=== PATIENT | male | born 1955 | race Caucasian/White ===

== ENCOUNTER → 2016-12-02 | Outpatient (CLI) | payer BC, OTHER ==
[~2016-12-02] MED LIST: ALBINS/ INH; ALBUAER19 INH; ALPR-385 PO; ALPR1TAB PO; ALPR1TAB3 PO; ALPR2TAB6 PO; AMOX500C3 PO; ASPI81TA28 PO; BACL10TA PO; BENZ100C84 PO; BTLAI INJ; BTLAI200 INJ; CEFT2INJ40 IV; FINA5TAB PO; FLNIN/ NAE; FLUT0.15 NAE; FURO-85 PO; GABA-113 PO; IPRASOL4 INH; LEVO50TA6 PO; LINA1CAP PO; MELATAB2 PO; MISCCAP80 PO; MULT-506 PO; MULT-513 PO; NRN600 PO; OMEG10007 PO; OMEG12006 PO; OMEP40CA41 PO; OXYC-57 PO; POLY335019 PO; PRS5 PO; RANI300T2 PO; RIVA1TAB4 PO; RIVA1TAB7 PO; SODICRE2 PO; SPRIN/30 INH; SULF800T23 PO; SUVO1TAB4 PO; SYMIN160 INH; TADA10TA PO; TADA20TA PO; TAMS0.4C38 PO; TRAZ50TA35 PO; TSSP PO; VLM5 PO; VNTHFA/IN INH; VORT10TA12 PO; XRL15 PO; ZOLP12.5 PO; [UNRECOGNIZED DRUG - OTHER] TOP
--- NOTE | 2016-12-02 16:55 | DIAGNOSTIC IMAGING REPORT ---
BILATERAL KNEES, STANDING AP CLINICAL HISTORY: BILATERAL KNEE PAIN COMPARISON STUDY: Bilateral knees 08/21/2015. FINDINGS: AP standing view of the bilateral knees were submitted for review. Severe cartilage space narrowing with [id number] articulation at the lateral compartment of the right knee. There is also severe cartilage space narrowing within the medial compartment of the right knee. There is moderate cartilage space narrowing within the medial compartment of the left knee and mild cartilage space narrowing within the lateral compartment of the left knee. The cartilage space narrowing has progressed within both knees compared to the prior study. There are right greater the left osteophytes. No fracture or dislocation. Bipartite left patella. IMPRESSION: Right greater than left knee osteoarthritis as described above which has progressed compared to the prior study. Electronically signed by: Ivan Carballo M.D. 12/02/2016 4:53 PM Dictated Date/Time: 12/02/2016 4:51 PM
== END | disposition home or self-care (01) ==
LOC: C.RDSM 13:58
PROVIDERS: ATTEND Physical Medicine & Rehabilitation Sports Medicine
DX: M17.0 Bilateral primary osteoarthritis of knee (principal)

== ENCOUNTER → 2017-01-11 | Outpatient (CLI) | payer BC ==
[~2017-01-11] MED LIST changes: +OPTIRAY 320 IV PRN
--- NOTE | 2017-01-11 18:36 | DIAGNOSTIC IMAGING REPORT ---
CT ANGIOGRAPHY OF THE CHEST, PULMONARY EMBOLUS PROTOCOL CLINICAL HISTORY: Shortness of breath, chest tightness and elevated d-dimer. COMPARISON STUDY: Chest CT April 13, 2015. TECHNIQUE: Initially, infiltration at the IV site was noted. The patient was monitored and the risks were discussed with the patient. The patient was neurovascularly intact. The patient was asked to return to the emergency department with any difficulties. Following IV administration of 94 mL of Optiray-320, helical axial images of the chest were obtained utilizing the pulmonary embolus protocol. Maximal intensity projections and sagittal and coronal reformats were viewed on an independent 3D workstation. IV contrast was administered without complication. CT DOSE: 1365.49 mGy.cm FINDINGS: No pulmonary emboli are identified. The heart is mildly enlarged. There is no pericardial effusion. There is moderate coronary artery calcification. No enlarged thoracic lymph nodes are present. No pneumothorax or pleural effusion is present. There are mild groundglass opacities within the right lower lobe. No lobar consolidation is present. Central airways are patent. Bony thorax and upper abdomen are unremarkable. There is no thoracic aortic dissection. IMPRESSION: 1. No pulmonary emboli identified. 2. Minimal ground glass opacities within the right lower lobe which could reflect atelectasis or a mild infectious process. 3. Mild cardiomegaly. Electronically signed by: William iPneda M.D. 01/11/2017 6:34 PM Dictated Date/Time: 01/11/2017 6:23 PM
== END | disposition home or self-care (01) ==
LOC: C.CTS 17:30
PROVIDERS: ATTEND Internal Medicine Pulmonary Disease
DX: R06.02 Shortness of breath (principal)

== ENCOUNTER → 2017-01-11 | Outpatient (CLI) | payer BC ==
[~2017-01-11] MED LIST changes: -OPTIRAY 320 IV PRN
[2017-01-11 15:45] LABS: BASO % 0.2 %; BASO ABS # 0.01 K/uL (0-0.2); COMPLETE YES; EOS % 1.9 %; HEMATOCRIT 42.7 % (42-52); IG% 0.3 %; LYMPH % 19.6 %; LYMPH ABS # 1.13 K/uL (1.2-3.4); MEAN CELL VOLUME 85.1 fL (80-100); MEAN CORPUSCULAR HEMOGLOBIN 29.7 pg (25-34); MEAN CORPUSCULAR HGB CONC 34.9 g/dl (32-36); MEAN PLATELET VOLUME 11.5 fL (7.4-10.4); MONO % 5.7 %; NEUT % 72.3 %; PLATELET COUNT 192 K/uL (130-400); RED BLOOD COUNT 5.02 M/uL (4.7-6.1); WHITE BLOOD COUNT 5.77 K/uL (4.8-10.8)
[2017-01-11 16:13] LABS: BLOOD UREA NITROGEN 13 mg/dl (7-18); BUN/CREATININE RATIO 13.8 (10-20); CALCIUM 8.6 mg/dl (8.5-10.1); CARBON DIOXIDE 27 mmol/L (21-32); CHLORIDE 111 mmol/L (98-107); CREATININE 0.97 mg/dl (0.60-1.40); GLUCOSE 123 mg/dl (70-99); POTASSIUM 3.9 mmol/L (3.5-5.1); SODIUM 144 mmol/L (136-145)
== END | disposition home or self-care (01) ==
LOC: C.LAB 15:04
PROVIDERS: ATTEND Internal Medicine Pulmonary Disease
DX: R05 Cough (principal); R06.02 Shortness of breath

== ENCOUNTER → 2017-02-14 | Outpatient (CLI) | payer BC ==
--- NOTE | 2017-02-14 09:29 | DIAGNOSTIC IMAGING REPORT ---
RIGHT HAND MIN 3 VIEWS CLINICAL HISTORY: RIGHT HAND PAIN Right pain. Osteoarthritis. COMPARISON: 01/22/2016. FINDINGS: slightly progressive degenerative change first carpometacarpal joint. Unchanging degenerative change first metacarpophalangeal interphalangeal joint. Minimal stable degenerative changes of the interphalangeal joints. No significant marginal erosions. IMPRESSION: 1. Significant degenerative change first carpometacarpal joint minimally progressive from the prior study. 2. Moderate degenerative change first metacarpophalangeal joint unchanged. 3. Minimal degenerative change interphalangeal joints unchanged Electronically signed by: Helio Salcido M.D. 02/14/2017 9:26 AM Dictated Date/Time: 02/14/2017 9:24 AM
== END | disposition home or self-care (01) ==
LOC: C.RDSM 09:18
PROVIDERS: ATTEND Physician Assistant
DX: R52 Pain, unspecified (principal)

== ENCOUNTER → 2017-02-23 | Outpatient (CLI) | payer BC, OTHER | END | disposition home or self-care (01) | LOC: MERGE 17:55 → C.LABSPEC 17:55 → EDBD 17:55 | PROVIDERS: ATTEND Podiatrist Foot & Ankle Surgery | DX: L60.0 Ingrowing nail (principal) ==

== ENCOUNTER → 2017-03-13 | Outpatient (CLI) | payer OTHER | END | disposition home or self-care (01) | LOC: C.RDSM 08:00 | PROVIDERS: ATTEND Physical Medicine & Rehabilitation Sports Medicine | DX: M25.512 Pain in left shoulder (principal) ==

== ENCOUNTER 2017-06-13 09:32 | Inpatient (IN) | payer OTHER ==
[~2017-06-13] VITALS: Ht 182.9 cm; Wt 96.2 kg
[~2017-06-13 09:32] MED LIST changes: -ALBINS/ INH; -ALPR-385 PO; -ALPR1TAB PO; -ALPR1TAB3 PO; -BENZ100C84 PO; -BTLAI200 INJ; -CEFT2INJ40 IV; -FLUT0.15 NAE; -FURO-85 PO; -LINA1CAP PO; -MULT-513 PO; -NRN600 PO; -OMEG10007 PO; -OXYC-57 PO; -PRS5 PO; -RANI300T2 PO; -RIVA1TAB4 PO; -RIVA1TAB7 PO; -SODICRE2 PO; -SPRIN/30 INH; -SULF800T23 PO; -TADA20TA PO; -VLM5 PO; -VNTHFA/IN INH; -VORT10TA12 PO; -XRL15 PO
[2017-06-13] MEDS ORDERED: SODIUM CHLORIDE 0.9% 1000ML 1,000 ML IV STA (09:48)
[2017-06-13] MEDS ORDERED: ONDANSETRON INJ 2 MG/ML 2 ML VIAL IV STA (09:48)
--- NOTE | 2017-06-13 09:55 | EMERGENCY ROOM VISIT NOTE ---
History Report prepared by Kayyibjuhi: Lillie Martinez Under the Supervision of: Dr. Shawn Flores D.O. First contact with patient: 09:44 Chief Complaint: REFERRED BY DOCTOR Stated Complaint: SHAKING - RIGHT HIP OUT - COUGHING History of Present Illness The patient is a 61 year old male who presents to the Emergency Room with complaints of persistent chest pain for the past 1 week. He is accompanied by his . He rates his pain as a 9/10 and describes it as feeling like "tightness". Sitting up worsens his pain and also causes the patient to cough. The cough has been dry and non-productive. The patient states he has never experienced symptoms like this before. He admits to a history of pleurisy but states his current symptoms feel different. He denies any recent fevers, nausea or vomiting. Yesterday, he started experiencing right hip pain. He saw his doctor, Ysabel Stinson PA-C, at [facility], earlier this morning and was referred to the ED for his symptoms. The patient also complains of abdominal pain for the "last couple of days". He notes his appetite has been decreased and admits to a history of constipation. His reports he takes Linzess for his constipation. The patient still has both his appendix and gallbladder. He denies any pain or swelling in his legs and denies any history of DVT's. 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 A total of 10 systems reviewed and were otherwise negative. Past Medical & Surgical Medical Problems: (1) Anxiety (2) COPD (chronic obstructive pulmonary disease) (3) Depression (4) Enlarged prostate (5) GERD (gastroesophageal reflux disease) (6) Hypothyroidism (7) Tonsil cancer (8) Urinary retention (9) VSD (ventricular septal defect) Surgical Problems: (1) H/O arthroscopy of shoulder (2) H/O umbilical hernia repair (3) History of carpal tunnel release (4) History of tonsillectomy and adenoidectomy (5) Right ankle surgery (6) S/P left knee arthroscopy (7) S/P right knee arthroscopy (8) S/P TURP Social History Problems: (1) COPD exacerbation (2) H/O gastroesophageal reflux (GERD) (3) H/O laryngeal cancer (4) S/P hernia repair (5) VSD (ventricular septal defect) Family History Diabetes mellitus FH: lung disease FHx: cancer Social History Smoking Status: Never Smoker Alcohol Use: occasionally Drug Use: none Marital Status: Housing Status: lives with significant other Occupation Status: employed Current/Historical Medications Scheduled Alprazolam (Xanax), 1 MG PO TID Alprazolam (Xanax Xr), 1 TAB PO BID Baclofen (Lioresal), 20 MG PO QID Botulinum Toxin Type A (Botox), 1 DOSE INJ UD Budesonide/Formoterol Fumarate (Symbicort 160/4.5 Inhaler ), 2 PUFFS INH BID Finasteride (Finasteride), 5 MG PO DAILY Fish Oil (Jackson-3), 1 CAP PO DAILY Fluticasone Propionate (Nasal) (Flonase Allergy Relief), 1 SPRAY ELIA DAILY Gabapentin (Gabapentin), 600 MG PO TID Levothyroxine Sodium (Levothyroxine Sodium), 50 MCG PO DAILY Linaclotide (Linzess), 145 MCG PO DAILY Multivitamins/Minerals (Mvi With Minerals), 1 TAB PO DAILY Omeprazole (Prilosec), 40 MG PO DAILY Probiotic Product (Probiotic), 1 CAP PO DAILY Ranitidine (Zantac), 300 MG PO HS Sodium Fluoride (Dental) (Denta 5000 Plus), 1 APPLN PO UD Tadalafil (Cialis), 20 MG PO UD Tamsulosin Hcl (Flomax), 0.4 MG PO DAILY Tiotropium [place] (Spiriva Handihaler), 1 CAP INH DAILY Vortioxetine HBr (Trintellix), 15 MG PO DAILY Scheduled PRN Albuterol Sulf (Proventil 0.083% 2.5MG/3ML), 2.5 MG INH Q4 PRN for Wheezing Benzonatate (Tessalon Perles), 100-200 MG PO TID PRN for Cough Ipratropium-Albuterol (Duoneb), 1 TREATMENT INH Q4H PRN for SOB/Wheezing Suvorexant (Belsomra), 20 MG PO HS PRN for Insomnia Trazodone Hcl (Trazodone), 25-50 MG PO HS PRN for Sleep Zolpidem Tartrate (Ambien Cr), 12.5 MG PO HS PRN for Insomnia Allergies Coded Allergies: Statins (Verified Adverse Reaction, Intermediate, GI UPSET, 08/11/16) Temazepam (Verified Adverse Reaction, Unknown, LOSES VOLUNTARY MUSCLE CONTROL, 08/11/16) Physical Exam Vital Signs Date Time Temp Pulse Resp B/P (MAP) Pulse Ox O2 Delivery O2 Flow Rate FiO2 06/13/17 12:10 92 Room Air 06/13/17 12:02 74 16 112/70 92 Room Air 06/13/17 11:07 75 20 110/66 94 Nasal Cannula 2.0 06/13/17 10:29 73 20 124/76 95 Nasal Cannula 2.0 06/13/17 10:06 92 Nasal Cannula 2.0 06/13/17 10:03 96 06/13/17 10:02 92 Nasal Cannula 2.0 06/13/17 09:35 36.8 92 18 129/71 94 Room Air Physical Exam GENERAL: Patient is awake, alert, very anxious and appears to be in significant pain. EYES: The conjunctivae are clear. The pupils are round and reactive. EARS, NOSE, MOUTH AND THROAT: The nose is without any evidence of any deformity. Mucous membranes are moist dry, is midline NECK: The neck is nontender and supple. RESPIRATORY: Splinting respirations noted, no rales, rhonchi or wheezing appreciated. CARDIOVASCULAR: Heart sounds are very distant and difficult to auscultate. GASTROINTESTINAL: The abdomen is moderately distended and diffusely tender. Diffuse guarding noted. MUSCULOSKELETAL/EXTREMITIES: There is no evidence of gross deformity full range of motion is noted in the hips and shoulders SKIN: There is no obvious evidence of any rash. There are no petechiae, pallor or cyanosis noted. NEUROLOGIC: Patient is awake alert and oriented x3 Medical Decision & Procedures ER Provider Diagnostic Interpretation: Radiology results as stated below per my review and radiologist interpretation: SINGLE VIEW CHEST CLINICAL HISTORY: Atypical chest pain. FINDINGS: An AP, portable, upright chest radiograph is compared to study dated 06/20/2016 and correlated with chest CT dated 01/11/2017. The examination is degraded by portable technique and patient rotation. The heart is enlarged. The pulmonary vasculature is noncongested. The lungs and pleural spaces are clear. No pneumothorax is seen. The bony thorax is grossly intact. There is moderate S-shaped thoracolumbar scoliosis. IMPRESSION: Cardiomegaly with no active disease in the chest. Electronically signed by: eJff Amaya M.D. 06/13/2017 10:07 AM ABDOMEN AND PELVIS CT WITH IV CONTRAST CT DOSE: HISTORY: Right lower quadrant abdominal pain. TECHNIQUE: Multiaxial CT images of the abdomen and pelvis were performed following the use of intravenous contrast. A dose lowering technique was utilized adhering to the principles of ALARA. COMPARISON STUDY: Abdomen and pelvis CT 07/12/2016. FINDINGS: No pneumoperitoneum. No pneumatosis. Mild motion artifact within the midabdomen. No fractures within the visualized osseous structures. Levoscoliosis of the lumbar spine. The liver, gallbladder, pancreas, adrenal glands, and kidneys are unremarkable. No hydronephrosis. No retroperitoneal lymphadenopathy. The bladder is distended and contains a few small diverticula. This remains unchanged. Tiny fat-containing umbilical hernia. Moderate stool seen throughout the colon. No definite bowel wall thickening or obstruction. The visualized appendix appears unremarkable. Splenomegaly measuring 14 cm in length. This has increased in size IMPRESSION: 1. No definite bowel wall thickening or obstruction. 2. Normal appendix. 3. Moderate stool within the colon. 4. Distended bladder, unchanged. 5. Splenomegaly which has slightly increased in size. Electronically signed by: Ivan Carballo M.D. 06/13/2017 11:29 AM CHEST CTA for PULMONARY ARTERIES CT DOSE: 1603.47 mGycm HISTORY: Atypical chest pain. TECHNIQUE: Multiaxial CT images of the chest were performed following the intravenous administration of contrast to evaluate the pulmonary arteries. Maximal intensity projection images were also obtained. A dose lowering technique was utilized adhering to the principles of ALARA. COMPARISON STUDY: Chest CTA 01/11/2017. FINDINGS: Normal caliber thoracic aorta with no evidence for dissection. The heart remains mildly enlarged. No pleural or pericardial effusions. Small filling defects seen within the subsegmental branches of the right lower lobe best seen on images 131 and 104. These are consistent with pulmonary emboli. The remaining arteries are patent. No evidence for right-sided heart strain. No mediastinal or hilar lymphadenopathy. No pneumothorax. A few scattered linear densities within the lungs suggestive of scarring or subsegmental atelectasis. 4 mm subpleural nodular density within the right upper lobe on image 195. Groundglass appearance throughout the lungs which may be due to expiration or dependent change. IMPRESSION: 1. Subsegmental pulmonary emboli within the right lower lobe. 2. Groundglass appearance to the lungs which may be due to expiration or dependent change. An atypical pneumonitis or mild congestive change is considered less likely. 3. Cardiomegaly, unchanged. Electronically signed by: Ivan Carballo M.D. 06/13/2017 11:18 AM Laboratory Results Test 06/13/17 10:10 06/13/17 10:13 06/13/17 10:17 06/13/17 10:22 Immature Granulocyte % (Auto) 0.3 % White Blood Count 7.49 K/uL (4.8-10.8) Red Blood Count 4.12 M/uL (4.7-6.1) Hemoglobin 11.8 g/dL (14.0-18.0) Hematocrit 35.4 % (42-52) Mean Corpuscular Volume 85.9 fL (80-100) Mean Corpuscular Hemoglobin 28.6 pg (25-34) Mean Corpuscular Hemoglobin Concent 33.3 g/dl (32-36) Platelet Count 239 K/uL (130-400) Mean Platelet Volume 9.9 fL (7.4-10.4) Neutrophils (%) (Auto) 79.4 % Lymphocytes (%) (Auto) 8.3 % Monocytes (%) (Auto) 12.0 % Eosinophils (%) (Auto) 0.0 % Basophils (%) (Auto) 0.0 % Neutrophils # (Auto) 5.95 K/uL (1.4-6.5) Lymphocytes # (Auto) 0.62 K/uL (1.2-3.4) Monocytes # (Auto) 0.90 K/uL (0.11-0.59) Eosinophils # (Auto) 0.00 K/uL (0-0.5) Basophils # (Auto) 0.00 K/uL (0-0.2) Immature Granulocyte # (Auto) 0.02 K/uL (0.00-0.02) Prothrombin Time 12.0 SECONDS (9.0-12.0) Prothromb Time International Ratio 1.1 (0.9-1.1) Total Bilirubin 1.0 mg/dl (0.2-1) Direct Bilirubin 0.4 mg/dl (0-0.2) Aspartate Amino Transf (AST/SGOT) 22 U/L (15-37) Alanine Aminotransferase (ALT/SGPT) 26 U/L (12-78) Alkaline Phosphatase 118 U/L (45-117) Total Creatine Kinase 36 U/L (39-308) Creatine Kinase MB < 0.5 ng/ml (0.5-3.6) Creatine Kinase MB Ratio (0-3.0) Troponin I < 0.015 ng/ml (0-0.045) Pro-B-Type Natriuretic Peptide 168 pg/ml (0-900) Total Protein 7.2 gm/dl (6.4-8.2) Albumin 3.1 gm/dl (3.4-5.0) Lipase 193 U/L (73-393) Bedside D-Dimer > 450 ng/mlFEU (0-450) Bedside Hemoglobin 12.2 g/dl (14.0-18.0) Bedside Hematocrit 36 % (42-52) Bedside Sodium 135 mEq/L (135-144) Bedside Potassium 3.7 mEq/L (3.3-5.0) Bedside Chloride 101 mEq/L (101-112) Bedside Total CO2 21 mEq/l (24-31) Bedside Blood Urea Nitrogen 12 mg/dl (7-18) Bedside Creatinine 0.9 mg/dl (0.6-1.3) Bedside Glucose (other) 124 mg/dl (70-99) Bedside Ionized Calcium (Teresa) 1.13 mmol/l (1.12-1.32) Bedside Lactic Acid Venous 0.67 mmol/L (0.90-1.70) Test 06/13/17 11:25 Urine Color YELLOW Urine Appearance CLOUDY (CLEAR) Urine pH 7.0 (4.5-7.5) Urine Specific [place] 1.014 (1.000-1.030) Urine Protein NEG (NEG) Urine Glucose (UA) NEG (NEG) Urine Ketones NEG (NEG) Urine Occult Blood NEG (NEG) Urine Nitrite NEG (NEG) Urine Bilirubin NEG (NEG) Urine Urobilinogen NEG (NEG) Urine Leukocyte Esterase NEG (NEG) Urine WBC (Auto) /hpf (0-5) Urine RBC (Auto) /hpf (0-4) Urine Hyaline Casts (Auto) /lpf (0-5) Urine Epithelial Cells (Auto) /lpf (0-5) Urine Bacteria (Auto) (NEG) Urine RBC 0-4 /hpf (0-4) Urine WBC 0 /hpf (0-5) Urine Epithelial Cells 0-5 /lpf (0-5) Urine Bacteria NEG (NEG) Laboratory results per my review. Medications Administered Medications (Trade) Dose Ordered Sig/Chanda Route Start Time Stop Time Status Last Admin Dose Admin Ondansetron HCl (Zofran Inj) 4 mg NOW STAT IV 06/13/17 09:48 06/13/17 09:51 DC 06/13/17 10:25 4 MG Sodium Chloride 1,000 ml @ 999 mls/hr Q1H1M STAT IV 06/13/17 09:48 06/13/17 10:48 DC 06/13/17 10:26 999 MLS/HR Morphine Sulfate (MoRPHine SULFATE INJ) 4 mg Q15M PRN IV 06/13/17 10:00 06/14/17 14:14 DC 06/13/17 23:50 4 MG Hydromorphone HCl (Dilaudid Inj) 1 mg Q30M PRN IV 06/13/17 11:45 06/13/17 17:36 DC 06/13/17 13:19 1 MG Heparin Sodium/ Dextrose (Heparin 25,000 Unit/500ml D5W) 25,000 unit STK-MED ONCE .ROUTE 06/13/17 11:56 06/13/17 11:57 DC 06/13/17 12:09 25,000 UNIT Heparin Sodium (Porcine) (Heparin Sq 5000 Unit/0.5ml) 5,000 unit STK-MED ONCE .ROUTE 06/13/17 11:57 06/13/17 11:58 DC 06/13/17 12:06 5,000 UNIT Heparin Sodium/ Dextrose 500 ml @ 33 mls/hr [id number] PRN IV 06/13/17 12:15 06/14/17 15:42 DC 06/14/17 04:57 33 MLS/HR Hydromorphone HCl (Dilaudid Inj) 2 mg Q4 PRN IV 06/13/17 13:00 06/16/17 09:43 DC 06/16/17 08:00 2 MG Baclofen (Lioresal Tab) 20 mg QID PO 06/13/17 13:00 07/13/17 12:59 06/16/17 12:01 20 MG ECG Indication: chest pain Rate (beats per minute): 88 Rhythm: sinus rhythm Findings: PVC, other (Early transition noted. No acute ST segment abnormalities ) Change: no significant change (No change from Sep 17, 2014) ED Course 0945: The patient was evaluated in room A9. A complete history and physical examination were performed. 0948: NSS 1000 ml @ 999 mls/hr IV, Zofran 4 mg IV. 1000: Morphine Sulfate 4 mg IV. 1145: Dilaudid 1 mg IV. 1153: I discussed the patients case with Alejandra Colón PA-C, [facility]. The patient will be further evaluated. 1156: Heparin Sodium/Dextrose 46354 units IV. 1157: Heparin Sodium 5000 units IV. Medical Decision Prior records/ancillary studies reviewed. Triage Nursing notes reviewed. The patient's history was concerning for abdominal pain. Differential diagnosis: Etiologies such as appendicitis, diverticulitis, PUD, biliary pathology, UTI, pancreatitis, obstruction, mesenteric ischemia, aortic pathology, infections, inflammatory bowel disease, renal colic, as well as others were entertained. The patient is a 61-year-old male who presented to the emergency department for multiple complaints. The patient had noticed chest pain was pleuritic in nature. The patient also had very severe abdominal tenderness on exam. The patient was sent to the emergency department by his primary care physician for further workup after she was unable to evaluate him properly in the office. The patient was ordered a CT the chest abdomen and pelvis because I was unsure if this represented a vascular catastrophe involving his aorta. He was found have right-sided pulmonary embolism. He was also found have urinary retention. Landno catheter was placed which resolved part of his abdominal pain. The patient was started on blood thinners. I discussed the patient's laboratory radiographic studies with him. He was also given IV fluids IV pain medicine and IV antiemetics. On subsequent reevaluation he was significantly improved. [facility] to evaluate the patient in emergency department for further management and disposition. Medication Reconcilliation Current Medication List: was personally reviewed by me Blood Pressure Screening Patient's blood pressure: Normal blood pressure Blood pressure disposition: Did not require urgent referral Consults Time Called: 1150 Consulting Physician: Alejandra Colón PA-C, [facility] Returned Call: 1153 I discussed the patients case with Alejandra Colón PA-C, [facility]. The patient will be further evaluated. Impression Primary Impression: Pleuritic chest pain Additional Impressions: Pulmonary embolism Abdominal pain Urinary retention Critical Care I have personally spent greater than 45 minutes of critical care time in the direct management of this patient. This includes bedside care, interpretation of diagnostic studies, and testing, discussion with consultants, patient, and family members, and other required patient management activities. This 45 minutes is in excess of all separately billable procedures. Scribe Attestation The scribe's documentation has been prepared under my direction and personally reviewed by me in its entirety. I confirm that the note above accurately reflects all work, treatment, procedures, and medical decision making performed by me. Departure Information Dispostion Being Evaluated By Hospitalist Referrals Marcin Joy D.OErnesto (PCP) Patient Instructions [facility] Problem Qualifiers Additional Impressions: Pulmonary embolism Pulmonary embolism type: other Chronicity: acute Acute cor pulmonale presence: without acute cor pulmonale Qualified Codes: I26.99 - Other pulmonary embolism without acute cor pulmonale Abdominal pain Abdominal location: unspecified location Qualified Codes: R10.9 - Unspecified abdominal pain
--- NOTE | 2017-06-13 10:08 | DIAGNOSTIC IMAGING REPORT ---
SINGLE VIEW CHEST CLINICAL HISTORY: Atypical chest pain. FINDINGS: An AP, portable, upright chest radiograph is compared to study dated 06/20/2016 and correlated with chest CT dated 01/11/2017. The examination is degraded by portable technique and patient rotation. The heart is enlarged. The pulmonary vasculature is noncongested. The lungs and pleural spaces are clear. No pneumothorax is seen. The bony thorax is grossly intact. There is moderate S-shaped thoracolumbar scoliosis. IMPRESSION: Cardiomegaly with no active disease in the chest. Electronically signed by: Jeff Amaya M.D. 06/13/2017 10:07 AM Dictated Date/Time: 06/13/2017 10:06 AM
[2017-06-13] MEDS: MoRPHine SULFATE 4 MG/ML 1 ML CARP\\VIAL IV PRN ×5 (10:26→23:50)
[2017-06-13 10:33] LABS: HEMATOCRIT 35.4 % (42-52); MEAN CELL VOLUME 85.9 fL (80-100); MEAN CORPUSCULAR HEMOGLOBIN 28.6 pg (25-34); MEAN CORPUSCULAR HGB CONC 33.3 g/dl (32-36); MEAN PLATELET VOLUME 9.9 fL (7.4-10.4); PLATELET COUNT 239 K/uL (130-400); RED BLOOD COUNT 4.12 M/uL (4.7-6.1); WHITE BLOOD COUNT 7.49 K/uL (4.8-10.8)
[2017-06-13 10:41] LABS: ISTAT CREATININE 0.9 mg/dl (0.6-1.3); ISTAT HEMOGLOBIN 12.2 g/dl (14.0-18.0); ISTAT IONIZED CALCIUM 1.13 mmol/l (1.12-1.32)
[2017-06-13 10:44] LABS: INR 1.1 (0.9-1.1); PARTIAL THROMBOPLASTIN RATIO 1.3
[2017-06-13 10:48] LABS: ALT/SGPT 26 U/L (12-78); BLOOD UREA NITROGEN 13 mg/dl (7-18); BUN/CREATININE RATIO 13.9 (10-20); CALCIUM 8.6 mg/dl (8.5-10.1); CARBON DIOXIDE 23 mmol/L (21-32); CHLORIDE 104 mmol/L (98-107); GLUCOSE 118 mg/dl (70-99); POTASSIUM 3.6 mmol/L (3.5-5.1); SODIUM 136 mmol/L (136-145)
[2017-06-13 10:53] LABS: ALKALINE PHOSPHATASE 118 U/L (45-117); AST/SGOT 22 U/L (15-37)
[2017-06-13 11:00] LABS: COMPLETE YES; IG% 0.3 %; LYMPH % 8.3 %; LYMPH ABS # 0.62 K/uL (1.2-3.4); NEUT % 79.4 %
--- NOTE | 2017-06-13 11:20 | DIAGNOSTIC IMAGING REPORT ---
CHEST CTA for PULMONARY ARTERIES CT DOSE: 1603.47 mGycm HISTORY: Atypical chest pain. TECHNIQUE: Multiaxial CT images of the chest were performed following the intravenous administration of contrast to evaluate the pulmonary arteries. Maximal intensity projection images were also obtained. A dose lowering technique was utilized adhering to the principles of ALARA. COMPARISON STUDY: Chest CTA 01/11/2017. FINDINGS: Normal caliber thoracic aorta with no evidence for dissection. The heart remains mildly enlarged. No pleural or pericardial effusions. Small filling defects seen within the subsegmental branches of the right lower lobe best seen on images 131 and 104. These are consistent with pulmonary emboli. The remaining arteries are patent. No evidence for right-sided heart strain. No mediastinal or hilar lymphadenopathy. No pneumothorax. A few scattered linear densities within the lungs suggestive of scarring or subsegmental atelectasis. 4 mm subpleural nodular density within the right upper lobe on image 195. Groundglass appearance throughout the lungs which may be due to expiration or dependent change. IMPRESSION: 1. Subsegmental pulmonary emboli within the right lower lobe. 2. Groundglass appearance to the lungs which may be due to expiration or dependent change. An atypical pneumonitis or mild congestive change is considered less likely. 3. Cardiomegaly, unchanged. Electronically signed by: Ivan Carballo M.D. 06/13/2017 11:18 AM Dictated Date/Time: 06/13/2017 11:08 AM
[2017-06-13] MEDS ORDERED: MISCCAP80 PO (11:30)
[2017-06-13] MEDS ORDERED: MULT-513 PO (11:30)
[2017-06-13] MEDS ORDERED: BENZ100C84 PO (11:30)
[2017-06-13] MEDS ORDERED: ALPR1TAB PO (11:30)
[2017-06-13] MEDS ORDERED: SODICRE2 PO (11:30)
[2017-06-13] MEDS ORDERED: RANI300T2 PO (11:30)
[2017-06-13] MEDS ORDERED: SYMIN160 INH (11:30)
[2017-06-13] MEDS ORDERED: LINA1CAP PO (11:30)
[2017-06-13] MEDS ORDERED: TAMS0.4C38 PO (11:30)
[2017-06-13] MEDS ORDERED: ALPR1TAB3 PO (11:30)
[2017-06-13] MEDS ORDERED: ZOLP12.5 PO (11:30)
[2017-06-13] MEDS ORDERED: IPRASOL4 INH (11:30)
[2017-06-13] MEDS ORDERED: NRN600 PO (11:30)
[2017-06-13] MEDS ORDERED: TADA20TA PO (11:30)
[2017-06-13] MEDS ORDERED: PRS5 PO (11:30)
[2017-06-13] MEDS ORDERED: ALBINS/ INH (11:30)
[2017-06-13] MEDS ORDERED: LEVO50TA6 PO (11:30)
[2017-06-13] MEDS ORDERED: OMEG10007 PO (11:30)
[2017-06-13] MEDS ORDERED: BTLAI200 INJ (11:30)
[2017-06-13] MEDS ORDERED: VORT10TA12 PO (11:30)
[2017-06-13] MEDS ORDERED: SPRIN/30 INH (11:30)
[2017-06-13] MEDS ORDERED: SUVO1TAB4 PO (11:30)
[2017-06-13] MEDS ORDERED: BACL10TA PO (11:30)
[2017-06-13] MEDS ORDERED: TRAZ50TA35 PO (11:30)
[2017-06-13] MEDS ORDERED: OMEP40CA41 PO (11:30)
[2017-06-13] MEDS ORDERED: FLUT0.15 NAE (11:30)
--- NOTE | 2017-06-13 11:30 | DIAGNOSTIC IMAGING REPORT ---
ABDOMEN AND PELVIS CT WITH IV CONTRAST CT DOSE: HISTORY: Right lower quadrant abdominal pain. TECHNIQUE: Multiaxial CT images of the abdomen and pelvis were performed following the use of intravenous contrast. A dose lowering technique was utilized adhering to the principles of ALARA. COMPARISON STUDY: Abdomen and pelvis CT 07/12/2016. FINDINGS: No pneumoperitoneum. No pneumatosis. Mild motion artifact within the midabdomen. No fractures within the visualized osseous structures. Levoscoliosis of the lumbar spine. The liver, gallbladder, pancreas, adrenal glands, and kidneys are unremarkable. No hydronephrosis. No retroperitoneal lymphadenopathy. The bladder is distended and contains a few small diverticula. This remains unchanged. Tiny fat-containing umbilical hernia. Moderate stool seen throughout the colon. No definite bowel wall thickening or obstruction. The visualized appendix appears unremarkable. Splenomegaly measuring 14 cm in length. This has increased in size IMPRESSION: 1. No definite bowel wall thickening or obstruction. 2. Normal appendix. 3. Moderate stool within the colon. 4. Distended bladder, unchanged. 5. Splenomegaly which has slightly increased in size. Electronically signed by: Ivan Carballo M.D. 06/13/2017 11:29 AM Dictated Date/Time: 06/13/2017 11:22 AM
[2017-06-13 11:40] LABS: URINE APPEARANCE CLOUDY (CLEAR); URINE BILIRUBIN NEG (NEG); URINE COLOR YELLOW; URINE NITRITE NEG (NEG); URINE SPECIFIC GRAVITY 1.014 (1.000-1.030); UROBILINOGEN NEG (NEG); ZZURINE CULT IF INDIC CATH NO
[2017-06-13 11:42] LABS: MANUAL MICROSCOPIC REQUIRED? YES; REVIEW REQ? NO
[2017-06-13 11:55] LABS: URINE RBC 0-4 /hpf (0-4)
[2017-06-13 11:56] LABS: URINE BACTERIA NEG (NEG); URINE WBC 0 /hpf (0-5)
[2017-06-13] MEDS ORDERED: HEPARIN 25000 UNIT/500 ML D5W ONE (11:56)
[2017-06-13] MEDS ORDERED: HEPARIN SOD 5000 UNIT/0.5 ML CARP ONE (11:57)
[2017-06-13] MEDS: HYDROmorphone INJ 1 MG/ML SYR IV PRN ×2 (12:01→13:19)
[2017-06-13] MEDS ORDERED: HEPARIN SOD (PORCINE) 1000 UNIT/ML 10 ML VIAL IV STA (12:03)
[2017-06-13 12:10] VITALS: O2SAT 92; Ht 182.9 cm; Wt 96.2 kg
[2017-06-13] MEDS: HEPARIN 25,000 UNIT/500ML D5W 500 ML IV PRN (12:17)
[2017-06-13] MEDS ORDERED: TRAZODONE HCL 50 MG TAB PO PRN (13:00)
[2017-06-13] MEDS ORDERED: ONDANSETRON INJ 2 MG/ML 2 ML VIAL IV PRN (13:15)
[2017-06-13] MEDS ORDERED: ACETAMINOPHEN 325 MG TAB PO PRN (13:15)
[2017-06-13 13:55] VITALS: BP 113/67; PULSE 72; TEMP 36.7; O2SAT 96
[2017-06-13] MEDS: HYDROmorphone INJ 2 MG/ML SYR/VIAL IV PRN ×3 (14:11→21:26)
--- NOTE | 2017-06-13 14:15 | History and Physical ---
History & Physical Date & Time of Service: Jun 13, 2017 at 14:02 Chief Complaint: Shaking - Right Hip Out - Coughing Primary Care Physician: Marcin Joy D.OErnesto History of Present Illness Source: patient, family This is a 61yo M with a PMH of COPD, anxiety, h/o Tonsillar cancer (2007), acquired hypothyroidism and enlarged prostate who presents with pleuritic chest pain x 1 week. Patient was at an out-patient Pulm appt today and was told to come to ED. Patient described pain as a feeling of tightness on both sides of his chest, worse with inspiration and when lying down. Denies any fever, chills , cough, URI symptoms, diaphoresis, radiation to arms or jaw, dyspnea, SOB, calf pain or weakness. States that years ago he experienced pleurisy and this feels similar. Does not feel like a typical COPD exacerbation like he has experienced in the past. Of note, patient injured his L ankle last month and has been much more sedentary than his baseline during recovery. Denies history of DVTs/PEs, CAD or HTN. In addition to pleuritic pain, patient is endorsing a 10/10 sharp "excruciating " pain of the R hip and RLQ that started yesterday. Pain is constant but exacerbated by any type of movement, especially with flexion of either hip. Denies any associated fever, chills, nausea, vomiting or diarrhea. Was found to have a R subsegmental pulmonary embolus on chest/thorax CTA in the ED. Was started on Heparin. Past Medical/Surgical History Medical Problems: (1) Anxiety Status: Chronic (2) COPD (chronic obstructive pulmonary disease) Status: Chronic (3) Depression Status: Chronic (4) GERD (gastroesophageal reflux disease) Status: Chronic (5) Hypothyroidism Status: Chronic (6) 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 (7) Urinary retention Status: Chronic (8) VSD (ventricular septal defect) Status: Chronic Surgical Problems: (1) H/O arthroscopy of shoulder Status: Chronic (2) H/O umbilical hernia repair Status: Chronic (3) History of carpal tunnel release Status: Chronic (4) Right ankle surgery Status: Chronic (5) S/P left knee arthroscopy Status: Chronic (6) S/P right knee arthroscopy Status: Chronic (7) S/P TURP Status: Chronic Social History Problems: (1) H/O gastroesophageal reflux (GERD) Status: Chronic (2) H/O laryngeal cancer Status: Resolved (3) S/P hernia repair Status: Resolved (4) VSD (ventricular septal defect) Status: Chronic Family History Diabetes mellitus FH: lung disease FHx: cancer Social History Smoking Status: Never Smoker Drug Use: none Marital Status: Housing status: lives with significant other Occupational Status: employed Immunizations History of Influenza Vaccine: Yes Influenza Vaccine Date: Sep 14, 2015 History of Tetanus Vaccine?: Yes Tetanus Immunization Date: Nov 09, 2009 History of Pneumococcal: Yes Pneumococcal Date: Sep 24, 2014 History of Hepatitis B Vaccine: Unknown Multi-Drug Resistant Organisms History of MDRO: Yes Type of MDRO: MRSA Allergies Coded Allergies: Statins (Verified Adverse Reaction, Intermediate, GI UPSET, 08/11/16) Temazepam (Verified Adverse Reaction, Unknown, LOSES VOLUNTARY MUSCLE CONTROL, 08/11/16) Home Medications Scheduled Alprazolam (Xanax), 1 MG PO TID Alprazolam (Xanax Xr), 1 TAB PO BID Baclofen (Lioresal), 20 MG PO QID Botulinum Toxin Type A (Botox), 1 DOSE INJ UD Budesonide/Formoterol Fumarate (Symbicort 160/4.5 Inhaler ), 2 PUFFS INH BID Finasteride (Finasteride), 5 MG PO DAILY Fish Oil (Industry-3), 1 CAP PO DAILY Fluticasone Propionate (Nasal) (Flonase Allergy Relief), 1 SPRAY ELIA DAILY Gabapentin (Gabapentin), 600 MG PO TID Levothyroxine Sodium (Levothyroxine Sodium), 50 MCG PO DAILY Linaclotide (Linzess), 145 MCG PO DAILY Multivitamins/Minerals (Mvi With Minerals), 1 TAB PO DAILY Omeprazole (Prilosec), 40 MG PO DAILY Probiotic Product (Probiotic), 1 CAP PO DAILY Ranitidine (Zantac), 300 MG PO HS Sodium Fluoride (Dental) (Denta 5000 Plus), 1 APPLN PO UD Tadalafil (Cialis), 20 MG PO UD Tamsulosin Hcl (Flomax), 0.4 MG PO DAILY Tiotropium [place] (Spiriva Handihaler), 1 CAP INH DAILY Vortioxetine HBr (Trintellix), 15 MG PO DAILY Scheduled PRN Albuterol Sulf (Proventil 0.083% 2.5MG/3ML), 2.5 MG INH Q4 PRN for Wheezing Benzonatate (Tessalon Perles), 100-200 MG PO TID PRN for Cough Ipratropium-Albuterol (Duoneb), 1 TREATMENT INH Q4H PRN for SOB/Wheezing Suvorexant (Belsomra), 20 MG PO HS PRN for Insomnia Trazodone Hcl (Trazodone), 25-50 MG PO HS PRN for Sleep Zolpidem Tartrate (Ambien Cr), 12.5 MG PO HS PRN for Insomnia Review of Systems Ten systems reviewed and negative except as noted in the HPI. Physical Exam Vital Signs Date Time Temp Pulse Resp B/P (MAP) Pulse Ox O2 Delivery O2 Flow Rate FiO2 06/13/17 13:39 100 20 92/55 94 Nasal Cannula 2.0 06/13/17 12:10 92 Room Air 06/13/17 12:02 74 16 112/70 92 Room Air 06/13/17 11:07 75 20 110/66 94 Nasal Cannula 2.0 06/13/17 10:29 73 20 124/76 95 Nasal Cannula 2.0 06/13/17 10:06 92 Nasal Cannula 2.0 06/13/17 10:03 96 06/13/17 10:02 92 Nasal Cannula 2.0 06/13/17 09:35 36.8 92 18 129/71 94 Room Air General Appearance: + moderate distress (Intermittently yelling out in pain from RLQ) Head: normocephalic, atraumatic Eyes: normal inspection ENT: normal ENT inspection (H/o cervical dystonia s/p radiation to throat ) Neck: supple, no adenopathy, trachea midline Respiratory/Chest: chest non-tender, lungs clear, no respiratory distress, no accessory muscle use, + decreased breath sounds (2/2 decreased inspiratory effort) Cardiovascular: regular rate, rhythm, + pertinent finding (Pansystolic murmur ) Abdomen/GI: normal bowel sounds, + tenderness (TTP RLQ > LLQ. With guarding in RLQ only. No rebound tenderness. ), + distended Back: normal inspection, + right CVA tenderness Extremities/Musculoskelatal: normal inspection (Brace on L ankle. ), no calf tenderness, normal capillary refill Neurologic/Psych: no motor/sensory deficits, alert, normal mood/affect, oriented x 3 Skin: normal color Diagnostics Laboratory Results Results Past 24 Hours Test 06/13/17 10:10 06/13/17 10:13 06/13/17 10:17 06/13/17 10:22 Range/Units White Blood Count 7.49 4.8-10.8 K/uL Red Blood Count 4.12 4.7-6.1 M/uL Hemoglobin 11.8 14.0-18.0 g/dL Hematocrit 35.4 42-52 % Mean Corpuscular Volume 85.9 80-100 fL Mean Corpuscular Hemoglobin 28.6 25-34 pg Mean Corpuscular Hemoglobin Concent 33.3 32-36 g/dl Platelet Count 239 130-400 K/uL Mean Platelet Volume 9.9 7.4-10.4 fL Neutrophils (%) (Auto) 79.4 % Lymphocytes (%) (Auto) 8.3 % Monocytes (%) (Auto) 12.0 % Eosinophils (%) (Auto) 0.0 % Basophils (%) (Auto) 0.0 % Neutrophils # (Auto) 5.95 1.4-6.5 K/uL Lymphocytes # (Auto) 0.62 1.2-3.4 K/uL Monocytes # (Auto) 0.90 0.11-0.59 K/uL Eosinophils # (Auto) 0.00 0-0.5 K/uL Basophils # (Auto) 0.00 0-0.2 K/uL RDW Standard Deviation 43.1 36.4-46.3 fL RDW Coefficient of Variation 13.7 11.5-14.5 % Immature Granulocyte % (Auto) 0.3 % Immature Granulocyte # (Auto) 0.02 0.00-0.02 K/uL Prothrombin Time 12.0 9.0-12.0 SECONDS Prothromb Time International Ratio 1.1 0.9-1.1 Activated Partial Thromboplast Time 34.4 21.0-31.0 SECONDS Partial Thromboplastin Ratio 1.3 Sodium Level 136 136-145 mmol/L Potassium Level 3.6 3.5-5.1 mmol/L Chloride Level 104 98-107 mmol/L Carbon Dioxide Level 23 21-32 mmol/L Anion Gap 9.0 17.0 16-25 mmol/L Blood Urea Nitrogen 13 7-18 mg/dl Creatinine 0.90 0.60-1.40 mg/dl Est Creatinine Clear Calc Drug Dose 95.8 ml/min Estimated GFR () 107.2 Estimated GFR (Non- 92.5 BUN/Creatinine Ratio 13.9 10-20 Random Glucose 118 70-99 mg/dl Calcium Level 8.6 8.5-10.1 mg/dl Total Bilirubin 1.0 0.2-1 mg/dl Direct Bilirubin 0.4 0-0.2 mg/dl Aspartate Amino Transf (AST/SGOT) 22 15-37 U/L Alanine Aminotransferase (ALT/SGPT) 26 12-78 U/L Alkaline Phosphatase 118 45-117 U/L Total Creatine Kinase 36 39-308 U/L Creatine Kinase MB < 0.5 0.5-3.6 ng/ml Creatine Kinase MB Ratio 0-3.0 Troponin I < 0.015 0-0.045 ng/ml Pro-B-Type Natriuretic Peptide 168 0-900 pg/ml Total Protein 7.2 6.4-8.2 gm/dl Albumin 3.1 3.4-5.0 gm/dl Lipase 193 73-393 U/L Bedside D-Dimer > 450 0-450 ng/mlFEU Bedside Hemoglobin 12.2 14.0-18.0 g/dl Bedside Hematocrit 36 42-52 % Bedside Sodium 135 135-144 mEq/L Bedside Potassium 3.7 3.3-5.0 mEq/L Bedside Chloride 101 101-112 mEq/L Bedside Total CO2 21 24-31 mEq/l Bedside Blood Urea Nitrogen 12 7-18 mg/dl Bedside Creatinine 0.9 0.6-1.3 mg/dl Bedside Glucose (other) 124 70-99 mg/dl Bedside Ionized Calcium (Teresa) 1.13 1.12-1.32 mmol/l Bedside Lactic Acid Venous 0.67 0.90-1.70 mmol/L Test 06/13/17 11:25 Range/Units Urine Color YELLOW Urine Appearance CLOUDY CLEAR Urine pH 7.0 4.5-7.5 Urine Specific [place] 1.014 1.000-1.030 Urine Protein NEG NEG Urine Glucose (UA) NEG NEG Urine Ketones NEG NEG Urine Occult Blood NEG NEG Urine Nitrite NEG NEG Urine Bilirubin NEG NEG Urine Urobilinogen NEG NEG Urine Leukocyte Esterase NEG NEG Urine WBC (Auto) 0-5 /hpf Urine RBC (Auto) 0-4 /hpf Urine Hyaline Casts (Auto) 0-5 /lpf Urine Epithelial Cells (Auto) 0-5 /lpf Urine Bacteria (Auto) NEG Urine RBC 0-4 0-4 /hpf Urine WBC 0 0-5 /hpf Urine Epithelial Cells 0-5 0-5 /lpf Urine Bacteria NEG NEG Diagnostic Radiology CT Abdomen/Pelvis: IMPRESSION: 1. No definite bowel wall thickening or obstruction. 2. Normal appendix. 3. Moderate stool within the colon. 4. Distended bladder, unchanged. 5. Splenomegaly which has slightly increased in size. Chest/Thorax CTA: IMPRESSION: 1. Subsegmental pulmonary emboli within the right lower lobe. 2. Groundglass appearance to the lungs which may be due to expiration or dependent change. An atypical pneumonitis or mild congestive change is considered less likely. 3. Cardiomegaly, unchanged. CXR: IMPRESSION: Cardiomegaly with no active disease in the chest. EKG Sinus rhythm with occasional PVCs. Left axis deviation. Non-specific ST and T wave abnormality. Impression Assessment and Plan This is a 61yo M with a PMH of COPD, anxiety, h/o Tonsillar cancer (2007), acquired hypothyroidism and enlarged prostate who presents with pleuritic chest pain x 1 week and was found to have a RLL pulmonary embolus. R Lower Lobe PE: -Chest/thorax CTA showing RLL subsegmental PE -Vitals are stable -Started on heparin -Initiated discharge planning re: Xarelto -Will discuss oral anticoagulation options with patient -Dilaudid 2g Q4H for pain management RLQ/R Hip Pain: -Complains of excruciating pain of RLQ, worse with R hip flexion -CT abd/pelvis clear with exception of distended bladder. 1. No definite bowel wall thickening or obstruction. 2. Normal appendix. 3. Moderate stool within the colon. 4. Distended bladder, unchanged. 5. Splenomegaly which has slightly increased in size. -Afebrile, no leukocytosis, no evidence of -Dilaudid 2g Q4H for pain management -Ordered R hip XR and bilateral US venous Doppler of BLE Urinary retention: -2/2 enlarged prostate -1.4 L of retained urine on bladder scan -Follows out-patient with urology. S/p TURP with residual L lobe hyperplasia -Bladder scans Q shift -Continue home meds Cervical dystonia / radiation: -S/p SSC of tonsils in 2007. In remission -Continue home meds for dystonia COPD: -Stable -Continue home inhalers/nebs Hypothyroidism: -Acquired /2 radiation -Continue synthroid Anxiety/depression: -Stable -Continue home meds Insomnia: -Continue Ambien and tramadol while in-patient -Holding Belsomra DVT Ppx: on heparin Code status: FULL PCP: Vishalhouser Dispo: Plan to return home once medically stable. ADDENDUM: Patient presented with chest pain and R flank pain - found to have subsegmental PE - started on IV heparin Will likely start on Xarelto - discharge planning eval for cost Also c/o R flank pain - decreased and painful ROM of R LE; Lidoderm patch ordered, Dilaudid/Percocet alternating; gabapentin and baclofen can continue for cervical dystonia; may need pain management consultation check R hip radiograph, check KUB, check LE Doppler Level of Care Telemetry Advanced Directives Existing Living Will: No Existing Power of Hand Cutter Apprentice: No Resuscitation Status FULL RESUSCITATION VTE Prophylaxis VTE Risk Assessment Done? Y/N: Yes Risk Level: High Given or contraindicated: Unfractionated heparin SQ
[2017-06-13 14:59] VITALS: BP 139/89; PULSE 94; TEMP 37.2; O2SAT 95
[2017-06-13] MEDS: LINZESS~ORDER AWAITING ACTION SCH (15:35)
[2017-06-13] MEDS: ALPRAZOLAM 0.5 MG TAB PO SCH ×2 (15:58→21:28)
[2017-06-13] MEDS: GABAPENTIN 600 MG TAB PO SCH ×2 (16:11→21:28)
[2017-06-13] MEDS: BACLOFEN 10 MG TAB PO SCH ×3 (16:11→21:28)
--- NOTE | 2017-06-13 16:44 | DIAGNOSTIC IMAGING REPORT ---
RIGHT HIP UNILATERAL 2 VIEWS CLINICAL HISTORY: R hip pain Right pain COMPARISON: None. DISCUSSION: Mild degenerative narrowing right hip joint space. No evidence for acetabular protrusion. No lytic or blastic process. There is no evidence for soft tissue swelling. IMPRESSION: Mild degenerative change. No acute process. The above report was generated using voice recognition software. It may contain grammatical, syntax or spelling errors. Electronically signed by: Helio Salcido M.D. 06/13/2017 4:43 PM Dictated Date/Time: 06/13/2017 4:42 PM
--- NOTE | 2017-06-13 17:12 | DIAGNOSTIC IMAGING REPORT ---
ULTRASOUND VENOUS DOPPLER LWR EXT BILA CLINICAL HISTORY: Leg swelling COMPARISON STUDY: 06/17/2016 FINDINGS: Real-time and color flow Doppler imaging were performed. Flow was seen within the femoral, popliteal and calf veins with no intraluminal thrombus demonstrated. The saphenous vein is patent. The examination was difficult from a technical standpoint. The patient was unable to fully cooperate with the study. 2 cystic lesions are again visualized in the right popliteal fossa, similar to the preceding study. The largest measures 65 x 20 x 31 mm. IMPRESSION: No evidence of lower extremity DVT. Electronically signed by: David Shaw M.D. 06/13/2017 5:11 PM Dictated Date/Time: 06/13/2017 5:10 PM
[2017-06-13] MEDS: OXYCODONE/ACETAMINOPHEN 5-325 TAB PO PRN ×2 (18:05→23:50)
[2017-06-13 19:10] VITALS: BP 113/64; PULSE 100; TEMP 37.2; O2SAT 96
[2017-06-13 19:21] LABS: PARTIAL THROMBOPLASTIN RATIO 1.8
--- NOTE | 2017-06-13 19:37 | DIAGNOSTIC IMAGING REPORT ---
KUB CLINICAL HISTORY: r/o R kidney stones flank pain COMPARISON STUDY: No previous studies for comparison. FINDINGS: Mild generalized ileus. No evidence of bowel distention. Calcifications the urinary tracts aren't possible to define given overlap artifact. IMPRESSION: 1. Non visibility of the urinary tracts due to overlying bowel air and fecal material. The above report was generated using voice recognition software. It may contain grammatical, syntax or spelling errors. Electronically signed by: Helio Salcido M.D. 06/13/2017 7:36 PM Dictated Date/Time: 06/13/2017 7:35 PM
[2017-06-13] MEDS: LIDODERM (LIDOCAINE) PATCH 5% TD SCH (20:12)
[2017-06-13 20:15] VITALS: O2SAT 96
[2017-06-13] MEDS: BUDESONIDE/FORMOTEROL FUMARATE 160/4.5 60 PUFFS/INHALER INH SCH (21:27)
[2017-06-13] MEDS: ZOLPIDEM TARTRATE 10 MG TAB PO PRN (21:30)
[2017-06-14] VITALS (14 sets, daily range): BP systolic 96–136; BP diastolic 55–89; PULSE 66–114; TEMP 36.3–38; O2SAT 92–99
[2017-06-14 00:44] LABS: PARTIAL THROMBOPLASTIN RATIO 1.6
[2017-06-14] MEDS: HYDROmorphone INJ 2 MG/ML SYR/VIAL IV PRN ×5 (00:58→19:04)
[2017-06-14] MEDS ORDERED: HEPARIN IV BOLUS 3,000 UNIT in SYRINGE 0 ML IV ONE (01:15)
[2017-06-14] MEDS: HEPARIN 25,000 UNIT/500ML D5W 500 ML IV PRN ×2 (01:22→04:57)
[2017-06-14] MEDS: LEVOTHYROXINE 50 MCG TAB PO SCH (04:57)
[2017-06-14 07:44] LABS: HEMATOCRIT 35.1 % (42-52); MEAN CELL VOLUME 87.1 fL (80-100); MEAN CORPUSCULAR HEMOGLOBIN 29.3 pg (25-34); MEAN CORPUSCULAR HGB CONC 33.6 g/dl (32-36); PLATELET COUNT 208 K/uL (130-400); RED BLOOD COUNT 4.03 M/uL (4.7-6.1); WHITE BLOOD COUNT 6.08 K/uL (4.8-10.8)
[2017-06-14] MEDS: LINZESS~ORDER AWAITING ACTION SCH ×2 (07:50)
[2017-06-14 08:00] LABS: PARTIAL THROMBOPLASTIN RATIO 2.1
[2017-06-14] MEDS: OXYCODONE/ACETAMINOPHEN 5-325 TAB PO PRN ×2 (08:10→16:58)
[2017-06-14] MEDS: ALPRAZOLAM 0.5 MG TAB PO SCH ×3 (08:11→20:29)
[2017-06-14] MEDS: BACLOFEN 10 MG TAB PO SCH ×4 (08:11→20:30)
[2017-06-14] MEDS: TIOTROPIUM BROMIDE 5 PUFF/90 MCG INH INH SCH (08:12)
[2017-06-14 08:13] LABS: CREATININE 0.96 mg/dl (0.60-1.40)
[2017-06-14 08:14] LABS: CALCIUM 8.9 mg/dl (8.5-10.1); POTASSIUM 4.3 mmol/L (3.5-5.1)
[2017-06-14] MEDS: GABAPENTIN 600 MG TAB PO SCH ×3 (08:14→20:31)
[2017-06-14] MEDS: CEROVITE ADV FORMULA TAB PO SCH (08:14)
[2017-06-14] MEDS: BUDESONIDE/FORMOTEROL FUMARATE 160/4.5 60 PUFFS/INHALER INH SCH ×2 (08:14→20:30)
[2017-06-14] MEDS: PANTOprazole SOD 40 MG TAB PO SCH (08:14)
[2017-06-14] MEDS: LACTOBACILLUS ACIDOPHILUS (FLORANEX) TAB PO SCH (08:14)
[2017-06-14] MEDS: TAMSULOSIN HCL 0.4 MG CAP PO SCH (08:14)
[2017-06-14] MEDS: FINASTERIDE 5 MG TAB PO SCH (08:14)
[2017-06-14] MEDS: LIDODERM (LIDOCAINE) PATCH 5% TD SCH (09:26)
[2017-06-14] MEDS ORDERED: DOCUSATE SODIUM/SENNA 50/8.6MG TAB PO ONE (10:15)
[2017-06-14] MEDS: D5W AND NSS 1,000 ML IV SCH ×2 (11:17→20:34)
[2017-06-14] MEDS: BOOST VANILLA PO SCH ×2 (11:58)
--- NOTE | 2017-06-14 12:38 | Progress Note ---
Medicine Progress Note Date & Time of Visit: Jun 14, 2017 at 12:33. (Alejandra Colón, P.A.-C.) Subjective Patient seen and examined. Still experiencing a 9/10 pain in his R hip/RLQ that radiates back to his flank. States that due to pain with the movement required to eat and drink, patient has not had much PO intake. Denies nausea/vomiting, diarrhea. Has not had a bowel movement since Monday ( small). Rates pleuritic pain a 6/10 with current pain control. Denies lightheadedness, dyspnea, SOB. (Alejandra Colón, P.A.-C.) Objective Last 8 Hrs Date Time Temp Pulse Resp B/P (MAP) Pulse Ox O2 Delivery O2 Flow Rate FiO2 06/14/17 11:58 36.7 84 18 101/65 (77) 99 Nasal Cannula 5.0 06/14/17 08:00 92 Nasal Cannula 4.0 06/14/17 07:40 37.2 79 18 113/61 (78) 93 5.0 Physical Exam: General Appearance: + moderate distress (Intermittently yelling out in pain from RLQ) Head: normocephalic, atraumatic Eyes: normal inspection ENT: normal ENT inspection (H/o cervical dystonia s/p radiation to throat ) Neck: supple, no adenopathy, trachea midline Respiratory/Chest: chest non-tender, lungs clear, no respiratory distress, no accessory muscle use, + decreased breath sounds (2/2 decreased inspiratory effort) Cardiovascular: regular rate, rhythm, Pansystolic murmur Abdomen/GI: normal bowel sounds, + tenderness (TTP RLQ > LLQ. With guarding in RLQ only. No rebound tenderness. ), + distended Back: normal inspection, + right CVA tenderness Extremities/Musculoskelatal: normal inspection (Brace on L ankle. ), no calf tenderness, normal capillary refill Neurologic/Psych: no motor/sensory deficits, alert, normal mood/affect, oriented x 3 Skin: normal color Laboratory Results: Last 24 Hours Test 06/13/17 18:35 06/14/17 00:19 06/14/17 07:12 Activated Partial Thromboplast Time 46.4 SECONDS 41.7 SECONDS 55.1 SECONDS Partial Thromboplastin Ratio 1.8 1.6 2.1 White Blood Count 6.08 K/uL Red Blood Count 4.03 M/uL Hemoglobin 11.8 g/dL Hematocrit 35.1 % Mean Corpuscular Volume 87.1 fL Mean Corpuscular Hemoglobin 29.3 pg Mean Corpuscular Hemoglobin Concent 33.6 g/dl RDW Standard Deviation 44.4 fL RDW Coefficient of Variation 13.9 % Platelet Count 208 K/uL Mean Platelet Volume 10.0 fL Sodium Level 136 mmol/L Potassium Level 4.3 mmol/L Chloride Level 103 mmol/L Carbon Dioxide Level 29 mmol/L Anion Gap 4.0 mmol/L Blood Urea Nitrogen 14 mg/dl Creatinine 0.96 mg/dl Est Creatinine Clear Calc Drug Dose 98.0 ml/min Estimated GFR () 99.2 Estimated GFR (Non- 85.6 BUN/Creatinine Ratio 15.0 Random Glucose 95 mg/dl Calcium Level 8.9 mg/dl Diagnostic Imaging: KUB: IMPRESSION: Non visibility of the urinary tracts due to overlying bowel air and fecal material. R Hip XR: IMPRESSION: Mild degenerative change. No acute process. Bilateral LE Venous Dopplers: IMPRESSION: No evidence of lower extremity DVT. (Alejandra Colón ., P.A.-C.) Assessment & Plan This is a 61yo M with a PMH of COPD, anxiety, h/o Tonsillar cancer (2007), acquired hypothyroidism and enlarged prostate who presents with pleuritic chest pain x 1 week and was found to have a RLL pulmonary embolus. R Lower Lobe PE: -Chest/thorax CTA showing RLL subsegmental PE -Vitals are stable -Continue heparin -Initiated discharge planning re: Xarelto -Continue pain management RLQ/R Hip Pain: -Complains of excruciating pain of RLQ radiating to flank, worse with R hip flexion -CT abd/pelvis clear with exception of distended bladder. 1. No definite bowel wall thickening or obstruction. 2. Normal appendix. 3. Moderate stool within the colon. 4. Distended bladder, unchanged. 5. Splenomegaly which has slightly increased in size. -Afebrile, no leukocytosis, no evidence of infection -R hip XR showing mild degenerative changes -BLE venous doppler without DVTs -KUB: "Non visibility of the urinary tracts due to overlying bowel air and fecal material" -Pain is consistent with nephrolithiasis. Added Senocot S to bowel regimen and IV fluids. May repeat KUB once urinary tracts can be visualized -Ordered XR of lumbar spine and sacrum to r/o spinal etiology Constipation: -H/o chronic constipation -Continue home meds -Started Senocot S Q AM -On IVF due to decreased PO intake Urinary retention: -2/2 enlarged prostate -Catheter in place with some hematuria present -Follows out-patient with urology. S/p TURP with residual L lobe hyperplasia -Bladder scans Q shift -Continue home meds Cervical dystonia 12/01 radiation: -S/p SSC of tonsils in 2007. In remission -Continue home meds for dystonia COPD: -Stable -Continue home inhalers/nebs -Continue O2 Hypothyroidism: -Acquired 12/01 radiation -Continue synthroid Anxiety/depression: -Stable -Continue home meds Insomnia: -Continue Ambien and tramadol while in-patient -Holding Belsomra DVT Ppx: on heparin Code status: FULL PCP: Brynnr Dispo: Plan to return home once medically stable. Current Inpatient Medications: Current Inpatient Medications Medications (Trade) Dose Ordered Sig/Chanda Route Start Time Stop Time Status Last Admin Dose Admin Morphine Sulfate (MoRPHine SULFATE INJ) 4 mg Q15M PRN IV 06/13/17 10:00 06/27/17 09:59 06/13/17 23:50 4 MG Heparin Sodium/ Dextrose 500 ml @ 33 mls/hr [id number] PRN IV 06/13/17 12:15 07/13/17 12:14 06/14/17 04:57 33 MLS/HR Hydromorphone HCl (Dilaudid Inj) 2 mg Q4 PRN IV 06/13/17 13:00 06/27/17 12:59 06/14/17 09:33 2 MG Alprazolam (Xanax Tab) 1 mg TID PO 06/13/17 14:00 07/13/17 13:59 06/14/17 08:11 1 MG Baclofen (Lioresal Tab) 20 mg QID PO 06/13/17 13:00 07/13/17 12:59 06/14/17 08:11 20 MG Budesonide/ Formoterol Fumarate (Symbicort 160/ 4.5 Inh) 2 puffs BID INH 06/13/17 21:00 07/13/17 20:59 06/14/17 08:14 2 PUFFS Finasteride (Proscar Tab) 5 mg DAILY PO 06/14/17 09:00 07/14/17 08:59 06/14/17 08:14 5 MG Gabapentin (Neurontin Tab) 600 mg TID PO 06/13/17 14:00 07/13/17 13:59 06/14/17 08:14 600 MG Levothyroxine Sodium (Synthroid Tab) 50 mcg DAILYBB PO 06/14/17 06:00 07/14/17 06:59 06/14/17 04:57 50 MCG Multivitamins/ Minerals (Multivitamin W/ Minerals Tab) 1 tab DAILY PO 06/14/17 09:00 07/14/17 08:59 06/14/17 08:14 1 TAB Tamsulosin HCl (Flomax Cap) 0.4 mg DAILY PO 06/14/17 09:00 07/14/17 08:59 06/14/17 08:14 0.4 MG Tiotropium [place] (Spiriva Handihaler Inhaler) 1 puff DAILY INH 06/14/17 09:00 07/14/17 08:59 06/14/17 08:12 1 PUFF Trazodone HCl (Desyrel Tab) 25 mg HS PRN PO 06/13/17 13:00 07/13/17 12:59 Pantoprazole Sodium (Protonix Tab) 40 mg QAM PO 06/14/17 09:00 07/14/17 08:59 06/14/17 08:14 40 MG Lactobacillus Acidophilus (Floranex Tab) 1 tab DAILY PO 06/14/17 09:00 07/14/17 08:59 06/14/17 08:14 1 TAB Zolpidem Tartrate (Ambien Tab) 10 mg HSZ PRN PO 06/13/17 14:30 07/13/17 14:29 06/13/17 21:30 10 MG Acetaminophen (Tylenol Tab) 650 mg Q4H PRN PO 06/13/17 13:15 07/13/17 13:14 Ondansetron HCl (Zofran Inj) 4 mg Q6H PRN IV 06/13/17 13:15 07/13/17 13:14 06/14/17 00:19 4 MG Oxycodone/ Acetaminophen (Percocet 5-325mg Tab) 1 tab Q4H PRN PO 06/13/17 15:45 06/27/17 15:44 06/14/17 08:10 1 TAB Lidocaine (Lidoderm Patch 5%) 1 patch QAM TD 06/14/17 09:00 07/14/17 08:59 06/14/17 09:26 1 PATCH Miscellaneous (Remove Lidoderm Patch) 1 ea DAILY@21 N/A 06/14/17 21:00 07/14/17 20:59 Linaclotide (Linzess) 145 mcg DAILYBB PO 06/15/17 06:00 07/15/17 05:59 Vortioxetine (Trintellix) 15 mg QAM PO 06/15/17 09:00 07/15/17 08:59 Senna/Docusate Sodium (Senokot S Tab) 1 tab QAM PO 06/15/17 09:00 07/15/17 08:59 Dextrose/Sodium Chloride 1,000 ml @ 100 mls/hr Q10H IV 06/14/17 11:15 07/14/17 11:14 06/14/17 11:17 100 MLS/HR Enteral Nutritional Formula (Boost) 1 can QDL PO 06/14/17 11:30 07/14/17 11:29 06/14/17 11:58 1 CAN (Alejandra Colón, P.A.-C.) Saw/examined the patient in room 210 +9/10 pain at the R flank/hip/lower abdomen Radiographs of the LS spine are negative appreciate GI input - will start Relistor and fleet enemas added Toradol PRN for pain, will try to wean Dilaudid change IV heparin to Xarelto 15mg BID PT/OT; ambulate in hallways (Eleanor Feldman DO)
--- NOTE | 2017-06-14 13:31 | DIAGNOSTIC IMAGING REPORT ---
LUMBAR SPINE 2 OR 3 VIEWS CLINICAL HISTORY: 61 years-old Male presenting with R flank pain. TECHNIQUE: Frontal, lateral, and coned in lateral view of the lumbar spine were obtained. COMPARISON: CT from 06/13/2017. FINDINGS: Levoscoliotic curvature of the lumbar spine centered at L2-3. Normal lumbar lordosis. Vertebral body heights preserved. Intervertebral disc height loss at L2-3 with associated endplate sclerosis. Osseous neural foraminal narrowing is also suspected at L2-3. No radiographic evidence of acute fracture or subluxation. Diffuse gaseous distention of small and large bowel. No gross pneumoperitoneum. IMPRESSION: Scoliosis with focal degenerative change at L2-3, where there is associated osseous neural foraminal narrowing. Electronically signed by: Joaquín De La Rosa M.D. 06/14/2017 1:29 PM Dictated Date/Time: 06/14/2017 1:27 PM
--- NOTE | 2017-06-14 13:31 | DIAGNOSTIC IMAGING REPORT ---
SACRUM ONLY CLINICAL HISTORY: Right-sided back pain COMPARISON STUDY: No previous studies for comparison. FINDINGS: No sacral fractures are visualized. There is no SI joint fusion. There are no erosive changes. There is no SI joint diastases. IMPRESSION: Mild degenerative changes. No conventional radiographic evidence of an inflammatory sacroiliitis Electronically signed by: David Shaw M.D. 06/14/2017 1:29 PM Dictated Date/Time: 06/14/2017 1:28 PM
[2017-06-14] MEDS ORDERED: BISACODYL 5 MG TABEC PO ONE (14:15)
[2017-06-14] MEDS ORDERED: SOD PHOSPHATE/SOD BIPHOSPHATE ENEMA 132 ML BTL PR ONE (15:12)
--- NOTE | 2017-06-14 15:29 | Gastrointestinal Consultation ---
Gastrointestinal Consultation Date of Consultation: Jun 14, 2017 Attending Physician: Eleanor Feldman Consulting Physician: Lida Mckeon Reason for Consultation: R flank pain History of Present Illness Patient is a 61 year old male w c/o SOB, pain on inspiration on bilateral chest found to have R lung PE currently is seen for R flank pain. Pt actually points to R lower rib area and that area is tender to touch. Pain not worse w breathing now but worse if HOB is moved or when he tries to turn on his sides. He is requiring quite a bit of narcotics and also tried Lidoderm patch to the R flank pain. Denies any associated symptoms such as n/v. VS and labs reviewed - stable. I had seen this pt in the past at GI clinic most recently in January 2017 for RLQ abd pain which seems to be mostly affected with movement thus suspected to be musculoskeletal in nature. He does have hx of chronic constipation, at home on Linzess 145mcg daily and Miralax 17g daily, may add Senokot if no BM in 2-3 days. Pt reports no good BM for more than a week, though 2 days ago had small stool. Pt had been sedentary for a few weeks now since L ankle injury. He is passing flatus, does have R mid abd tenderness but improves w passing flatus. Recent CT abd/pelvis and KUB showed mod amt of gas in colon but no bowel distension. Past Medical/Surgical History Medical Problems: (1) Abdominal pain Status: Acute (2) Pleuritic chest pain Status: Acute (3) Pulmonary embolism Status: Acute (4) Urinary retention Status: Chronic Social History Problems: (1) Abdominal pain Status: Acute (2) Bleeding from mouth Status: Acute (3) Fever Status: Acute (4) H/O gastroesophageal reflux (GERD) Status: Chronic (5) Pneumonitis Status: Acute (6) SOB (shortness of breath) Status: Acute (7) Urinary tract infection Status: Acute (8) Urinary tract infection Status: Acute (9) VSD (ventricular septal defect) Status: Chronic Past Medical History: Past Medical/Surgical History Medical Problems: (1) Anxiety Status: Chronic (2) COPD (chronic obstructive pulmonary disease) Status: Chronic (3) Depression Status: Chronic (4) GERD (gastroesophageal reflux disease) Status: Chronic (5) Hypothyroidism Status: Chronic (6) 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 (7) Urinary retention Status: Chronic (8) VSD (ventricular septal defect) Status: Chronic Surgical Problems: (1) H/O arthroscopy of shoulder Status: Chronic (2) H/O umbilical hernia repair Status: Chronic (3) History of carpal tunnel release Status: Chronic (4) Right ankle surgery Status: Chronic (5) S/P left knee arthroscopy Status: Chronic (6) S/P right knee arthroscopy Status: Chronic (7) S/P TURP Status: Chronic Social History Problems: (1) H/O gastroesophageal reflux (GERD) Status: Chronic (2) H/O laryngeal cancer Status: Resolved (3) S/P hernia repair Status: Resolved (4) VSD (ventricular septal defect) Status: Chronic Past Surgical History: See above Family History Diabetes mellitus FH: lung disease FHx: cancer Social History Smoking Status: Never Smoker Alcohol Use: occasionally Drug Use: none Marital Status: Housing Status: lives with significant other Occupation Status: employed Allergies Coded Allergies: Statins (Verified Adverse Reaction, Intermediate, GI UPSET, 08/11/16) Temazepam (Verified Adverse Reaction, Unknown, LOSES VOLUNTARY MUSCLE CONTROL, 08/11/16) Current Medications Home Meds and Scripts Medications Dose Route/Sig Max Daily Dose Days Date Category Dose Instructions Mvi With Minerals (Multivitamins/Minerals) Tab 1 Tab PO DAILY 06/13/17 Reported [place]-3 (Fish Oil) 1 Ea Cap 1 Cap PO DAILY 06/13/17 Reported WITH A MEAL Probiotic (Probiotic Product) 1 Cap Cap 1 Cap PO DAILY 06/13/17 Reported Denta 5000 Plus (Sodium Fluoride (Dental)) 1.1 % Cre 1 Appln PO UD 06/13/17 Reported Symbicort 160/4.5 Inhaler (Budesonide/Formoterol Fumarate) Aero 2 Puffs INH BID 06/13/17 Reported Proventil 0.083% 2.5MG/3ML (Albuterol Sulf) 2.5 Mg/3 Ml Nebu 2.5 Mg INH Q4 PRN 06/13/17 Reported Spiriva Handihaler (Tiotropium [place]) 30 Puff/540 Mcg Aerp 1 Cap INH DAILY 06/13/17 Reported Zantac (Ranitidine HCl) 300 Mg Tab 300 Mg PO HS 06/13/17 Reported Cialis (Tadalafil) 20 Mg Tab 20 Mg PO UD 06/13/17 Reported Duoneb (Ipratropium-Albuterol) 3 Ml Nebu 1 Treatment INH Q4H PRN 06/13/17 Reported Gabapentin 600 Mg Tab 600 Mg PO TID 06/13/17 Reported Trintellix (Vortioxetine HBr) 10 Mg Tab 15 Mg PO DAILY 06/13/17 Reported 1 1/2 TABLET Botox (Botulinum Toxin Type A) 200 Unit Inj 1 Dose INJ UD 06/13/17 Reported INJECT INTO A LARGE MUSCLE ONCE. Lioresal (Baclofen) 10 Mg Tab 20 Mg PO QID 06/13/17 Reported Linzess (Linaclotide) 145 Mcg Cap 145 Mcg PO DAILY 06/13/17 Reported Flonase Allergy Relief (Fluticasone Propionate (Nasal)) 50 Mcg/Act Spr 1 [place] ELIA DAILY 06/13/17 Reported Prilosec (Omeprazole) 40 Mg Cap 40 Mg PO DAILY 06/13/17 Reported Levothyroxine Sodium 50 Mcg Tab 50 Mcg PO DAILY 06/13/17 Reported Belsomra (Suvorexant) 20 Mg Tab 20 Mg PO HS PRN 06/13/17 Reported DO NOT TAKE WITH OTHER SEDATIVES OR ALCOHOL. Xanax Xr (Alprazolam) 1 Mg Tab 1 Tab PO BID 06/13/17 Reported Xanax (Alprazolam) 1 Mg Tab 1 Mg PO TID 06/13/17 Reported OR - 1/2 - 1 TABLET BY MOUTH TWICE DAILY FOR SEVERE ANXIETY. Trazodone (Trazodone HCl) 50 Mg Tab 25-50 Mg PO HS PRN 06/13/17 Reported Ambien Cr (Zolpidem Tartrate) 12.5 Mg Tabcr 12.5 Mg PO HS PRN 06/13/17 Reported DO NOT TAKE WITH BELSOMRA, XANAX, ALCOHOL, OR OTHER SEDATING MEDICATIONS. Finasteride 5 Mg Tab 5 Mg PO DAILY 06/13/17 Reported Flomax (Tamsulosin Hcl) 0.4 Mg Cap 0.4 Mg PO DAILY 06/13/17 Reported Tessalon Perles (Benzonatate) 100 Mg Cap 100-200 Mg PO TID PRN 06/13/17 Reported Review of Systems Constitutional: No fever, No chills Respiratory: No cough, No shortness of breath Abdomen: + pain (mid abd), + constipation, No nausea, No vomiting Musculoskeletal: + see HPI Physical Exam Date Time Temp Pulse Resp B/P (MAP) Pulse Ox O2 Delivery O2 Flow Rate FiO2 06/14/17 12:00 92 Nasal Cannula 4.0 06/14/17 11:58 36.7 84 18 101/65 (77) 99 Nasal Cannula 5.0 06/14/17 08:00 92 Nasal Cannula 4.0 06/14/17 07:40 37.2 79 18 113/61 (78) 93 5.0 06/14/17 04:25 92 Nasal Cannula 4.0 06/14/17 04:00 36.8 86 21 113/81 (92) 94 Nasal Cannula 2.0 06/14/17 00:20 95 Nasal Cannula 2.0 06/14/17 00:00 36.6 95 26 136/89 (105) 92 Nasal Cannula 2.0 06/13/17 20:15 96 Nasal Cannula 2.0 06/13/17 19:10 37.2 100 24 113/64 (80) 96 Nasal Cannula 2.0 06/13/17 16:00 Nasal Cannula 2.0 General Appearance: WD/WN, no apparent distress Eyes: normal inspection, PERRL, EOMI Neck: supple, no JVD, trachea midline Respiratory/Chest: normal breath sounds, no respiratory distress, no accessory muscle use Cardiovascular: regular rate, rhythm, no gallop, no murmur Abdomen: normal bowel sounds, non tender, + distended Extremities: normal inspection, no pedal edema, no calf tenderness Neurologic/Psych: alert, normal mood/affect, oriented x 3 Skin: normal color, no jaundice, no rash Laboratory Results Last 24 Hours Test 06/13/17 18:35 06/14/17 00:19 06/14/17 07:12 Activated Partial Thromboplast Time 46.4 SECONDS 41.7 SECONDS 55.1 SECONDS Partial Thromboplastin Ratio 1.8 1.6 2.1 White Blood Count 6.08 K/uL Red Blood Count 4.03 M/uL Hemoglobin 11.8 g/dL Hematocrit 35.1 % Mean Corpuscular Volume 87.1 fL Mean Corpuscular Hemoglobin 29.3 pg Mean Corpuscular Hemoglobin Concent 33.6 g/dl RDW Standard Deviation 44.4 fL RDW Coefficient of Variation 13.9 % Platelet Count 208 K/uL Mean Platelet Volume 10.0 fL Sodium Level 136 mmol/L Potassium Level 4.3 mmol/L Chloride Level 103 mmol/L Carbon Dioxide Level 29 mmol/L Anion Gap 4.0 mmol/L Blood Urea Nitrogen 14 mg/dl Creatinine 0.96 mg/dl Est Creatinine Clear Calc Drug Dose 98.0 ml/min Estimated GFR () 99.2 Estimated GFR (Non- 85.6 BUN/Creatinine Ratio 15.0 Random Glucose 95 mg/dl Calcium Level 8.9 mg/dl Impression Patient is a 61 year old male w R lower lobe PE seen for R flank pain. On exam he appears to be tender to touch on R side/lower rib area, but not necessarily on R side of abd area though the whole abd appears distended and he felt uncomfortable from the abd distension c/o constipation which is evident on KUB & CT exams. Though his constipation may contribute to some of the R flank pain, this seems less likely is the etiology of that pain but rather may be related to his RLL PE. We will however help recommend a bowel regimen to help w his constipation Plan - Miralax 17g daily, Senna 2 tabs daily, Fleets enema [id number] till good BM, Relistor 12mg q2days until good BM achieved - Limit narcotics, encourage ambulation or at least sitting up instead of him laying in bed most of the day. - Will sign off.
[2017-06-14] MEDS ORDERED: METHYLNALTREXONE BROMIDE INJ 12 MG/0.6 ML SYR SQ SCH (16:00)
[2017-06-14] MEDS: RIVAROXABAN TAB 15 MG TAB PO SCH (17:00)
[2017-06-14] MEDS: SOD PHOSPHATE/SOD BIPHOSPHATE ENEMA 132 ML BTL PR SCH ×2 (18:00→23:55)
[2017-06-14] MEDS: KETOROLAC TROMETHAMINE 30 MG/ML VIAL IV PRN (20:27)
[2017-06-14] MEDS ORDERED: HYDROmorphone INJ 0.5 MG/0.5 ML SYR IV ONE (23:00)
[2017-06-15] VITALS (7 sets, daily range): BP systolic 99–123; BP diastolic 57–74; PULSE 67–97; TEMP 36.7–37.8; O2SAT 92–97
[2017-06-15] MEDS ORDERED: ACETAMINOPHEN IV 650 MG in EMPTY BAG 0 ML IV PRN (03:15)
[2017-06-15] MEDS: HYDROmorphone INJ 2 MG/ML SYR/VIAL IV PRN ×5 (03:38→22:40)
[2017-06-15] MEDS: LINACLOTIDE 145 MCG CAP PO SCH (06:00)
[2017-06-15] MEDS ORDERED: LINACLOTIDE 145 MCG CAP PO SCH ×2 (06:00)
[2017-06-15] MEDS: LEVOTHYROXINE 50 MCG TAB PO SCH (06:07)
[2017-06-15] MEDS: SOD PHOSPHATE/SOD BIPHOSPHATE ENEMA 132 ML BTL PR SCH (06:08)
--- NOTE | 2017-06-15 06:38 | DIAGNOSTIC IMAGING REPORT ---
CT SCAN OF THE ABDOMEN AND PELVIS WITHOUT CONTRAST CLINICAL HISTORY: Worsening abdominal pain COMPARISON STUDY: 06/13/2017 TECHNIQUE: CT scan of the abdomen and pelvis was performed from the lung bases to the proximal femurs. Images are reviewed in the axial, sagittal, and coronal planes. IV contrast was not administered for this examination. A dose lowering technique was utilized adhering to the principles of ALARA. CT DOSE: 1131.14 mGy.cm FINDINGS: Lower chest: There are bibasal atelectatic changes. Liver: The unenhanced liver is normal in size, contour, and attenuation. There is no intrahepatic biliary ductal dilatation. Gallbladder: Unremarkable. Spleen: The spleen is mildly enlarged measuring 14.4 cm. Pancreas: Unremarkable. Adrenal glands: Unremarkable. Kidneys: No renal, ureteral, or bladder calculi are visualized. Bowel: There are no transition zone to indicate bowel obstruction. The appendix appears normal. There is scattered stool throughout the colon. There is no acute diverticulitis. Peritoneum: There is no intraperitoneal free air or abdominal ascites. There is minimal nonspecific infiltration of the fat adjacent the left psoas muscle. Vasculature: The abdominal aorta is normal in course and caliber. Adenopathy: None. Pelvic viscera: There is indwelling Landon catheter. Skeletal structures: No destructive osseous lesions are seen. IMPRESSION: 1. No evidence of bowel obstruction. No evidence of free air 2. Normal appendix 3. Mild splenomegaly 4. No evidence of acute diverticulitis 5. Interval development of mild infiltration of the fat adjacent to the left psoas. This finding is of uncertain etiology. Clinical follow-up is advocated. (Of note, this nonspecific finding was not described on the preliminary report) Electronically signed by: David Shaw M.D. 06/15/2017 6:36 AM Dictated Date/Time: 06/15/2017 6:31 AM
[2017-06-15 07:02] LABS: PARTIAL THROMBOPLASTIN RATIO 1.6
[2017-06-15] MEDS: PANTOprazole SOD 40 MG TAB PO SCH (08:32)
[2017-06-15] MEDS: DOCUSATE SODIUM/SENNA 50/8.6MG TAB PO SCH (08:32)
[2017-06-15] MEDS: GABAPENTIN 600 MG TAB PO SCH ×3 (08:32→20:54)
[2017-06-15] MEDS: FINASTERIDE 5 MG TAB PO SCH (08:32)
[2017-06-15] MEDS: BACLOFEN 10 MG TAB PO SCH ×4 (08:32→20:53)
[2017-06-15] MEDS: LACTOBACILLUS ACIDOPHILUS (FLORANEX) TAB PO SCH (08:32)
[2017-06-15] MEDS: CEROVITE ADV FORMULA TAB PO SCH (08:32)
[2017-06-15] MEDS: TIOTROPIUM BROMIDE 5 PUFF/90 MCG INH INH SCH (08:33)
[2017-06-15] MEDS: RIVAROXABAN TAB 15 MG TAB PO SCH ×3 (08:33→17:00)
[2017-06-15] MEDS: TAMSULOSIN HCL 0.4 MG CAP PO SCH (08:33)
[2017-06-15] MEDS: BUDESONIDE/FORMOTEROL FUMARATE 160/4.5 60 PUFFS/INHALER INH SCH ×2 (08:33→20:53)
[2017-06-15] MEDS: VORTIOXETINE HBR 10 MG TAB PO SCH (08:34)
[2017-06-15] MEDS: LIDODERM (LIDOCAINE) PATCH 5% TD SCH (08:34)
[2017-06-15] MEDS: ALPRAZOLAM 0.5 MG TAB PO SCH ×3 (08:56→20:54)
[2017-06-15] MEDS: D5W AND NSS 1,000 ML IV SCH ×2 (08:56→17:53)
[2017-06-15] MEDS ORDERED: VORTIOXETINE HBR 10 MG TAB PO SCH ×2 (09:00)
[2017-06-15] MEDS ORDERED: POLYETHYLENE (MIRALAX) 17 GM PACK PO SCH (09:00)
[2017-06-15] MEDS ORDERED: DOCUSATE SODIUM/SENNA 50/8.6MG TAB PO SCH (09:00)
[2017-06-15] MEDS: POLYETHYLENE (MIRALAX) 17 GM PACK PO SCH ×2 (09:00→20:00)
[2017-06-15] MEDS: BOOST VANILLA PO SCH ×2 (11:11)
[2017-06-15] MEDS ORDERED: SOD PHOSPHATE/SOD BIPHOSPHATE ENEMA 132 ML BTL PR PRN (12:00)
--- NOTE | 2017-06-15 14:05 | Progress Note ---
Medicine Progress Note Date & Time of Visit: Jun 15, 2017 at 13:56. (Alejandra Colón, P.A.-C.) Subjective Patient seen and examined. States that he feels the same as yesterday. Pain with inspiration is a 5/10. RLQ/R hip pain is a 8/10 still, worse with movement. Patient is moving his bowels, which is relieving RLQ plain slightly. Denies CP, SOB, n/v, diarrhea. (Alejandra Colón, P.A.-C.) Objective Last 8 Hrs Date Time Temp Pulse Resp B/P (MAP) Pulse Ox O2 Delivery O2 Flow Rate FiO2 06/15/17 12:31 36.9 80 19 101/58 (72) 95 Nasal Cannula 2.0 06/15/17 12:00 Nasal Cannula 2.0 06/15/17 08:00 Nasal Cannula 2.0 06/15/17 07:57 37.8 97 19 99/62 (74) 96 Physical Exam: General Appearance: + moderate distress (Intermittently yelling out in pain from RLQ) Head: normocephalic, atraumatic Eyes: normal inspection ENT: normal ENT inspection (H/o cervical dystonia s/p radiation to throat ) Neck: supple, no adenopathy, trachea midline Respiratory/Chest: chest non-tender, lungs clear, no respiratory distress, no accessory muscle use, + decreased breath sounds (2/2 decreased inspiratory effort) Cardiovascular: regular rate, rhythm, Pansystolic murmur Abdomen/GI: normal bowel sounds, + tenderness (TTP RLQ > LLQ. With guarding in RLQ only. No rebound tenderness. ), + distended Back: normal inspection, + right CVA tenderness Extremities/Musculoskelatal: normal inspection, no calf tenderness, normal capillary refill Neurologic/Psych: no motor/sensory deficits, alert, blunted affect 2/2 narcotics, oriented x 3 Skin: normal color Laboratory Results: Last 24 Hours Test 06/15/17 05:51 Activated Partial Thromboplast Time 40.6 SECONDS Partial Thromboplastin Ratio 1.6 (Alejandra Colón, P.A.-C.) Assessment & Plan This is a 61yo M with a PMH of COPD, anxiety, h/o Tonsillar cancer (2007), acquired hypothyroidism and enlarged prostate who presents with pleuritic chest pain x 1 week and was found to have a RLL pulmonary embolus. R Lower Lobe PE: -Chest/thorax CTA showing RLL subsegmental PE -Vitals are stable -On Xarelto (day 2) -Continue pain management RLQ/R Hip Pain: -Complains of excruciating pain of RLQ radiating to flank, worse with R hip flexion -Afebrile, no leukocytosis, no evidence of infection -All imaging has been unremarkable: -CT abd/pelvis clear with exception of distended bladder -R hip XR showing mild degenerative changes -BLE venous doppler without DVTs -KUB: "Non visibility of the urinary tracts due to overlying bowel air and fecal material" -XR of lumbar spine and sacrum wnl -Repeat CT Abd/Pelvis without changes -Consulted GI, who recommended a new bowel regimen, decreased narcotics and more movement -Consulted pain management for recs Constipation: -H/o chronic constipation -Continue home meds -Started Senocot S Q AM -Continue fluids -Is starting to have bowel movements Urinary retention: -2/2 enlarged prostate -Catheter in place with some hematuria present -Follows out-patient with urology. 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 In remission -Continue home meds for dystonia COPD: -Stable -Continue home inhalers/nebs -Continue O2 Hypothyroidism: -Acquired 2/2 radiation -Continue synthroid Anxiety/depression: -Stable -Continue home meds Insomnia: -Continue Ambien and tramadol while in-patient -Holding Belsomra DVT Ppx: on heparin Code status: FULL PCP: Rufino Dispo: Plan to return home once medically stable. Current Inpatient Medications: Current Inpatient Medications Medications (Trade) Dose Ordered Sig/Chanda Route Start Time Stop Time Status Last Admin Dose Admin Hydromorphone HCl (Dilaudid Inj) 2 mg Q4 PRN IV 06/13/17 13:00 06/27/17 12:59 06/15/17 13:49 2 MG Alprazolam (Xanax Tab) 1 mg TID PO 06/13/17 14:00 07/13/17 13:59 06/15/17 13:49 1 MG Baclofen (Lioresal Tab) 20 mg QID PO 06/13/17 13:00 07/13/17 12:59 06/15/17 13:49 20 MG Budesonide/ Formoterol Fumarate (Symbicort 160/ 4.5 Inh) 2 puffs BID INH 06/13/17 21:00 07/13/17 20:59 06/15/17 08:33 2 PUFFS Finasteride (Proscar Tab) 5 mg DAILY PO 06/14/17 09:00 07/14/17 08:59 06/15/17 08:32 5 MG Gabapentin (Neurontin Tab) 600 mg TID PO 06/13/17 14:00 07/13/17 13:59 06/15/17 13:48 600 MG Levothyroxine Sodium (Synthroid Tab) 50 mcg DAILYBB PO 06/14/17 06:00 07/14/17 06:59 06/15/17 06:07 50 MCG Multivitamins/ Minerals (Multivitamin W/ Minerals Tab) 1 tab DAILY PO 06/14/17 09:00 07/14/17 08:59 06/15/17 08:32 1 TAB Tamsulosin HCl (Flomax Cap) 0.4 mg DAILY PO 06/14/17 09:00 07/14/17 08:59 06/15/17 08:33 0.4 MG Tiotropium [place] (Spiriva Handihaler Inhaler) 1 puff DAILY INH 06/14/17 09:00 07/14/17 08:59 06/15/17 08:33 1 PUFF Trazodone HCl (Desyrel Tab) 25 mg HS PRN PO 06/13/17 13:00 07/13/17 12:59 Pantoprazole Sodium (Protonix Tab) 40 mg QAM PO 06/14/17 09:00 07/14/17 08:59 06/15/17 08:32 40 MG Lactobacillus Acidophilus (Floranex Tab) 1 tab DAILY PO 06/14/17 09:00 07/14/17 08:59 06/15/17 08:32 1 TAB Zolpidem Tartrate (Ambien Tab) 10 mg HSZ PRN PO 06/13/17 14:30 07/13/17 14:29 06/13/17 21:30 10 MG Acetaminophen (Tylenol Tab) 650 mg Q4H PRN PO 06/13/17 13:15 9/14/17 13:14 Ondansetron HCl (Zofran Inj) 4 mg Q6H PRN IV 06/13/17 13:15 07/13/17 13:14 06/14/17 00:19 4 MG Oxycodone/ Acetaminophen (Percocet 5-325mg Tab) 1 tab Q4H PRN PO 06/13/17 15:45 06/27/17 15:44 06/14/17 16:58 1 TAB Lidocaine (Lidoderm Patch 5%) 1 patch QAM TD 06/14/17 09:00 07/14/17 08:59 06/15/17 08:34 1 PATCH Miscellaneous (Remove Lidoderm Patch) 1 ea DAILY@21 N/A 06/14/17 21:00 07/14/17 20:59 06/14/17 20:30 1 EA Dextrose/Sodium Chloride 1,000 ml @ 100 mls/hr Q10H IV 06/14/17 11:15 07/14/17 11:14 06/15/17 08:56 100 MLS/HR Enteral Nutritional Formula (Boost) 1 can QDL PO 06/14/17 11:30 07/14/17 11:29 06/15/17 11:11 1 CAN Linaclotide (Linzess) 145 mcg DAILYBB PO 06/15/17 06:00 07/15/17 05:59 Vortioxetine (Trintellix) 15 mg QAM PO 06/15/17 09:00 07/15/17 08:59 06/15/17 08:34 15 MG Senna/Docusate Sodium (Senokot S Tab) 2 tab QAM PO 06/15/17 09:00 07/15/17 08:59 06/15/17 08:32 2 TAB Methylnaltrexone [place] (Relistor Inj) 12 mg Q2D@1600 SQ 06/14/17 16:00 07/14/17 15:59 06/14/17 16:59 12 MG Ketorolac Tromethamine (Toradol Inj) 30 mg Q6H PRN IV 06/14/17 15:45 06/19/17 15:44 06/14/17 20:27 30 MG Rivaroxaban (Xarelto Tab) 15 mg BIDM PO 06/14/17 16:45 07/05/17 07:31 06/15/17 08:33 15 MG Acetaminophen 650 mg/Empty Bag 65 ml @ 260 mls/hr Q6H PRN IV 06/15/17 03:15 07/15/17 03:14 Polyethylene (Miralax Powder Packet) 17 gm BID PO 06/15/17 09:00 07/15/17 08:59 Sodium Biphosphate/ Sodium Phosphate (Fleet Enema) 132 ml Q6 PRN [place] 06/15/17 12:00 07/14/17 17:59 (Alejandra Colón, P.A.-C.) Saw/examined the patient in room 210 Doing better today, pain is improving, though still intermittently present walked around with therapy no significant shortness of breath check an echo due to systolic murmur and PE pain management to attempt to wean IV pain medications disposition: to rehab prior to returning home (Eleanor Feldman, DO)
[2017-06-15] MEDS: KETOROLAC TROMETHAMINE 30 MG/ML VIAL IV PRN (20:49)
[2017-06-15] MEDS: ZOLPIDEM TARTRATE 10 MG TAB PO PRN (22:45)
[2017-06-16] MEDS: LINACLOTIDE 145 MCG CAP PO SCH ×2 (03:34→05:59)
[2017-06-16] MEDS: D5W AND NSS 1,000 ML IV SCH ×3 (03:37→23:15)
[2017-06-16] MEDS: HYDROmorphone INJ 2 MG/ML SYR/VIAL IV PRN ×2 (03:37→08:00)
[2017-06-16] MEDS: LEVOTHYROXINE 50 MCG TAB PO SCH (06:01)
[2017-06-16 07:19] VITALS: BP 114/74; PULSE 86; TEMP 36.6; O2SAT 95
[2017-06-16] MEDS: GABAPENTIN 600 MG TAB PO SCH ×3 (07:57→20:03)
[2017-06-16] MEDS: BACLOFEN 10 MG TAB PO SCH ×4 (07:58→20:03)
[2017-06-16] MEDS: FINASTERIDE 5 MG TAB PO SCH (07:58)
[2017-06-16] MEDS: CEROVITE ADV FORMULA TAB PO SCH (07:58)
[2017-06-16] MEDS: PANTOprazole SOD 40 MG TAB PO SCH (07:58)
[2017-06-16] MEDS: DOCUSATE SODIUM/SENNA 50/8.6MG TAB PO SCH (07:58)
[2017-06-16] MEDS: TAMSULOSIN HCL 0.4 MG CAP PO SCH (07:59)
[2017-06-16] MEDS: LACTOBACILLUS ACIDOPHILUS (FLORANEX) TAB PO SCH (07:59)
[2017-06-16] MEDS: RIVAROXABAN TAB 15 MG TAB PO SCH ×2 (07:59→17:22)
[2017-06-16] MEDS: BUDESONIDE/FORMOTEROL FUMARATE 160/4.5 60 PUFFS/INHALER INH SCH ×2 (08:00→20:02)
[2017-06-16] MEDS: TIOTROPIUM BROMIDE 5 PUFF/90 MCG INH INH SCH (08:00)
[2017-06-16] MEDS: VORTIOXETINE HBR 10 MG TAB PO SCH (08:09)
[2017-06-16] MEDS: ALPRAZOLAM 0.5 MG TAB PO SCH (08:10)
[2017-06-16] MEDS: POLYETHYLENE (MIRALAX) 17 GM PACK PO SCH (08:15)
[2017-06-16] MEDS: LIDODERM (LIDOCAINE) PATCH 5% TD SCH (08:16)
--- NOTE | 2017-06-16 09:02 | Pain Management Consultation ---
Pain Management Consultation Date of Consultation Jun 16, 2017. Reason for Consultation Intractable right sided flank/lower abdominal pain Pain Location 1 - 2 - History Mr. 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 Patient had most recently undergone Botox myoneural injections performed on 05/10/2017 which were marginally helpful at diminishing neck spasm and pain. It was felt to be somewhat refractory to his 4 week use of crutches and a left sided walking due to a left ankle injury. The patient was admitted 3 days ago with complaint of pleuritic chest pain 1 week and was suddenly diagnosed with pulmonary emboli. Patient has been experiencing persistent intractable pain and spasm in the right flank and right lower quadrant of the abdomen. Symptoms are significantly exacerbated with any movement or palpation of the right flank and abdominal location. He describes the discomfort is constant but episodically excruciating, sharp and shooting in characteristic. He denies radiation to the testicle, groin or right lower extremity. The patient denies a known thoracic or lumbar back injury recently. Patient was not utilizing opiate therapy prior to this admission. He is finding IV Dilaudid to be efficacious at pain control for approximately 3-4 hours. He has found no benefit from use of Percocet. He remains on maximum daily dose of baclofen 80 mg. GI evaluation has failed to identify an underlying etiology related to a symptomatic complaints. Patient reports some similar discomfort on the left side in the flank and lower abdominal location but not as severe or frequent. The patient has no further constitutional complaints at this time. Past Medical/Surgical History (1) Pleuritic chest pain (2) Abdominal pain (3) COPD (chronic obstructive pulmonary disease) (4) VSD (ventricular septal defect) (5) Anxiety (6) Hypothyroidism (7) Tonsil cancer (8) GERD (gastroesophageal reflux disease) (9) Urinary retention (10) Pulmonary embolism (11) RLQ abdominal pain (12) Depression (13) Enlarged prostate (14) S/P TURP (15) Right ankle surgery (16) S/P left knee arthroscopy (17) S/P right knee arthroscopy (18) History of carpal tunnel release (19) H/O umbilical hernia repair (20) H/O arthroscopy of shoulder (21) History of tonsillectomy and adenoidectomy Family History Diabetes mellitus FH: lung disease FHx: cancer Social / Work History Smoking Status: Never smoker Smokeless Tobacco Use: No Alcohol Use: occasionally Drug Use: none Marital Status: Housing Status: lives with significant other Occupation: employed Allergies Coded Allergies: Statins (Verified Adverse Reaction, Intermediate, GI UPSET, 08/11/16) Temazepam (Verified Adverse Reaction, Unknown, LOSES VOLUNTARY MUSCLE CONTROL, 08/11/16) Medications Current Inpatient Medications Medications (Trade) Dose Ordered Sig/Chanda Route Start Time Stop Time Status Last Admin Dose Admin Hydromorphone HCl (Dilaudid Inj) 2 mg Q4 PRN IV 06/13/17 13:00 06/27/17 12:59 06/16/17 08:00 2 MG Alprazolam (Xanax Tab) 1 mg TID PO 06/13/17 14:00 07/13/17 13:59 06/16/17 08:10 1 MG Baclofen (Lioresal Tab) 20 mg QID PO 06/13/17 13:00 07/13/17 12:59 06/16/17 07:58 20 MG Budesonide/ Formoterol Fumarate (Symbicort 160/ 4.5 Inh) 2 puffs BID INH 06/13/17 21:00 07/13/17 20:59 06/16/17 08:00 2 PUFFS Finasteride (Proscar Tab) 5 mg DAILY PO 06/14/17 09:00 07/14/17 08:59 06/16/17 07:58 5 MG Gabapentin (Neurontin Tab) 600 mg TID PO 06/13/17 14:00 07/13/17 13:59 06/16/17 07:57 600 MG Levothyroxine Sodium (Synthroid Tab) 50 mcg DAILYBB PO 06/14/17 06:00 07/14/17 06:59 06/16/17 06:01 50 MCG Multivitamins/ Minerals (Multivitamin W/ Minerals Tab) 1 tab DAILY PO 06/14/17 09:00 07/14/17 08:59 06/16/17 07:58 1 TAB Tamsulosin HCl (Flomax Cap) 0.4 mg DAILY PO 06/14/17 09:00 07/14/17 08:59 06/16/17 07:59 0.4 MG Tiotropium [place] (Spiriva Handihaler Inhaler) 1 puff DAILY INH 06/14/17 09:00 07/14/17 08:59 06/16/17 08:00 1 PUFF Trazodone HCl (Desyrel Tab) 25 mg HS PRN PO 06/13/17 13:00 07/13/17 12:59 Pantoprazole Sodium (Protonix Tab) 40 mg QAM PO 06/14/17 09:00 07/14/17 08:59 06/16/17 07:58 40 MG Lactobacillus Acidophilus (Floranex Tab) 1 tab DAILY PO 06/14/17 09:00 07/14/17 08:59 06/16/17 07:59 1 TAB Zolpidem Tartrate (Ambien Tab) 10 mg HSZ PRN PO 06/13/17 14:30 07/13/17 14:29 06/15/17 22:45 10 MG Acetaminophen (Tylenol Tab) 650 mg Q4H PRN PO 06/13/17 13:15 07/13/17 13:14 Ondansetron HCl (Zofran Inj) 4 mg Q6H PRN IV 06/13/17 13:15 07/13/17 13:14 06/14/17 00:19 4 MG Oxycodone/ Acetaminophen (Percocet 5-325mg Tab) 1 tab Q4H PRN PO 06/13/17 15:45 06/27/17 15:44 06/14/17 16:58 1 TAB Lidocaine (Lidoderm Patch 5%) 1 patch QAM TD 06/14/17 09:00 07/14/17 08:59 06/16/17 08:16 1 PATCH Miscellaneous (Remove Lidoderm Patch) 1 ea DAILY@21 N/A 06/14/17 21:00 07/14/17 20:59 06/15/17 20:55 1 EA Dextrose/Sodium Chloride 1,000 ml @ 100 mls/hr Q10H IV 06/14/17 11:15 07/14/17 11:14 06/16/17 03:37 100 MLS/HR Enteral Nutritional Formula (Boost) 1 can QDL PO 06/14/17 11:30 07/14/17 11:29 06/15/17 11:11 1 CAN Linaclotide (Linzess) 145 mcg DAILYBB PO 06/15/17 06:00 07/15/17 05:59 06/16/17 05:59 145 MCG Vortioxetine (Trintellix) 15 mg QAM PO 06/15/17 09:00 07/15/17 08:59 06/16/17 08:09 15 MG Senna/Docusate Sodium (Senokot S Tab) 2 tab QAM PO 06/15/17 09:00 07/15/17 08:59 06/16/17 07:58 2 TAB Methylnaltrexone [place] (Relistor Inj) 12 mg Q2D@1600 SQ 06/14/17 16:00 07/14/17 15:59 06/14/17 16:59 12 MG Ketorolac Tromethamine (Toradol Inj) 30 mg Q6H PRN IV 06/14/17 15:45 06/19/17 15:44 06/15/17 20:49 30 MG Rivaroxaban (Xarelto Tab) 15 mg BIDM PO 06/14/17 16:45 07/05/17 08:01 06/16/17 07:59 15 MG Acetaminophen 650 mg/Empty Bag 65 ml @ 260 mls/hr Q6H PRN IV 06/15/17 03:15 07/15/17 03:14 Polyethylene (Miralax Powder Packet) 17 gm BID PO 06/15/17 09:00 07/15/17 08:59 06/16/17 08:15 17 GM Sodium Biphosphate/ Sodium Phosphate (Fleet Enema) 132 ml Q6 PRN ID 06/15/17 12:00 07/14/17 17:59 Review of Systems Patient denies complaints related to cardiac component, GI, , endocrine, neurologic, hepatic, renal, ENT, dermatologic or musculoskeletal other than those described above in the history of present illness. Physical Exam Height & Weight: Height 6 feet, 0.00 inches. Weight 96.200 (Kilograms) 212 (Pounds) Last Vital Signs Documentation Date Time Temp Pulse Resp B/P (MAP) Pulse Ox O2 Delivery O2 Flow Rate FiO2 06/16/17 07:19 36.6 86 18 114/74 (87) 95 Nasal Cannula 2.0 Exam: General: Patient lying quietly upon entering the room. Patient is intermittently shaking diffusely. Patient appears to have significant discomfort localized to the right lower abdomen with any movement. He appears to have some obvious distress with movement. Abdomen: Distended and firm to palpation. Patient has significant tenderness to palpation in the entire right greater than left abdominal location. There appears to be some appreciable spasm palpable with extreme tightness of the abdominal musculature. No definable myoneural trigger points. Back/spine: Patient nontender over the midline of the thoracolumbar spine. No focal facet joint tenderness to provocative testing. Patient is tender over the right flank to palpation with spasm. No SI joint tenderness appreciated. Lower extremities: Strength 5/5 with dorsiflexion and plantarflexion as well as hip flexion and extension. Significant increase in discomfort in the lower abdominal location with resisted hip flexion or any attempted active movement of the hip flexors. Nontender over the greater trochanter bilaterally. Sensation was intact without deficits. Neurologic: Cranial nerves grossly intact. Ambulatory function not witnessed. Laboratory Laboratory Review: results personally reviewed by me Imaging CT: reports reviewed CT Findings Patient: SABINE ETIENNE Address1: [address] [place] [address] Rec: [id number] Address2: Acct ID: [id number] [facility] Zip: [place] [address] Date: 1955 Sex: M Room/Bed: [facility] Ref Phy: Joaquín Brito M.D. SC: Roxy Att Phy: Eleanor Feldman DO Report #: [id number] Katie Phy: Marcin Joy, D.OErnesto Test: APWO Admit Phy: Eleanor Feldman DO Inspector Outside Production: [facility] Interpreting Phy: David Shaw M.D. Diagnosis: PULMONARY EMBOLISM,RLQ ABD PAIN Ordering Phy: Babak Olivera M.D. Service Date: 06/14/17 Admit Date: 06/13/1708/15/17 MNE: PWRSCRIBE CONF: DICTATED BY: David Shaw M.D.]] CC: Eleanor Feldman DO Newhouser, Shane D., D.OBabak Ybarra M.D. Sherbondy, Paul S., M.D. Endcc: [~ rep ct add3]] CT SCAN OF THE ABDOMEN AND PELVIS WITHOUT CONTRAST CLINICAL HISTORY: Worsening abdominal pain COMPARISON STUDY: 06/13/2017 TECHNIQUE: CT scan of the abdomen and pelvis was performed from the lung bases to the proximal femurs. Images are reviewed in the axial, sagittal, and coronal planes. IV contrast was not administered for this examination. A dose lowering technique was utilized adhering to the principles of ALARA. CT DOSE: 1131.14 mGy.cm FINDINGS: Lower chest: There are bibasal atelectatic changes. Liver: The unenhanced liver is normal in size, contour, and attenuation. There is no intrahepatic biliary ductal dilatation. Gallbladder: Unremarkable. Spleen: The spleen is mildly enlarged measuring 14.4 cm. Pancreas: Unremarkable. Adrenal glands: Unremarkable. Kidneys: No renal, ureteral, or bladder calculi are visualized. Bowel: There are no transition zone to indicate bowel obstruction. The appendix appears normal. There is scattered stool throughout the colon. There is no acute diverticulitis. Peritoneum: There is no intraperitoneal free air or abdominal ascites. There is minimal nonspecific infiltration of the fat adjacent the left psoas muscle. Vasculature: The abdominal aorta is normal in course and caliber. Adenopathy: None. Pelvic viscera: There is indwelling Landon catheter. Skeletal structures: No destructive osseous lesions are seen. IMPRESSION: 1. No evidence of bowel obstruction. No evidence of free air 2. Normal appendix 3. Mild splenomegaly 4. No evidence of acute diverticulitis 5. Interval development of mild infiltration of the fat adjacent to the left psoas. This finding is of uncertain etiology. Clinical follow-up is advocated. (Of note, this nonspecific finding was not described on the preliminary report) Electronically signed by: David Shaw M.D. 06/15/2017 6:36 AM Dictated Date/Time: 06/15/2017 6:31 AM The status of this report is Signed. Draft = Not yet reviewed or approved by Radiologist. Signed = Reviewed and approved by Radiologist. Radiology: reports reviewed Radiology Findings Patient: SABINE ETIENNE Address1: [address] [place] [address] Rec: [id number] Address2: Acct ID: [id number] [facility] Zip: [place] [address] Date: 1955 Sex: M Room/Bed: [facility] Ref Phy: Joaquín Brito M.D. SC: C.2E Att Phy: Eleanor Feldman DO Report #: [id number] Katie Phy: Marcin Joy D.O. Test: [id number] Admit Phy: Eleanor Feldman DO Inspector Outside Production: [employer] Interpreting Phy: Joaquín De La Rosa MD Diagnosis: PULMONARY EMBOLISM,RLQ ABD PAIN Ordering Phy: Alejandra Colón P.A.-C. Service Date: 06/14/17 Admit Date: 06/13/1708/15/17 MNE: PWRSCRIBE CONF: DICTATED BY: Joaquín De La Rosa MD]] CC: Eleanor Feldman DO Martin, Jill .Daphne. Marcin Joy D.O. Joaquín Brito M.D. Endcc: [~ rep ct add3]] LUMBAR SPINE 2 OR 3 VIEWS CLINICAL HISTORY: 61 years-old Male presenting with R flank pain. TECHNIQUE: Frontal, lateral, and coned in lateral view of the lumbar spine were obtained. COMPARISON: CT from 06/13/2017. FINDINGS: Levoscoliotic curvature of the lumbar spine centered at L2-3. Normal lumbar lordosis. Vertebral body heights preserved. Intervertebral disc height loss at L2-3 with associated endplate sclerosis. Osseous neural foraminal narrowing is also suspected at L2-3. No radiographic evidence of acute fracture or subluxation. Diffuse gaseous distention of small and large bowel. No gross pneumoperitoneum. IMPRESSION: Scoliosis with focal degenerative change at L2-3, where there is associated osseous neural foraminal narrowing. Electronically signed by: Joaquín De La Rosa M.D. 06/14/2017 1:29 PM Dictated Date/Time: 06/14/2017 1:27 PM The status of this report is Signed. Draft = Not yet reviewed or approved by Radiologist. Signed = Reviewed and approved by Radiologist. Patient: SABINE ETIENNE Address1: [address] [place] [address] Rec: [id number] Address2: Acct ID: [id number] [facility] Zip: [place] [address] Date: 1955 Sex: M Room/Bed: 10-1 Ref Phy: Joaquín Brito M.D. SC: Yvonne2E Att Phy: Eleanor Feldman DO Report #: [id number] Katie Phy: Marcin Joy D.O. Test: SACRUM Admit Phy: Eleanor Feldman DO Inspector Outside Production: [employer] Interpreting Phy: David Shaw M.D. Diagnosis: PULMONARY EMBOLISM,RLQ ABD PAIN Ordering Phy: Alejandra Colón P.A.-C. Service Date: 06/14/17 Admit Date: 06/13/1708/15/17 MNE: PWRSCRIBE CONF: DICTATED BY: David Shaw M.D.]] CC: Eleanor Feldman DO Martin, Jill .Jaelyn-Shea. Marcin Joy, Shira.O. Joaquín Brito M.D. Endcc: [~ rep ct add3]] SACRUM ONLY CLINICAL HISTORY: Right-sided back pain COMPARISON STUDY: No previous studies for comparison. FINDINGS: No sacral fractures are visualized. There is no SI joint fusion. There are no erosive changes. There is no SI joint diastases. IMPRESSION: Mild degenerative changes. No conventional radiographic evidence of an inflammatory sacroiliitis Electronically signed by: David Shaw M.D. 06/14/2017 1:29 PM Dictated Date/Time: 06/14/2017 1:28 PM The status of this report is Signed. Draft = Not yet reviewed or approved by Radiologist. Signed = Reviewed and approved by Radiologist. Patient: SABINE ETIENNE Address1: [address] [place] [address] Rec: [id number] Address2: Acct ID: [id number] [facility] Zip: [place] [address] Date: 1955 Sex: M Room/Bed: [facility] Ref Phy: Joaquín Brito M.D. SC: Yvonne2E Att Phy: Eleanor Feldman DO Report #: [id number] Katie Phy: Marcin Joy D.O. Test: KUB Admit Phy: Eleanor Feldman DO Inspector Outside Production: [employer] Interpreting Phy: Helio Salcido M.D. Diagnosis: PULMONARY EMBOLISM,RLQ ABD PAIN Ordering Phy: Eleanor Feldman DO Service Date: 06/13/17 Admit Date: 06/13/1708/15/17 MNE: PWRSCRIBE CONF: DICTATED BY: Helio Salcido M.D.]] CC: Eleanor Feldman, Marcin Hernandez, D.O. Joaquín Brito M.D. Endcc: [~ rep ct add3]] KUB CLINICAL HISTORY: r/o R kidney stones flank pain COMPARISON STUDY: No previous studies for comparison. FINDINGS: Mild generalized ileus. No evidence of bowel distention. Calcifications the urinary tracts aren't possible to define given overlap artifact. IMPRESSION: 1. Non visibility of the urinary tracts due to overlying bowel air and fecal material. The above report was generated using voice recognition software. It may contain grammatical, syntax or spelling errors. Electronically signed by: Helio Salcido M.D. 06/13/2017 7:36 PM Dictated Date/Time: 06/13/2017 7:35 PM The status of this report is Signed. Draft = Not yet reviewed or approved by Radiologist. Signed = Reviewed and approved by Radiologist. Patient: SABINE ETIENNE Address1: [address] [place] [address] Rec: [id number] Address2: Acct ID: [id number] [facility] Zip: [place] [address] Date: 1955 Sex: M Room/Bed: [facility] Ref Phy: Joaquín Brito M.D. SC: Roxy Att Phy: Eleanor Feldman DO Report #: [id number] Katie Phy: Marcin Joy, D.O. Test: HIP Admit Phy: Eleanor Feldman DO Inspector Outside Production: [employer] Interpreting Phy: Helio Salcido M.D. Diagnosis: PULMONARY EMBOLISM,RLQ ABD PAIN Ordering Phy: Eleanor Feldman DO Service Date: 06/13/17 Admit Date: 06/13/1708/15/17 MNE: PWRSCRIBE CONF: DICTATED BY: Helio Salcido M.D.]] CC: Eleanor Feldman, Marcin Hernandez, D.O. Joaquín Brito M.D. Endcc: [~ rep ct add3]] RIGHT HIP UNILATERAL 2 VIEWS CLINICAL HISTORY: R hip pain Right pain COMPARISON: None. DISCUSSION: Mild degenerative narrowing right hip joint space. No evidence for acetabular protrusion. No lytic or blastic process. There is no evidence for soft tissue swelling. IMPRESSION: Mild degenerative change. No acute process. The above report was generated using voice recognition software. It may contain grammatical, syntax or spelling errors. Electronically signed by: Helio Salcido M.D. 06/13/2017 4:43 PM Dictated Date/Time: 06/13/2017 4:42 PM The status of this report is Signed. Draft = Not yet reviewed or approved by Radiologist. Signed = Reviewed and approved by Radiologist. Past Records Previous Records: personally reviewed by me Assessment 1. Intractable right flank/lower abdominal pain of suspected myofascial etiology with spasm 2. History of cervical dystonia 3. Recent diagnosis of pulmonary emboli--right lower lobe 4. Chronic constipation Recommendations 1. Will discontinue alprazolam and initiate a trial of diazepam 5 mg 3 times a day over the next 2-3 days to assess response. Consider progressing to 10 mg 3 times a day at that time. 2. Will evaluate a thoracic spine series x-ray 3. Consider a short tapering course of steroids should there be no contraindication-will leave to discretion of hospitalist team 4. Continue with IV hydromorphone over the next few days before when necessary pain control which has been efficacious 5. Consider neurology consultation to rule out an underlying neurologic cause of his diffuse spasm
[2017-06-16 09:52] LABS: HEMATOCRIT 32.2 % (42-52); MEAN CELL VOLUME 86.1 fL (80-100); MEAN CORPUSCULAR HEMOGLOBIN 29.1 pg (25-34); MEAN CORPUSCULAR HGB CONC 33.9 g/dl (32-36); MEAN PLATELET VOLUME 10.2 fL (7.4-10.4); PLATELET COUNT 166 K/uL (130-400); RED BLOOD COUNT 3.74 M/uL (4.7-6.1); WHITE BLOOD COUNT 4.08 K/uL (4.8-10.8)
[2017-06-16 10:21] LABS: BUN/CREATININE RATIO 17.5 (10-20); CALCIUM 8.5 mg/dl (8.5-10.1); CREATININE 0.59 mg/dl (0.60-1.40); POTASSIUM 4.4 mmol/L (3.5-5.1)
--- NOTE | 2017-06-16 10:44 | DIAGNOSTIC IMAGING REPORT ---
THORACIC SPINE 3 VIEWS HISTORY: thoracic back/radicular pain COMPARISON: None. FINDINGS: There is no fracture. No subluxation. Moderate dextroscoliosis. Mild degenerative disc disease throughout the mid to lower thoracic spine demonstrated by mild disc space narrowing. Paraspinal soft tissues are unremarkable. IMPRESSION: No fracture or subluxation within the thoracic spine. Moderate dextroscoliosis and mild degenerative disc disease. Electronically signed by: Ivan Carballo M.D. 06/16/2017 10:42 AM Dictated Date/Time: 06/16/2017 10:33 AM
[2017-06-16] MEDS: BOOST VANILLA PO SCH ×2 (12:01)
[2017-06-16] MEDS: DIAZEPAM 5MG TAB PO SCH ×2 (13:49→20:02)
[2017-06-16] MEDS: HYDROmorphone INJ 1 MG/ML SYR IV PRN (13:49)
[2017-06-16 15:44] VITALS: BP 99/57; PULSE 83; TEMP 37.4; O2SAT 95
[2017-06-16] MEDS: KETOROLAC TROMETHAMINE 30 MG/ML VIAL IV PRN ×2 (16:05→22:30)
--- NOTE | 2017-06-16 16:30 | Progress Note ---
Medicine Progress Note Date & Time of Visit: Jun 16, 2017 at 16:24. (Alejandra Colón, P.A.-C.) Subjective Patient seen and examined. States that RLQ pain is intermittent now, instead of constant. Ranks pain at a 6/10 instead of 10/10. Is participating in PT/OT. Denies CP, SOB, N/V, weakness. (Alejandra Colón, P.A.-C.) Objective Last 8 Hrs Date Time Temp Pulse Resp B/P (MAP) Pulse Ox O2 Delivery O2 Flow Rate FiO2 06/16/17 15:44 37.4 83 18 99/57 (71) 95 Nasal Cannula 2.0 Physical Exam: General Appearance: + moderate distress (Intermittently yelling out in pain from RLQ) Head: normocephalic, atraumatic Eyes: normal inspection ENT: normal ENT inspection (H/o cervical dystonia s/p radiation to throat ) Neck: supple, no adenopathy, trachea midline Respiratory/Chest: chest non-tender, lungs clear, no respiratory distress, no accessory muscle use Cardiovascular: regular rate, rhythm, Pansystolic murmur Abdomen/GI: normal bowel sounds, + tenderness (TTP RLQ > LLQ. With guarding in RLQ only. No rebound tenderness. ), + distended Back: normal inspection, + right CVA tenderness Extremities/Musculoskelatal: normal inspection, no calf tenderness, normal capillary refill Neurologic/Psych: no motor/sensory deficits, alert, blunted affect 2/2 narcotics, oriented x 3 Skin: normal color Laboratory Results: Last 24 Hours Test 06/16/17 09:22 White Blood Count 4.08 K/uL Red Blood Count 3.74 M/uL Hemoglobin 10.9 g/dL Hematocrit 32.2 % Mean Corpuscular Volume 86.1 fL Mean Corpuscular Hemoglobin 29.1 pg Mean Corpuscular Hemoglobin Concent 33.9 g/dl RDW Standard Deviation 42.6 fL RDW Coefficient of Variation 13.4 % Platelet Count 166 K/uL Mean Platelet Volume 10.2 fL Sodium Level 136 mmol/L Potassium Level 4.4 mmol/L Chloride Level 104 mmol/L Carbon Dioxide Level 29 mmol/L Anion Gap 3.0 mmol/L Blood Urea Nitrogen 10 mg/dl Creatinine 0.59 mg/dl Est Creatinine Clear Calc Drug Dose 160.2 ml/min Estimated GFR () 127.5 Estimated GFR (Non- 110.0 BUN/Creatinine Ratio 17.5 Random Glucose 103 mg/dl Calcium Level 8.5 mg/dl (Alejandra Colón, P.A.-C.) Assessment & Plan This is a 61yo M with a PMH of COPD, anxiety, h/o Tonsillar cancer (2007), acquired hypothyroidism and enlarged prostate who presents with pleuritic chest pain x 1 week and was found to have a RLL pulmonary embolus. R Lower Lobe PE: -Chest/thorax CTA showing RLL subsegmental PE -Vitals are stable -On Xarelto (day 3) -Continue pain management RLQ/R Hip Pain: -Complains of excruciating pain of RLQ radiating to flank, worse with R hip flexion -Afebrile, no leukocytosis, no evidence of infection -All imaging has been unremarkable: -CT abd/pelvis clear with exception of distended bladder -R hip XR showing mild degenerative changes -BLE venous doppler without DVTs -KUB: "Non visibility of the urinary tracts due to overlying bowel air and fecal material" -XR of lumbar spine and sacrum wnl -Repeat CT Abd/Pelvis without changes -Consulted GI, who recommended a new bowel regimen, decreased narcotics and more movement -Consulted pain management for recs. Recommended continuing IV hydromorphone over the next few days. Discontinue alprazolam and initiate trial of diazepam 5mg TID over the next 2 -3 days to assess response Evaluate thoracic spine series XR Consider a short tapering course of steroids if above efforts are not sufficient Constipation: -H/o chronic constipation -Continue home meds -Started Senocot S Q AM -Continue fluids -Is starting to have bowel movements Urinary retention: -2/2 enlarged prostate -Catheter in place with some hematuria present -Follows out-patient with urology. 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 In remission -Continue home meds for dystonia COPD: -Stable -Continue home inhalers/nebs -Continue O2 Hypothyroidism: -Acquired 2/2 radiation -Continue synthroid Anxiety/depression: -Stable -Continue home meds Insomnia: -Continue Ambien and tramadol while in-patient -Holding Belsomra DVT Ppx: on heparin Code status: FULL PCP: Rufino Dispo: Plan to discharge to rehab. Continue PT/OT, placement. Current Inpatient Medications: Current Inpatient Medications Medications (Trade) Dose Ordered Sig/Chanda Route Start Time Stop Time Status Last Admin Dose Admin Baclofen (Lioresal Tab) 20 mg QID PO 06/13/17 13:00 07/13/17 12:59 06/16/17 12:01 20 MG Budesonide/ Formoterol Fumarate (Symbicort 160/ 4.5 Inh) 2 puffs BID INH 06/13/17 21:00 07/13/17 20:59 06/16/17 08:00 2 PUFFS Finasteride (Proscar Tab) 5 mg DAILY PO 06/14/17 09:00 07/14/17 08:59 06/16/17 07:58 5 MG Gabapentin (Neurontin Tab) 600 mg TID PO 06/13/17 14:00 07/13/17 13:59 06/16/17 13:49 600 MG Levothyroxine Sodium (Synthroid Tab) 50 mcg DAILYBB PO 06/14/17 06:00 07/14/17 06:59 06/16/17 06:01 50 MCG Multivitamins/ Minerals (Multivitamin W/ Minerals Tab) 1 tab DAILY PO 06/14/17 09:00 07/14/17 08:59 06/16/17 07:58 1 TAB Tamsulosin HCl (Flomax Cap) 0.4 mg DAILY PO 06/14/17 09:00 07/14/17 08:59 06/16/17 07:59 0.4 MG Tiotropium [place] (Spiriva Handihaler Inhaler) 1 puff DAILY INH 06/14/17 09:00 07/14/17 08:59 06/16/17 08:00 1 PUFF Trazodone HCl (Desyrel Tab) 25 mg HS PRN PO 06/13/17 13:00 07/13/17 12:59 Pantoprazole Sodium (Protonix Tab) 40 mg QAM PO 06/14/17 09:00 07/14/17 08:59 06/16/17 07:58 40 MG Lactobacillus Acidophilus (Floranex Tab) 1 tab DAILY PO 06/14/17 09:00 07/14/17 08:59 8/18/17 07:59 1 TAB Zolpidem Tartrate (Ambien Tab) 10 mg HSZ PRN PO 06/13/17 14:30 07/13/17 14:29 06/15/17 22:45 10 MG Acetaminophen (Tylenol Tab) 650 mg Q4H PRN PO 06/13/17 13:15 07/13/17 13:14 Ondansetron HCl (Zofran Inj) 4 mg Q6H PRN IV 06/13/17 13:15 07/13/17 13:14 06/14/17 00:19 4 MG Oxycodone/ Acetaminophen (Percocet 5-325mg Tab) 1 tab Q4H PRN PO 06/13/17 15:45 06/27/17 15:44 06/14/17 16:58 1 TAB Lidocaine (Lidoderm Patch 5%) 1 patch QAM TD 06/14/17 09:00 07/14/17 08:59 06/16/17 08:16 1 PATCH Miscellaneous (Remove Lidoderm Patch) 1 ea DAILY@21 N/A 06/14/17 21:00 07/14/17 20:59 06/15/17 20:55 1 EA Dextrose/Sodium Chloride 1,000 ml @ 100 mls/hr Q10H IV 06/14/17 11:15 07/14/17 11:14 06/16/17 13:13 100 MLS/HR Enteral Nutritional Formula (Boost) 1 can QDL PO 06/14/17 11:30 07/14/17 11:29 06/16/17 12:01 1 CAN Linaclotide (Linzess) 145 mcg DAILYBB PO 06/15/17 06:00 07/15/17 05:59 06/16/17 05:59 145 MCG Vortioxetine (Trintellix) 15 mg QAM PO 06/15/17 09:00 07/15/17 08:59 06/16/17 08:09 15 MG Senna/Docusate Sodium (Senokot S Tab) 2 tab QAM PO 06/15/17 09:00 07/15/17 08:59 06/16/17 07:58 2 TAB Methylnaltrexone [place] (Relistor Inj) 12 mg Q2D@1600 SQ 06/14/17 16:00 07/14/17 15:59 Future Hold 06/14/17 16:59 12 MG Ketorolac Tromethamine (Toradol Inj) 30 mg Q6H PRN IV 06/14/17 15:45 06/19/17 15:44 06/16/17 16:05 30 MG Rivaroxaban (Xarelto Tab) 15 mg BIDM PO 06/14/17 16:45 07/05/17 08:01 06/16/17 07:59 15 MG Acetaminophen 650 mg/Empty Bag 65 ml @ 260 mls/hr Q6H PRN IV 06/15/17 03:15 07/15/17 03:14 Sodium Biphosphate/ Sodium Phosphate (Fleet Enema) 132 ml Q6 PRN [place] 06/15/17 12:00 07/14/17 17:59 Diazepam (Valium Tab) 5 mg TID PO 06/16/17 14:00 07/16/17 13:59 06/16/17 13:49 5 MG Hydromorphone HCl (Dilaudid Inj) 1 mg Q4 PRN IV 06/16/17 12:00 06/27/17 12:59 06/16/17 13:49 1 MG Polyethylene (Miralax Powder Packet) 17 gm DAILY PO 06/17/17 08:00 07/15/17 08:59 (Alejandra Colón, P.A.-C.) Saw/examined the patient in room 453 Doing better in terms of pain Plan is to add Valium - appreciate pain management input thoracic radiograph - negative taper down Dilaudid continue Xarelto, monitor H/H (Eleanor Feldman, DO)
--- NOTE | 2017-06-16 19:11 | ECHOCARDIOGRAM REPORT ---
*NOTICE TO RECEIVING [employer] This information is strictly Confidential and protected under [place] law. [place] law prohibits you from making any further disclosure of this information unless further disclosure is expressly permitted by the written consent of the person to whom it pertains or is authorized by law. A general authorization for the release of medical or other information is not sufficient for this purpose. Hospital accepts no responsibility if the information is made available to any other person, INCLUDING THE PATIENT. Interpretation Summary * Name: SABINE LANCASTER Study Date: 06/16/2017 12:54 PM BP: 101/58 mmHg * Patient Location: [facility] HR: 82 * : 1955 (M/d/yyyy) Gender: Male Height: 72 in * Age: 61 yrs Ethnicity: [place] Weight: 212 lb * Ordering Physician: Eleanor Feldman * Referring Physician: Ysabel Barton PA-C * Performed By: Desiree Carranza RDCS * * Reason For Study: Systolic murmur * BSA: 2.2 m2 * The study was technically adequate. * -- Conclusions -- * Flattened septum is consistent with RV pressure/volume overload. * The LV wall motion is otherwise normal. * Ejection Fraction = 55-60%. * The right ventricle is moderately dilated. * The right ventricular systolic function is normal. * There is a moderate sized perimembranous ventricular septal defect is present with left to right cardiac shunt and calculated LV to RV gradient of 78 mm Hg. * Compared to the images reviewed of the prior study dated 09/18/14, the ventricular septal defect appears larger. * There is now right ventricuar chamber enlargement and interventricular septal flatting suggestive of RV pressure / volume overload. The right ventricular pressure is calculated to be 26 mm Hg, based on systolic blood pressure of 101 mm Hg and 78 mm Hg gradient, however based on 2D findings new pulmonary hypertension is suspected. Procedure Details * A complete two-dimensional transthoracic echocardiogram was performed (2D, M-mode, Doppler and color flow Doppler). Left Ventricle * The left ventricle is normal in size. * There is a moderate sized perimembranous ventricular septal defect is present with left to right cardiac shunt and calculated LV to RV gradient of 78 mm Hg. * There is normal left ventricular wall thickness. * Ejection Fraction = 55-60%. * Left ventricular systolic function is normal. * Flattened septum is consistent with RV pressure/volume overload. * The LV wall motion is otherwise normal. Right Ventricle * The right ventricle is moderately dilated. * The right ventricular systolic function is normal. Atria * The left atrial size is normal. * Right atrial size is normal. * There is no evidence of atrial septal defect, but resolution does not allow assessment for a patent foramen ovale. Mitral Valve * The mitral valve is normal. * There is no mitral valve stenosis. * Significant mitral regurgitation is absent. Tricuspid Valve * The tricuspid valve is normal. * There is no tricuspid stenosis. * Significant tricuspid regurgitation is absent. Aortic Valve * The aortic valve is trileaflet. * Aortic stenosis is absent. * There is no significant aortic regurgitation. Pulmonic Valve * The pulmonary valve is not well seen, but the Doppler examination is normal without significant regurgitation or stenosis. Great Vessels * The aortic root and proximal ascending aorta are normal sized. Pericardium/Pleural * There is no pericardial effusion. Great Vessels * Normal inferior vena cava diameter and respiratory variation suggests normal central venous pressure. Left Ventricular Diastolic Function * Grade I diastolic dysfunction, (abnormal relaxation pattern). MMode 2D Measurements and Calculations IVSd 0.90 cm LVIDd 5.9 cm LVIDs 4.1 cm LVPWd 0.84 cm IVS/LVPW 1.1 FS 30.3 % EDV(Teich) 176.4 ml ESV(Teich) 76.2 ml EF(Teich) 56.8 % EDV(cubed) 210.4 ml ESV(cubed) 71.3 ml EF(cubed) 66.1 % LV mass(C)d 203.9 grams LV mass(C)dI 93.4 grams/m\S\2 SV(Teich) 100.2 ml SI(Teich) 45.9 ml/m\S\2 SV(cubed) 139.1 ml SI(cubed) 63.7 ml/m\S\2 Ao root diam 4.3 cm Ao root area 14.6 cm\S\2 ACS 2.5 cm LA dimension 4.2 cm asc Aorta Diam 2.9 cm LA/Ao 0.97 LVOT diam 2.2 cm LVOT area 3.9 cm\S\2 LVAd ap4 37.7 cm\S\2 LVLd ap4 8.0 cm EDV(MOD-sp4) 145.4 ml EDV(sp4-el) 150.5 ml LVAs ap4 24.0 cm\S\2 LVLs ap4 7.1 cm ESV(MOD-sp4) 67.7 ml ESV(sp4-el) 68.7 ml EF(MOD-sp4) 53.5 % EF(sp4-el) 54.3 % LVAd ap2 40.8 cm\S\2 LVLd ap2 8.4 cm EDV(MOD-sp2) 162.3 ml EDV(sp2-el) 168.3 ml LVAs ap2 24.0 cm\S\2 LVLs ap2 7.1 cm ESV(MOD-sp2) 71.0 ml ESV(sp2-el) 69.3 ml EF(MOD-sp2) 56.2 % EF(sp2-el) 58.8 % LVLd %diff 4.8 % EDV(MOD-bp) 157.1 ml LVLs %diff -0.35 % ESV(MOD-bp) 69.2 ml EF(MOD-bp) 56.0 % SV(MOD-sp4) 77.7 ml SI(MOD-sp4) 35.6 ml/m\S\2 SV(MOD-sp2) 91.3 ml SI(MOD-sp2) 41.8 ml/m\S\2 SV(MOD-bp) 88.0 ml SI(MOD-bp) 40.3 ml/m\S\2 SV(sp4-el) 81.8 ml SI(sp4-el) 37.4 ml/m\S\2 SV(sp2-el) 99.0 ml SI(sp2-el) 45.3 ml/m\S\2 Doppler Measurements and Calculations MV E max ramone 90.6 cm/sec MV A max ramone 73.5 cm/sec MV E/A 1.2 MV dec time 0.23 sec Ao V2 max 155.3 cm/sec Ao max PG 9.6 mmHg Ao max PG (full) 6.3 mmHg ALFREDO(V,A) 2.3 cm\S\2 ALFREDO(V,D) 2.3 cm\S\2 LV V1 max PG 3.4 mmHg LV V1 max 91.7 cm/sec PA V2 max 184.6 cm/sec PA max PG 13.6 mmHg PA acc slope 733.0 cm/sec\S\2 PA acc time 0.13 sec TR max ramone 119.4 cm/sec PA pr(Accel) 18.8 mmHg
[2017-06-16 20:01] VITALS: BP 102/61
[2017-06-17 00:17] VITALS: BP 105/64; PULSE 68; TEMP 36.5; O2SAT 97
[2017-06-17] MEDS: HYDROmorphone INJ 1 MG/ML SYR IV PRN ×3 (02:01→14:16)
[2017-06-17] MEDS: LINACLOTIDE 145 MCG CAP PO SCH (06:36)
[2017-06-17] MEDS: LEVOTHYROXINE 50 MCG TAB PO SCH (06:36)
[2017-06-17 07:21] LABS: HEMATOCRIT 31.5 % (42-52); MEAN CELL VOLUME 87.3 fL (80-100); MEAN CORPUSCULAR HEMOGLOBIN 28.8 pg (25-34); PLATELET COUNT 156 K/uL (130-400); RED BLOOD COUNT 3.61 M/uL (4.7-6.1); WHITE BLOOD COUNT 3.67 K/uL (4.8-10.8)
[2017-06-17 07:33] LABS: BUN/CREATININE RATIO 15.7 (10-20); CALCIUM 8.5 mg/dl (8.5-10.1); CREATININE 0.58 mg/dl (0.60-1.40)
[2017-06-17 07:45] VITALS: BP 114/72; PULSE 80; TEMP 37.3; O2SAT 96
[2017-06-17] MEDS: TIOTROPIUM BROMIDE 5 PUFF/90 MCG INH INH SCH (08:01)
[2017-06-17] MEDS: BUDESONIDE/FORMOTEROL FUMARATE 160/4.5 60 PUFFS/INHALER INH SCH ×2 (08:01→19:19)
[2017-06-17] MEDS: RIVAROXABAN TAB 15 MG TAB PO SCH ×2 (08:01→17:43)
[2017-06-17] MEDS: FINASTERIDE 5 MG TAB PO SCH (08:01)
[2017-06-17] MEDS: BACLOFEN 10 MG TAB PO SCH ×4 (08:02→19:18)
[2017-06-17] MEDS: DIAZEPAM 5MG TAB PO SCH ×3 (08:02→19:21)
[2017-06-17] MEDS: LACTOBACILLUS ACIDOPHILUS (FLORANEX) TAB PO SCH (08:02)
[2017-06-17] MEDS: DOCUSATE SODIUM/SENNA 50/8.6MG TAB PO SCH (08:02)
[2017-06-17] MEDS: GABAPENTIN 600 MG TAB PO SCH ×3 (08:02→19:19)
[2017-06-17] MEDS: POLYETHYLENE (MIRALAX) 17 GM PACK PO SCH (08:02)
[2017-06-17] MEDS: LIDODERM (LIDOCAINE) PATCH 5% TD SCH (08:02)
[2017-06-17] MEDS: PANTOprazole SOD 40 MG TAB PO SCH (08:02)
[2017-06-17] MEDS: TAMSULOSIN HCL 0.4 MG CAP PO SCH (08:02)
[2017-06-17] MEDS: CEROVITE ADV FORMULA TAB PO SCH (08:02)
[2017-06-17] MEDS: VORTIOXETINE HBR 10 MG TAB PO SCH (08:03)
[2017-06-17] MEDS: D5W AND NSS 1,000 ML IV SCH ×2 (09:03→17:44)
[2017-06-17] MEDS: BOOST VANILLA PO SCH ×2 (12:27)
--- NOTE | 2017-06-17 15:34 | Progress Note ---
Subjective Date of Service: Jun 17, 2017. Subjective Pt evaluation today including: conversation w/ patient, conversation w/ family , physical exam, lab review, review of studies, review of inpatient medication list Saw/examined the patient in room 453 No problems/issues to note today; pain much improved ambulating better Breathing - dyspnea with exertion Problem List Medical Problems: (1) Abdominal pain Status: Acute (2) Pleuritic chest pain Status: Acute (3) Pulmonary embolism Status: Acute (4) Urinary retention Status: Chronic Social History Problems: (1) Abdominal pain Status: Acute (2) Bleeding from mouth Status: Acute (3) Fever Status: Acute (4) H/O gastroesophageal reflux (GERD) Status: Chronic (5) Pneumonitis Status: Acute (6) SOB (shortness of breath) Status: Acute (7) Urinary tract infection Status: Acute (8) Urinary tract infection Status: Acute (9) VSD (ventricular septal defect) Status: Chronic Review of Systems Constitutional: No fever, No chills Respiratory: + shortness of breath, + dyspnea on exertion, No cough, No sputum , No wheezing, No dyspnea at rest, No hemoptysis Cardiac: No chest pain, No edema, No palpitations Heme: No abnormal bleeding/bruising Medications Current Inpatient Medications Medications (Trade) Dose Ordered Sig/Chanda Route Start Time Stop Time Status Last Admin Dose Admin Baclofen (Lioresal Tab) 20 mg QID PO 06/13/17 13:00 07/13/17 12:59 06/17/17 12:27 20 MG Budesonide/ Formoterol Fumarate (Symbicort 160/ 4.5 Inh) 2 puffs BID INH 06/13/17 21:00 07/13/17 20:59 06/17/17 08:01 2 PUFFS Finasteride (Proscar Tab) 5 mg DAILY PO 06/14/17 09:00 07/14/17 08:59 06/17/17 08:01 5 MG Gabapentin (Neurontin Tab) 600 mg TID PO 06/13/17 14:00 07/13/17 13:59 06/17/17 14:08 600 MG Levothyroxine Sodium (Synthroid Tab) 50 mcg DAILYBB PO 06/14/17 06:00 07/14/17 06:59 06/17/17 06:36 50 MCG Multivitamins/ Minerals (Multivitamin W/ Minerals Tab) 1 tab DAILY PO 06/14/17 09:00 07/14/17 08:59 06/17/17 08:02 1 TAB Tamsulosin HCl (Flomax Cap) 0.4 mg DAILY PO 06/14/17 09:00 07/14/17 08:59 06/17/17 08:02 0.4 MG Tiotropium [place] (Spiriva Handihaler Inhaler) 1 puff DAILY INH 06/14/17 09:00 07/14/17 08:59 06/17/17 08:01 1 PUFF Trazodone HCl (Desyrel Tab) 25 mg HS PRN PO 06/13/17 13:00 07/13/17 12:59 Pantoprazole Sodium (Protonix Tab) 40 mg QAM PO 06/14/17 09:00 07/14/17 08:59 06/17/17 08:02 40 MG Lactobacillus Acidophilus (Floranex Tab) 1 tab DAILY PO 06/14/17 09:00 07/14/17 08:59 06/17/17 08:02 1 TAB Zolpidem Tartrate (Ambien Tab) 10 mg HSZ PRN PO 06/13/17 14:30 07/13/17 14:29 06/15/17 22:45 10 MG Acetaminophen (Tylenol Tab) 650 mg Q4H PRN PO 06/13/17 13:15 07/13/17 13:14 Ondansetron HCl (Zofran Inj) 4 mg Q6H PRN IV 06/13/17 13:15 07/13/17 13:14 06/14/17 00:19 4 MG Oxycodone/ Acetaminophen (Percocet 5-325mg Tab) 1 tab Q4H PRN PO 06/13/17 15:45 06/27/17 15:44 06/14/17 16:58 1 TAB Lidocaine (Lidoderm Patch 5%) 1 patch QAM TD 06/14/17 09:00 07/14/17 08:59 06/17/17 08:02 1 PATCH Miscellaneous (Remove Lidoderm Patch) 1 ea DAILY@21 N/A 06/14/17 21:00 07/14/17 20:59 06/16/17 20:03 1 EA Dextrose/Sodium Chloride 1,000 ml @ 100 mls/hr Q10H IV 06/14/17 11:15 07/14/17 11:14 06/17/17 09:03 100 MLS/HR Enteral Nutritional Formula (Boost) 1 can QDL PO 06/14/17 11:30 07/14/17 11:29 06/17/17 12:27 1 CAN Linaclotide (Linzess) 145 mcg DAILYBB PO 06/15/17 06:00 07/15/17 05:59 06/17/17 06:36 145 MCG Vortioxetine (Trintellix) 15 mg QAM PO 06/15/17 09:00 07/15/17 08:59 06/17/17 08:03 15 MG Senna/Docusate Sodium (Senokot S Tab) 2 tab QAM PO 06/15/17 09:00 07/15/17 08:59 06/17/17 08:02 2 TAB Methylnaltrexone [place] (Relistor Inj) 12 mg Q2D@1600 SQ 06/14/17 16:00 07/14/17 15:59 Future Hold 06/14/17 16:59 12 MG Ketorolac Tromethamine (Toradol Inj) 30 mg Q6H PRN IV 06/14/17 15:45 06/19/17 15:44 06/16/17 22:30 30 MG Rivaroxaban (Xarelto Tab) 15 mg BIDM PO 06/14/17 16:45 07/05/17 08:01 06/17/17 08:01 15 MG Acetaminophen 650 mg/Empty Bag 65 ml @ 260 mls/hr Q6H PRN IV 06/15/17 03:15 07/15/17 03:14 Sodium Biphosphate/ Sodium Phosphate (Fleet Enema) 132 ml Q6 PRN [place] 06/15/17 12:00 07/14/17 17:59 Diazepam (Valium Tab) 5 mg TID PO 06/16/17 14:00 07/16/17 13:59 06/17/17 14:08 5 MG Hydromorphone HCl (Dilaudid Inj) 1 mg Q4 PRN IV 06/16/17 12:00 06/27/17 12:59 06/17/17 14:16 1 MG Polyethylene (Miralax Powder Packet) 17 gm DAILY PO 06/17/17 08:00 07/15/17 08:59 06/17/17 08:02 17 GM Topiramate (Topamax Tab) 50 mg BID PO 06/17/17 20:00 07/17/17 19:59 Objective Vital Signs Date Time Temp Pulse Resp B/P (MAP) Pulse Ox O2 Delivery O2 Flow Rate FiO2 06/17/17 08:00 Nasal Cannula 2.0 06/17/17 07:45 37.3 80 18 114/72 (86) 96 Nasal Cannula 2.0 06/17/17 00:17 36.5 68 18 105/64 (78) 97 Room Air 06/17/17 00:00 Nasal Cannula 2.0 06/16/17 20:01 62 102/61 (75) 06/16/17 16:00 Nasal Cannula 2.0 06/16/17 15:44 37.4 83 18 99/57 (71) 95 Nasal Cannula 2.0 Physical Exam General Appearance: no apparent distress Respiratory/Chest: chest non-tender, lungs clear, normal breath sounds, no respiratory distress, no accessory muscle use Cardiovascular: regular rate, rhythm, no edema, + systolic murmur Laboratory Results Last 24 Hours Test 06/17/17 06:18 White Blood Count 3.67 K/uL Red Blood Count 3.61 M/uL Hemoglobin 10.4 g/dL Hematocrit 31.5 % Mean Corpuscular Volume 87.3 fL Mean Corpuscular Hemoglobin 28.8 pg Mean Corpuscular Hemoglobin Concent 33.0 g/dl RDW Standard Deviation 43.6 fL RDW Coefficient of Variation 13.6 % Platelet Count 156 K/uL Mean Platelet Volume 11.0 fL Sodium Level 137 mmol/L Potassium Level 4.0 mmol/L Chloride Level 104 mmol/L Carbon Dioxide Level 28 mmol/L Anion Gap 5.0 mmol/L Blood Urea Nitrogen 9 mg/dl Creatinine 0.58 mg/dl Est Creatinine Clear Calc Drug Dose 162.9 ml/min Estimated GFR () 128.4 Estimated GFR (Non- 110.8 BUN/Creatinine Ratio 15.7 Random Glucose 89 mg/dl Calcium Level 8.5 mg/dl Assessment and Plan This is a 61yo M with a PMH of COPD, anxiety, h/o Tonsillar cancer (2007), acquired hypothyroidism and enlarged prostate who presents with pleuritic chest pain x 1 week and was found to have a RLL pulmonary embolus. R Lower Lobe PE: 06/17 continue Xarelto O2 as needed PT/OT -Chest/thorax CTA showing RLL subsegmental PE -Vitals are stable -On Xarelto (day 3) -Continue pain management RLQ/R Hip Pain: 06/17 much improved will try to wean off IV pain meds Valium, Percocet PRN on discharge -Complains of excruciating pain of RLQ radiating to flank, worse with R hip flexion -Afebrile, no leukocytosis, no evidence of infection -All imaging has been unremarkable: -CT abd/pelvis clear with exception of distended bladder -R hip XR showing mild degenerative changes -BLE venous doppler without DVTs -KUB: "Non visibility of the urinary tracts due to overlying bowel air and fecal material" -XR of lumbar spine and sacrum wnl -Repeat CT Abd/Pelvis without changes -Consulted GI, who recommended a new bowel regimen, decreased narcotics and more movement -Consulted pain management for recs. Recommended continuing IV hydromorphone over the next few days. Discontinue alprazolam and initiate trial of diazepam 5mg TID over the next 2 -3 days to assess response Evaluate thoracic spine series XR Consider a short tapering course of steroids if above efforts are not sufficient Constipation: -H/o chronic constipation -Continue home meds -Started Senocot S Q AM -Continue fluids -Is starting to have bowel movements Urinary retention: -2/2 enlarged prostate -Catheter in place with some hematuria present -Follows out-patient with urology. 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 In remission -Continue home meds for dystonia COPD: -Stable -Continue home inhalers/nebs -Continue O2 Hypothyroidism: -Acquired 2/2 radiation -Continue synthroid Anxiety/depression: -Stable -Continue home meds Insomnia: -Continue Ambien and tramadol while in-patient -Holding Belsomra DVT Ppx: on heparin Code status: FULL PCP: Rufino Dispo: Plan to discharge to rehab. Continue PT/OT, placement.
[2017-06-17 15:58] VITALS: BP 114/67; PULSE 76; TEMP 36.9; O2SAT 96
[2017-06-17 16:00] VITALS: O2SAT 96
[2017-06-17] MEDS: TOPIRAMATE 50 MG TAB PO SCH (19:18)
[2017-06-17] MEDS: KETOROLAC TROMETHAMINE 30 MG/ML VIAL IV PRN (21:01)
[2017-06-18] MEDS ORDERED: TOPIRAMATE 50 MG TAB PO SCH
[2017-06-18 00:12] VITALS: BP 116/66; PULSE 69; TEMP 36.6; O2SAT 98
[2017-06-18] MEDS: D5W AND NSS 1,000 ML IV SCH (03:55)
[2017-06-18] MEDS: LEVOTHYROXINE 50 MCG TAB PO SCH (06:09)
[2017-06-18] MEDS: LINACLOTIDE 145 MCG CAP PO SCH (06:09)
[2017-06-18 07:35] VITALS: BP 126/77; PULSE 83; TEMP 36.4; O2SAT 97
[2017-06-18 08:00] VITALS: O2SAT 97
[2017-06-18] MEDS: POLYETHYLENE (MIRALAX) 17 GM PACK PO SCH (08:04)
[2017-06-18] MEDS: RIVAROXABAN TAB 15 MG TAB PO SCH (08:05)
[2017-06-18] MEDS: TAMSULOSIN HCL 0.4 MG CAP PO SCH (08:05)
[2017-06-18] MEDS: CEROVITE ADV FORMULA TAB PO SCH (08:05)
[2017-06-18] MEDS: PANTOprazole SOD 40 MG TAB PO SCH (08:05)
[2017-06-18] MEDS: LACTOBACILLUS ACIDOPHILUS (FLORANEX) TAB PO SCH (08:05)
[2017-06-18] MEDS: GABAPENTIN 600 MG TAB PO SCH (08:05)
[2017-06-18] MEDS: DIAZEPAM 5MG TAB PO SCH (08:05)
[2017-06-18] MEDS: BACLOFEN 10 MG TAB PO SCH ×2 (08:06→11:08)
[2017-06-18] MEDS: BUDESONIDE/FORMOTEROL FUMARATE 160/4.5 60 PUFFS/INHALER INH SCH (08:06)
[2017-06-18] MEDS: TOPIRAMATE 50 MG TAB PO SCH (08:06)
[2017-06-18] MEDS: TIOTROPIUM BROMIDE 5 PUFF/90 MCG INH INH SCH (08:07)
[2017-06-18] MEDS: DOCUSATE SODIUM/SENNA 50/8.6MG TAB PO SCH (08:08)
[2017-06-18] MEDS: VORTIOXETINE HBR 10 MG TAB PO SCH (08:10)
[2017-06-18] MEDS: LIDODERM (LIDOCAINE) PATCH 5% TD SCH (08:11)
[2017-06-18] MEDS: FINASTERIDE 5 MG TAB PO SCH (08:13)
[2017-06-18 08:14] LABS: HEMATOCRIT 32.6 % (42-52); MEAN CELL VOLUME 86.7 fL (80-100); MEAN CORPUSCULAR HEMOGLOBIN 28.5 pg (25-34); MEAN CORPUSCULAR HGB CONC 32.8 g/dl (32-36); MEAN PLATELET VOLUME 10.2 fL (7.4-10.4); PLATELET COUNT 197 K/uL (130-400); RED BLOOD COUNT 3.76 M/uL (4.7-6.1); WHITE BLOOD COUNT 4.85 K/uL (4.8-10.8)
[2017-06-18] MEDS: KETOROLAC TROMETHAMINE 30 MG/ML VIAL IV PRN (10:23)
[2017-06-18] MEDS ORDERED: VLM5 PO (10:49)
[2017-06-18] MEDS ORDERED: OXYC-57 PO (10:49)
[2017-06-18] MEDS ORDERED: RIVA1TAB7 PO (10:49)
--- NOTE | 2017-06-18 10:57 | Discharge Instructions ---
Discharge Instructions Date of Service Jun 18, 2017. Admission Reason for Admission: Pulmonary Embolism,Rlq Abd Pain Discharge Discharge Diagnosis / Problem: Acute Subsegmental Pulmonary Embolism Discharge Goals Goal(s): Decrease discomfort, Improve function, Diagnostic testing, Therapeutic intervention Activity Recommendations Activity Limitations: resume your previous activity (do not drive or operate heavy machinery while taking Percocet) . Instructions / Follow-Up Instructions / Follow-Up Please follow-up with Dr. Marcin Joy - you will get a phone call with a date and time Follow-up with Dr. Maldonado, cardiology, on June 26 at 1:25PM - secondary to larger VSD You will be on Xarelto for at least 3 months - you will get a one month starter pack - please start on day #5 of the pack. Initially, you will be taking 15mg twice a day. After three weeks, the dose will change to 20mg daily You will be prescribed Valium and Percocet, take Percocet only as needed Current Hospital Diet Patient's current hospital diet: Regular Diet Discharge Diet Recommended Diet: Regular Diet Pending Studies Studies pending at discharge: no Medical Emergencies . Who to Call and When: Medical Emergencies: If at any time you feel your situation is an emergency, please call 911 immediately. . Non-Emergent Contact Non-Emergency issues call your: Primary Care Provider . . "Provider Documentation" section prepared by Eleanor Feldman. . VTE Core Measure Inpt VTE Proph given/why not?: Unfractionated heparin SQ [place] Drug Monitoring Program Search Results: patient reviewed within database, no issues identified
--- NOTE | 2017-06-18 10:59 | Discharge Summary ---
Discharge Summary Date of Service Jun 18, 2017. Discharge Summary Admission Date: Jun 13, 2017 at 13:03 Discharge Date: Jun 18, 2017 Discharge Disposition: Home with services Principal Diagnosis: Acute Subsegmental PE Medication Reconciliation New Medications: Rivaroxaban (Xarelto Starter Pack 15 & 20 mg) 1 Tab Tab 1 PKT PO UD for 30 Days, #1 PKT Diazepam (Diazepam) 5 Mg Tab 5 MG PO TID for 7 Days, #21 TAB Oxycodone/Acetaminophen 5MG/325MG (Percocet 5MG/325MG) Tab 1 TAB PO Q4H PRN for Pain for 3 Days, #18 TAB PAIN Continued Medications: Albuterol Sulf (Proventil 0.083% 2.5MG/3ML) 2.5 Mg/3 Ml Nebu 2.5 MG INH Q4 PRN for Wheezing Baclofen (Lioresal) 10 Mg Tab 20 MG PO QID Benzonatate (Tessalon Perles) 100 Mg Cap 100-200 MG PO TID PRN for Cough Botulinum Toxin Type A (Botox) 200 Unit Inj 1 DOSE INJ UD INJECT INTO A LARGE MUSCLE ONCE. Budesonide/Formoterol Fumarate (Symbicort 160/4.5 Inhaler ) Aero 2 PUFFS INH BID Finasteride (Finasteride) 5 Mg Tab 5 MG PO DAILY Fish Oil ([place]-3) 1 Ea Cap 1 CAP PO DAILY WITH A MEAL Fluticasone Propionate (Nasal) (Flonase Allergy Relief) 50 Mcg/Act Spr 1 SPRAY ELIA DAILY Gabapentin (Gabapentin) 600 Mg Tab 600 MG PO TID Ipratropium-Albuterol (Duoneb) 3 Ml Nebu 1 TREATMENT INH Q4H PRN for SOB/Wheezing Levothyroxine Sodium (Levothyroxine Sodium) 50 Mcg Tab 50 MCG PO DAILY Linaclotide (Linzess) 145 Mcg Cap 145 MCG PO DAILY Multivitamins/Minerals (Mvi With Minerals) Tab 1 TAB PO DAILY Omeprazole (Prilosec) 40 Mg Cap 40 MG PO DAILY Probiotic Product (Probiotic) 1 Cap Cap 1 CAP PO DAILY Ranitidine (Zantac) 300 Mg Tab 300 MG PO HS Sodium Fluoride (Dental) (Denta 5000 Plus) 1.1 % Cre 1 APPLN PO UD Suvorexant (Belsomra) 20 Mg Tab 20 MG PO HS PRN for Insomnia DO NOT TAKE WITH OTHER SEDATIVES OR ALCOHOL. Tadalafil (Cialis) 20 Mg Tab 20 MG PO UD Tamsulosin Hcl (Flomax) 0.4 Mg Cap 0.4 MG PO DAILY Tiotropium [place] (Spiriva Handihaler) 30 Puff/540 Mcg Aerp 1 CAP INH DAILY Trazodone Hcl (Trazodone) 50 Mg Tab 25-50 MG PO HS PRN for Sleep Vortioxetine HBr (Trintellix) 10 Mg Tab 15 MG PO DAILY 1 1/2 TABLET Zolpidem Tartrate (Ambien Cr) 12.5 Mg Tabcr 12.5 MG PO HS PRN for Insomnia DO NOT TAKE WITH BELSOMRA, XANAX, ALCOHOL, OR OTHER SEDATING MEDICATIONS. Discontinued Medications: Alprazolam (Xanax) 1 Mg Tab 1 MG PO TID OR - 1/2 - 1 TABLET BY MOUTH TWICE DAILY FOR SEVERE ANXIETY. Alprazolam (Xanax Xr) 1 Mg Tab 1 TAB PO BID Admission Information HPI (per Admitting provider): This is a 61yo M with a PMH of COPD, anxiety, h/o Tonsillar cancer (2007), acquired hypothyroidism and enlarged prostate who presents with pleuritic chest pain x 1 week. Patient was at an out-patient Pulm appt today and was told to come to ED. Patient described pain as a feeling of tightness on both sides of his chest, worse with inspiration and when lying down. Denies any fever, chills , cough, URI symptoms, diaphoresis, radiation to arms or jaw, dyspnea, SOB, calf pain or weakness. States that years ago he experienced pleurisy and this feels similar. Does not feel like a typical COPD exacerbation like he has experienced in the past. Of note, patient injured his L ankle last month and has been much more sedentary than his baseline during recovery. Denies history of DVTs/PEs, CAD or HTN. In addition to pleuritic pain, patient is endorsing a 10/10 sharp "excruciating " pain of the R hip and RLQ that started yesterday. Pain is constant but exacerbated by any type of movement, especially with flexion of either hip. Denies any associated fever, chills, nausea, vomiting or diarrhea. Was found to have a R subsegmental pulmonary embolus on chest/thorax CTA in the ED. Was started on Heparin. Physical Exam (per Admitting): General Appearance: + moderate distress (Intermittently yelling out in pain from RLQ) Head: normocephalic, atraumatic Eyes: normal inspection ENT: normal ENT inspection (H/o cervical dystonia s/p radiation to throat ) Neck: supple, no adenopathy, trachea midline Respiratory/Chest: chest non-tender, lungs clear, no respiratory distress, no accessory muscle use, + decreased breath sounds (2/2 decreased inspiratory effort) Cardiovascular: regular rate, rhythm, + pertinent finding (Pansystolic murmur ) Abdomen/GI: normal bowel sounds, + tenderness (TTP RLQ > LLQ. With guarding in RLQ only. No rebound tenderness. ), + distended Back: normal inspection, + right CVA tenderness Extremities/Musculoskelatal: normal inspection (Brace on L ankle. ), no calf tenderness, normal capillary refill Neurologic/Psych: no motor/sensory deficits, alert, normal mood/affect, oriented x 3 Skin: normal color Hospital Course This is a 61yo M with a PMH of COPD, anxiety, h/o Tonsillar cancer (2007), acquired hypothyroidism and enlarged prostate who presents with pleuritic chest pain x 1 week and was found to have a RLL pulmonary embolus. R Lower Lobe PE: 06/17 continue Xarelto O2 as needed PT/OT -Chest/thorax CTA showing RLL subsegmental PE -Vitals are stable -On Xarelto (day 3) -Continue pain management RLQ/R Hip Pain: 06/17 much improved will try to wean off IV pain meds Valium, Percocet PRN on discharge -Complains of excruciating pain of RLQ radiating to flank, worse with R hip flexion -Afebrile, no leukocytosis, no evidence of infection -All imaging has been unremarkable: -CT abd/pelvis clear with exception of distended bladder -R hip XR showing mild degenerative changes -BLE venous doppler without DVTs -KUB: "Non visibility of the urinary tracts due to overlying bowel air and fecal material" -XR of lumbar spine and sacrum wnl -Repeat CT Abd/Pelvis without changes -Consulted GI, who recommended a new bowel regimen, decreased narcotics and more movement -Consulted pain management for recs. Recommended continuing IV hydromorphone over the next few days. Discontinue alprazolam and initiate trial of diazepam 5mg TID over the next 2 -3 days to assess response Evaluate thoracic spine series XR Consider a short tapering course of steroids if above efforts are not sufficient Constipation: -H/o chronic constipation -Continue home meds -Started [place] S Q AM -Continue fluids -Is starting to have bowel movements Urinary retention: -2/2 enlarged prostate -Catheter in place with some hematuria present -Follows out-patient with urology. S/p TURP with residual L lobe hyperplasia -Bladder scans Q shift -Continue home meds Cervical dystonia 12/01 radiation: -S/p SSC of tonsils in 2007. In remission -Continue home meds for dystonia COPD: -Stable -Continue home inhalers/nebs -Continue O2 Hypothyroidism: -Acquired 12/01 radiation -Continue synthroid Anxiety/depression: -Stable -Continue home meds Insomnia: -Continue Ambien and tramadol while in-patient -Holding Belsomra DVT Ppx: on heparin Code status: FULL PCP: Rufino Dispo: Plan to discharge to home with home health Total time spent on discharge = 50 minutes This includes examination of the patient, discharge planning, medication reconciliation, and communication with other providers. Discharge Instructions Please follow-up with Dr. Marcin Joy - you will get a phone call with a date and time Follow-up with Dr. Maldonado, cardiology, on June 26 at 1:25PM - secondary to larger VSD You will be on Xarelto for at least 3 months - you will get a one month starter pack - please start on day #5 of the pack. Initially, you will be taking 15mg twice a day. After three weeks, the dose will change to 20mg daily You will be prescribed Valium and Percocet, take Percocet only as needed
[2017-06-18] MEDS: BOOST VANILLA PO SCH ×2 (11:08)
[2017-06-18 11:18] VITALS: BP 126/77; PULSE 83; TEMP 36.4; O2SAT 97
[2017-06-18] MEDS ORDERED: XRL15 PO (13:24)
== END 2017-06-18 12:00 | disposition home or self-care (01) | DRG 176 ==
LOC: C.EDB 09:35 → C.2E 13:03 → ENRESERV 13:20 → C.MS4W 06-15 16:57
PROVIDERS: ADMIT Family Medicine; ATTEND Family Medicine
DX: I26.99 Other pulmonary embolism without acute cor pulmonale (principal); R10.31 Right lower quadrant pain; M25.551 Pain in right hip; G24.3 Spasmodic torticollis; J44.9 Chronic obstructive pulmonary disease, unspecified; K21.9 Gastro-esophageal reflux disease without esophagitis; E03.9 Hypothyroidism, unspecified; F41.9 Anxiety disorder, unspecified; F32.9 Major depressive disorder, single episode, unspecified; N40.1 Benign prostatic hyperplasia with lower urinary tract symptoms; R33.9 Retention of urine, unspecified; G47.00 Insomnia, unspecified; Z79.899 Other long term (current) drug therapy; Z92.3 Personal history of irradiation; K59.00 Constipation, unspecified; Z85.818 Personal history of malignant neoplasm of other sites of lip, oral cavity, and pharynx

== ENCOUNTER 2017-07-24 12:38 | Inpatient (IN) | payer OTHER ==
[~2017-07-24] VITALS: Ht 185.4 cm; Wt 93.0 kg
[~2017-07-24 12:38] MED LIST changes: +ALBINS/ INH; -ALBUAER19 INH; -ALPR2TAB6 PO; -AMOX500C3 PO; -ASPI81TA28 PO; +BENZ100C84 PO; -BTLAI INJ; +BTLAI200 INJ; -FINA5TAB PO; -FLNIN/ NAE; +FLUT0.15 NAE; -GABA-113 PO; +LINA1CAP PO; -MELATAB2 PO; -MULT-506 PO; +MULT-513 PO; +NRN600 PO; +OMEG10007 PO; -OMEG12006 PO; +OXYC-57 PO; -POLY335019 PO; +PRS5 PO; +RANI300T2 PO; +SODICRE2 PO; +SPRIN/30 INH; -TADA10TA PO; +TADA20TA PO; -TSSP PO; +VLM5 PO; +VORT10TA12 PO; +XRL15 PO; -[UNRECOGNIZED DRUG - OTHER] TOP
[2017-07-24] MEDS ORDERED: MoRPHine SULFATE 4 MG/ML 1 ML CARP\\VIAL IV STA (13:03)
--- NOTE | 2017-07-24 13:16 | EMERGENCY ROOM VISIT NOTE ---
History First contact with patient: 12:53 Chief Complaint: CHEST PAIN Stated Complaint: CHEST PAIN, SOB, TROUBLE STANDING Nursing Triage Summary: pt c/o generalized weakness, left sided chest pain SOB while sitting and increases with excertion. 3-4 days ago. . hx PE in May 1017. History of Present Illness The patient is a 61 year old male who presents to the Emergency Room via private vehicle with complaints of "chest pain, shortness of breath, trouble standing". The patient states that he was diagnosed with pulmonary embolism here approximately 1 month ago. He has been doing well, taking his relative as prescribed. He states that unfortunately about one week ago, he developed increased shortness of breath, and fatigue. Last night and today he now has back pain, and increased shortness of breath. He has difficulty standing secondary to his fatigue. He states that he called his one doctor who referred him here. He has been doing his nebulizer treatments without relief. He also notes that his urine has been cloudy, and he was able to self cath. He follows with Dr. Groves, as well as Dr. Silva. He notes he has a history of VSD, and is to have an echocardiogram performed in the near future. He states he currently has left anterior chest pain, that is been about the same for the past week, described as similar to his previous pulmonary embolism. He also has dysuria. He was unable to take his Xarelto dose last night. Review of Systems A complete 10-point Review of Systems was discussed with the patient, with pertinent positives and negatives listed in the History of Present Illness. All remaining Review of Systems questions can be considered negative unless otherwise specified. Past Medical/Surgical History Medical Problems: (1) Anxiety (2) COPD (chronic obstructive pulmonary disease) (3) Depression (4) Enlarged prostate (5) GERD (gastroesophageal reflux disease) (6) Hypothyroidism (7) Tonsil cancer (8) Urinary retention (9) VSD (ventricular septal defect) Surgical Problems: (1) H/O arthroscopy of shoulder (2) H/O umbilical hernia repair (3) History of carpal tunnel release (4) History of tonsillectomy and adenoidectomy (5) Right ankle surgery (6) S/P left knee arthroscopy (7) S/P right knee arthroscopy (8) S/P TURP Social History Problems: (1) COPD exacerbation (2) H/O gastroesophageal reflux (GERD) (3) H/O laryngeal cancer (4) S/P hernia repair (5) VSD (ventricular septal defect) Family History Diabetes mellitus FH: lung disease FHx: cancer Social History Smoking Status: Former Smoker Alcohol Use: occasionally Drug Use: none Marital Status: Housing Status: lives with significant other Occupation Status: employed Current/Historical Medications Scheduled Albuterol Hfa (Ventolin Hfa), 2 PUFFS INH Q6H Baclofen (Lioresal), 20 MG PO QID Botulinum Toxin Type A (Botox), 1 DOSE INJ UD Budesonide/Formoterol Fumarate (Symbicort 160/4.5 Inhaler ), 2 PUFFS INH BID Finasteride (Finasteride), 5 MG PO DAILY Fish Oil ([place]-3), 1 CAP PO DAILY Fluticasone Propionate (Nasal) (Flonase Allergy Relief), 1 SPRAY ELIA DAILY Furosemide (Lasix), 20 MG PO 3XWK Gabapentin (Gabapentin), 600 MG PO TID Levothyroxine Sodium (Levothyroxine Sodium), 50 MCG PO DAILY Linaclotide (Linzess), 145 MCG PO DAILY Multivitamins/Minerals (Mvi With Minerals), 1 TAB PO DAILY Omeprazole (Prilosec), 40 MG PO DAILY Polyethylene Glycol 3350 (Miralax), 17 GM PO DAILY Probiotic Product (Probiotic), 1 CAP PO DAILY Ranitidine (Zantac), 300 MG PO HS Rivaroxaban (Xarelto), 20 MG PO DAILY Sodium Fluoride (Dental) (Denta 5000 Plus), 1 APPLN PO UD Tamsulosin Hcl (Flomax), 0.4 MG PO DAILY Tiotropium [place] (Spiriva Handihaler), 1 CAP INH DAILY Vortioxetine HBr (Trintellix), 15 MG PO DAILY Scheduled PRN Albuterol Sulf (Proventil 0.083% 2.5MG/3ML), 2.5 MG INH Q4 PRN for Wheezing Benzonatate (Tessalon Perles), 100-200 MG PO TID PRN for Cough Ipratropium-Albuterol (Duoneb), 1 TREATMENT INH Q4H PRN for SOB/Wheezing Suvorexant (Belsomra), 20 MG PO HS PRN for Insomnia Trazodone Hcl (Trazodone), 25-50 MG PO HS PRN for Sleep Zolpidem Tartrate (Ambien Cr), 12.5 MG PO HS PRN for Insomnia Physical Exam Vital Signs Date Time Temp Pulse Resp B/P (MAP) Pulse Ox O2 Delivery O2 Flow Rate FiO2 07/24/17 13:49 37.4 86 23 109/71 96 Room Air 07/24/17 13:13 90 28 133/77 95 Room Air 07/24/17 13:04 88 07/24/17 13:01 96 Room Air 07/24/17 13:01 96 Room Air 07/24/17 12:49 37.9 101 22 119/68 95 Room Air Physical Exam VITAL SIGNS - Vital signs and nursing notes were reviewed. Stable. Afebrile. Tachycardic. O2 sat 95. GENERAL -61-year-old male appearing his stated age who is in no acute distress. Communicates well with provider and answers questions appropriately. SKIN - Without rashes. HEAD - NC/AT. EYES - PERRL with EOMI bilaterally. Sclera anicteric. Palpebral conjunctiva pink and moist with no injection noted. EARS - No deformities of external structures noted on gross examination bilaterally. No pain elicited with palpation of the tragus bilaterally. External auditory canals without discharge or otorrhea. Tympanic membranes pearly [place] without retraction or bulging. No fluid or purulent material visualized behind the TM. Handle of malleus, umbo, cone of light, pars tensa/ flaccid all easily visualized. NOSE - Midline and without cyanosis. No epistaxis or purulent drainage noted. Septum midline without deviation or septal hematoma noted. MOUTH/OROPHARYNX - Without perioral cyanosis. Buccal mucosa pink and moist and without leukoplakia. Tongue midline with equal elevation of palate bilaterally. No tonsillar hypertrophy, erythema, or exudates noted. [] dentition noted. NECK - Neck with FROM. Supple to palpation. No lymphadenopathy noted. No nuchal rigidity. LUNGS - Chest wall symmetric without accessory muscle use, intercostals retractions, or central cyanosis. Decreased breath sounds. CARDIAC - RRR with S1/S2. Murmur auscultated likely from VSD. No rubs, or gallops appreciated. ABDOMEN - Abdominal contour normal without pulsations or visible masses. BS normoactive all four quadrants. No tenderness, palpable masses, hepatosplenomegaly, or ascites noted. EXTREMITIES - No clubbing or peripheral cyanosis. Minimal pretibial edema present. NEUROLOGIC - Cranial nerves II through XII grossly intact. Sensory intact to light touch throughout. PSYCH - A&Ox3 and cooperates fully with examiner. Pt is very pleasant and interacts well with examiner. Medical Decision & Procedures ER Provider Diagnostic Interpretation: CHEST ONE VIEW PORTABLE CLINICAL HISTORY: Chest pain, dyspnea, febrile COMPARISON STUDY: 06/13/2017 FINDINGS: Mild stable cardiomegaly. Patchy parenchymal infiltrative change right base and left upper lung. Diaphragms smooth. IMPRESSION: Bilateral parenchymal infiltrative change. Mild stable cardia megaly. The above report was generated using voice recognition software. It may contain grammatical, syntax or spelling errors. Electronically signed by: Helio Salcido M.D. 07/24/2017 1:55 PM Dictated Date/Time: 07/24/2017 1:55 PM Laboratory Results 07/24/17 13:11 Red Blood Count 3.96, Mean Corpuscular Volume 85.4, Mean Corpuscular Hemoglobin 28.8, Mean Corpuscular Hemoglobin Concent 33.7, Mean Platelet Volume 9.7, Neutrophils (%) (Auto) 78.0, Lymphocytes (%) (Auto) 8.1, Monocytes (%) (Auto) 13.3, Eosinophils (%) (Auto) 0.4, Basophils (%) (Auto) 0.0, Neutrophils # (Auto ) 3.74, Lymphocytes # (Auto) 0.39, Monocytes # (Auto) 0.64, Eosinophils # (Auto ) 0.02, Basophils # (Auto) 0.00 07/24/17 13:11 Test 07/24/17 13:11 White Blood Count 4.80 K/uL (4.8-10.8) Red Blood Count 3.96 M/uL (4.7-6.1) Hemoglobin 11.4 g/dL (14.0-18.0) Hematocrit 33.8 % (42-52) Mean Corpuscular Volume 85.4 fL (80-100) Mean Corpuscular Hemoglobin 28.8 pg (25-34) Mean Corpuscular Hemoglobin Concent 33.7 g/dl (32-36) Platelet Count 212 K/uL (130-400) Mean Platelet Volume 9.7 fL (7.4-10.4) Neutrophils (%) (Auto) 78.0 % Lymphocytes (%) (Auto) 8.1 % Monocytes (%) (Auto) 13.3 % Eosinophils (%) (Auto) 0.4 % Basophils (%) (Auto) 0.0 % Neutrophils # (Auto) 3.74 K/uL (1.4-6.5) Lymphocytes # (Auto) 0.39 K/uL (1.2-3.4) Monocytes # (Auto) 0.64 K/uL (0.11-0.59) Eosinophils # (Auto) 0.02 K/uL (0-0.5) Basophils # (Auto) 0.00 K/uL (0-0.2) RDW Standard Deviation 46.9 fL (36.4-46.3) RDW Coefficient of Variation 14.9 % (11.5-14.5) Immature Granulocyte % (Auto) 0.2 % Immature Granulocyte # (Auto) 0.01 K/uL (0.00-0.02) Prothrombin Time 13.7 SECONDS (9.0-12.0) Prothromb Time International Ratio 1.3 (0.9-1.1) Activated Partial Thromboplast Time 45.7 SECONDS (21.0-31.0) Partial Thromboplastin Ratio 1.8 Anion Gap 8.0 mmol/L (3-11) Estimated GFR () 109.8 Estimated GFR (Non- 94.7 BUN/Creatinine Ratio 16.2 (10-20) Lactic Acid Level 1.5 mmol/L (0.4-2.0) Calcium Level 8.2 mg/dl (8.5-10.1) Magnesium Level 2.1 mg/dl (1.8-2.4) Total Bilirubin 0.9 mg/dl (0.2-1) Aspartate Amino Transf (AST/SGOT) 33 U/L (15-37) Alanine Aminotransferase (ALT/SGPT) 35 U/L (12-78) Alkaline Phosphatase 121 U/L (45-117) Total Creatine Kinase 184 U/L (39-308) Creatine Kinase MB 1.4 ng/ml (0.5-3.6) Creatine Kinase MB Ratio 0.8 (0-3.0) Troponin I < 0.015 ng/ml (0-0.045) Pro-B-Type Natriuretic Peptide 175 pg/ml (0-900) Total Protein 6.7 gm/dl (6.4-8.2) Albumin 3.0 gm/dl (3.4-5.0) Globulin 3.7 gm/dl (2.5-4.0) Albumin/Globulin Ratio 0.8 (0.9-2) Thyroid Stimulating Hormone (TSH) 2.210 uIu/ml (0.300-4.500) Lyme Disease IgG Antibody NEG (NEG) Lyme Disease IgM Antibody NEG (NEG) Medications Administered Medications (Trade) Dose Ordered Sig/Chanda Route Start Time Stop Time Status Last Admin Dose Admin Morphine Sulfate (MoRPHine SULFATE INJ) 4 mg NOW STAT IV 07/24/17 13:03 07/24/17 13:06 DC 07/24/17 13:12 4 MG Medical Decision Patient was seen and evaluated as above. He presents to us today with fatigue, shortness of breath, and chest pain 1 week. He forgot one Xarelto dose and that was yesterday. Being that he is febrile upon presentation, tachycardic I suspect he likely has pneumonia. X-ray correlates and verifies this. There is no concern of leukocytosis. His anemia is actually slightly improved. Anabolic workup is negative for acute process. Troponin negative. Bedside EKG reveals normal sinus rhythm, rate of 99 bpm, and is actually improved compared to previous EKG. Because of the patient's underlying comorbidities, his clinical exam revealing severe fatigue, and his dyspnea I do believe that inpatient admission for pneumonia is warranted. At this time I do not believe that this is likely from another PE, as he is only missed one dose and that was yesterday, and his symptoms have been ongoing for the past week. I will initiate Zosyn to cover for potential organisms, and spoke with the admission team regarding management. They agreed to evaluate the patient. Please refer to further documentation regarding his stay. In evaluation treatment this patient the following differential diagnoses were entertained: ID, PE, pneumonia, endocarditis, pericarditis, heart failure, among others. Medication Reconcilliation Current Medication List: was personally reviewed by me Blood Pressure Screening Patient's blood pressure: Normal blood pressure Impression Primary Impression: Pneumonia Additional Impressions: Anemia VSD (ventricular septal defect) Departure Information Dispostion Admitted as an inpatient Condition FAIR Referrals Marcin Joy D.O. (PCP) Patient Instructions My [facility] Problem Qualifiers
[2017-07-24 13:36] LABS: COMPLETE YES; EOS % 0.4 %; HEMATOCRIT 33.8 % (42-52); IG% 0.2 %; LYMPH % 8.1 %; LYMPH ABS # 0.39 K/uL (1.2-3.4); MEAN CELL VOLUME 85.4 fL (80-100); MEAN CORPUSCULAR HEMOGLOBIN 28.8 pg (25-34); MEAN CORPUSCULAR HGB CONC 33.7 g/dl (32-36); MEAN PLATELET VOLUME 9.7 fL (7.4-10.4); MONO % 13.3 %; PLATELET COUNT 212 K/uL (130-400); RED BLOOD COUNT 3.96 M/uL (4.7-6.1)
[2017-07-24] MEDS ORDERED: FURO-85 PO (13:41)
[2017-07-24] MEDS ORDERED: VNTHFA/IN INH (13:41)
[2017-07-24] MEDS ORDERED: RIVA1TAB4 PO (13:41)
[2017-07-24] MEDS ORDERED: POLY335019 PO (13:41)
[2017-07-24 13:53] LABS: INR 1.3 (0.9-1.1); PARTIAL THROMBOPLASTIN RATIO 1.8; PROTHROMBIN TIME (PATIENT) 13.7 SECONDS (9.0-12.0)
--- NOTE | 2017-07-24 13:57 | DIAGNOSTIC IMAGING REPORT ---
CHEST ONE VIEW PORTABLE CLINICAL HISTORY: Chest pain, dyspnea, febrile COMPARISON STUDY: 06/13/2017 FINDINGS: Mild stable cardiomegaly. Patchy parenchymal infiltrative change right base and left upper lung. Diaphragms smooth. IMPRESSION: Bilateral parenchymal infiltrative change. Mild stable cardia megaly. The above report was generated using voice recognition software. It may contain grammatical, syntax or spelling errors. Electronically signed by: Helio Salcido M.D. 07/24/2017 1:55 PM Dictated Date/Time: 07/24/2017 1:55 PM
[2017-07-24 14:00] LABS: ALT/SGPT 35 U/L (12-78); AST/SGOT 33 U/L (15-37); BLOOD UREA NITROGEN 14 mg/dl (7-18); BUN/CREATININE RATIO 16.2 (10-20); CALCIUM 8.2 mg/dl (8.5-10.1); CARBON DIOXIDE 24 mmol/L (21-32); CHLORIDE 105 mmol/L (98-107); CREATININE 0.85 mg/dl (0.60-1.40); GLUCOSE 129 mg/dl (70-99); MAGNESIUM 2.1 mg/dl (1.8-2.4); POTASSIUM 4.1 mmol/L (3.5-5.1); SODIUM 137 mmol/L (136-145)
[2017-07-24 14:11] LABS: ALB/GLOB RATIO 0.8 (0.9-2); ALKALINE PHOSPHATASE 121 U/L (45-117); CKMB/CK RATIO 0.8 (0-3.0)
[2017-07-24] MEDS ORDERED: PIPERACILLIN/TAZOBACTAM 4.5 GM/100ML D5W IV STA (14:31)
[2017-07-24 14:32] LABS: LYME DISEASE AB IGG NEG (NEG); LYME DISEASE AB IGM NEG (NEG)
[2017-07-24 15:01] LABS: URINE APPEARANCE CLEAR (CLEAR); URINE BILIRUBIN NEG (NEG); URINE COLOR YELLOW; URINE EPITHELIAL CELL AUTO 0-5 /lpf (0-5); URINE NITRITE NEG (NEG); URINE SPECIFIC GRAVITY 1.011 (1.000-1.030); UROBILINOGEN NEG (NEG); ZZUR CULT IF INDIC CLEAN CATCH YES
[2017-07-24 15:05] LABS: MANUAL MICROSCOPIC REQUIRED? NO; REVIEW REQ? NO
[2017-07-24 15:08] VITALS: BP 111/64; PULSE 86; TEMP 37.4; O2SAT 96; Ht 185.4 cm; Wt 93.0 kg
[2017-07-24] MEDS ORDERED: ONDANSETRON INJ 2 MG/ML 2 ML VIAL IV PRN (16:00)
[2017-07-24] MEDS ORDERED: ACETAMINOPHEN 325 MG TAB PO PRN (16:00)
[2017-07-24] MEDS ORDERED: TADA20TA PO (16:27)
[2017-07-24] MEDS ORDERED: ALPR1TAB PO (16:29)
[2017-07-24] MEDS ORDERED: ALPR-385 PO (16:29)
[2017-07-24] MEDS ORDERED: OXYCODONE/ACETAMINOPHEN 5-325 TAB PO PRN (16:30)
[2017-07-24] MEDS ORDERED: PIPERACILL/TAZOBAC CONSULT ACTIVE PRN (16:30)
[2017-07-24] MEDS ORDERED: ALBUT/IPRATROP 3MG/0.5MG NEB 3 ML VIAL INH PRN (16:30)
[2017-07-24 17:17] VITALS: BP 111/56; PULSE 88; TEMP 37.1; O2SAT 98
[2017-07-24] MEDS ORDERED: BACLOFEN 10 MG TAB PO PRN (18:00)
[2017-07-24] MEDS ORDERED: INFLUENZA VIRUS QUAD VACCINE 0.5 ML SYR IM. ONE (18:15)
[2017-07-24] MEDS ORDERED: INFLUENZA ADMINISTRATION CHARGE ONE (18:15)
[2017-07-24 18:22] VITALS: O2SAT 98
[2017-07-24] MEDS ORDERED: NURSING VERBAL MED ORDER ONE (19:00)
--- NOTE | 2017-07-24 19:36 | History and Physical ---
History & Physical Date & Time of Service: Jul 24, 2017 ~ 15:30 Chief Complaint: Back, Chest, and Abdominal Pain; Cough Primary Care Physician: Marcin Joy D.O. History of Present Illness 61 year old male who presents to the ED with back, chest, and abdominal pain and also cough. Patient was recently admitted to [facility] 06/13 - 06/18 for PE. He also had back pain and and abdominal pain during that admission as well. He was seen by pain management and patient was discharged on Percocet and Valium. He was discharged on Xarelto for his PE. Patient reports that over the past week he has had increasing lumbar back pain that is radiating around to his abdomen. He also reports worsening left sided chest pain. Both locations of pain have been constant and are worse with any type of movement. He reports the pain #5/ 10 at rest and will go to #/10/10 with movement. He reports a dry non productive cough which has made the chest pain worse as well. He denies shortness of breath. No fever or chills. No nausea, vomiting, or diarrhea. He was recently found to have urinary retention and has been straight cathing twice a day however is urinating in between caths. He reports some increased pain with urination and cloudy urine. In the ED, CXR shows BL infiltrates. He is saturating well on room air and vitals are stable. Labs are unremarkable. Patient was given IV Zosyn and IV morphine. 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 (8) Urinary retention Status: Chronic (9) VSD (ventricular septal defect) Status: Chronic Surgical Problems: (1) H/O arthroscopy of shoulder Status: Chronic (2) H/O umbilical hernia repair Status: Chronic (3) History of carpal tunnel release Status: Chronic (4) History of tonsillectomy and adenoidectomy Status: Chronic (5) Right ankle surgery Status: Chronic (6) S/P left knee arthroscopy Status: Chronic (7) S/P right knee arthroscopy Status: Chronic (8) S/P TURP Status: Chronic Social History Problems: (1) H/O gastroesophageal reflux (GERD) Status: Chronic (2) H/O laryngeal cancer Status: Resolved (3) S/P hernia repair Status: Resolved (4) VSD (ventricular septal defect) Status: Chronic Family History Diabetes mellitus MOTHER FH: stomach cancer FATHER Social History Smoking Status: Former Smoker Alcohol Use: none Immunizations History of Influenza Vaccine: Yes Influenza Vaccine Date: Jul 28, 2016 History of Tetanus Vaccine?: Yes Tetanus Immunization Date: Nov 09, 2009 History of Pneumococcal: Yes Pneumococcal Date: Sep 24, 2014 History of Hepatitis B Vaccine: Unknown Multi-Drug Resistant Organisms History of MDRO: Yes Type of MDRO: MRSA Allergies Coded Allergies: Statins (Verified Adverse Reaction, Intermediate, GI UPSET, 07/24/17) Temazepam (Verified Adverse Reaction, Unknown, LOSES VOLUNTARY MUSCLE CONTROL, 07/24/17) Home Medications Scheduled Alprazolam (Xanax), 1 TAB PO HS Alprazolam (Xanax Xr), 1 TAB PO DAILY Botulinum Toxin Type A (Botox), 1 DOSE INJ UD Budesonide/Formoterol Fumarate (Symbicort 160/4.5 Inhaler ), 2 PUFFS INH BID Finasteride (Finasteride), 5 MG PO DAILY Fish Oil ([place]-3), 1 CAP PO DAILY Fluticasone Propionate (Nasal) (Flonase Allergy Relief), 1 SPRAY ELIA DAILY Furosemide (Lasix), 20 MG PO 3XWK Levothyroxine Sodium (Levothyroxine Sodium), 50 MCG PO DAILY Linaclotide (Linzess), 145 MCG PO DAILY Multivitamins/Minerals (Mvi With Minerals), 1 TAB PO DAILY Omeprazole (Prilosec), 40 MG PO DAILY Polyethylene Glycol 3350 (Miralax), 17 GM PO DAILY Probiotic Product (Probiotic), 1 CAP PO DAILY Ranitidine (Zantac), 300 MG PO HS Rivaroxaban (Xarelto), 20 MG PO DAILY Sodium Fluoride (Dental) (Denta 5000 Plus), 1 APPLN PO UD Tadalafil (Cialis), 20 MG PO UD Tamsulosin Hcl (Flomax), 0.4 MG PO DAILY Tiotropium [place] (Spiriva Handihaler), 1 CAP INH DAILY Vortioxetine HBr (Trintellix), 15 MG PO DAILY Scheduled PRN Albuterol Hfa (Ventolin Hfa), 2 PUFFS INH Q6H PRN for SOB/Wheezing Albuterol Sulf (Proventil 0.083% 2.5MG/3ML), 2.5 MG INH Q4 PRN for Wheezing Baclofen (Lioresal), 20 MG PO QID PRN for Muscle Spasms Benzonatate (Tessalon Perles), 100-200 MG PO TID PRN for Cough Gabapentin (Gabapentin), 600 MG PO TID PRN for Muscle Spasms Ipratropium-Albuterol (Duoneb), 1 TREATMENT INH Q4H PRN for SOB/Wheezing Suvorexant (Belsomra), 20 MG PO HS PRN for Insomnia Trazodone Hcl (Trazodone), 25-50 MG PO HS PRN for Sleep Zolpidem Tartrate (Ambien Cr), 12.5 MG PO HS PRN for Insomnia Review of Systems Constitutional- no fever; no weight loss Eyes- no acute visual changes ENT- no sinus drainage; no pharyngitis Pulmonary-(+) as noted above Cardiac- (+) left chest wall pain, no palpitations, no orthopnea, no dependent edema GI- no nausea, no vomiting, no diarrhea, no melena, no hematochezia - no dysuria, no hematuria Musculoskeletal- (+) diffuse body aches Derm- no rashes, no new skin lesions, no changing skin lesions Hematologic- no unusual bruising, no unusual bleeding Lymphatics- no adenopathy Endocrine- no polyuria or polydipsia; no heat or cold intolerance Neuro- no headaches, no focal neurologic symptoms Psych- no anxiety, no depression Physical Exam Vital Signs Date Time Temp Pulse Resp B/P (MAP) Pulse Ox O2 Delivery O2 Flow Rate FiO2 07/24/17 17:17 37.1 88 22 111/56 (74) 98 Room Air 07/24/17 16:45 83 18 114/70 94 Room Air 07/24/17 15:31 90 22 112/68 97 Room Air 07/24/17 15:08 37.4 86 23 111/64 96 Room Air 07/24/17 13:49 37.4 86 23 109/71 96 Room Air 07/24/17 13:13 90 28 133/77 95 Room Air 07/24/17 13:04 88 07/24/17 13:01 96 Room Air 07/24/17 13:01 96 Room Air 07/24/17 12:49 37.9 101 22 119/68 95 Room Air General Appearance: no apparent distress Head: normocephalic, atraumatic Eyes: normal inspection, sclerae normal ENT: hearing grossly normal Neck: no JVD, + pertinent finding (cervical dystonia - chronic ) Respiratory/Chest: no respiratory distress, + decreased breath sounds Cardiovascular: regular rate, rhythm, no edema, normal peripheral pulses Abdomen/GI: normal bowel sounds, soft, + tenderness (BLLQ with tenderness wrapping around the sides to the back) Back: + pertinent finding (lumbar / SI joint tenderness, BL) Extremities/Musculoskelatal: normal inspection, no calf tenderness Neurologic/Psych: no motor/sensory deficits, alert, normal mood/affect, oriented x 3 Skin: normal color, warm/dry Diagnostics Laboratory Results Results Past 24 Hours Test 07/24/17 13:11 07/24/17 14:40 Range/Units White Blood Count 4.80 4.8-10.8 K/uL Red Blood Count 3.96 4.7-6.1 M/uL Hemoglobin 11.4 14.0-18.0 g/dL Hematocrit 33.8 42-52 % Mean Corpuscular Volume 85.4 80-100 fL Mean Corpuscular Hemoglobin 28.8 25-34 pg Mean Corpuscular Hemoglobin Concent 33.7 32-36 g/dl Platelet Count 212 130-400 K/uL Mean Platelet Volume 9.7 7.4-10.4 fL Neutrophils (%) (Auto) 78.0 % Lymphocytes (%) (Auto) 8.1 % Monocytes (%) (Auto) 13.3 % Eosinophils (%) (Auto) 0.4 % Basophils (%) (Auto) 0.0 % Neutrophils # (Auto) 3.74 1.4-6.5 K/uL Lymphocytes # (Auto) 0.39 1.2-3.4 K/uL Monocytes # (Auto) 0.64 0.11-0.59 K/uL Eosinophils # (Auto) 0.02 0-0.5 K/uL Basophils # (Auto) 0.00 0-0.2 K/uL RDW Standard Deviation 46.9 36.4-46.3 fL RDW Coefficient of Variation 14.9 11.5-14.5 % Immature Granulocyte % (Auto) 0.2 % Immature Granulocyte # (Auto) 0.01 0.00-0.02 K/uL Prothrombin Time 13.7 9.0-12.0 SECONDS Prothromb Time International Ratio 1.3 0.9-1.1 Activated Partial Thromboplast Time 45.7 21.0-31.0 SECONDS Partial Thromboplastin Ratio 1.8 Sodium Level 137 136-145 mmol/L Potassium Level 4.1 3.5-5.1 mmol/L Chloride Level 105 98-107 mmol/L Carbon Dioxide Level 24 21-32 mmol/L Anion Gap 8.0 3-11 mmol/L Blood Urea Nitrogen 14 7-18 mg/dl Creatinine 0.85 0.60-1.40 mg/dl Estimated GFR () 109.8 Estimated GFR (Non- 94.7 BUN/Creatinine Ratio 16.2 10-20 Random Glucose 129 70-99 mg/dl Lactic Acid Level 1.5 0.4-2.0 mmol/L Calcium Level 8.2 8.5-10.1 mg/dl Magnesium Level 2.1 1.8-2.4 mg/dl Total Bilirubin 0.9 0.2-1 mg/dl Aspartate Amino Transf (AST/SGOT) 33 15-37 U/L Alanine Aminotransferase (ALT/SGPT) 35 12-78 U/L Alkaline Phosphatase 121 45-117 U/L Total Creatine Kinase 184 39-308 U/L Creatine Kinase MB 1.4 0.5-3.6 ng/ml Creatine Kinase MB Ratio 0.8 0-3.0 Troponin I < 0.015 0-0.045 ng/ml Pro-B-Type Natriuretic Peptide 175 0-900 pg/ml Total Protein 6.7 6.4-8.2 gm/dl Albumin 3.0 3.4-5.0 gm/dl Globulin 3.7 2.5-4.0 gm/dl Albumin/Globulin Ratio 0.8 0.9-2 Thyroid Stimulating Hormone (TSH) 2.210 0.300-4.500 uIu/ml Lyme Disease IgG Antibody NEG NEG Lyme Disease IgM Antibody NEG NEG Urine Color YELLOW Urine Appearance CLEAR CLEAR Urine pH 7.0 4.5-7.5 Urine Specific [place] 1.011 1.000-1.030 Urine Protein NEG NEG Urine Glucose (UA) NEG NEG Urine Ketones NEG NEG Urine Occult Blood TRACE NEG Urine Nitrite NEG NEG Urine Bilirubin NEG NEG Urine Urobilinogen NEG NEG Urine Leukocyte Esterase MODERATE NEG Urine WBC (Auto) >30 0-5 /hpf Urine RBC (Auto) 0-4 0-4 /hpf Urine Hyaline Casts (Auto) 0 0-5 /lpf Urine Epithelial Cells (Auto) 0-5 0-5 /lpf Urine Bacteria (Auto) NEG NEG Microbiology Results 07/24/17 Blood Culture, Received Pending 07/24/17 Blood Culture, Received Pending 07/24/17 MRSA DNA Surveillance Screen, Received Pending 07/24/17 Urine Culture, Received Pending Diagnostic Radiology CXR IMPRESSION: Bilateral parenchymal infiltrative change. Mild stable cardiamegaly. Impression Assessment and Plan HCAP - admit to med/surg - patient presenting with worsening abdominal, back, and chest pain and cough x 1 week; recently admitted to [facility] 06/13 - 06/18 for PE and discharged on Xarelto - CXR in the ED showing BL infiltrates - no signs of sepsis, saturating well on room air - s/p Zosyn in the ED, will continue with; check MRSA nasal swab and add Vanco if positive - sputum culture - PRN nebs ABDOMINAL, BACK, AND CHEST PAIN - seems to be a chronic issue for the patient - currently saturating well on room air, no tachycardia, and has been compliant with Xarelto - low suspicion for recurrent PE; EKG without acute ST changes - had extensive imaging during last admission without any acute findings and was evaluated by pain management - was discharged on Valium and Percocet however stopped Valium after 1 week - will resume Valium and Percocet (hold other home sedating medications - Ambien , Xanax, Trazodone, Belsomra) - continue home Baclofen and gabapentin (noted patient taking PRN) - pain management consult HX PE - continue Xarelto URINARY RETENTION, BPH - continue PRN straight cath - patient reports dysuria, U/A does not suggest UTI; checking culture HX VSD - following with cardio as an outpatient - schedule for repeat echo COPD - no signs of acute exacerbation - continue home inhalers DVT PROPHYLAXIS - on Xarelto DISPO - In my clinical judgment this beneficiary meets acute admission criteria, established by [facility], that includes being hospitalized through two midnights. ATTENDING ADDENDUM delayed entry date of service as noted above care coordinated with HAROON Crowe please refer to her notes for full details, I agree with her notes patient seen and examined, records reviewed by myself as well on exam, patient seen resting in bed, appears somewhat weak but pleasant states he has chest congestion, cough also has left sided chest wall pain, worse with breathing no other symptoms VS noted and reviewed oriented x 3 , not in distress, speaks in sentences with no effort nor accessory muscle use normal rate, regular rhythm, no murmurs; mild chest wall tenderness mild rhonchi right base, no wheezing non distended, soft, nontender no bipedal edema, erythema, warmth no neuro deficits WBC 4.8 Crea 0.85 ASSESSMENT/PLAN> RIGHT BASILAR AND LEFT UPPER LOBE PNEUMONIA - possible HCAP , Aspiration - antibiotics as noted above + add Levaquin for atypicals Nebs round the clock LEFT CHEST WALL PAIN - check rib xray to r/o fracture - add Lidoderm patch, warm compress, increase Percocet for now, Pain Mgt consulted Bruno Blanchard MD other diagnoses and plan of care as per [] Bruno Blanchard MD Advanced Directives Existing Living Will: No Existing Power of Gas Meter Checker: No VTE Prophylaxis VTE Risk Assessment Done? Y/N: Yes Risk Level: Moderate Given or contraindicated: Other Anticoagulation
[2017-07-24] MEDS: RANITIDINE HCL 150 MG TAB PO SCH (19:58)
[2017-07-24] MEDS: OXYCODONE/ACETAMINOPHEN 10/325MG TAB PO PRN (19:58)
[2017-07-24] MEDS: BUDESONIDE/FORMOTEROL FUMARATE 160/4.5 60 PUFFS/INHALER INH SCH (19:58)
[2017-07-24] MEDS: PIPERACILL/TAZOBAC IV 3.375 GM in DEXTROSE 5% 100ML IV SCH (19:58)
[2017-07-24] MEDS ORDERED: LEVALBUTEROL/IPRATROPIUM NEB INH SCH (20:00)
[2017-07-24] MEDS ORDERED: GABAPENTIN 600 MG TAB PO PRN (20:00)
[2017-07-24] MEDS: LEVOFLOXACIN 500 MG TAB PO SCH (20:02)
[2017-07-24] MEDS: RIVAROXABAN 20 MG TAB PO SCH (20:02)
[2017-07-24] MEDS: LEVALBUTEROL 1.25MG/0.5ML NEB INH SCH (20:26)
[2017-07-24] MEDS: IPRATROPIUM BROMIDE NEB SOLN 0.02% 2.5 ML VIAL INH SCH (20:26)
[2017-07-24] MEDS ORDERED: LIDODERM (LIDOCAINE) PATCH 5% TD ONE (20:30)
[2017-07-24 20:31] VITALS: PULSE 90; O2SAT 94
[2017-07-24] MEDS ORDERED: COUGH DROP (SUGAR FREE) LOZ 24 LOZ/1 BOX PO PRN (23:45)
[2017-07-25] VITALS (8 sets, daily range): BP systolic 107–118; BP diastolic 70–74; PULSE 64–86; TEMP 36.4–36.7; O2SAT 92–96
[2017-07-25] MEDS: OXYCODONE/ACETAMINOPHEN 10/325MG TAB PO PRN ×5 (00:08→20:51)
[2017-07-25] MEDS: BENZONATATE 100MG CAP PO PRN (00:08)
[2017-07-25] MEDS: IPRATROPIUM BROMIDE NEB SOLN 0.02% 2.5 ML VIAL INH SCH ×4 (01:55→20:56)
[2017-07-25] MEDS: LEVALBUTEROL 1.25MG/0.5ML NEB INH SCH ×4 (01:55→20:57)
[2017-07-25] MEDS: PIPERACILL/TAZOBAC IV 3.375 GM in DEXTROSE 5% 100ML IV SCH ×3 (04:49→20:36)
[2017-07-25] MEDS: LEVOTHYROXINE 50 MCG TAB PO SCH (04:59)
[2017-07-25] MEDS ORDERED: LEVOTHYROXINE 50 MCG TAB PO SCH (08:00)
[2017-07-25] MEDS: OMEGA-3 (PURIFIED FISH OIL) 1 GM CAP PO SCH (09:08)
[2017-07-25] MEDS: FINASTERIDE 5 MG TAB PO SCH (09:08)
[2017-07-25] MEDS: POLYETHYLENE (MIRALAX) 17 GM PACK PO SCH (09:09)
[2017-07-25] MEDS: TAMSULOSIN HCL 0.4 MG CAP PO SCH (09:09)
[2017-07-25] MEDS: CEROVITE ADV FORMULA TAB PO SCH (09:09)
[2017-07-25] MEDS: LACTOBACILLUS ACIDOPHILUS (FLORANEX) TAB PO SCH (09:10)
[2017-07-25] MEDS: BUDESONIDE/FORMOTEROL FUMARATE 160/4.5 60 PUFFS/INHALER INH SCH ×2 (09:10→20:38)
[2017-07-25] MEDS: TIOTROPIUM BROMIDE 5 PUFF/90 MCG INH INH SCH (09:11)
[2017-07-25] MEDS: LIDODERM (LIDOCAINE) PATCH 5% TD SCH (09:11)
[2017-07-25] MEDS: PANTOprazole SOD 40 MG TAB PO SCH (09:12)
[2017-07-25 09:24] LABS: HEMATOCRIT 35.1 % (42-52); MEAN CELL VOLUME 86.7 fL (80-100); MEAN CORPUSCULAR HEMOGLOBIN 28.4 pg (25-34); MEAN CORPUSCULAR HGB CONC 32.8 g/dl (32-36); MEAN PLATELET VOLUME 9.4 fL (7.4-10.4); PLATELET COUNT 229 K/uL (130-400); RED BLOOD COUNT 4.05 M/uL (4.7-6.1); WHITE BLOOD COUNT 5.49 K/uL (4.8-10.8)
[2017-07-25 09:59] LABS: BUN/CREATININE RATIO 16.4 (10-20); CALCIUM 8.8 mg/dl (8.5-10.1); CREATININE 0.77 mg/dl (0.60-1.40); POTASSIUM 3.5 mmol/L (3.5-5.1)
--- NOTE | 2017-07-25 12:25 | DIAGNOSTIC IMAGING REPORT ---
L RIBS UNILATERAL MIN 2 VIEWS Clinical history: Pain COMPARISON STUDY: None FINDINGS: Negative left ribs. Cortical margins are intact. Left lung is considered clear. No evidence pneumothorax. IMPRESSION: Negative study The above report was generated using voice recognition software. It may contain grammatical, syntax or spelling errors. Electronically signed by: Helio Salcido M.D. 07/25/2017 12:23 PM Dictated Date/Time: 07/25/2017 12:22 PM
--- NOTE | 2017-07-25 12:40 | Pain Management Consultation ---
Pain Management Consultation Date of Consultation Jul 25, 2017. Reason for Consultation Low back pain Pain Location 1 - History Mr. Etienne is a 61-year-old white male who presented to the emergency department with back, chest and abdominal pain with cough. 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 Patient had recent admission in May for complaints of back, flank and abdominal pain of suspected myofascial etiology. Patient also was discovered have pulmonary embolus upon that admission and was discharged on Xarelto. Patient is reporting chest discomfort upon this admission as well and was found to have bilateral parenchymal infiltrative changes secondary to pneumonia and is currently on antibiotic therapy. He is indicating his back pain is axial in the lumbar spinal location. Patient reported onset approximately 2 weeks prior to this admission which appears to potentially correlate with a self reduction in dosing of baclofen and gabapentin therapy. The patient decided to diminish these doses due to concerns over lack of efficacy. He denies any acute injury contributing to his back pain complaint. He denies radicular pain in the lower extremities, footdrop or falling. He has no bowel or bladder incontinence and denies saddle anesthesias. Patient reports his pain ranges to a 0-7/10. He describes the pain as aching and sharp and spasming in characteristic. He has no further constitutional complaints at this time. Plan of care discussed with Dr. Ana Kiran. Past Medical/Surgical History (1) COPD (chronic obstructive pulmonary disease) (2) VSD (ventricular septal defect) (3) Anxiety (4) Hypothyroidism (5) Tonsil cancer (6) GERD (gastroesophageal reflux disease) (7) Depression (8) Enlarged prostate (9) S/P TURP (10) Right ankle surgery (11) S/P left knee arthroscopy (12) S/P right knee arthroscopy (13) History of carpal tunnel release (14) H/O umbilical hernia repair (15) H/O arthroscopy of shoulder (16) History of tonsillectomy and adenoidectomy Family History Diabetes mellitus MOTHER FH: stomach cancer FATHER Social / Work History Smoking Status: Never smoker Smokeless Tobacco Use: No Alcohol Use: none Drug Use: none Marital Status: Housing Status: lives with significant other Occupation: employed Allergies Coded Allergies: Statins (Verified Adverse Reaction, Intermediate, GI UPSET, 07/24/17) Temazepam (Verified Adverse Reaction, Unknown, LOSES VOLUNTARY MUSCLE CONTROL, 07/24/17) Medications Current Inpatient Medications Medications (Trade) Dose Ordered Sig/Chanda Route Start Time Stop Time Status Last Admin Dose Admin Acetaminophen (Tylenol Tab) 650 mg Q4H PRN PO 07/24/17 16:00 08/23/17 15:59 Ondansetron HCl (Zofran Inj) 4 mg Q6H PRN IV 07/24/17 16:00 08/23/17 15:59 Piperacillin Sod/ Tazobactam Sod (Consult) 1 ea UD PRN N/A 07/24/17 16:30 08/23/17 16:29 Diazepam (Valium Tab) 5 mg TID PRN PO 07/24/17 16:30 08/23/17 16:29 Benzonatate (Tessalon Perles Cap) 100 mg TID PRN PO 07/24/17 16:30 08/23/17 16:29 07/25/17 00:08 100 MG Budesonide/ Formoterol Fumarate (Symbicort 160/ 4.5 Inh) 2 puffs BID INH 07/24/17 20:00 08/23/17 20:59 07/25/17 09:10 2 PUFFS Finasteride (Proscar Tab) 5 mg DAILY PO 07/25/17 08:00 08/24/17 08:59 07/25/17 09:08 5 MG Fish Oil ([place]-3 (Purified Fish Oil) Cap) 1 gm DAILY PO 07/25/17 08:00 08/24/17 08:59 07/25/17 09:08 1 GM Furosemide (Lasix Tab) 20 mg MoWeFr@0800 PO 07/26/17 08:00 08/25/17 07:59 Albuterol/ Ipratropium (Duoneb) 3 ml Q4H PRN INH 07/24/17 16:30 08/23/17 16:29 07/25/17 03:22 3 ML Multivitamins/ Minerals (Multivitamin W/ Minerals Tab) 1 tab DAILY PO 07/25/17 08:00 08/24/17 08:59 07/25/17 09:09 1 TAB Tamsulosin HCl (Flomax Cap) 0.4 mg DAILY PO 07/25/17 08:00 08/24/17 08:59 07/25/17 09:09 0.4 MG Tiotropium [place] (Spiriva Handihaler Inhaler) 2 puff DAILY INH 07/25/17 08:00 08/24/17 08:59 07/25/17 09:11 2 PUFF Miscellaneous Information (Order Awaiting Action) 1 ea QS N/A 07/25/17 18:15 08/24/17 18:14 Pantoprazole Sodium (Protonix Tab) 40 mg DAILY PO 07/25/17 08:00 08/24/17 08:59 07/25/17 09:12 40 MG Polyethylene (Miralax Powder Packet) 17 gm QAM PO 07/25/17 08:00 08/24/17 07:59 07/25/17 09:09 17 GM Lactobacillus Acidophilus (Floranex Tab) 1 tab DAILY PO 07/25/17 08:00 08/24/17 07:59 07/25/17 09:10 1 TAB Ranitidine HCl (zANTac TAB) 300 mg HS PO 07/24/17 21:00 08/23/17 20:59 07/24/17 19:58 300 MG Miscellaneous Information (Order Awaiting Action) 1 ea QS N/A 07/25/17 18:00 08/24/17 17:59 Levothyroxine Sodium (Synthroid Tab) 50 mcg DAILYBB PO 07/25/17 06:30 08/24/17 06:29 07/25/17 04:59 50 MCG Piperacillin Sod/ Tazobactam Sod 3.375 gm/Dextrose 115 ml @ 28.75 mls/ hr Q8H IV 07/24/17 20:00 07/31/17 13:59 07/25/17 04:49 28.75 MLS/HR Oxycodone/ Acetaminophen (Percocet 10-325MG Tab) 2 tab Q4H PRN PO 07/24/17 19:15 08/07/17 16:29 07/25/17 11:34 2 TAB Rivaroxaban (Xarelto Tab) 20 mg QDD PO 07/24/17 20:00 08/23/17 19:59 07/24/17 20:02 20 MG Levofloxacin (Levaquin Tab) 500 mg DAILY@1800 PO 07/24/17 20:00 07/30/17 18:01 07/24/17 20:02 500 MG Lidocaine (Lidoderm Patch 5%) 1 patch QAM TD 07/25/17 08:00 08/24/17 07:59 07/25/17 09:11 1 PATCH Miscellaneous (Remove Lidoderm Patch) 1 ea DAILY@21 N/A 07/24/17 21:00 08/23/17 20:59 Future hold Ipratropium [place] (Atrovent 0.02% 0.5MG/2.5ML Neb) 0.5 mg Q6R INH 07/24/17 21:00 08/23/17 20:59 07/25/17 07:11 0.5 MG Levalbuterol (Xopenex 1.25MG/ 0.5ML Neb) 1.25 mg Q6R INH 07/24/17 21:00 08/23/17 20:59 07/25/17 07:11 1.25 MG Menthol (Nice Bob) 1 bob PRN PRN PO 07/24/17 23:45 08/23/17 23:44 07/25/17 00:09 1 BOB Gabapentin (Neurontin Cap) 300 mg TID PO 07/25/17 14:00 08/24/17 13:59 Baclofen (Lioresal Tab) 20 mg TID PO 07/25/17 14:00 08/24/17 13:59 Review of Systems Patient denies complaints related to cardiac, pulmonary, GI, , endocrine, neurologic, hepatic, renal, ENT, dermatologic or musculoskeletal other than those described above in history of present illness. Physical Exam Height & Weight: Height 6 feet, 1.00 inches. Weight 93.000 (Kilograms) 205 (Pounds) Last Vital Signs Documentation Date Time Temp Pulse Resp B/P (MAP) Pulse Ox O2 Delivery O2 Flow Rate FiO2 07/25/17 08:00 93 Room Air 07/25/17 07:31 36.4 79 20 113/70 (84) Exam: General: Patient sitting quietly in exam room in no acute distress. Speech and thought process appropriate. Mood and affect appropriate. Cognition intact. Patient ambulating from the bathroom upon entering the room. Back/spine: Patient nontender over the midline of palpation or percussion. Patient tender in the paravertebral and quadratus more musculature to palpation with scattered spasm. No focal SI joint or facet joint tenderness provocative testing. Tender through the gluteal region bilaterally. Facet loadbearing test negative bilaterally. Increased axial pain appreciated throughout range of motion which is somewhat limited. Lower extremities: Straight leg raising increased axial low back pain bilaterally without a radicular component. Strength is 4+/5 of the lower extremities bilaterally. Sensation was intact without notable deficits. Neurologic: Cranial nerves grossly intact. Ambulatory function was slowed and guarded. Laboratory Laboratory Results (Last CBC): 07/25/17 08:44 Past Records Previous Records: personally reviewed by me Assessment 1. Lumbago-suspect myofascial etiology 2. History of cervical dystonia 3. Pneumonia 4. Urinary retention secondary to BPH Recommendations 1. Will resume gabapentin 300 mg 3 times a day 2. Will resume baclofen 20 mg 3 times a day 3. Continue with application of heat to the lumbar spine 4. We discussed potential benefit of initiation of PT upon discharge and he verbalized understanding. 5. Continue with Lidoderm patch 6. Continue with when necessary Percocet 7. Multiple imaging studies completed during most recent admission failed to reveal etiology of presenting complaints. No apparent need to pursue further imaging at this time and will recommend treating conservatively.
[2017-07-25] MEDS: BACLOFEN TAB 20 MG TAB PO SCH ×2 (13:22→20:36)
[2017-07-25] MEDS: GABAPENTIN 300 MG CAP PO SCH ×2 (13:22→20:36)
[2017-07-25] MEDS ORDERED: RIVAROXABAN 10 MG TAB PO SCH (17:00)
[2017-07-25] MEDS: LEVOFLOXACIN 500 MG TAB PO SCH (18:01)
[2017-07-25] MEDS: RIVAROXABAN 20 MG TAB PO SCH (18:01)
[2017-07-25] MEDS: RANITIDINE HCL 150 MG TAB PO SCH (20:37)
--- NOTE | 2017-07-25 23:48 | Progress Note ---
Medicine Progress Note Date & Time of Visit: Jul 25, 2017 at 23:48. Subjective states he feels improved compared to yesterday breathing has improved, still has dry cough pain control is better today denies other symptoms Objective Last 8 Hrs Date Time Temp Pulse Resp B/P (MAP) Pulse Ox O2 Delivery O2 Flow Rate FiO2 07/25/17 20:57 80 18 94 Room Air 07/25/17 16:00 Room Air Physical Exam: General- oriented x 3, not in distress, speaks in sentences with no effort Eyes- anicteric Neck- supple, no JVD Lungs- mild rhonchi right base, no wheezes Heart- regular rhythm; no murmur, normal rate Abdomen- normal bowel sounds, soft, nontender Extremities- no pretibial edema, no calf tenderness Neuro- alert, oriented x 3;no gross deficits Skin- warm & dry Laboratory Results: Last 24 Hours Test 07/25/17 08:44 White Blood Count 5.49 K/uL Red Blood Count 4.05 M/uL Hemoglobin 11.5 g/dL Hematocrit 35.1 % Mean Corpuscular Volume 86.7 fL Mean Corpuscular Hemoglobin 28.4 pg Mean Corpuscular Hemoglobin Concent 32.8 g/dl RDW Standard Deviation 47.4 fL RDW Coefficient of Variation 14.8 % Platelet Count 229 K/uL Mean Platelet Volume 9.4 fL Sodium Level 137 mmol/L Potassium Level 3.5 mmol/L Chloride Level 103 mmol/L Carbon Dioxide Level 27 mmol/L Anion Gap 7.0 mmol/L Blood Urea Nitrogen 13 mg/dl Creatinine 0.77 mg/dl Est Creatinine Clear Calc Drug Dose 115.3 ml/min Estimated GFR () 114.3 Estimated GFR (Non- 98.6 BUN/Creatinine Ratio 16.4 Random Glucose 104 mg/dl Calcium Level 8.8 mg/dl Assessment & Plan PNEUMONIA, RIGHT LOWER LOBE AND LEFT UPPER LOBE [facility], VS. ASPIRATION - patient presenting with worsening abdominal, back, and chest pain and cough x 1 week; recently admitted to [facility] 06/13 - 06/18 for PE and discharged on Xarelto - was admitted last month also has history of radiation to his neck - improving ff up cultures - on empiric Zosyn + Levaquin, Nebs Speech Therapy eval in progress ABDOMINAL, BACK, AND CHEST PAIN - seems to be a chronic issue for the patient - currently saturating well on room air, no tachycardia, and has been compliant with Xarelto - low suspicion for recurrent PE; EKG without acute ST changes - had extensive imaging during last admission without any acute findings and was evaluated by pain management - was discharged on Valium and Percocet however stopped Valium after 1 week -- pain management svc consulted, appreciate the input percocet increased to 2 tabs PRN baclofen and gabapentin resumed HX PE - continue Xarelto URINARY RETENTION, BPH - continue PRN straight cath - patient reports dysuria, U/A does not suggest UTI; ff up cultures HX VSD - following with cardio as an outpatient - schedule for repeat echo COPD - no signs of acute exacerbation - continue home inhalers DVT PROPHYLAXIS - on Xarelto DISPO pending lives at home ff up with PCP and Pain Mgt SVC Current Inpatient Medications: Current Inpatient Medications Medications (Trade) Dose Ordered Sig/Chanda Route Start Time Stop Time Status Last Admin Dose Admin Acetaminophen (Tylenol Tab) 650 mg Q4H PRN PO 07/24/17 16:00 08/23/17 15:59 Ondansetron HCl (Zofran Inj) 4 mg Q6H PRN IV 07/24/17 16:00 08/23/17 15:59 Piperacillin Sod/ Tazobactam Sod (Consult) 1 ea UD PRN N/A 07/24/17 16:30 08/23/17 16:29 Diazepam (Valium Tab) 5 mg TID PRN PO 07/24/17 16:30 08/23/17 16:29 Benzonatate (Tessalon Perles Cap) 100 mg TID PRN PO 07/24/17 16:30 08/23/17 16:29 07/25/17 00:08 100 MG Budesonide/ Formoterol Fumarate (Symbicort 160/ 4.5 Inh) 2 puffs BID INH 07/24/17 20:00 08/23/17 20:59 07/25/17 20:38 2 PUFFS Finasteride (Proscar Tab) 5 mg DAILY PO 07/25/17 08:00 08/24/17 08:59 07/25/17 09:08 5 MG Fish Oil ([place]-3 (Purified Fish Oil) Cap) 1 gm DAILY PO 07/25/17 08:00 08/24/17 08:59 07/25/17 09:08 1 GM Furosemide (Lasix Tab) 20 mg MoWeFr@0800 PO 07/26/17 08:00 08/25/17 07:59 Albuterol/ Ipratropium (Duoneb) 3 ml Q4H PRN INH 07/24/17 16:30 08/23/17 16:29 07/25/17 03:22 3 ML Multivitamins/ Minerals (Multivitamin W/ Minerals Tab) 1 tab DAILY PO 07/25/17 08:00 08/24/17 08:59 07/25/17 09:09 1 TAB Tamsulosin HCl (Flomax Cap) 0.4 mg DAILY PO 07/25/17 08:00 08/24/17 08:59 07/25/17 09:09 0.4 MG Tiotropium [place] (Spiriva Handihaler Inhaler) 2 puff DAILY INH 07/25/17 08:00 08/24/17 08:59 07/25/17 09:11 2 PUFF Miscellaneous Information (Order Awaiting Action) 1 ea QS N/A 07/25/17 18:15 08/24/17 18:14 Pantoprazole Sodium (Protonix Tab) 40 mg DAILY PO 07/25/17 08:00 08/24/17 08:59 07/25/17 09:12 40 MG Polyethylene (Miralax Powder Packet) 17 gm QAM PO 07/25/17 08:00 08/24/17 07:59 07/25/17 09:09 17 GM Lactobacillus Acidophilus (Floranex Tab) 1 tab DAILY PO 07/25/17 08:00 08/24/17 07:59 07/25/17 09:10 1 TAB Ranitidine HCl (zANTac TAB) 300 mg HS PO 07/24/17 21:00 08/23/17 20:59 07/25/17 20:37 300 MG Levothyroxine Sodium (Synthroid Tab) 50 mcg DAILYBB PO 07/25/17 06:30 08/24/17 06:29 07/25/17 04:59 50 MCG Piperacillin Sod/ Tazobactam Sod 3.375 gm/Dextrose 115 ml @ 28.75 mls/ hr Q8H IV 07/24/17 20:00 07/31/17 13:59 07/25/17 20:36 28.75 MLS/HR Oxycodone/ Acetaminophen (Percocet 10-325MG Tab) 2 tab Q4H PRN PO 07/24/17 19:15 08/07/17 16:29 07/25/17 20:51 2 TAB Rivaroxaban (Xarelto Tab) 20 mg QDD PO 07/24/17 20:00 08/23/17 19:59 07/25/17 18:01 20 MG Levofloxacin (Levaquin Tab) 500 mg DAILY@1800 PO 07/24/17 20:00 07/30/17 18:01 07/25/17 18:01 500 MG Lidocaine (Lidoderm Patch 5%) 1 patch QAM TD 07/25/17 08:00 08/24/17 07:59 07/25/17 09:11 1 PATCH Miscellaneous (Remove Lidoderm Patch) 1 ea DAILY@21 N/A 07/24/17 21:00 08/23/17 20:59 Future hold 07/25/17 20:37 1 EA Ipratropium [place] (Atrovent 0.02% 0.5MG/2.5ML Neb) 0.5 mg Q6R INH 07/24/17 21:00 08/23/17 20:59 07/25/17 20:56 0.5 MG Levalbuterol (Xopenex 1.25MG/ 0.5ML Neb) 1.25 mg Q6R INH 07/24/17 21:00 08/23/17 20:59 07/25/17 20:57 1.25 MG Menthol (Nice Wilfrid) 1 wilfrid PRN PRN PO 07/24/17 23:45 08/23/17 23:44 07/25/17 00:09 1 WILFRID Gabapentin (Neurontin Cap) 300 mg TID PO 07/25/17 14:00 08/24/17 13:59 07/25/17 20:36 300 MG Baclofen (Lioresal Tab) 20 mg TID PO 07/25/17 14:00 08/24/17 13:59 07/25/17 20:36 20 MG Vortioxetine (Trintellix) 15 mg QAM PO 07/26/17 08:00 08/25/17 07:59
[2017-07-26] VITALS (8 sets, daily range): BP systolic 107–132; BP diastolic 66–78; PULSE 81–93; TEMP 36.4–36.7; O2SAT 90–96
[2017-07-26] MEDS ORDERED: LORAZEPAM 0.5 MG TAB PO ONE
[2017-07-26] MEDS ORDERED: VANCOMYCIN INJ 2,250 MG in SODIUM CHLORIDE 0.9% 500ML 500 ML IV STA (00:06)
[2017-07-26] MEDS ORDERED: KETOROLAC TROMETHAMINE 15 MG/ML VIAL IV. PRN (00:15)
[2017-07-26] MEDS ORDERED: VANCOMYCIN CONSULT ACTIVE PRN (00:15)
[2017-07-26] MEDS: OXYCODONE/ACETAMINOPHEN 10/325MG TAB PO PRN ×4 (00:56→22:26)
[2017-07-26] MEDS: IPRATROPIUM BROMIDE NEB SOLN 0.02% 2.5 ML VIAL INH SCH ×4 (01:49→19:25)
[2017-07-26] MEDS: LEVALBUTEROL 1.25MG/0.5ML NEB INH SCH ×4 (01:49→19:26)
[2017-07-26] MEDS: BENZONATATE 100MG CAP PO PRN (03:54)
[2017-07-26] MEDS: LEVOTHYROXINE 50 MCG TAB PO SCH (03:55)
[2017-07-26] MEDS: PIPERACILL/TAZOBAC IV 3.375 GM in DEXTROSE 5% 100ML IV SCH ×3 (03:55→22:17)
--- NOTE | 2017-07-26 08:28 | DIAGNOSTIC IMAGING REPORT ---
(CHEST) THORAX WITHOUT CT DOSE: 646.15 mGycm CLINICAL HISTORY: 61 years-old Male with L chest pain ro hemothorax. Acute left-sided chest pain. TECHNIQUE: Multiaxial CT images of the chest were performed without contrast. A dose lowering technique was utilized adhering to the principles of ALARA. COMPARISON: CTA of the chest 06/13/2017. FINDINGS: No dominant thyroid nodule identified. No pathologic adenopathy is seen. A few lymph nodes of the mediastinum measure within the upper limits of normal at 9 mm, likely physiologic. Heart is mildly enlarged with trace pericardial effusion. Coronary arterial calcifications are seen. There is dilation of the main pulmonary artery, 3.9 cm suggesting pulmonary arterial hypertension. There is no pneumothorax or pleural effusion. There is a wedge-shaped triangular airspace consolidation within the anterior segment left upper lobe seen on image 74, 3.9 x 2.7 cm abutting the pleural surface with central groundglass attenuation. There is mild dependent bibasilar atelectasis. 4 mm noncalcified pulmonary nodule seen within the posterior basal segment left lower lobe which is unchanged from 06/13/2017. 5 mm noncalcified pulmonary nodule is noted within the left lung apex which was not definitely seen on comparison. 3 mm noncalcified nodule seen within the anterior segment right upper lobe on image 118. Central airways are patent. Mild high attenuating material seen within the gastric lumen. No acute abnormality of the upper abdomen. There is convex right curvature of the thoracic spine. Endplate irregularity is noted at T4-T5 with surrounding increased soft tissue attenuation within the adjacent prevertebral soft tissues at this interspace, image 79 of series 4. Probable perineural root sleeve cyst on the right at T7-T8 is seen on image 138 measuring 1.4 x 0.9 cm. Additional mild endplate irregularity is seen at T11-T12 which appears degenerative. Correlate with MRI. IMPRESSION: 1. Endplate irregularity with associated prevertebral soft tissue stranding at the T4-T5 level is new from comparison study dated 06/13/2017, very suspicious for discitis osteomyelitis. No significant vertebral body collapse or large epidural abscess identified. Mild endplate irregularity at T11-T12 appears degenerative. Further evaluation with contrast-enhanced thoracic spine MRI is needed. 2. Wedge-shaped triangular pleural-based consolidative opacity of the left upper lobe with central groundglass attenuation measures up to 3.9 cm, atypical for pneumonia. Differential considerations would include pulmonary infarction, focal pneumonitis or septic emboli. Follow-up is needed. 3. Scattered noncalcified pulmonary nodules of the bilateral lungs are seen measuring up to 5 mm. This also warrants further evaluation on follow-up study. 4. Incidental note is made of a probable perineural root sleeve cyst on the right at T7-T8. These findings were discussed with Dr. Olivera on 07/26/2017 at 7:30 AM Electronically signed by: Humphrey Velez M.D. 07/26/2017 8:27 AM Dictated Date/Time: 07/26/2017 7:03 AM
[2017-07-26] MEDS: TIOTROPIUM BROMIDE 5 PUFF/90 MCG INH INH SCH (08:49)
--- NOTE | 2017-07-26 08:49 | Pharmacy Progress Note ---
Pharmacy Abx Initial Consult Date of Service Jul 26, 2017. Pharmacy Dosing Scope Date of Consult: 07/26/17 Consultation requested by: Jojo Crowe Pharmacy is consulted to initiate vancomycin/Zosyn IV dosing therapy, order appropriate labs and adjust drug dose/frequency. Subjective The patient is a 61 year old male admitted on Jul 24, 2017 at 15:54. Objective Height (Feet): 6 Height (Inches): 1.00 Weight (Kilograms): 93.000 Vital Signs (Past 12Hrs) Vital Signs Past 12 Hours Date Time Temp Pulse Resp B/P (MAP) Pulse Ox O2 Delivery O2 Flow Rate FiO2 07/26/17 07:15 81 16 95 Room Air 07/26/17 07:04 36.7 81 20 107/66 (80) 92 Room Air 07/26/17 01:49 84 18 95 Room Air 07/26/17 00:01 36.6 93 20 132/78 (96) 90 Room Air 07/26/17 00:00 Room Air 07/25/17 20:57 80 18 94 Room Air Micro Results Date/Time Source Procedure Growth Status 07/24/17 13:20 Blood Blood Culture - Preliminary Gram Positive Cocci Resulted 07/24/17 13:11 Blood Blood Culture - Preliminary Gram Positive Cocci Resulted 07/24/17 17:10 Nasal MRSA DNA Surveillance Screen - Final Specimen Negative for MRSA by DNA Probe Complete 07/24/17 14:40 Urine , Clean Catch Urine Culture - Preliminary Staph Species Resulted Risk Factors for Resistance * Hospitalization for 48 hours or more within the past 90 days * History of infection with a multidrug-resistant organism: MRSA Assessment & Plan Assessment 61 year old male admitted 07/24/17 with abdominal and chest pain. Previously admitted in May with PE and back pain. Discharged on Xarelto for PE. Now patient has bibasalar infiltrates on chest-x ray. Blood cultures are positive for gram positive cocci and urine positive for Staph species. Plan vancomycin/Zosyn for treatment of bacteremia/HAP Vancomycin IV * Loading dose: 2250 mg (25 mg/kg) * Maintenance dose: 1250 mg IV (13.4 mg/kg) every 8 hours (population pharmacokinetics suggest a half-life of 8 hours) * Goal trough level for bacteremia with history of MRSA : 15 to 20 mcg/mL * Trough ordered for 07/27/17 prior to 0900 dose Piperacillin/tazobactam * 3.375 g bolus administered over 30 minutes, then 3.375 g IV extended infusion every 8 hours for CrCl greater than 20 mL/min Pharmacy will continue to follow and will adjust dose/frequency as necessary. Thank you.
[2017-07-26] MEDS: BUDESONIDE/FORMOTEROL FUMARATE 160/4.5 60 PUFFS/INHALER INH SCH ×2 (08:50→22:28)
[2017-07-26] MEDS: BACLOFEN TAB 20 MG TAB PO SCH ×3 (08:50→22:29)
[2017-07-26] MEDS: FUROSEMIDE 20 MG TAB PO SCH (08:51)
[2017-07-26] MEDS: GABAPENTIN 300 MG CAP PO SCH ×3 (08:51→22:29)
[2017-07-26] MEDS: FINASTERIDE 5 MG TAB PO SCH (08:52)
[2017-07-26] MEDS: OMEGA-3 (PURIFIED FISH OIL) 1 GM CAP PO SCH (08:53)
[2017-07-26] MEDS: TAMSULOSIN HCL 0.4 MG CAP PO SCH (08:54)
[2017-07-26] MEDS: VORTIOXETINE HBR 10 MG TAB PO SCH (08:56)
[2017-07-26] MEDS: LIDODERM (LIDOCAINE) PATCH 5% TD SCH (08:58)
--- NOTE | 2017-07-26 09:59 | Pain Management Progress Note ---
Pain Management Progress Note Date of Service Jul 26, 2017. Subjective Patient is reporting improvement in his axial low back pain complaints over the past 24 hours. He feels that resumption of gabapentin and baclofen has been beneficial. He did experience an episode of some acute left-sided anterior chest wall pain associated with frequent violent coughing episodes last evening which led to an acute CT scan of the chest. He is awaiting to hear the results of the scan which were not available for review at the time of today's visit. He reports less frequent coughing upon awakening this morning. He continues to have some left-sided upper anterior chest wall pain which she described as episodic, sharp and stabbing in characteristic aggravated with deep breathing or coughing activities. He reports minimal radiation towards the axillary region. He denies shortness of breath. He continues to deny lumbar radicular pain, weaknesses, footdrop or falling. He is reporting improved ability to perform positional change and ambulatory activity in the room today compared to yesterday. He continues to find Percocet to be effective at pain control. He has no further constitutional complaints. Plan of care discussed with Dr. Ana Kiran. Objective Vital Signs: Last Vital Signs Documentation Date Time Temp Pulse Resp B/P (MAP) Pulse Ox O2 Delivery O2 Flow Rate FiO2 07/26/17 07:15 81 16 95 Room Air 07/26/17 07:04 36.7 107/66 (80) Physical Exam: Gen.: Patient up walking around the room upon entering in no obvious acute distress. Speech and thought process appropriate. Mood and affect appropriate. Cognition intact. Chest: Patient tender over the left costosternal junction process are level of the second through fifth rib as well as extending through the intercostal space to the midclavicular line. Tenderness aggravated with AP compression maneuvering. Nontender with lateral compression maneuvering. No palpable abnormalities appreciated along the sternum or the chest wall. Back/spine: Patient nontender over the midline, facet joint or SI joints provocative testing. Minimal tenderness in the paravertebral, quadratus lumborum and gluteal musculature. Minimal spasm. No definable myoneural trigger points. Lower extremities: SLR with minimal increase in axial low back pain today without a radicular component. Neurologic: Cranial nerves grossly intact. Ambulatory function was slightly slowed. Laboratory Laboratory Findings 07/25/17 08:44 Assessment 1. Lumbago-suspect myofascial etiology 2. History of cervical dystonia 3. Anterior chest wall pain-costochondritis versus intrapulmonary etiology Recommendations 1. Will add Voltaren gel applied to the left anterior chest wall 3 times a day 2. Maintain gabapentin and baclofen at current dosing without change 3. Continue with when necessary Percocet. Will adjust from 2 tablets every 4 hours to 1-2 tablets every 4 hours when necessary 4. Will sign off on the patient at this time and follow up in the outpatient setting as needed 5. Thank your for allowing us to participate in the care of Mr. Etienne
[2017-07-26] MEDS: VANCOMYCIN INJ 1,250 MG in SODIUM CHLORIDE 0.9% 250ML 250 ML IV SCH ×2 (10:10→16:43)
[2017-07-26] MEDS: POLYETHYLENE (MIRALAX) 17 GM PACK PO SCH (10:10)
[2017-07-26] MEDS: CEROVITE ADV FORMULA TAB PO SCH (10:11)
[2017-07-26] MEDS: LACTOBACILLUS ACIDOPHILUS (FLORANEX) TAB PO SCH (10:11)
[2017-07-26] MEDS: PANTOprazole SOD 40 MG TAB PO SCH (10:11)
--- NOTE | 2017-07-26 12:43 | DIAGNOSTIC IMAGING REPORT ---
VIDEO SWALLOW HISTORY: Pneumonia. assess for aspiration, please schedule per order TECHNIQUE: Video fluoroscopic evaluation of swallowing was performed in the AP and lateral projections by the speech pathology staff. The patient is fed nectar-thick and thin liquid barium, a barium coated wafer, and barium pudding. FLUOROSCOPY TIME: 3.8 minutes. A cine loop submitted. COMPARISON STUDY: Video swallow 09/18/2014. FINDINGS: There are few tongue fasciculations on the initiation of swallowing function. There is overall poor pharyngeal constriction resulting in incomplete epiglottic deflection and decreased hyoid excursion. This results in moderate pharyngeal residue with associated aspiration immediately following the swallow with the thin liquid barium. No aspiration identified with the chin tuck maneuver. Mild esophageal dysmotility. IMPRESSION: 1. Aspiration with the thin liquid barium only as described above which is primarily a result of the poor pharyngeal constriction. 2. Please see the speech pathologist report for detailed findings and recommendations. Electronically signed by: Ivan Carballo M.D. 07/26/2017 12:41 PM Dictated Date/Time: 07/26/2017 12:37 PM
[2017-07-26] MEDS: DICLOFENAC SOD 1% GEL 100 GM TUBE EXT SCH ×2 (13:56→22:30)
[2017-07-26] MEDS: BOOST VANILLA PO SCH ×2 (16:43)
[2017-07-26] MEDS: RIVAROXABAN 20 MG TAB PO SCH (16:44)
[2017-07-26] MEDS ORDERED: BISACODYL 5 MG TABEC PO ONE (17:30)
[2017-07-26] MEDS ORDERED: DOCUSATE SODIUM 100 MG CAP PO ONE (17:30)
[2017-07-26] MEDS ORDERED: BISACODYL 5 MG TABEC PO PRN (17:30)
--- NOTE | 2017-07-26 18:01 | Progress Note ---
Subjective Date of Service: Jul 26, 2017. Subjective Pt evaluation today including: conversation w/ patient, conversation w/ family , physical exam, lab review, review of studies, review of inpatient medication list Saw/examined the patient in room 450 He states he feels better no chest pain/shortness of breath C/o chronic upper back pain; which is no worse than usual c/o constipation, which is also a chronic issue Problem List Medical Problems: (1) Abdominal pain Status: Acute (2) Pleuritic chest pain Status: Acute (3) Pulmonary embolism Status: Acute (4) Urinary retention Status: Chronic (5) VSD (ventricular septal defect) Status: Chronic Social History Problems: (1) Abdominal pain Status: Acute (2) Bleeding from mouth Status: Acute (3) Fever Status: Acute (4) H/O gastroesophageal reflux (GERD) Status: Chronic (5) Pneumonitis Status: Acute (6) SOB (shortness of breath) Status: Acute (7) Urinary tract infection Status: Acute (8) Urinary tract infection Status: Acute (9) VSD (ventricular septal defect) Status: Chronic Review of Systems Constitutional: + weakness, No fever, No chills Respiratory: No cough, No shortness of breath Cardiac: No chest pain Abdomen: + constipation, No pain, No nausea, No vomiting, No diarrhea Musculoskeletal: + problem reported (cervical and thoracic neck pain) Heme: No abnormal bleeding/bruising Medications Current Inpatient Medications Medications (Trade) Dose Ordered Sig/Chanda Route Start Time Stop Time Status Last Admin Dose Admin Acetaminophen (Tylenol Tab) 650 mg Q4H PRN PO 07/24/17 16:00 08/23/17 15:59 Ondansetron HCl (Zofran Inj) 4 mg Q6H PRN IV 07/24/17 16:00 08/23/17 15:59 Piperacillin Sod/ Tazobactam Sod (Consult) 1 ea UD PRN N/A 07/24/17 16:30 08/23/17 16:29 Diazepam (Valium Tab) 5 mg TID PRN PO 07/24/17 16:30 08/23/17 16:29 Benzonatate (Tessalon Perles Cap) 100 mg TID PRN PO 07/24/17 16:30 08/23/17 16:29 07/26/17 03:54 100 MG Budesonide/ Formoterol Fumarate (Symbicort 160/ 4.5 Inh) 2 puffs BID INH 07/24/17 20:00 08/23/17 20:59 07/26/17 08:50 2 PUFFS Finasteride (Proscar Tab) 5 mg DAILY PO 07/25/17 08:00 08/24/17 08:59 07/26/17 08:52 5 MG Fish Oil ([place]-3 (Purified Fish Oil) Cap) 1 gm DAILY PO 07/25/17 08:00 08/24/17 08:59 07/26/17 08:53 1 GM Furosemide (Lasix Tab) 20 mg MoWeFr@0800 PO 07/26/17 08:00 08/25/17 07:59 07/26/17 08:51 20 MG Albuterol/ Ipratropium (Duoneb) 3 ml Q4H PRN INH 07/24/17 16:30 08/23/17 16:29 07/25/17 03:22 3 ML Multivitamins/ Minerals (Multivitamin W/ Minerals Tab) 1 tab DAILY PO 07/25/17 08:00 08/24/17 08:59 07/26/17 10:11 1 TAB Tamsulosin HCl (Flomax Cap) 0.4 mg DAILY PO 07/25/17 08:00 08/24/17 08:59 07/26/17 08:54 0.4 MG Tiotropium [place] (Spiriva Handihaler Inhaler) 2 puff DAILY INH 07/25/17 08:00 08/24/17 08:59 07/26/17 08:49 2 PUFF Miscellaneous Information (Order Awaiting Action) 1 ea QS N/A 07/25/17 18:15 08/24/17 18:14 Polyethylene (Miralax Powder Packet) 17 gm QAM PO 07/25/17 08:00 08/24/17 07:59 07/26/17 10:10 17 GM Lactobacillus Acidophilus (Floranex Tab) 1 tab DAILY PO 07/25/17 08:00 08/24/17 07:59 07/26/17 10:11 1 TAB Ranitidine HCl (zANTac TAB) 300 mg HS PO 07/24/17 21:00 08/23/17 20:59 07/25/17 20:37 300 MG Levothyroxine Sodium (Synthroid Tab) 50 mcg DAILYBB PO 07/25/17 06:30 08/24/17 06:29 07/26/17 03:55 50 MCG Piperacillin Sod/ Tazobactam Sod 3.375 gm/Dextrose 115 ml @ 28.75 mls/ hr Q8H IV 07/24/17 20:00 07/31/17 13:59 07/26/17 13:04 28.75 MLS/HR Oxycodone/ Acetaminophen (Percocet 10-325MG Tab) 2 tab Q4H PRN PO 07/24/17 19:15 08/07/17 16:29 07/26/17 13:12 2 TAB Rivaroxaban (Xarelto Tab) 20 mg QDD PO 07/24/17 20:00 08/23/17 19:59 07/26/17 16:44 20 MG Levofloxacin (Levaquin Tab) 500 mg DAILY@1800 PO 07/24/17 20:00 07/30/17 18:01 07/25/17 18:01 500 MG Lidocaine (Lidoderm Patch 5%) 1 patch QAM TD 07/25/17 08:00 08/24/17 07:59 07/26/17 08:58 1 PATCH Miscellaneous (Remove Lidoderm Patch) 1 ea DAILY@21 N/A 07/24/17 21:00 08/23/17 20:59 Future hold 07/25/17 20:37 1 EA Ipratropium [place] (Atrovent 0.02% 0.5MG/2.5ML Neb) 0.5 mg Q6R INH 07/24/17 21:00 08/23/17 20:59 07/26/17 07:15 0.5 MG Levalbuterol (Xopenex 1.25MG/ 0.5ML Neb) 1.25 mg Q6R INH 07/24/17 21:00 08/23/17 20:59 07/26/17 07:15 1.25 MG Menthol (Nice Wilfrid) 1 wilfrid PRN PRN PO 07/24/17 23:45 08/23/17 23:44 07/25/17 00:09 1 WILFRID Gabapentin (Neurontin Cap) 300 mg TID PO 07/25/17 14:00 08/24/17 13:59 07/26/17 13:57 300 MG Baclofen (Lioresal Tab) 20 mg TID PO 07/25/17 14:00 08/24/17 13:59 07/26/17 13:57 20 MG Vortioxetine (Trintellix) 15 mg QAM PO 07/26/17 08:00 08/25/17 07:59 07/26/17 08:56 15 MG Ketorolac Tromethamine (Toradol Inj) 15 mg Q6H PRN IV. 07/26/17 00:15 07/31/17 00:14 Vancomycin HCl (Consult) 1 ea UD PRN N/A 07/26/17 00:15 08/25/17 00:14 Vancomycin HCl 1250 mg/Sodium Chloride 275 ml @ 125 mls/hr Q8H IV 07/26/17 09:00 08/09/17 08:44 07/26/17 16:43 125 MLS/HR Diclofenac Sodium (Voltaren 1% Top Gel) 1 appln TID EXT 07/26/17 14:00 08/25/17 13:59 Enteral Nutritional Formula (Boost) 1 can BIDM PO 07/26/17 17:00 08/25/17 16:59 07/26/17 16:43 1 CAN Docusate Sodium (coLACE CAP) 100 mg BID PO 07/26/17 20:00 08/25/17 19:59 Bisacodyl (Dulcolax Tab) 5 mg DAILY PRN PO 07/26/17 17:30 08/25/17 17:29 Senna (Senokot Tab) 8.6 mg QAM PO 07/26/17 17:30 08/25/17 17:29 Pantoprazole Sodium (Protonix Tab) 40 mg DAILY PO 07/27/17 08:00 08/26/17 07:59 Objective Vital Signs Date Time Temp Pulse Resp B/P (MAP) Pulse Ox O2 Delivery O2 Flow Rate FiO2 07/26/17 14:59 36.4 82 18 125/77 (93) 94 Room Air 07/26/17 14:44 90 96 07/26/17 08:00 92 Room Air 07/26/17 07:15 81 16 95 Room Air 07/26/17 07:04 36.7 81 20 107/66 (80) 92 Room Air 07/26/17 01:49 84 18 95 Room Air 07/26/17 00:01 36.6 93 20 132/78 (96) 90 Room Air 07/26/17 00:00 Room Air 07/25/17 20:57 80 18 94 Room Air Physical Exam General Appearance: no apparent distress ENT: + pertinent finding (decreased cervical spine motion due to pain) Respiratory/Chest: lungs clear, normal breath sounds, no respiratory distress, no accessory muscle use Cardiovascular: regular rate, rhythm, no edema, no murmur Extremities: normal inspection, no pedal edema Neurologic/Psychiatric: no motor/sensory deficits, alert, normal mood/affect Assessment and Plan This is a 61yo M with a PMH of COPD, anxiety, h/o Tonsillar cancer (2007), acquired hypothyroidism and enlarged prostate, recent hospital admission in May 2017 for acute PE on Xarelto who presents with abdominal pain with any type of movement and subsequently found to have bilateral pneumonia HCAP 07/26 patient is doing well with Zosyn and Vanco for now we will continue abx. as prescribed monitor CBC, check cultures - admit to med/surg - patient presenting with worsening abdominal, back, and chest pain and cough x 1 week; recently admitted to [facility] 06/13 - 06/18 for PE and discharged on Xarelto - CXR in the ED showing BL infiltrates - no signs of sepsis, saturating well on room air - s/p Zosyn in the ED, will continue with; check MRSA nasal swab and add Vanco if positive - sputum culture - PRN nebs ABDOMINAL, BACK, AND CHEST PAIN 07/26 CT chest suggested inflammation at the thoracic spine will check Thoracic spine MRI with contrast to r/o osteomyelitis continue Baclofen and Gabapentin Percocet PRN, Voltaren gel appreciate pain management input - seems to be a chronic issue for the patient - currently saturating well on room air, no tachycardia, and has been compliant with Xarelto - low suspicion for recurrent PE; EKG without acute ST changes - had extensive imaging during last admission without any acute findings and was evaluated by pain management - was discharged on Valium and Percocet however stopped Valium after 1 week0 - will resume Valium and Percocet (hold other home sedating medications - Ambien , Xanax, Trazodone, Belsomra) - continue home Baclofen and gabapentin (noted patient taking PRN) - pain management consult HX PE - continue Xarelto URINARY RETENTION, BPH - continue PRN straight cath - patient reports dysuria, U/A does not suggest UTI; checking culture HX VSD - following with cardio as an outpatient - schedule for repeat echo COPD - no signs of acute exacerbation - continue home inhalers DVT PROPHYLAXIS - on Xarelto DISPO - In my clinical judgment this beneficiary meets acute admission criteria, established by [facility], that includes being hospitalized through two midnights.
[2017-07-26] MEDS: LEVOFLOXACIN 500 MG TAB PO SCH (18:08)
[2017-07-26] MEDS ORDERED: GADAVIST IV PRN (21:30)
--- NOTE | 2017-07-26 22:24 | DIAGNOSTIC IMAGING REPORT ---
THORACIC SPINE COMBO HISTORY: Pain r/o osteomyelitis TECHNIQUE: Multiplanar multisequence MRI of the thoracic spine was performed both before and after the intravenous administration of contrast. COMPARISON: CT chest dated 07/26/2017 FINDINGS: Degenerative disc changes throughout. Vertebral body stature is unremarkable. There is no evidence for compression deformity. T1 sagittal images demonstrate diminished signal of the bulk of the T4 and T5 vertebral bodies. Postcontrast images show evidence for moderate postcontrast enhancement including enhancement of the T4-T5 disc. Inversion recovery sequences show increased signal throughout. This is suggestive of discitis and secondary osteomyelitis. There is mild soft tissue edematous change surrounding the associated vertebral bodies. There is no significant impact upon the thoracic cord. All additional levels including T11-T12 are remarkable for degenerative disc change. There are findings of dural ectasia surrounding the right neuroforamina and right nerve root at T7-T8. The transaxial images show no significant compromise of the spinal canal or neural foramina. IMPRESSION: 1. Findings most consistent with that of discitis at T4-T5 with secondary osteomyelitis involving the T4 and T5 vertebral bodies. 2. Trace surrounding infiltrative paravertebral soft tissue although a significant abscess or collection is not appreciated. 3. No significant impact upon the thoracic cord. 4. Dural ectasia surrounding the right exiting nerve root at T7-T8. 5. No additional postcontrast enhancement other than the T4-T5 changes described above. The above report was generated using voice recognition software. It may contain grammatical, syntax or spelling errors. Electronically signed by: Helio Salcido M.D. 07/26/2017 10:22 PM Dictated Date/Time: 07/26/2017 10:16 PM
[2017-07-26] MEDS: DOCUSATE SODIUM 100 MG CAP PO SCH (22:26)
[2017-07-26] MEDS: SENNA 8.6 MG TAB PO SCH (22:27)
[2017-07-26] MEDS: RANITIDINE HCL 150 MG TAB PO SCH (22:31)
[2017-07-27] VITALS (7 sets, daily range): BP systolic 121–123; BP diastolic 72–73; PULSE 70–80; TEMP 36.7–36.9; O2SAT 92–97
[2017-07-27] MEDS: VANCOMYCIN INJ 1,250 MG in SODIUM CHLORIDE 0.9% 250ML 250 ML IV SCH ×3 (00:13→19:42)
[2017-07-27] MEDS: LEVALBUTEROL 1.25MG/0.5ML NEB INH SCH ×4 (03:23→20:17)
[2017-07-27] MEDS: IPRATROPIUM BROMIDE NEB SOLN 0.02% 2.5 ML VIAL INH SCH ×4 (03:23→20:17)
[2017-07-27] MEDS: PIPERACILL/TAZOBAC IV 3.375 GM in DEXTROSE 5% 100ML IV SCH ×2 (03:38→11:49)
[2017-07-27] MEDS: LEVOTHYROXINE 50 MCG TAB PO SCH (06:35)
[2017-07-27] MEDS: OXYCODONE/ACETAMINOPHEN 10/325MG TAB PO PRN ×3 (06:36→23:27)
[2017-07-27] MEDS: BENZONATATE 100MG CAP PO PRN (06:42)
[2017-07-27] MEDS: DICLOFENAC SOD 1% GEL 100 GM TUBE EXT SCH ×3 (06:43→19:47)
[2017-07-27] MEDS: BOOST VANILLA PO SCH ×4 (08:00→16:54)
[2017-07-27] MEDS: SENNA 8.6 MG TAB PO SCH (08:14)
[2017-07-27] MEDS: GABAPENTIN 300 MG CAP PO SCH ×3 (08:15→19:47)
[2017-07-27] MEDS: FINASTERIDE 5 MG TAB PO SCH (08:15)
[2017-07-27] MEDS: DOCUSATE SODIUM 100 MG CAP PO SCH ×2 (08:15→19:47)
[2017-07-27] MEDS: OMEGA-3 (PURIFIED FISH OIL) 1 GM CAP PO SCH (08:15)
[2017-07-27] MEDS: TAMSULOSIN HCL 0.4 MG CAP PO SCH (08:16)
[2017-07-27] MEDS: TIOTROPIUM BROMIDE 5 PUFF/90 MCG INH INH SCH (08:17)
[2017-07-27] MEDS: BUDESONIDE/FORMOTEROL FUMARATE 160/4.5 60 PUFFS/INHALER INH SCH ×2 (08:17→19:47)
[2017-07-27] MEDS: BACLOFEN TAB 20 MG TAB PO SCH ×3 (08:18→19:48)
[2017-07-27] MEDS: PANTOprazole SOD 40 MG TAB PO SCH (08:19)
[2017-07-27] MEDS: VORTIOXETINE HBR 10 MG TAB PO SCH (08:20)
[2017-07-27] MEDS: CEROVITE ADV FORMULA TAB PO SCH (08:21)
[2017-07-27] MEDS: LIDODERM (LIDOCAINE) PATCH 5% TD SCH (08:22)
[2017-07-27] MEDS ORDERED: VANCOMYCIN TROUGH SCH (08:30)
[2017-07-27 08:39] LABS: HEMATOCRIT 34.4 % (42-52); MEAN CELL VOLUME 85.6 fL (80-100); MEAN CORPUSCULAR HEMOGLOBIN 28.9 pg (25-34); MEAN CORPUSCULAR HGB CONC 33.7 g/dl (32-36); MEAN PLATELET VOLUME 9.4 fL (7.4-10.4); PLATELET COUNT 263 K/uL (130-400); RED BLOOD COUNT 4.02 M/uL (4.7-6.1); WHITE BLOOD COUNT 4.42 K/uL (4.8-10.8)
[2017-07-27 09:10] LABS: BUN/CREATININE RATIO 11.9 (10-20); CALCIUM 9.2 mg/dl (8.5-10.1); CREATININE 0.74 mg/dl (0.60-1.40); POTASSIUM 3.7 mmol/L (3.5-5.1)
[2017-07-27] MEDS: POLYETHYLENE (MIRALAX) 17 GM PACK PO SCH (09:40)
[2017-07-27] MEDS: LACTOBACILLUS ACIDOPHILUS (FLORANEX) TAB PO SCH (09:40)
--- NOTE | 2017-07-27 10:00 | Orthopedic Consultation ---
Orthopedic Consultation Date of Consultation: Jul 27, 2017. Attending Physician: Eleanor Feldman DO Reason for Consultation: T4-T5 discitis/osteomyelitis History of Present Illness Is a very pleasant 61-year-old gentleman here with recent admission via the emergency room for increasing back pain, chest pain, coughing and fever. He currently has a known diagnosis of pneumonia. He reports he also had a 5 day hospital stay about 4 weeks ago after he was found to have a pulmonary embolism. He is now on Xarelato for this. He reports his pain to be along the upper thoracic. Also notes upper lumbar pain. This pain started roughly 3-4 weeks ago. Any type of twisting or activity reproduces his pain. He is most comfortable resting. He does not some left shoulder and upper arm pain that is random. Denies radicular pain. Ambulates independently. Past Medical/Surgical History Medical Problems: (1) Abdominal pain Status: Acute (2) Pleuritic chest pain Status: Acute (3) Pulmonary embolism Status: Acute (4) Urinary retention Status: Chronic (5) VSD (ventricular septal defect) Status: Chronic Social History Problems: (1) Abdominal pain Status: Acute (2) Bleeding from mouth Status: Acute (3) Fever Status: Acute (4) H/O gastroesophageal reflux (GERD) Status: Chronic (5) Pneumonitis Status: Acute (6) SOB (shortness of breath) Status: Acute (7) Urinary tract infection Status: Acute (8) Urinary tract infection Status: Acute (9) VSD (ventricular septal defect) Status: Chronic Family History Diabetes mellitus MOTHER FH: stomach cancer FATHER Social History Smoking Status: Former Smoker Smokeless Tobacco Use: No Alcohol Use: none Marital Status: Housing Status: lives with significant other Occupation Status: employed Allergies Coded Allergies: Statins (Verified Adverse Reaction, Intermediate, GI UPSET, 07/24/17) Temazepam (Verified Adverse Reaction, Unknown, LOSES VOLUNTARY MUSCLE CONTROL, 07/24/17) Home Medications Scheduled Alprazolam (Xanax), 1 TAB PO HS Alprazolam (Xanax Xr), 1 TAB PO DAILY Botulinum Toxin Type A (Botox), 1 DOSE INJ UD Budesonide/Formoterol Fumarate (Symbicort 160/4.5 Inhaler ), 2 PUFFS INH BID Finasteride (Finasteride), 5 MG PO DAILY Fish Oil ([place]-3), 1 CAP PO DAILY Fluticasone Propionate (Nasal) (Flonase Allergy Relief), 1 SPRAY ELIA DAILY Furosemide (Lasix), 20 MG PO 3XWK Levothyroxine Sodium (Levothyroxine Sodium), 50 MCG PO DAILY Linaclotide (Linzess), 145 MCG PO DAILY Multivitamins/Minerals (Mvi With Minerals), 1 TAB PO DAILY Omeprazole (Prilosec), 40 MG PO DAILY Polyethylene Glycol 3350 (Miralax), 17 GM PO DAILY Probiotic Product (Probiotic), 1 CAP PO DAILY Ranitidine (Zantac), 300 MG PO HS Rivaroxaban (Xarelto), 20 MG PO DAILY Sodium Fluoride (Dental) (Denta 5000 Plus), 1 APPLN PO UD Tadalafil (Cialis), 20 MG PO UD Tamsulosin Hcl (Flomax), 0.4 MG PO DAILY Tiotropium [place] (Spiriva Handihaler), 1 CAP INH DAILY Vortioxetine HBr (Trintellix), 15 MG PO DAILY Scheduled PRN Albuterol Hfa (Ventolin Hfa), 2 PUFFS INH Q6H PRN for SOB/Wheezing Albuterol Sulf (Proventil 0.083% 2.5MG/3ML), 2.5 MG INH Q4 PRN for Wheezing Baclofen (Lioresal), 20 MG PO QID PRN for Muscle Spasms Benzonatate (Tessalon Perles), 100-200 MG PO TID PRN for Cough Gabapentin (Gabapentin), 600 MG PO TID PRN for Muscle Spasms Ipratropium-Albuterol (Duoneb), 1 TREATMENT INH Q4H PRN for SOB/Wheezing Suvorexant (Belsomra), 20 MG PO HS PRN for Insomnia Trazodone Hcl (Trazodone), 25-50 MG PO HS PRN for Sleep Zolpidem Tartrate (Ambien Cr), 12.5 MG PO HS PRN for Insomnia Current Inpatient Medications Current Inpatient Medications Medications (Trade) Dose Ordered Sig/Chanda Route Start Time Stop Time Status Last Admin Dose Admin Acetaminophen (Tylenol Tab) 650 mg Q4H PRN PO 07/24/17 16:00 08/23/17 15:59 Ondansetron HCl (Zofran Inj) 4 mg Q6H PRN IV 07/24/17 16:00 08/23/17 15:59 Piperacillin Sod/ Tazobactam Sod (Consult) 1 ea UD PRN N/A 07/24/17 16:30 08/23/17 16:29 Diazepam (Valium Tab) 5 mg TID PRN PO 07/24/17 16:30 08/23/17 16:29 Benzonatate (Tessalon Perles Cap) 100 mg TID PRN PO 07/24/17 16:30 08/23/17 16:29 07/27/17 06:42 100 MG Budesonide/ Formoterol Fumarate (Symbicort 160/ 4.5 Inh) 2 puffs BID INH 07/24/17 20:00 08/23/17 20:59 07/27/17 08:17 2 PUFFS Finasteride (Proscar Tab) 5 mg DAILY PO 07/25/17 08:00 08/24/17 08:59 07/27/17 08:15 5 MG Fish Oil ([place]-3 (Purified Fish Oil) Cap) 1 gm DAILY PO 07/25/17 08:00 08/24/17 08:59 07/27/17 08:15 1 GM Furosemide (Lasix Tab) 20 mg MoWeFr@0800 PO 07/26/17 08:00 08/25/17 07:59 07/26/17 08:51 20 MG Albuterol/ Ipratropium (Duoneb) 3 ml Q4H PRN INH 07/24/17 16:30 08/23/17 16:29 07/25/17 03:22 3 ML Multivitamins/ Minerals (Multivitamin W/ Minerals Tab) 1 tab DAILY PO 07/25/17 08:00 08/24/17 08:59 07/27/17 08:21 1 TAB Tamsulosin HCl (Flomax Cap) 0.4 mg DAILY PO 07/25/17 08:00 08/24/17 08:59 07/27/17 08:16 0.4 MG Tiotropium [place] (Spiriva Handihaler Inhaler) 2 puff DAILY INH 07/25/17 08:00 08/24/17 08:59 07/27/17 08:17 2 PUFF Miscellaneous Information (Order Awaiting Action) 1 ea QS N/A 07/25/17 18:15 08/24/17 18:14 Polyethylene (Miralax Powder Packet) 17 gm QAM PO 07/25/17 08:00 08/24/17 07:59 07/27/17 09:40 17 GM Lactobacillus Acidophilus (Floranex Tab) 1 tab DAILY PO 07/25/17 08:00 08/24/17 07:59 07/27/17 09:40 1 TAB Ranitidine HCl (zANTac TAB) 300 mg HS PO 07/24/17 21:00 08/23/17 20:59 07/26/17 22:31 300 MG Levothyroxine Sodium (Synthroid Tab) 50 mcg DAILYBB PO 07/25/17 06:30 08/24/17 06:29 07/27/17 06:35 50 MCG Piperacillin Sod/ Tazobactam Sod 3.375 gm/Dextrose 115 ml @ 28.75 mls/ hr Q8H IV 07/24/17 20:00 07/31/17 13:59 07/27/17 03:38 28.75 MLS/HR Oxycodone/ Acetaminophen (Percocet 10-325MG Tab) 2 tab Q4H PRN PO 07/24/17 19:15 08/07/17 16:29 07/27/17 06:36 2 TAB Rivaroxaban (Xarelto Tab) 20 mg QDD PO 07/24/17 20:00 08/23/17 19:59 07/26/17 16:44 20 MG Levofloxacin (Levaquin Tab) 500 mg DAILY@1800 PO 07/24/17 20:00 07/30/17 18:01 07/26/17 18:08 500 MG Lidocaine (Lidoderm Patch 5%) 1 patch QAM TD 07/25/17 08:00 08/24/17 07:59 07/27/17 08:22 1 PATCH Miscellaneous (Remove Lidoderm Patch) 1 ea DAILY@21 N/A 07/24/17 21:00 08/23/17 20:59 Future hold 07/25/17 20:37 1 EA Ipratropium [place] (Atrovent 0.02% 0.5MG/2.5ML Neb) 0.5 mg Q6R INH 07/24/17 21:00 08/23/17 20:59 07/27/17 07:01 0.5 MG Levalbuterol (Xopenex 1.25MG/ 0.5ML Neb) 1.25 mg Q6R INH 07/24/17 21:00 08/23/17 20:59 07/27/17 07:01 1.25 MG Menthol (Nice Bob) 1 bob PRN PRN PO 07/24/17 23:45 08/23/17 23:44 07/25/17 00:09 1 BOB Gabapentin (Neurontin Cap) 300 mg TID PO 07/25/17 14:00 08/24/17 13:59 07/27/17 08:15 300 MG Baclofen (Lioresal Tab) 20 mg TID PO 07/25/17 14:00 08/24/17 13:59 07/27/17 08:18 20 MG Vortioxetine (Trintellix) 15 mg QAM PO 07/26/17 08:00 08/25/17 07:59 07/27/17 08:20 15 MG Ketorolac Tromethamine (Toradol Inj) 15 mg Q6H PRN IV. 07/26/17 00:15 07/31/17 00:14 Vancomycin HCl (Consult) 1 ea UD PRN N/A 07/26/17 00:15 08/25/17 00:14 Vancomycin HCl 1250 mg/Sodium Chloride 275 ml @ 125 mls/hr Q8H IV 07/26/17 09:00 08/09/17 08:44 07/27/17 08:36 125 MLS/HR Diclofenac Sodium (Voltaren 1% Top Gel) 1 appln TID EXT 07/26/17 14:00 08/25/17 13:59 07/27/17 06:43 1 APPLN Enteral Nutritional Formula (Boost) 1 can BIDM PO 07/26/17 17:00 08/25/17 16:59 07/26/17 16:43 1 CAN Docusate Sodium (coLACE CAP) 100 mg BID PO 07/26/17 20:00 08/25/17 19:59 07/27/17 08:15 100 MG Bisacodyl (Dulcolax Tab) 5 mg DAILY PRN PO 07/26/17 17:30 08/25/17 17:29 Senna (Senokot Tab) 8.6 mg QAM PO 07/26/17 17:30 08/25/17 17:29 07/27/17 08:14 8.6 MG Pantoprazole Sodium (Protonix Tab) 40 mg DAILY PO 07/27/17 08:00 08/26/17 07:59 07/27/17 08:19 40 MG Gadobutrol (Gadavist) 9 mmol UD PRN IV 07/26/17 21:30 07/30/17 21:29 Review of Systems Constitutional: + fever Respiratory: + cough Physical Exam Date Time Temp Pulse Resp B/P (MAP) Pulse Ox O2 Delivery O2 Flow Rate FiO2 07/27/17 07:11 36.9 70 18 121/73 (89) 94 Room Air 07/27/17 07:01 71 16 93 Room Air 07/27/17 02:06 80 16 92 Room Air 07/27/17 00:14 36.7 77 18 122/73 (89) 93 Room Air 07/27/17 00:00 Room Air 07/26/17 19:29 82 16 94 Room Air 07/26/17 16:00 Room Air 07/26/17 14:59 36.4 82 18 125/77 (93) 94 Room Air 07/26/17 14:44 90 96 He is sitting in bed. No obvious distress. Inspection of the cervical thoracic and lumbar spine are within normal limits. No ecchymosis. He is nontender to palpation to the thoracolumbar spine. Strength is intact bilateral upper and lower extremities. General Appearance: no apparent distress Head: normocephalic Eyes: normal inspection ENT: hearing grossly normal Neck: supple Respiratory/Chest: no respiratory distress Cardiovascular: regular rate, rhythm Abdomen/GI: soft Back: normal inspection Extremities/Musculoskelatal: normal inspection, normal capillary refill, normal range of motion, non-tender Neurologic/Psych: no motor/sensory deficits, oriented x 3 Skin: normal color, warm/dry Laboratory Results Last 24 Hours Test 07/27/17 08:28 White Blood Count 4.42 K/uL Red Blood Count 4.02 M/uL Hemoglobin 11.6 g/dL Hematocrit 34.4 % Mean Corpuscular Volume 85.6 fL Mean Corpuscular Hemoglobin 28.9 pg Mean Corpuscular Hemoglobin Concent 33.7 g/dl RDW Standard Deviation 46.0 fL RDW Coefficient of Variation 14.5 % Platelet Count 263 K/uL Mean Platelet Volume 9.4 fL Sodium Level 138 mmol/L Potassium Level 3.7 mmol/L Chloride Level 103 mmol/L Carbon Dioxide Level 27 mmol/L Anion Gap 8.0 mmol/L Blood Urea Nitrogen 9 mg/dl Creatinine 0.74 mg/dl Est Creatinine Clear Calc Drug Dose 120.0 ml/min Estimated GFR () 116.2 Estimated GFR (Non- 100.3 BUN/Creatinine Ratio 11.9 Random Glucose 98 mg/dl Calcium Level 9.2 mg/dl Vancomycin Level Trough 19.4 mcg/ml Patient: SABINE LANCASTER Address1: [address] [place] [address] Rec: [id number] Address2: Acct ID: [id number] [facility] Zip: [place] [address] Date: 1955 Sex: M Room/Bed: [facility] Ref Phy: Marcin Joy D.OErnesto SC: AMELIA Att Phy: Eleanor Feldman DO Report #: [id number] Katie Phy: Marcin Joy D.OErnesto Test: TSCO Admit Phy: Bruno Blanchard MD Home Demonstration Agent: JESSICA Interpreting Phy: Helio Salcido M.D. Diagnosis: PNEUMONIA Ordering Phy: Eleanor Feldman DO Service Date: 07/26/17 Admit Date: 07/24/1709/25/17 MNE: [id number] CONF: DICTATED BY: Helio Salcido M.D.]] CC: Eleanor Feldman DO Newhouser, Shane D., DErnestoOErnesto Endcc: [~ rep ct add3]] THORACIC SPINE COMBO HISTORY: Pain r/o osteomyelitis TECHNIQUE: Multiplanar multisequence MRI of the thoracic spine was performed both before and after the intravenous administration of contrast. COMPARISON: CT chest dated 07/26/2017 FINDINGS: Degenerative disc changes throughout. Vertebral body stature is unremarkable. There is no evidence for compression deformity. T1 sagittal images demonstrate diminished signal of the bulk of the T4 and T5 vertebral bodies. Postcontrast images show evidence for moderate postcontrast enhancement including enhancement of the T4-T5 disc. Inversion recovery sequences show increased signal throughout. This is suggestive of discitis and secondary osteomyelitis. There is mild soft tissue edematous change surrounding the associated vertebral bodies. There is no significant impact upon the thoracic cord. All additional levels including T11-T12 are remarkable for degenerative disc change. There are findings of dural ectasia surrounding the right neuroforamina and right nerve root at T7-T8. The transaxial images show no significant compromise of the spinal canal or neural foramina. IMPRESSION: 1. Findings most consistent with that of discitis at T4-T5 with secondary osteomyelitis involving the T4 and T5 vertebral bodies. 2. Trace surrounding infiltrative paravertebral soft tissue although a significant abscess or collection is not appreciated. 3. No significant impact upon the thoracic cord. 4. Dural ectasia surrounding the right exiting nerve root at T7-T8. 5. No additional postcontrast enhancement other than the T4-T5 changes described above. The above report was generated using voice recognition software. It may contain grammatical, syntax or spelling errors. Electronically signed by: Helio Salcido M.D. 07/26/20 Assessment & Plan Assessment T4-T5 discitis/osteomyelitis -Plan: There is no evidence of epidural abscess. No significant cord compromise. We will therefore treat this conservatively. Current plan is limited activity. Unfortunately do the level of his discitis this is not amenable to bracing. We'll continue with IV antibiotics per infectious disease/ Dr. Cunningham recommendations. Pain management has also been consulted in regards to pain control through medications. Thank you for this consult. We are happy to follow him up in an outpatient basis once he is discharged from the hospital. Appointment can be in roughly 2-4 weeks upon discharge.
--- NOTE | 2017-07-27 10:06 | Pharmacy Progress Note ---
Pharmacy Abx Dose Short Note Date of Service Jul 27, 2017. Assessment & Plan Assessment 61 year old male receiving Vancomycin/Zosyn IV for treatment of HCAP/positive blood cultures (preliminary strep species) and staph saprophyticus in urine. Day # 4 of antimicrobial therapy. Plan Vancomycin * Trough level of 19.4 mcg/mL is therapeutic. * Pt is not at risk for drug accumulation given BMI <35 and great renal function. * Continue dose of 1250 mg IV every 8 hours. * Goal trough level for bacteremia: 15 to 20 mcg/mL * A follow up trough will be ordered for: 07/29/17 @0830 prior to the 0900 dose. * If renal function changes by 20% over the next 48 hours, trough will need to be drawn sooner. Pharmacy will continue to follow and will adjust dose/frequency as necessary. Thank you.
--- NOTE | 2017-07-27 10:19 | Medical Consult ---
Consultation Date of Consultation: Jul 27, 2017. Attending Physician: Eleanor Feldman DO Reason for Consultation: Thoracic diskitis/osteomyelitis History of Present Illness 61-year-old male with history of VSD, BPH, hypothyroidism, tonsillar cancer, who was hospitalized in May with acute pulmonary embolus treated with Xarelto. During that hospitalization is complaining of severe right hip and back pain, but x-rays were unremarkable. He is now admitted with several days of progressively worsening upper back pain with cough and fever. Was found to have pneumonia and admitted for further management. A CT and MRI scanning now showed the presence of probable T4-5 diskitis with adjacent osteomyelitis. Blood cultures now reported positive for Streptococcus. Discussed with micro, and appears to be most likely a viridans strep.Patient currently receiving IV vancomycin and Zosyn. Fever has resolved. Pain about the same. Has now been seen by Spine surgery who feels that no intervention necessary at present. Past Medical/Surgical History Medical Problems: (1) Abdominal pain Status: Acute (2) Pleuritic chest pain Status: Acute (3) Pulmonary embolism Status: Acute (4) Urinary retention Status: Chronic (5) VSD (ventricular septal defect) Status: Chronic Social History Problems: (1) Abdominal pain Status: Acute (2) Bleeding from mouth Status: Acute (3) Fever Status: Acute (4) H/O gastroesophageal reflux (GERD) Status: Chronic (5) Pneumonitis Status: Acute (6) SOB (shortness of breath) Status: Acute (7) Urinary tract infection Status: Acute (8) Urinary tract infection Status: Acute (9) VSD (ventricular septal defect) Status: Chronic Medical Problems: (1) Anxiety (2) COPD (chronic obstructive pulmonary disease) (3) Depression (4) Enlarged prostate (5) GERD (gastroesophageal reflux disease) (6) Hypothyroidism (7) Tonsil cancer (8) Urinary retention (9) VSD (ventricular septal defect) Surgical Problems: (1) H/O arthroscopy of shoulder (2) H/O umbilical hernia repair (3) History of carpal tunnel release (4) History of tonsillectomy and adenoidectomy (5) Right ankle surgery (6) S/P left knee arthroscopy (7) S/P right knee arthroscopy (8) S/P TURP Social History Problems: (1) COPD exacerbation (2) H/O gastroesophageal reflux (GERD) (3) H/O laryngeal cancer (4) S/P hernia repair (5) VSD (ventricular septal defect) Family History Diabetes mellitus MOTHER FH: stomach cancer FATHER Social History Smoking Status: Former Smoker Smokeless Tobacco Use: No Alcohol Use: none Marital Status: Housing Status: lives with significant other Occupation Status: employed Allergies Coded Allergies: Statins (Verified Adverse Reaction, Intermediate, GI UPSET, 07/24/17) Temazepam (Verified Adverse Reaction, Unknown, LOSES VOLUNTARY MUSCLE CONTROL, 07/24/17) Current Inpatient Medications Current Inpatient Medications Medications (Trade) Dose Ordered Sig/Chanda Route Start Time Stop Time Status Last Admin Dose Admin Acetaminophen (Tylenol Tab) 650 mg Q4H PRN PO 07/24/17 16:00 08/23/17 15:59 Ondansetron HCl (Zofran Inj) 4 mg Q6H PRN IV 07/24/17 16:00 08/23/17 15:59 Piperacillin Sod/ Tazobactam Sod (Consult) 1 ea UD PRN N/A 07/24/17 16:30 08/23/17 16:29 Diazepam (Valium Tab) 5 mg TID PRN PO 07/24/17 16:30 08/23/17 16:29 Benzonatate (Tessalon Perles Cap) 100 mg TID PRN PO 07/24/17 16:30 08/23/17 16:29 07/27/17 06:42 100 MG Budesonide/ Formoterol Fumarate (Symbicort 160/ 4.5 Inh) 2 puffs BID INH 07/24/17 20:00 08/23/17 20:59 07/27/17 08:17 2 PUFFS Finasteride (Proscar Tab) 5 mg DAILY PO 07/25/17 08:00 08/24/17 08:59 07/27/17 08:15 5 MG Fish Oil (Basile-3 (Purified Fish Oil) Cap) 1 gm DAILY PO 07/25/17 08:00 08/24/17 08:59 07/27/17 08:15 1 GM Furosemide (Lasix Tab) 20 mg MoWeFr@0800 PO 07/26/17 08:00 08/25/17 07:59 07/26/17 08:51 20 MG Albuterol/ Ipratropium (Duoneb) 3 ml Q4H PRN INH 07/24/17 16:30 08/23/17 16:29 07/25/17 03:22 3 ML Multivitamins/ Minerals (Multivitamin W/ Minerals Tab) 1 tab DAILY PO 07/25/17 08:00 08/24/17 08:59 07/27/17 08:21 1 TAB Tamsulosin HCl (Flomax Cap) 0.4 mg DAILY PO 07/25/17 08:00 08/24/17 08:59 07/27/17 08:16 0.4 MG Tiotropium Bethany (Spiriva Handihaler Inhaler) 2 puff DAILY INH 07/25/17 08:00 08/24/17 08:59 07/27/17 08:17 2 PUFF Miscellaneous Information (Order Awaiting Action) 1 ea QS N/A 07/25/17 18:15 08/24/17 18:14 Polyethylene (Miralax Powder Packet) 17 gm QAM PO 07/25/17 08:00 08/24/17 07:59 07/27/17 09:40 17 GM Lactobacillus Acidophilus (Floranex Tab) 1 tab DAILY PO 07/25/17 08:00 08/24/17 07:59 07/27/17 09:40 1 TAB Ranitidine HCl (zANTac TAB) 300 mg HS PO 07/24/17 21:00 08/23/17 20:59 07/26/17 22:31 300 MG Levothyroxine Sodium (Synthroid Tab) 50 mcg DAILYBB PO 07/25/17 06:30 08/24/17 06:29 07/27/17 06:35 50 MCG Piperacillin Sod/ Tazobactam Sod 3.375 gm/Dextrose 115 ml @ 28.75 mls/ hr Q8H IV 07/24/17 20:00 07/31/17 13:59 07/27/17 03:38 28.75 MLS/HR Oxycodone/ Acetaminophen (Percocet 10-325MG Tab) 2 tab Q4H PRN PO 07/24/17 19:15 08/07/17 16:29 07/27/17 06:36 2 TAB Rivaroxaban (Xarelto Tab) 20 mg QDD PO 07/24/17 20:00 08/23/17 19:59 07/26/17 16:44 20 MG Levofloxacin (Levaquin Tab) 500 mg DAILY@1800 PO 07/24/17 20:00 07/30/17 18:01 07/26/17 18:08 500 MG Lidocaine (Lidoderm Patch 5%) 1 patch QAM TD 07/25/17 08:00 08/24/17 07:59 07/27/17 08:22 1 PATCH Miscellaneous (Remove Lidoderm Patch) 1 ea DAILY@21 N/A 07/24/17 21:00 08/23/17 20:59 Future hold 07/25/17 20:37 1 EA Ipratropium Bethany (Atrovent 0.02% 0.5MG/2.5ML Neb) 0.5 mg Q6R INH 07/24/17 21:00 08/23/17 20:59 07/27/17 07:01 0.5 MG Levalbuterol (Xopenex 1.25MG/ 0.5ML Neb) 1.25 mg Q6R INH 07/24/17 21:00 08/23/17 20:59 07/27/17 07:01 1.25 MG Menthol (Nice Bob) 1 bob PRN PRN PO 07/24/17 23:45 08/23/17 23:44 07/25/17 00:09 1 BOB Gabapentin (Neurontin Cap) 300 mg TID PO 07/25/17 14:00 08/24/17 13:59 07/27/17 08:15 300 MG Baclofen (Lioresal Tab) 20 mg TID PO 07/25/17 14:00 08/24/17 13:59 07/27/17 08:18 20 MG Vortioxetine (Trintellix) 15 mg QAM PO 07/26/17 08:00 08/25/17 07:59 07/27/17 08:20 15 MG Ketorolac Tromethamine (Toradol Inj) 15 mg Q6H PRN IV. 07/26/17 00:15 07/31/17 00:14 Vancomycin HCl (Consult) 1 ea UD PRN N/A 07/26/17 00:15 08/25/17 00:14 Vancomycin HCl 1250 mg/Sodium Chloride 275 ml @ 125 mls/hr Q8H IV 07/26/17 09:00 08/09/17 08:44 07/27/17 08:36 125 MLS/HR Diclofenac Sodium (Voltaren 1% Top Gel) 1 appln TID EXT 07/26/17 14:00 08/25/17 13:59 07/27/17 06:43 1 APPLN Enteral Nutritional Formula (Boost) 1 can BIDM PO 07/26/17 17:00 08/25/17 16:59 07/26/17 16:43 1 CAN Docusate Sodium (coLACE CAP) 100 mg BID PO 07/26/17 20:00 08/25/17 19:59 07/27/17 08:15 100 MG Bisacodyl (Dulcolax Tab) 5 mg DAILY PRN PO 07/26/17 17:30 08/25/17 17:29 Senna (Senokot Tab) 8.6 mg QAM PO 07/26/17 17:30 08/25/17 17:29 07/27/17 08:14 8.6 MG Pantoprazole Sodium (Protonix Tab) 40 mg DAILY PO 07/27/17 08:00 08/26/17 07:59 07/27/17 08:19 40 MG Gadobutrol (Gadavist) 9 mmol UD PRN IV 07/26/17 21:30 07/30/17 21:29 Review of Systems Constitutional: + fever, + fatigue Eyes: No problem reported ENT: No problem reported Respiratory: + cough Cardiovascular: + chest pain Abdomen: No problem reported Musculoskeletal: + joint pain Genitourinary - Male: No problem reported Neurologic: No problem reported Psychiatric: No problem reported Endocrine: No problem reported Hematologic / Lymphatic: No problem reported Integumentary: No problem reported Allergic / Immunologic: No problem reported Physical Exam Date Time Temp Pulse Resp B/P (MAP) Pulse Ox O2 Delivery O2 Flow Rate FiO2 07/27/17 07:11 36.9 70 18 121/73 (89) 94 Room Air 07/27/17 07:01 71 16 93 Room Air 07/27/17 02:06 80 16 92 Room Air 07/27/17 00:14 36.7 77 18 122/73 (89) 93 Room Air 07/27/17 00:00 Room Air 07/26/17 19:29 82 16 94 Room Air 07/26/17 16:00 Room Air 07/26/17 14:59 36.4 82 18 125/77 93 94 Room Air 07/26/17 14:44 90 96 General Appearance: WD/WN, no apparent distress Head: normocephalic, atraumatic Eyes: normal inspection, EOMI, sclerae normal ENT: normal ENT inspection, hearing grossly normal, pharynx normal Neck: supple, no adenopathy, thyroid normal, trachea midline Respiratory/Chest: chest non-tender, lungs clear, normal breath sounds, no respiratory distress Cardiovascular: regular rate, rhythm, no gallop, no murmur Abdomen/GI: normal bowel sounds, non tender, soft, no organomegaly Back: normal inspection, no CVA tenderness Extremities/Musculoskelatal: normal inspection, no calf tenderness, normal capillary refill Neurologic/Psych: alert, normal mood/affect, oriented x 3 Skin: normal color, warm/dry, no rash Lymphatic: no adenopathy Laboratory Results RUN DATE: 07/27/17 [facility] PAGE 1 RUN TIME: 0753 Specimen Inquiry PATIENT: SABINE LANCASTER [facility] #: [id number] LOC: [id number] U # : [id number] AGE/SX: 61/M ROOM: [facility] REG : 07/24/[address]: Eleanor Feldman DO : 1955 BED: 1 DIS : STATUS: ADM IN TLOC: SPEC #: [id number] SILKE: 07/24/17-1310 STATUS: RES REQ #: [id number] RECD: 07/24/[address] [facility] [address]: Trent Armstrong PA -C SOURCE: BLOOD ENTR: 07/24/17-[address]: Shawn Flores DO [facility]: Marcin Joy D.O. ORDERED: BLOOD CULTURE Procedure Result Verified Site BLD CULT Preliminary 07/27/17-0753 Organism 1 STREPTOCOCCUS SPECIES SENS SENSITIVITY TO FOLLOW Last 24 Hours Test 07/27/17 08:28 White Blood Count 4.42 K/uL Red Blood Count 4.02 M/uL Hemoglobin 11.6 g/dL Hematocrit 34.4 % Mean Corpuscular Volume 85.6 fL Mean Corpuscular Hemoglobin 28.9 pg Mean Corpuscular Hemoglobin Concent 33.7 g/dl RDW Standard Deviation 46.0 fL RDW Coefficient of Variation 14.5 % Platelet Count 263 K/uL Mean Platelet Volume 9.4 fL Sodium Level 138 mmol/L Potassium Level 3.7 mmol/L Chloride Level 103 mmol/L Carbon Dioxide Level 27 mmol/L Anion Gap 8.0 mmol/L Blood Urea Nitrogen 9 mg/dl Creatinine 0.74 mg/dl Est Creatinine Clear Calc Drug Dose 120.0 ml/min Estimated GFR () 116.2 Estimated GFR (Non- 100.3 BUN/Creatinine Ratio 11.9 Random Glucose 98 mg/dl Calcium Level 9.2 mg/dl Vancomycin Level Trough 19.4 mcg/ml [~ rep ct add3]] THORACIC SPINE COMBO HISTORY: Pain r/o osteomyelitis TECHNIQUE: Multiplanar multisequence MRI of the thoracic spine was performed both before and after the intravenous administration of contrast. COMPARISON: CT chest dated 07/26/2017 FINDINGS: Degenerative disc changes throughout. Vertebral body stature is unremarkable. There is no evidence for compression deformity. T1 sagittal images demonstrate diminished signal of the bulk of the T4 and T5 vertebral bodies. Postcontrast images show evidence for moderate postcontrast enhancement including enhancement of the T4-T5 disc. Inversion recovery sequences show increased signal throughout. This is suggestive of discitis and secondary osteomyelitis. There is mild soft tissue edematous change surrounding the associated vertebral bodies. There is no significant impact upon the thoracic cord. All additional levels including T11-T12 are remarkable for degenerative disc change. There are findings of dural ectasia surrounding the right neuroforamina and right nerve root at T7-T8. The transaxial images show no significant compromise of the spinal canal or neural foramina. IMPRESSION: 1. Findings most consistent with that of discitis at T4-T5 with secondary osteomyelitis involving the T4 and T5 vertebral bodies. 2. Trace surrounding infiltrative paravertebral soft tissue although a significant abscess or collection is not appreciated. 3. No significant impact upon the thoracic cord. 4. Dural ectasia surrounding the right exiting nerve root at T7-T8. 5. No additional postcontrast enhancement other than the T4-T5 changes described above. The above report was generated using voice recognition software. It may contain grammatical, syntax or spelling errors. Assessment & Plan 61-year-old male with history of VSD now with streptococcal bacteremia with thoracic spine diskitis and osteomyelitis. SP concerned about possible endovascular infection. Patient will be changed to IV ceftriaxone 2 grams daily as will require at least 6-8 weeks of IV antibiotic therapy. Would obtain echocardiogram to further evaluate. Will follow.
[2017-07-27] MEDS: CEFTRIAXONE SOD INJ 2,000 MG in DEXTROSE 5% 50ML 50 ML IV SCH (16:51)
[2017-07-27] MEDS: RIVAROXABAN 20 MG TAB PO SCH (16:56)
[2017-07-27] MEDS: LEVOFLOXACIN 500 MG TAB PO SCH (17:37)
--- NOTE | 2017-07-27 17:56 | ECHOCARDIOGRAM REPORT ---
*NOTICE TO RECEIVING [employer] This information is strictly Confidential and protected under [place] law. [place] law prohibits you from making any further disclosure of this information unless further disclosure is expressly permitted by the written consent of the person to whom it pertains or is authorized by law. A general authorization for the release of medical or other information is not sufficient for this purpose. Hospital accepts no responsibility if the information is made available to any other person, INCLUDING THE PATIENT. Interpretation Summary * Name: SABINE LANCASTER Study Date: 07/27/2017 03:57 PM BP: 121/73 mmHg * Patient Location: .[id number]\W450\S\1 HR: 75 * : 1955 (M/d/yyyy) Gender: Male Height: 73 in * Age: 61 yrs Ethnicity: CA Weight: 205 lb * Ordering Physician: Eleanor Feldman * Referring Physician: Self, Referred * Performed By: Ronnie Washington RCS * * Reason For Study: Eval for Endocarditis * BSA: 2.2 m2 * The study was technically adequate. * Compared to prior study, changes are noted. * -- Conclusions -- * There is a small sized perimembranous ventricular septal defect with a small left to right shunt. * Small mobile echodensity visualized on the right ventricular endocardium near perimembranous VSD openning. * There is also a small mobile echodensity on the ventricular side of the aortic valve. Echodensity visualized in parasternal long axis view. * Differential diagnosis includes but not limited to vegetation, thrombus, tumor, or artifact. * Ejection Fraction = 60-65%. * There is mild tricuspid regurgitation. * The estimated systolic PAP is 33mmHg. Procedure Details * A complete two-dimensional transthoracic echocardiogram was performed (2D, M-mode, Doppler and color flow Doppler). Left Ventricle * There is a small sized perimembranous ventricular septal defect with a small left to right shunt. * The left ventricle is normal in size. * There is mild concentric left ventricular hypertrophy. * Ejection Fraction = 60-65%. * Left ventricular systolic function is normal. * The left ventricular wall motion is normal. Right Ventricle * The right ventricle is normal size. * Small mobile echodensity visualized on the right ventricular endocardium near perimembranous VSD openning. * The right ventricular systolic function is normal as assessed by tricuspid annular plane systolic excursion (TAPSE) (normal >1.5 cm). Atria * The left atrial size is normal. * Right atrial size is normal. * There is no evidence of atrial septal defect, but resolution does not allow assessment for a patent foramen ovale. Mitral Valve * The mitral valve is normal. * There is no mitral valve stenosis. * Significant mitral regurgitation is absent. Tricuspid Valve * The tricuspid valve is normal. * There is no tricuspid stenosis. * There is mild tricuspid regurgitation. * The estimated systolic PAP is 33mmHg. Aortic Valve * The aortic valve is trileaflet. * Aortic stenosis is absent. * There is no significant aortic regurgitation. * There is also a small mobile echodensity on the ventricular side of the aortic valve. Echodensity visualized in parasternal long axis view. Differential diagnosis includes but not limited to vegetation, thrombus, tumor, or artifact. Pulmonic Valve * The pulmonary valve is not well seen, but the Doppler examination is normal without significant regurgitation or stenosis. Great Vessels * The aortic root and proximal ascending aorta are normal sized. Pericardium/Pleural * There is no pericardial effusion. Great Vessels * Normal inferior vena cava diameter and respiratory variation suggests normal central venous pressure. Left Ventricular Diastolic Function * Pulse wave TDI of the anterior and posterior mitral annulas demonstrates normal LV relaxation MMode 2D Measurements and Calculations IVSd 1.1 cm IVSs 1.5 cm LVIDd 5.5 cm LVIDs 4.1 cm LVPWd 1.1 cm LVPWs 1.4 cm IVS/LVPW 0.97 FS 25.3 % EDV(Teich) 146.2 ml ESV(Teich) 74.0 ml EF(Teich) 49.4 % EDV(cubed) 164.6 ml ESV(cubed) 68.6 ml EF(cubed) 58.3 % % IVS thick 31.5 % % LVPW thick 22.9 % LV mass(C)d 249.7 grams LV mass(C)dI 114.8 grams/m\S\2 LV mass(C)s 225.1 grams LV mass(C)sI 103.5 grams/m\S\2 SV(Teich) 72.3 ml SI(Teich) 33.2 ml/m\S\2 SV(cubed) 96.0 ml SI(cubed) 44.1 ml/m\S\2 Ao root diam 4.2 cm Ao root area 13.8 cm\S\2 ACS 2.2 cm LA dimension 5.3 cm asc Aorta Diam 3.4 cm LA/Ao 1.3 Doppler Measurements and Calculations MV E max ramone 102.6 cm/sec MV A max ramone 81.2 cm/sec MV E/A 1.3 MV P1/2t max ramone 109.5 cm/sec MV P1/2t 73.7 msec MVA(P1/2t) 3.0 cm\S\2 MV dec slope 435.1 cm/sec\S\2 MV dec time 0.20 sec Ao V2 max 126.5 cm/sec Ao max PG 6.4 mmHg Ao max PG (full) 3.2 mmHg LV V1 max PG 3.2 mmHg LV V1 max 89.5 cm/sec PA V2 max 175.1 cm/sec PA max PG 12.4 mmHg TR max ramone 264.8 cm/sec
--- NOTE | 2017-07-27 18:57 | Pharmacy Progress Note ---
Pharmacy Abx Dose Short Note Date of Service Jul 27, 2017. Assessment & Plan Assessment 61 year old male receiving vancomycin for treatment of bone and joint infection. Vancomycin discontinued today around noon. Restarted around 1900 and this dose was only 2 hours late. Day # 2 of antimicrobial therapy. Plan Vancomycin * Restart vancomycin 1250 mg IV q8 hours - produced therapeutic levels prior. * Goal level for bone and joint infection is 15-20 mcg/mL * Check trough prior to 0300 dose on 07/29/17 Pharmacy will continue to follow and will adjust dose/frequency as necessary. Thank you.
[2017-07-27] MEDS: RANITIDINE HCL 150 MG TAB PO SCH (19:49)
[2017-07-28] VITALS (8 sets, daily range): BP systolic 118–177; BP diastolic 79–87; PULSE 66–83; TEMP 36.4–37.5; O2SAT 90–99
[2017-07-28] MEDS: DIAZEPAM 5MG TAB PO PRN ×2 (01:50→15:55)
[2017-07-28] MEDS: IPRATROPIUM BROMIDE NEB SOLN 0.02% 2.5 ML VIAL INH SCH ×4 (02:05→19:52)
[2017-07-28] MEDS: LEVALBUTEROL 1.25MG/0.5ML NEB INH SCH ×4 (02:05→19:53)
[2017-07-28] MEDS: VANCOMYCIN INJ 1,250 MG in SODIUM CHLORIDE 0.9% 250ML 250 ML IV SCH ×2 (03:00→10:32)
[2017-07-28] MEDS: LEVOTHYROXINE 50 MCG TAB PO SCH (05:16)
[2017-07-28] MEDS: OXYCODONE/ACETAMINOPHEN 10/325MG TAB PO PRN (05:17)
[2017-07-28 07:32] LABS: CREATININE 0.62 mg/dl (0.60-1.40)
--- NOTE | 2017-07-28 08:33 | Progress Note ---
Subjective Date of Service: Jul 27, 2017. Subjective Pt evaluation today including: conversation w/ patient, conversation w/ family , physical exam, lab review, review of studies, review of inpatient medication list Saw/examined the patient in room 450 He's doing okay, pain is controlled at the back Cough and breathing have both improved Problem List Medical Problems: (1) Abdominal pain Status: Acute (2) Pleuritic chest pain Status: Acute (3) Pulmonary embolism Status: Acute (4) Urinary retention Status: Chronic (5) VSD (ventricular septal defect) Status: Chronic Social History Problems: (1) Abdominal pain Status: Acute (2) Bleeding from mouth Status: Acute (3) Fever Status: Acute (4) H/O gastroesophageal reflux (GERD) Status: Chronic (5) Pneumonitis Status: Acute (6) SOB (shortness of breath) Status: Acute (7) Urinary tract infection Status: Acute (8) Urinary tract infection Status: Acute (9) VSD (ventricular septal defect) Status: Chronic Review of Systems Constitutional: No fever, No chills Respiratory: + cough, + sputum (improving), + shortness of breath (improving) Cardiac: No chest pain Abdomen: No pain, No nausea, No vomiting, No diarrhea Medications Current Inpatient Medications Medications (Trade) Dose Ordered Sig/Chanda Route Start Time Stop Time Status Last Admin Dose Admin Acetaminophen (Tylenol Tab) 650 mg Q4H PRN PO 07/24/17 16:00 08/23/17 15:59 Ondansetron HCl (Zofran Inj) 4 mg Q6H PRN IV 07/24/17 16:00 08/23/17 15:59 Diazepam (Valium Tab) 5 mg TID PRN PO 07/24/17 16:30 08/23/17 16:29 07/28/17 01:50 5 MG Benzonatate (Tessalon Perles Cap) 100 mg TID PRN PO 07/24/17 16:30 08/23/17 16:29 07/27/17 06:42 100 MG Budesonide/ Formoterol Fumarate (Symbicort 160/ 4.5 Inh) 2 puffs BID INH 07/24/17 20:00 08/23/17 20:59 07/27/17 19:47 2 PUFFS Finasteride (Proscar Tab) 5 mg DAILY PO 07/25/17 08:00 08/24/17 08:59 07/27/17 08:15 5 MG Fish Oil ([place]-3 (Purified Fish Oil) Cap) 1 gm DAILY PO 07/25/17 08:00 08/24/17 08:59 07/27/17 08:15 1 GM Furosemide (Lasix Tab) 20 mg MoWeFr@0800 PO 07/26/17 08:00 08/25/17 07:59 07/26/17 08:51 20 MG Albuterol/ Ipratropium (Duoneb) 3 ml Q4H PRN INH 07/24/17 16:30 08/23/17 16:29 07/25/17 03:22 3 ML Multivitamins/ Minerals (Multivitamin W/ Minerals Tab) 1 tab DAILY PO 07/25/17 08:00 08/24/17 08:59 07/27/17 08:21 1 TAB Tamsulosin HCl (Flomax Cap) 0.4 mg DAILY PO 07/25/17 08:00 08/24/17 08:59 07/27/17 08:16 0.4 MG Tiotropium [place] (Spiriva Handihaler Inhaler) 2 puff DAILY INH 07/25/17 08:00 08/24/17 08:59 07/27/17 08:17 2 PUFF Polyethylene (Miralax Powder Packet) 17 gm QAM PO 07/25/17 08:00 08/24/17 07:59 07/27/17 09:40 17 GM Lactobacillus Acidophilus (Floranex Tab) 1 tab DAILY PO 07/25/17 08:00 08/24/17 07:59 07/27/17 09:40 1 TAB Ranitidine HCl (zANTac TAB) 300 mg HS PO 07/24/17 21:00 08/23/17 20:59 07/27/17 19:49 300 MG Levothyroxine Sodium (Synthroid Tab) 50 mcg DAILYBB PO 07/25/17 06:30 08/24/17 06:29 07/28/17 05:16 50 MCG Oxycodone/ Acetaminophen (Percocet 10-325MG Tab) 2 tab Q4H PRN PO 07/24/17 19:15 08/07/17 16:29 07/28/17 05:17 2 TAB Rivaroxaban (Xarelto Tab) 20 mg QDD PO 07/24/17 20:00 08/23/17 19:59 07/27/17 16:56 20 MG Levofloxacin (Levaquin Tab) 500 mg DAILY@1800 PO 07/24/17 20:00 07/30/17 18:01 07/27/17 17:37 500 MG Lidocaine (Lidoderm Patch 5%) 1 patch QAM TD 07/25/17 08:00 08/24/17 07:59 07/27/17 08:22 1 PATCH Miscellaneous (Remove Lidoderm Patch) 1 ea DAILY@21 N/A 07/24/17 21:00 08/23/17 20:59 Future hold 07/27/17 19:49 1 EA Ipratropium [place] (Atrovent 0.02% 0.5MG/2.5ML Neb) 0.5 mg Q6R INH 07/24/17 21:00 08/23/17 20:59 07/28/17 06:58 0.5 MG Levalbuterol (Xopenex 1.25MG/ 0.5ML Neb) 1.25 mg Q6R INH 07/24/17 21:00 08/23/17 20:59 07/28/17 06:58 1.25 MG Menthol (Nice Wilfrid) 1 wilfrid PRN PRN PO 07/24/17 23:45 08/23/17 23:44 07/25/17 00:09 1 WILFRID Gabapentin (Neurontin Cap) 300 mg TID PO 07/25/17 14:00 08/24/17 13:59 07/27/17 19:47 300 MG Baclofen (Lioresal Tab) 20 mg TID PO 07/25/17 14:00 08/24/17 13:59 07/27/17 19:48 20 MG Vortioxetine (Trintellix) 15 mg QAM PO 07/26/17 08:00 08/25/17 07:59 07/27/17 08:20 15 MG Ketorolac Tromethamine (Toradol Inj) 15 mg Q6H PRN IV. 07/26/17 00:15 07/31/17 00:14 Diclofenac Sodium (Voltaren 1% Top Gel) 1 appln TID EXT 07/26/17 14:00 08/25/17 13:59 07/27/17 19:47 1 APPLN Enteral Nutritional Formula (Boost) 1 can BIDM PO 07/26/17 17:00 08/25/17 16:59 07/26/17 16:43 1 CAN Docusate Sodium (coLACE CAP) 100 mg BID PO 07/26/17 20:00 08/25/17 19:59 07/27/17 19:47 100 MG Bisacodyl (Dulcolax Tab) 5 mg DAILY PRN PO 07/26/17 17:30 08/25/17 17:29 Senna (Senokot Tab) 8.6 mg QAM PO 07/26/17 17:30 08/25/17 17:29 07/27/17 08:14 8.6 MG Pantoprazole Sodium (Protonix Tab) 40 mg DAILY PO 07/27/17 08:00 08/26/17 07:59 07/27/17 08:19 40 MG Gadobutrol (Gadavist) 9 mmol UD PRN IV 07/26/17 21:30 07/30/17 21:29 Ceftriaxone Sodium 2000 mg/ Dextrose 70 ml @ 100 mls/hr Q24H IV 07/27/17 16:00 09/07/17 15:59 07/27/17 16:51 100 MLS/HR Vancomycin HCl 1250 mg/Sodium Chloride 275 ml @ 125 mls/hr Q8H IV 07/27/17 19:00 09/07/17 18:59 07/28/17 03:00 125 MLS/HR Linaclotide (Linzess) 145 mcg QAM PO 07/28/17 08:00 08/27/17 07:59 Objective Vital Signs Date Time Temp Pulse Resp B/P (MAP) Pulse Ox O2 Delivery O2 Flow Rate FiO2 07/28/17 07:46 36.6 79 18 134/79 (97) 93 Room Air 07/28/17 06:59 72 16 94 Room Air 07/28/17 00:00 Room Air 07/27/17 23:19 36.7 77 18 123/72 (89) 95 Room Air 07/27/17 20:19 73 16 94 Room Air 07/27/17 17:53 Room Air 07/27/17 14:15 75 16 97 Room Air Physical Exam General Appearance: no apparent distress Respiratory/Chest: lungs clear, normal breath sounds, no respiratory distress, no accessory muscle use Cardiovascular: regular rate, rhythm, no edema, no murmur Abdomen: normal bowel sounds, non tender, soft Laboratory Results Last 24 Hours Test 07/27/17 08:28 07/28/17 06:14 White Blood Count 4.42 K/uL Red Blood Count 4.02 M/uL Hemoglobin 11.6 g/dL Hematocrit 34.4 % Mean Corpuscular Volume 85.6 fL Mean Corpuscular Hemoglobin 28.9 pg Mean Corpuscular Hemoglobin Concent 33.7 g/dl RDW Standard Deviation 46.0 fL RDW Coefficient of Variation 14.5 % Platelet Count 263 K/uL Mean Platelet Volume 9.4 fL Sodium Level 138 mmol/L Potassium Level 3.7 mmol/L Chloride Level 103 mmol/L Carbon Dioxide Level 27 mmol/L Anion Gap 8.0 mmol/L Blood Urea Nitrogen 9 mg/dl Creatinine 0.74 mg/dl 0.62 mg/dl Est Creatinine Clear Calc Drug Dose 120.0 ml/min 143.2 ml/min Estimated GFR () 116.2 125.0 Estimated GFR (Non- 100.3 107.8 BUN/Creatinine Ratio 11.9 Random Glucose 98 mg/dl Calcium Level 9.2 mg/dl Vancomycin Level Trough 19.4 mcg/ml Assessment and Plan This is a 61yo M with a PMH of COPD, anxiety, h/o Tonsillar cancer (2007), acquired hypothyroidism and enlarged prostate, recent hospital admission in May 2017 for acute PE on Xarelto who presents with abdominal pain with any type of movement and subsequently found to have bilateral pneumonia HCAP 07/27 antibiotics being changed around due to osteo and endocarditis, but is also covering the pneumonia appreciate ID input plan is to keep Rocephin 2G for now; further recommendations per ID PICC line to be placed 07/26 patient is doing well with Zosyn and Vanco for now we will continue abx. as prescribed monitor CBC, check cultures - admit to med/surg - patient presenting with worsening abdominal, back, and chest pain and cough x 1 week; recently admitted to [facility] 06/13 - 06/18 for PE and discharged on Xarelto - CXR in the ED showing BL infiltrates - no signs of sepsis, saturating well on room air - s/p Zosyn in the ED, will continue with; check MRSA nasal swab and add Vanco if positive - sputum culture - PRN nebs Possible Endocarditis echo performed due to positive blood cultures; Osteomyelitis appreciate cardiology input, consulted them for further management ID for abx. PICC line ABDOMINAL, BACK, AND CHEST PAIN 07/26 CT chest suggested inflammation at the thoracic spine will check Thoracic spine MRI with contrast to r/o osteomyelitis continue Baclofen and Gabapentin Percocet PRN, Voltaren gel appreciate pain management input - seems to be a chronic issue for the patient - currently saturating well on room air, no tachycardia, and has been compliant with Xarelto - low suspicion for recurrent PE; EKG without acute ST changes - had extensive imaging during last admission without any acute findings and was evaluated by pain management - was discharged on Valium and Percocet however stopped Valium after 1 week0 - will resume Valium and Percocet (hold other home sedating medications - Ambien , Xanax, Trazodone, Belsomra) - continue home Baclofen and gabapentin (noted patient taking PRN) - pain management consult HX PE - continue Xarelto URINARY RETENTION, BPH - continue PRN straight cath - patient reports dysuria, U/A does not suggest UTI; checking culture HX VSD - following with cardio as an outpatient - schedule for repeat echo COPD - no signs of acute exacerbation - continue home inhalers DVT PROPHYLAXIS - on Xarelto DISPO - In my clinical judgment this beneficiary meets acute admission criteria, established by [facility], that includes being hospitalized through two midnights.
[2017-07-28] MEDS ORDERED: VANCOMYCIN CONSULT ACTIVE PRN (09:00)
[2017-07-28] MEDS: OMEGA-3 (PURIFIED FISH OIL) 1 GM CAP PO SCH (09:06)
[2017-07-28] MEDS: BUDESONIDE/FORMOTEROL FUMARATE 160/4.5 60 PUFFS/INHALER INH SCH ×2 (09:07→21:22)
[2017-07-28] MEDS: DICLOFENAC SOD 1% GEL 100 GM TUBE EXT SCH ×3 (09:09→21:25)
[2017-07-28] MEDS: LIDODERM (LIDOCAINE) PATCH 5% TD SCH (09:10)
[2017-07-28] MEDS: VORTIOXETINE HBR 10 MG TAB PO SCH (09:11)
[2017-07-28] MEDS: PANTOprazole SOD 40 MG TAB PO SCH (09:14)
[2017-07-28] MEDS: SENNA 8.6 MG TAB PO SCH (09:14)
[2017-07-28] MEDS: GABAPENTIN 300 MG CAP PO SCH ×3 (09:15→21:22)
[2017-07-28] MEDS: BACLOFEN TAB 20 MG TAB PO SCH ×3 (09:16→21:22)
[2017-07-28] MEDS: TAMSULOSIN HCL 0.4 MG CAP PO SCH ×2 (09:18→13:40)
[2017-07-28] MEDS: DOCUSATE SODIUM 100 MG CAP PO SCH ×3 (09:18→21:22)
[2017-07-28] MEDS: BOOST VANILLA PO SCH ×4 (09:18→17:00)
[2017-07-28] MEDS: LINACLOTIDE 145 MCG CAP PO SCH (09:18)
[2017-07-28] MEDS: CEROVITE ADV FORMULA TAB PO SCH (09:20)
[2017-07-28] MEDS: FINASTERIDE 5 MG TAB PO SCH ×2 (09:21→13:40)
[2017-07-28] MEDS: TIOTROPIUM BROMIDE 5 PUFF/90 MCG INH INH SCH (09:22)
[2017-07-28] MEDS: FUROSEMIDE 20 MG TAB PO SCH (09:24)
[2017-07-28] MEDS: POLYETHYLENE (MIRALAX) 17 GM PACK PO SCH ×2 (09:24→14:03)
[2017-07-28] MEDS: LACTOBACILLUS ACIDOPHILUS (FLORANEX) TAB PO SCH (09:52)
--- NOTE | 2017-07-28 12:44 | CARDIOLOGY CONSULTATION ---
DATE OF CONSULTATION: 07/28/2017 REFERRING PHYSICIAN: Dr. Eleanor Feldman. REASON FOR CONSULTATION: Endocarditis. HISTORY OF PRESENT ILLNESS: Mr. Etienne is a complex 61-year-old gentleman, presented to the Emergency Department with worsening back, chest and abdominal pain as well as cough. The patient diagnosed with spinal diskitis involving T4-T5 and osteomyelitis as well involving T4-T5. Blood cultures found to be positive for Streptococcus and the sensitivities to follow. He notes some chills approximately 1 week ago. Denies any night sweats or subjective fevers. Recent history is significant for pulmonary embolus in May and the patient was prescribed Xarelto. The 2D transthoracic echo demonstrates possible vegetation involving the aortic valve as well as his ventricular septal defect. He has been placed on antibiotics by infectious disease. Currently afebrile. The patient was seen and examined at the bedside. He is resting comfortably. His is present as well. Denies any chest discomfort or back pain currently. Reports feeling thirsty. No unusual shortness of breath, cough, or sputum production. Denies orthopnea, PND, or lower extremity edema. REVIEW OF SYSTEMS: The pertinent positives noted above. A comprehensive 10-system review is otherwise negative. PAST MEDICAL HISTORY: 1. Perimembranous ventricular septal defect, diagnosed at . 2. Pulmonary embolus. 3. Chronic obstructive pulmonary disease. 4. Dyslipidemia. 5. Reactive airways disease. 6. Hypertension. 7. Cervical dystonia. 8. Tonsillar cancer, status post resection and radiation therapy in 2008. 9. Depression. PAST SURGICAL HISTORY: 1. Arthroscopic shoulder surgery. 2. Tonsillectomy. 3. Colonoscopy. 4. Carpal tunnel surgery. 5. EGD. 6. Fusion of foot bones. 7. Jaw arthroscopic surgery. 8. Knee arthroscopic surgery. 9. TURP. 10. Ankle joint revision surgery. 11. Achilles tendon surgery. FAMILY HISTORY: Negative for premature CAD or sudden cardiac . SOCIAL HISTORY: He is and lives with his spouse. Tobacco history: Former tobacco abuse, quitting in 2005. ALLERGIES: 1. TEMAZEPAM. 2. ATORVASTATIN. 3. CELEXA. 4. CYMBALTA. 5. LEXAPRO. 6. PRAVASTATIN. OUTPATIENT MEDICATIONS: 1. Lasix 20 mg daily. 2. Valium 5 mg 3 times daily. 3. Xarelto 20 mg daily starting July 05. 4. Prednisone taper. 5. Oxycodone/acetaminophen 1-2 tabs as needed. 6. Tessalon Perles as needed. 7. Flomax 0.4 mg daily. 8. Proscar 5 mg daily. 9. Ambien CR 12.5 mg as needed. 10. Trazodone 50 mg 1/2-1 tablet at bedtime as needed. 11. Suvorexant as needed. 12. Levoxyl 50 mcg daily. 13. Prilosec 40 mg daily. 14. Flonase 50 mcg 1 spray each nostril daily. 15. Linzess 145 mcg before breakfast. 16. Baclofen 10 mg tablet taking 20 mg 4 times a day. 17. Botox injection previously injected into the neck. 18. Trintellix 10 mg tablet 19. Gabapentin 600 mg 3 times daily. 20. DuoNeb daily. 21. Cialis 20 mg as needed. 22. Ranitidine 300 mg at bedtime. 23. Spiriva 2.5 mcg inhaled daily. 24. Albuterol as needed. 25. Symbicort 2 puffs twice daily. 26. Ventolin as needed. 27. Probiotic caps daily. 28. MiraLax as needed. 29. Multivitamin daily. ECG on admission demonstrates sinus rhythm with left axis deviation, minimal criteria for LVH. 2D transthoracic echo: Preserved left ventricular systolic function, perimembranous VSD with small left to right shunt, evidence of possible vegetation in the right ventricular side of the VSD orifice. Possible subaortic valve vegetation noted as well. LABORATORY DATA: White blood cell count 4.42, hemoglobin is 11.6, and platelet count is 263. INR is 1.3. Urine culture is positive for Staph saprophyticus. Blood culture is currently positive for streptococcus species. PHYSICAL EXAMINATION: VITAL SIGNS: Temperature is 36.6 degrees centigrade, pulse 76 beats per minute and regular, respiratory rate is 16 breaths per minute, blood pressure 136/87, and SaO2 is 93% on room air. GENERAL: NAD, awake, alert and oriented x3. THROAT: His mucous membranes are moist. No scleral icterus. Conjunctivae pink. NECK: Supple with limited range of motion. No carotid bruit. No JVD. HEART: Regular with a normal S1 and S2. There is a 3-4/6 pansystolic murmur heard best at the left sternal border; however, audible throughout the precordium. LUNGS: Demonstrate clear breath sounds without rales, rhonchi, or wheeze. ABDOMEN: Soft and nontender. No rebound or guarding. EXTREMITIES: Warm and dry with trace pedal edema. NEUROLOGIC: Demonstrates no focal motor deficit. FINAL IMPRESSION: 1. A 61-year-old male admitted with thoracic diskitis, osteomyelitis, Streptococcal bacteremia and 2D echo evidence of probable endocarditis as noted above. 2. History of cervical dystonia and prior throat radiation making the patient a poor candidate for transesophageal echo. 3. Recent pulmonary embolus, on chronic anticoagulation. 4. Perimembranous ventricular septal defect. PLAN AND RECOMMENDATIONS: I had a long discussion with the patient regarding the results of his echocardiogram. At this point, I would recommend treating the patient for endocarditis per the direction of infectious disease specialist. He is scheduled to have a PICC line placed today. Other cardiovascular medications will be continued as previously ordered. I would defer transesophageal echo at this time due to risks noted above. We will continue to follow the patient during hospitalization. Thank you for allowing me to take part in the care of your patient. LUTHER
--- NOTE | 2017-07-28 16:30 | Infectious Disease Progress Nt ---
Progress Note Date of Service Jul 28, 2017. Subjective Pt evaluation today including: conversation w/ patient, physical exam, chart review, lab review, review of studies, conversation w/ portrait consultant, review of inpatient medication list patient offers no new complaints today. Back pain slightly better. Remains afebrile. Echocardiogram consistent with probable endovascular infection. All Other Systems: Reviewed and Negative Medications Current Inpatient Medications Medications (Trade) Dose Ordered Sig/Chanda Route Start Time Stop Time Status Last Admin Dose Admin Acetaminophen (Tylenol Tab) 650 mg Q4H PRN PO 07/24/17 16:00 08/23/17 15:59 Ondansetron HCl (Zofran Inj) 4 mg Q6H PRN IV 07/24/17 16:00 08/23/17 15:59 Diazepam (Valium Tab) 5 mg TID PRN PO 07/24/17 16:30 08/23/17 16:29 07/28/17 15:55 5 MG Benzonatate (Tessalon Perles Cap) 100 mg TID PRN PO 07/24/17 16:30 08/23/17 16:29 07/27/17 06:42 100 MG Budesonide/ Formoterol Fumarate (Symbicort 160/ 4.5 Inh) 2 puffs BID INH 07/24/17 20:00 08/23/17 20:59 07/28/17 09:07 2 PUFFS Finasteride (Proscar Tab) 5 mg DAILY PO 07/25/17 08:00 08/24/17 08:59 07/28/17 13:40 5 MG Fish Oil ([place]-3 (Purified Fish Oil) Cap) 1 gm DAILY PO 07/25/17 08:00 08/24/17 08:59 07/27/17 08:15 1 GM Furosemide (Lasix Tab) 20 mg MoWeFr@0800 PO 07/26/17 08:00 08/25/17 07:59 07/28/17 09:24 20 MG Albuterol/ Ipratropium (Duoneb) 3 ml Q4H PRN INH 07/24/17 16:30 08/23/17 16:29 07/25/17 03:22 3 ML Multivitamins/ Minerals (Multivitamin W/ Minerals Tab) 1 tab DAILY PO 07/25/17 08:00 08/24/17 08:59 07/27/17 08:21 1 TAB Tamsulosin HCl (Flomax Cap) 0.4 mg DAILY PO 07/25/17 08:00 08/24/17 08:59 07/28/17 13:40 0.4 MG Tiotropium [place] (Spiriva Handihaler Inhaler) 2 puff DAILY INH 07/25/17 08:00 08/24/17 08:59 07/28/17 09:22 2 PUFF Polyethylene (Miralax Powder Packet) 17 gm QAM PO 07/25/17 08:00 08/24/17 07:59 07/28/17 14:03 17 GM Lactobacillus Acidophilus (Floranex Tab) 1 tab DAILY PO 07/25/17 08:00 08/24/17 07:59 07/27/17 09:40 1 TAB Ranitidine HCl (zANTac TAB) 300 mg HS PO 07/24/17 21:00 08/23/17 20:59 07/27/17 19:49 300 MG Levothyroxine Sodium (Synthroid Tab) 50 mcg DAILYBB PO 07/25/17 06:30 08/24/17 06:29 07/28/17 05:16 50 MCG Oxycodone/ Acetaminophen (Percocet 10-325MG Tab) 2 tab Q4H PRN PO 07/24/17 19:15 08/07/17 16:29 07/28/17 05:17 2 TAB Rivaroxaban (Xarelto Tab) 20 mg QDD PO 07/24/17 20:00 08/23/17 19:59 07/27/17 16:56 20 MG Levofloxacin (Levaquin Tab) 500 mg DAILY@1800 PO 07/24/17 20:00 07/30/17 18:01 07/27/17 17:37 500 MG Lidocaine (Lidoderm Patch 5%) 1 patch QAM TD 07/25/17 08:00 08/24/17 07:59 07/28/17 09:10 1 PATCH Miscellaneous (Remove Lidoderm Patch) 1 ea DAILY@21 N/A 07/24/17 21:00 08/23/17 20:59 Future hold 07/27/17 19:49 1 EA Ipratropium [place] (Atrovent 0.02% 0.5MG/2.5ML Neb) 0.5 mg Q6R INH 07/24/17 21:00 08/23/17 20:59 07/28/17 14:17 0.5 MG Levalbuterol (Xopenex 1.25MG/ 0.5ML Neb) 1.25 mg Q6R INH 07/24/17 21:00 08/23/17 20:59 07/28/17 14:17 1.25 MG Menthol (Nice Bob) 1 bob PRN PRN PO 07/24/17 23:45 08/23/17 23:44 07/25/17 00:09 1 BOB Gabapentin (Neurontin Cap) 300 mg TID PO 07/25/17 14:00 08/24/17 13:59 07/28/17 13:36 300 MG Baclofen (Lioresal Tab) 20 mg TID PO 07/25/17 14:00 08/24/17 13:59 07/28/17 13:38 20 MG Vortioxetine (Trintellix) 15 mg QAM PO 07/26/17 08:00 08/25/17 07:59 07/28/17 09:11 15 MG Ketorolac Tromethamine (Toradol Inj) 15 mg Q6H PRN IV. 07/26/17 00:15 07/31/17 00:14 Diclofenac Sodium (Voltaren 1% Top Gel) 1 appln TID EXT 07/26/17 14:00 08/25/17 13:59 07/28/17 13:35 1 APPLN Enteral Nutritional Formula (Boost) 1 can BIDM PO 07/26/17 17:00 08/25/17 16:59 07/26/17 16:43 1 CAN Docusate Sodium (coLACE CAP) 100 mg BID PO 07/26/17 20:00 08/25/17 19:59 07/28/17 13:39 100 MG Bisacodyl (Dulcolax Tab) 5 mg DAILY PRN PO 07/26/17 17:30 08/25/17 17:29 Senna (Senokot Tab) 8.6 mg QAM PO 07/26/17 17:30 08/25/17 17:29 07/28/17 09:14 8.6 MG Pantoprazole Sodium (Protonix Tab) 40 mg DAILY PO 07/27/17 08:00 08/26/17 07:59 07/27/17 08:19 40 MG Gadobutrol (Gadavist) 9 mmol UD PRN IV 07/26/17 21:30 07/30/17 21:29 Ceftriaxone Sodium 2000 mg/ Dextrose 70 ml @ 100 mls/hr Q24H IV 07/27/17 16:00 09/07/17 15:59 07/27/17 16:51 100 MLS/HR Vancomycin HCl 1250 mg/Sodium Chloride 275 ml @ 125 mls/hr Q8H IV 07/27/17 19:00 09/07/17 18:59 07/28/17 10:32 125 MLS/HR Linaclotide (Linzess) 145 mcg QAM PO 07/28/17 08:00 08/27/17 07:59 Vancomycin HCl (Consult) 1 ea UD PRN N/A 07/28/17 09:00 08/27/17 08:59 Objective Vital Signs Date Time Temp Pulse Resp B/P (MAP) Pulse Ox O2 Delivery O2 Flow Rate FiO2 07/28/17 16:00 Room Air 07/28/17 15:38 36.4 73 18 118/83 (95) 94 Room Air 07/28/17 14:18 83 16 99 Room Air 07/28/17 09:20 76 136/87 (103) 07/28/17 08:00 93 Room Air 07/28/17 07:46 36.6 79 18 134/79 (97) 93 Room Air 07/28/17 06:59 72 16 94 Room Air 07/28/17 00:00 Room Air 07/27/17 23:19 36.7 77 18 123/72 (89) 95 Room Air 07/27/17 20:19 73 16 94 Room Air 07/27/17 17:53 Room Air Physical Exam General Appearance: WD/WN, no apparent distress Eyes: normal inspection, EOMI, sclerae normal ENT: normal ENT inspection, pharynx normal Neck: supple, no adenopathy, trachea midline Respiratory/Chest: chest non-tender, lungs clear, normal breath sounds, no respiratory distress Cardiovascular: regular rate, rhythm, no gallop, no murmur Abdomen: normal bowel sounds, non tender, soft, no organomegaly Extremities: non-tender, no calf tenderness Neurologic/Psychiatric: alert, oriented x 3 Skin: normal color, warm/dry, no rash Lymphatic: no adenopathy Laboratory Results RUN DATE: 07/29/17 [facility] LAB PAGE 1 RUN TIME: 075 Specimen Inquiry PATIENT: SABINE LANCASTER LOC: [id number] U # : [id number] AGE/SX: 61/M ROOM: [facility] REG : 07/24/[address]: Eleanor Feldman DO : 1955 BED: 1 DIS : STATUS: ADM IN TLOC: SPEC #: [id number] SILKE: 07/24/17-1320 STATUS: COMP REQ #: [id number] RECD: 07/24/17-[address]: Trent Armstrong PA -C SOURCE: BLOOD ENTR: 07/24/17-[address]: Shawn Flores DO SPDESC: Marcin Joy , D.OErnesto ORDERED: BLOOD CULTURE Procedure Result Verified Site BLD CULT Final 07/29/17-0751 Organism 1 STREPTOCOCCUS MUTANS SENS NO SENSITIVITY TO FOLLOW PLEASE SEE CULTURE NUMBER [id number] FOR SENSITIVITIES. Phoned Positive Blood Culture Gram Stain Report to MADELIN HAWKINS on 07/25/17 At 2303 By RACHEL. Results were verbalized back to RACHEL. Last 24 Hours Test 07/28/17 06:14 Creatinine 0.62 mg/dl Est Creatinine Clear Calc Drug Dose 143.2 ml/min Estimated GFR () 125.0 Estimated GFR (Non- 107.8 Assessment and Plan 61-year-old male with history of VSD now with streptococcal bacteremia with thoracic spine diskitis and osteomyelitis. Echocardiogram suggest presence of vegetation at site of the VSD. Patient will require at least 6 weeks of IV antibiotics, and so do not think that transesophageal echocardiogram necessary at present time. Patient changed to IV ceftriaxone for outpatient therapy.
[2017-07-28] MEDS: CEFTRIAXONE SOD INJ 2,000 MG in DEXTROSE 5% 50ML 50 ML IV SCH (17:16)
[2017-07-28] MEDS: RIVAROXABAN 20 MG TAB PO SCH (17:19)
[2017-07-28] MEDS: LEVOFLOXACIN 500 MG TAB PO SCH (17:22)
[2017-07-28] MEDS ORDERED: BISACODYL 5 MG TABEC PO ONE (17:45)
[2017-07-28] MEDS ORDERED: DOCUSATE SODIUM 100 MG CAP PO ONE (17:45)
--- NOTE | 2017-07-28 18:05 | Progress Note ---
Subjective Date of Service: Jul 28, 2017. Subjective Pt evaluation today including: conversation w/ patient, conversation w/ family , physical exam, lab review, review of studies, conversation w/ business objects consultant, review of inpatient medication list Saw/examined the patient in room 450 He's doing okay, no problems/issues to note has a PICC line in Problem List Medical Problems: (1) Abdominal pain Status: Acute (2) Pleuritic chest pain Status: Acute (3) Pulmonary embolism Status: Acute (4) Urinary retention Status: Chronic (5) VSD (ventricular septal defect) Status: Chronic Social History Problems: (1) Abdominal pain Status: Acute (2) Bleeding from mouth Status: Acute (3) Fever Status: Acute (4) H/O gastroesophageal reflux (GERD) Status: Chronic (5) Pneumonitis Status: Acute (6) SOB (shortness of breath) Status: Acute (7) Urinary tract infection Status: Acute (8) Urinary tract infection Status: Acute (9) VSD (ventricular septal defect) Status: Chronic Review of Systems Constitutional: + weakness, No fever, No chills Respiratory: No shortness of breath Cardiac: No chest pain Abdomen: No pain, No nausea, No vomiting, No diarrhea Musculoskeletal: + joint pain (back pain) Medications Current Inpatient Medications Medications (Trade) Dose Ordered Sig/Chanda Route Start Time Stop Time Status Last Admin Dose Admin Acetaminophen (Tylenol Tab) 650 mg Q4H PRN PO 07/24/17 16:00 08/23/17 15:59 Ondansetron HCl (Zofran Inj) 4 mg Q6H PRN IV 07/24/17 16:00 08/23/17 15:59 Diazepam (Valium Tab) 5 mg TID PRN PO 07/24/17 16:30 08/23/17 16:29 07/28/17 15:55 5 MG Benzonatate (Tessalon Perles Cap) 100 mg TID PRN PO 07/24/17 16:30 08/23/17 16:29 07/27/17 06:42 100 MG Budesonide/ Formoterol Fumarate (Symbicort 160/ 4.5 Inh) 2 puffs BID INH 07/24/17 20:00 08/23/17 20:59 07/28/17 09:07 2 PUFFS Finasteride (Proscar Tab) 5 mg DAILY PO 07/25/17 08:00 08/24/17 08:59 07/28/17 13:40 5 MG Fish Oil ([place]-3 (Purified Fish Oil) Cap) 1 gm DAILY PO 07/25/17 08:00 08/24/17 08:59 07/27/17 08:15 1 GM Furosemide (Lasix Tab) 20 mg MoWeFr@0800 PO 07/26/17 08:00 08/25/17 07:59 07/28/17 09:24 20 MG Albuterol/ Ipratropium (Duoneb) 3 ml Q4H PRN INH 07/24/17 16:30 08/23/17 16:29 07/25/17 03:22 3 ML Multivitamins/ Minerals (Multivitamin W/ Minerals Tab) 1 tab DAILY PO 07/25/17 08:00 08/24/17 08:59 07/27/17 08:21 1 TAB Tamsulosin HCl (Flomax Cap) 0.4 mg DAILY PO 07/25/17 08:00 08/24/17 08:59 07/28/17 13:40 0.4 MG Tiotropium Gary (Spiriva Handihaler Inhaler) 2 puff DAILY INH 07/25/17 08:00 08/24/17 08:59 07/28/17 09:22 2 PUFF Polyethylene (Miralax Powder Packet) 17 gm QAM PO 07/25/17 08:00 08/24/17 07:59 07/28/17 14:03 17 GM Lactobacillus Acidophilus (Floranex Tab) 1 tab DAILY PO 07/25/17 08:00 08/24/17 07:59 07/27/17 09:40 1 TAB Ranitidine HCl (zANTac TAB) 300 mg HS PO 07/24/17 21:00 08/23/17 20:59 07/27/17 19:49 300 MG Levothyroxine Sodium (Synthroid Tab) 50 mcg DAILYBB PO 07/25/17 06:30 08/24/17 06:29 07/28/17 05:16 50 MCG Oxycodone/ Acetaminophen (Percocet 10-325MG Tab) 2 tab Q4H PRN PO 07/24/17 19:15 08/07/17 16:29 07/28/17 05:17 2 TAB Rivaroxaban (Xarelto Tab) 20 mg QDD PO 07/24/17 20:00 08/23/17 19:59 07/28/17 17:19 20 MG Levofloxacin (Levaquin Tab) 500 mg DAILY@1800 PO 07/24/17 20:00 07/30/17 18:01 07/28/17 17:22 500 MG Lidocaine (Lidoderm Patch 5%) 1 patch QAM TD 07/25/17 08:00 08/24/17 07:59 07/28/17 09:10 1 PATCH Miscellaneous (Remove Lidoderm Patch) 1 ea DAILY@21 N/A 07/24/17 21:00 08/23/17 20:59 Future hold 07/27/17 19:49 1 EA Ipratropium Gary (Atrovent 0.02% 0.5MG/2.5ML Neb) 0.5 mg Q6R INH 07/24/17 21:00 08/23/17 20:59 07/28/17 14:17 0.5 MG Levalbuterol (Xopenex 1.25MG/ 0.5ML Neb) 1.25 mg Q6R INH 07/24/17 21:00 08/23/17 20:59 07/28/17 14:17 1.25 MG Menthol (Nice Wilfrid) 1 wilfrid PRN PRN PO 07/24/17 23:45 08/23/17 23:44 07/25/17 00:09 1 WILFRID Gabapentin (Neurontin Cap) 300 mg TID PO 07/25/17 14:00 08/24/17 13:59 07/28/17 13:36 300 MG Baclofen (Lioresal Tab) 20 mg TID PO 07/25/17 14:00 08/24/17 13:59 07/28/17 13:38 20 MG Vortioxetine (Trintellix) 15 mg QAM PO 07/26/17 08:00 08/25/17 07:59 07/28/17 09:11 15 MG Ketorolac Tromethamine (Toradol Inj) 15 mg Q6H PRN IV. 07/26/17 00:15 07/31/17 00:14 Diclofenac Sodium (Voltaren 1% Top Gel) 1 appln TID EXT 07/26/17 14:00 08/25/17 13:59 07/28/17 13:35 1 APPLN Enteral Nutritional Formula (Boost) 1 can BIDM PO 07/26/17 17:00 08/25/17 16:59 07/26/17 16:43 1 CAN Docusate Sodium (coLACE CAP) 100 mg BID PO 07/26/17 20:00 08/25/17 19:59 07/28/17 13:39 100 MG Bisacodyl (Dulcolax Tab) 5 mg DAILY PRN PO 07/26/17 17:30 08/25/17 17:29 Senna (Senokot Tab) 8.6 mg QAM PO 07/26/17 17:30 08/25/17 17:29 07/28/17 09:14 8.6 MG Pantoprazole Sodium (Protonix Tab) 40 mg DAILY PO 07/27/17 08:00 08/26/17 07:59 07/27/17 08:19 40 MG Gadobutrol (Gadavist) 9 mmol UD PRN IV 07/26/17 21:30 07/30/17 21:29 Ceftriaxone Sodium 2000 mg/ Dextrose 70 ml @ 100 mls/hr Q24H IV 07/27/17 16:00 09/07/17 15:59 07/28/17 17:16 100 MLS/HR Linaclotide (Linzess) 145 mcg QAM PO 07/28/17 08:00 08/27/17 07:59 Heparin Sodium (Porcine) (Heparin 10 Unit/ ml 5 ml Flush) 5 ml PRN PRN FLUSH 07/28/17 17:15 08/27/17 17:14 Docusate Sodium (coLACE CAP) 100 mg NOW ONCE PO 07/28/17 17:45 07/28/17 17:46 UNV Bisacodyl (Dulcolax Tab) 5 mg NOW ONCE PO 07/28/17 17:45 07/28/17 17:46 UNV Senna (Senokot Tab) 8.6 mg QAM PO 07/29/17 08:00 08/28/17 07:59 UNV Objective Vital Signs Date Time Temp Pulse Resp B/P (MAP) Pulse Ox O2 Delivery O2 Flow Rate FiO2 07/28/17 16:00 Room Air 07/28/17 15:38 36.4 73 18 118/83 (95) 94 Room Air 07/28/17 14:18 83 16 99 Room Air 07/28/17 09:20 76 136/87 (103) 07/28/17 08:00 93 Room Air 07/28/17 07:46 36.6 79 18 134/79 (97) 93 Room Air 07/28/17 06:59 72 16 94 Room Air 07/28/17 00:00 Room Air 07/27/17 23:19 36.7 77 18 123/72 (89) 95 Room Air 07/27/17 20:19 73 16 94 Room Air Physical Exam General Appearance: no apparent distress Respiratory/Chest: chest non-tender, lungs clear, normal breath sounds, no respiratory distress, no accessory muscle use Cardiovascular: regular rate, rhythm, no edema, no murmur Laboratory Results Last 24 Hours Test 07/28/17 06:14 Creatinine 0.62 mg/dl Est Creatinine Clear Calc Drug Dose 143.2 ml/min Estimated GFR () 125.0 Estimated GFR (Non- 107.8 Assessment and Plan This is a 61yo M with a PMH of COPD, anxiety, h/o Tonsillar cancer (2007), acquired hypothyroidism and enlarged prostate, recent hospital admission in May 2017 for acute PE on Xarelto who presents with abdominal pain with any type of movement and subsequently found to have bilateral pneumonia HCAP, Osteomyelitis, Endocarditis, Bacteremia 07/28 PICC line inserted appreciate ID input will d/c on Rocephin x 6 weeks d/c with home health 07/27 antibiotics being changed around due to osteo and endocarditis, but is also covering the pneumonia appreciate ID input plan is to keep Rocephin 2G for now; further recommendations per ID PICC line to be placed 07/26 patient is doing well with Zosyn and Vanco for now we will continue abx. as prescribed monitor CBC, check cultures - admit to med/surg - patient presenting with worsening abdominal, back, and chest pain and cough x 1 week; recently admitted to [facility] 06/13 - 06/18 for PE and discharged on Xarelto - CXR in the ED showing BL infiltrates - no signs of sepsis, saturating well on room air - s/p Zosyn in the ED, will continue with; check MRSA nasal swab and add Vanco if positive - sputum culture - PRN nebs Possible Endocarditis echo performed due to positive blood cultures; Osteomyelitis appreciate cardiology input, consulted them for further management ID for abx. PICC line ABDOMINAL, BACK, AND CHEST PAIN 07/26 CT chest suggested inflammation at the thoracic spine will check Thoracic spine MRI with contrast to r/o osteomyelitis continue Baclofen and Gabapentin Percocet PRN, Voltaren gel appreciate pain management input - seems to be a chronic issue for the patient - currently saturating well on room air, no tachycardia, and has been compliant with Xarelto - low suspicion for recurrent PE; EKG without acute ST changes - had extensive imaging during last admission without any acute findings and was evaluated by pain management - was discharged on Valium and Percocet however stopped Valium after 1 week0 - will resume Valium and Percocet (hold other home sedating medications - Ambien , Xanax, Trazodone, Belsomra) - continue home Baclofen and gabapentin (noted patient taking PRN) - pain management consult HX PE - continue Xarelto URINARY RETENTION, BPH - continue PRN straight cath - patient reports dysuria, U/A does not suggest UTI; checking culture HX VSD - following with cardio as an outpatient - schedule for repeat echo COPD - no signs of acute exacerbation - continue home inhalers DVT PROPHYLAXIS - on Xarelto DISPO - In my clinical judgment this beneficiary meets acute admission criteria, established by [facility], that includes being hospitalized through two midnights.
[2017-07-28] MEDS: RANITIDINE HCL 150 MG TAB PO SCH (21:22)
[2017-07-29] MEDS: DIAZEPAM 5MG TAB PO PRN (01:29)
[2017-07-29 01:44] VITALS: PULSE 70; O2SAT 96
[2017-07-29] MEDS: IPRATROPIUM BROMIDE NEB SOLN 0.02% 2.5 ML VIAL INH SCH ×4 (01:44→20:35)
[2017-07-29] MEDS: LEVALBUTEROL 1.25MG/0.5ML NEB INH SCH ×4 (01:44→20:35)
[2017-07-29] MEDS ORDERED: VANCOMYCIN TROUGH SCH ×2 (02:30→08:30)
[2017-07-29] MEDS: LEVOTHYROXINE 50 MCG TAB PO SCH (06:20)
[2017-07-29 06:32] LABS: HEMATOCRIT 34.1 % (42-52); MEAN CELL VOLUME 85.9 fL (80-100); MEAN CORPUSCULAR HGB CONC 32.6 g/dl (32-36); MEAN PLATELET VOLUME 9.7 fL (7.4-10.4); PLATELET COUNT 330 K/uL (130-400); RED BLOOD COUNT 3.97 M/uL (4.7-6.1); WHITE BLOOD COUNT 5.25 K/uL (4.8-10.8)
[2017-07-29 06:52] VITALS: PULSE 81; O2SAT 96
[2017-07-29 07:01] LABS: BUN/CREATININE RATIO 11.5 (10-20); CALCIUM 8.9 mg/dl (8.5-10.1); CREATININE 0.62 mg/dl (0.60-1.40); POTASSIUM 3.8 mmol/L (3.5-5.1)
[2017-07-29 07:42] VITALS: BP 136/83; PULSE 81; TEMP 36.7; O2SAT 96
[2017-07-29] MEDS ORDERED: SENNA 8.6 MG TAB PO SCH (08:00)
[2017-07-29] MEDS: LACTOBACILLUS ACIDOPHILUS (FLORANEX) TAB PO SCH (08:00)
[2017-07-29] MEDS: BUDESONIDE/FORMOTEROL FUMARATE 160/4.5 60 PUFFS/INHALER INH SCH ×2 (08:04→21:20)
[2017-07-29] MEDS: TIOTROPIUM BROMIDE 5 PUFF/90 MCG INH INH SCH (08:05)
[2017-07-29] MEDS: OMEGA-3 (PURIFIED FISH OIL) 1 GM CAP PO SCH (08:06)
[2017-07-29] MEDS: DICLOFENAC SOD 1% GEL 100 GM TUBE EXT SCH ×3 (08:06→21:21)
[2017-07-29] MEDS: BACLOFEN TAB 20 MG TAB PO SCH ×3 (08:06→20:31)
[2017-07-29] MEDS: CEROVITE ADV FORMULA TAB PO SCH (08:06)
[2017-07-29] MEDS: GABAPENTIN 300 MG CAP PO SCH ×3 (08:06→20:32)
[2017-07-29] MEDS: PANTOprazole SOD 40 MG TAB PO SCH (08:06)
[2017-07-29] MEDS: DOCUSATE SODIUM 100 MG CAP PO SCH ×2 (08:07→20:32)
[2017-07-29] MEDS: FINASTERIDE 5 MG TAB PO SCH (08:08)
[2017-07-29] MEDS: LIDODERM (LIDOCAINE) PATCH 5% TD SCH (08:08)
[2017-07-29] MEDS: SENNA 8.6 MG TAB PO SCH (08:08)
[2017-07-29] MEDS: VORTIOXETINE HBR 10 MG TAB PO SCH (08:09)
[2017-07-29] MEDS: LINACLOTIDE 145 MCG CAP PO SCH (08:11)
[2017-07-29] MEDS: TAMSULOSIN HCL 0.4 MG CAP PO SCH (08:12)
[2017-07-29] MEDS: POLYETHYLENE (MIRALAX) 17 GM PACK PO SCH (09:18)
[2017-07-29] MEDS ORDERED: CEFT2INJ40 IV (10:02)
[2017-07-29] MEDS: BOOST VANILLA PO SCH ×4 (13:22→15:53)
[2017-07-29 14:12] VITALS: PULSE 78; O2SAT 95
[2017-07-29 15:34] VITALS: BP 125/69; PULSE 85; TEMP 36.5; O2SAT 97
[2017-07-29] MEDS: CEFTRIAXONE SOD INJ 2,000 MG in DEXTROSE 5% 50ML 50 ML IV SCH (15:52)
[2017-07-29] MEDS: RIVAROXABAN 20 MG TAB PO SCH (15:53)
--- NOTE | 2017-07-29 18:10 | Progress Note ---
Subjective Date of Service: Jul 29, 2017. Subjective Pt evaluation today including: conversation w/ patient, physical exam, lab review, review of studies, review of inpatient medication list Saw/examined the patient in room 450 No problems/issues to note, feeling fine, PICC line in, eager to go home. Problem List Medical Problems: (1) Abdominal pain Status: Acute (2) Pleuritic chest pain Status: Acute (3) Pulmonary embolism Status: Acute (4) Urinary retention Status: Chronic (5) VSD (ventricular septal defect) Status: Chronic Social History Problems: (1) Abdominal pain Status: Acute (2) Bleeding from mouth Status: Acute (3) Fever Status: Acute (4) H/O gastroesophageal reflux (GERD) Status: Chronic (5) Pneumonitis Status: Acute (6) SOB (shortness of breath) Status: Acute (7) Urinary tract infection Status: Acute (8) Urinary tract infection Status: Acute (9) VSD (ventricular septal defect) Status: Chronic Review of Systems Constitutional: No fever, No chills Respiratory: No shortness of breath Cardiac: No chest pain Abdomen: No pain, No nausea, No vomiting, No diarrhea Musculoskeletal: No joint pain Medications Current Inpatient Medications Medications (Trade) Dose Ordered Sig/Chanda Route Start Time Stop Time Status Last Admin Dose Admin Acetaminophen (Tylenol Tab) 650 mg Q4H PRN PO 07/24/17 16:00 08/23/17 15:59 Ondansetron HCl (Zofran Inj) 4 mg Q6H PRN IV 07/24/17 16:00 08/23/17 15:59 Diazepam (Valium Tab) 5 mg TID PRN PO 07/24/17 16:30 08/23/17 16:29 07/29/17 01:29 5 MG Benzonatate (Tessalon Perles Cap) 100 mg TID PRN PO 07/24/17 16:30 08/23/17 16:29 07/27/17 06:42 100 MG Budesonide/ Formoterol Fumarate (Symbicort 160/ 4.5 Inh) 2 puffs BID INH 07/24/17 20:00 08/23/17 20:59 07/29/17 08:04 2 PUFFS Finasteride (Proscar Tab) 5 mg DAILY PO 07/25/17 08:00 08/24/17 08:59 07/29/17 08:08 5 MG Fish Oil ([place]-3 (Purified Fish Oil) Cap) 1 gm DAILY PO 07/25/17 08:00 08/24/17 08:59 07/29/17 08:06 1 GM Furosemide (Lasix Tab) 20 mg MoWeFr@0800 PO 07/26/17 08:00 08/25/17 07:59 07/28/17 09:24 20 MG Albuterol/ Ipratropium (Duoneb) 3 ml Q4H PRN INH 07/24/17 16:30 08/23/17 16:29 07/25/17 03:22 3 ML Multivitamins/ Minerals (Multivitamin W/ Minerals Tab) 1 tab DAILY PO 07/25/17 08:00 08/24/17 08:59 07/29/17 08:06 1 TAB Tamsulosin HCl (Flomax Cap) 0.4 mg DAILY PO 07/25/17 08:00 08/24/17 08:59 07/29/17 08:12 0.4 MG Tiotropium Philipp (Spiriva Handihaler Inhaler) 2 puff DAILY INH 07/25/17 08:00 08/24/17 08:59 07/29/17 08:05 2 PUFF Polyethylene (Miralax Powder Packet) 17 gm QAM PO 07/25/17 08:00 08/24/17 07:59 07/29/17 09:18 17 GM Lactobacillus Acidophilus (Floranex Tab) 1 tab DAILY PO 07/25/17 08:00 08/24/17 07:59 07/27/17 09:40 1 TAB Ranitidine HCl (zANTac TAB) 300 mg HS PO 07/24/17 21:00 08/23/17 20:59 07/28/17 21:22 300 MG Levothyroxine Sodium (Synthroid Tab) 50 mcg DAILYBB PO 07/25/17 06:30 08/24/17 06:29 07/29/17 06:20 50 MCG Oxycodone/ Acetaminophen (Percocet 10-325MG Tab) 2 tab Q4H PRN PO 07/24/17 19:15 08/07/17 16:29 07/28/17 05:17 2 TAB Rivaroxaban (Xarelto Tab) 20 mg QDD PO 07/24/17 20:00 08/23/17 19:59 07/29/17 15:53 20 MG Levofloxacin (Levaquin Tab) 500 mg DAILY@1800 PO 07/24/17 20:00 07/30/17 18:01 07/28/17 17:22 500 MG Lidocaine (Lidoderm Patch 5%) 1 patch QAM TD 07/25/17 08:00 08/24/17 07:59 07/29/17 08:08 1 PATCH Miscellaneous (Remove Lidoderm Patch) 1 ea DAILY@21 N/A 07/24/17 21:00 08/23/17 20:59 Future hold 07/27/17 19:49 1 EA Ipratropium Philipp (Atrovent 0.02% 0.5MG/2.5ML Neb) 0.5 mg Q6R INH 07/24/17 21:00 08/23/17 20:59 07/29/17 14:12 0.5 MG Levalbuterol (Xopenex 1.25MG/ 0.5ML Neb) 1.25 mg Q6R INH 07/24/17 21:00 08/23/17 20:59 07/29/17 14:12 1.25 MG Menthol (Nice Wilfrid) 1 wilfrid PRN PRN PO 07/24/17 23:45 08/23/17 23:44 07/25/17 00:09 1 WILFRID Gabapentin (Neurontin Cap) 300 mg TID PO 07/25/17 14:00 08/24/17 13:59 07/29/17 15:25 300 MG Baclofen (Lioresal Tab) 20 mg TID PO 07/25/17 14:00 08/24/17 13:59 07/29/17 15:25 20 MG Vortioxetine (Trintellix) 15 mg QAM PO 07/26/17 08:00 08/25/17 07:59 07/29/17 08:09 15 MG Ketorolac Tromethamine (Toradol Inj) 15 mg Q6H PRN IV. 07/26/17 00:15 07/31/17 00:14 Diclofenac Sodium (Voltaren 1% Top Gel) 1 appln TID EXT 07/26/17 14:00 08/25/17 13:59 07/29/17 15:25 1 APPLN Enteral Nutritional Formula (Boost) 1 can BIDM PO 07/26/17 17:00 08/25/17 16:59 07/29/17 15:53 1 CAN Docusate Sodium (coLACE CAP) 100 mg BID PO 07/26/17 20:00 08/25/17 19:59 07/29/17 08:07 100 MG Bisacodyl (Dulcolax Tab) 5 mg DAILY PRN PO 07/26/17 17:30 08/25/17 17:29 Senna (Senokot Tab) 8.6 mg QAM PO 07/26/17 17:30 08/25/17 17:29 07/29/17 08:08 8.6 MG Pantoprazole Sodium (Protonix Tab) 40 mg DAILY PO 07/27/17 08:00 08/26/17 07:59 07/29/17 08:06 40 MG Gadobutrol (Gadavist) 9 mmol UD PRN IV 07/26/17 21:30 07/30/17 21:29 Ceftriaxone Sodium 2000 mg/ Dextrose 70 ml @ 100 mls/hr Q24H IV 07/27/17 16:00 09/07/17 15:59 07/29/17 15:52 100 MLS/HR Linaclotide (Linzess) 145 mcg QAM PO 07/28/17 08:00 08/27/17 07:59 07/29/17 08:11 145 MCG Heparin Sodium (Porcine) (Heparin 10 Unit/ ml 5 ml Flush) 5 ml PRN PRN FLUSH 07/28/17 17:15 08/27/17 17:14 07/29/17 05:39 5 ML Objective Vital Signs Date Time Temp Pulse Resp B/P (MAP) Pulse Ox O2 Delivery O2 Flow Rate FiO2 07/29/17 16:00 Room Air 07/29/17 15:34 36.5 85 18 125/69 (87) 97 Room Air 07/29/17 14:12 78 16 95 Room Air 07/29/17 08:00 Room Air 07/29/17 07:42 36.7 81 18 136/83 (100) 96 Room Air 07/29/17 06:52 81 16 96 Room Air 07/29/17 01:44 70 16 96 Room Air 07/29/17 01:43 Room Air 07/28/17 23:30 36.7 73 18 137/84 (101) 95 Room Air 07/28/17 22:46 Room Air 07/28/17 18:57 37.5 66 20 177/81 (113) 90 Room Air Physical Exam General Appearance: no apparent distress Respiratory/Chest: lungs clear, normal breath sounds, no respiratory distress, no accessory muscle use Cardiovascular: regular rate, rhythm, no edema, no murmur Laboratory Results Last 24 Hours Test 07/29/17 05:42 White Blood Count 5.25 K/uL Red Blood Count 3.97 M/uL Hemoglobin 11.1 g/dL Hematocrit 34.1 % Mean Corpuscular Volume 85.9 fL Mean Corpuscular Hemoglobin 28.0 pg Mean Corpuscular Hemoglobin Concent 32.6 g/dl RDW Standard Deviation 46.6 fL RDW Coefficient of Variation 14.8 % Platelet Count 330 K/uL Mean Platelet Volume 9.7 fL Sodium Level 143 mmol/L Potassium Level 3.8 mmol/L Chloride Level 108 mmol/L Carbon Dioxide Level 27 mmol/L Anion Gap 8.0 mmol/L Blood Urea Nitrogen 7 mg/dl Creatinine 0.62 mg/dl Est Creatinine Clear Calc Drug Dose 143.2 ml/min Estimated GFR () 125.0 Estimated GFR (Non- 107.8 BUN/Creatinine Ratio 11.5 Random Glucose 90 mg/dl Calcium Level 8.9 mg/dl Assessment and Plan This is a 61yo M with a PMH of COPD, anxiety, h/o Tonsillar cancer (2007), acquired hypothyroidism and enlarged prostate, recent hospital admission in May 2017 for acute PE on Xarelto who presents with abdominal pain with any type of movement and subsequently found to have bilateral pneumonia HCAP, Osteomyelitis, Endocarditis, Bacteremia 07/29 d/c planning for Monday with home health to be on Rocephin x 6 weeks PICC line ordered and placed 07/28 PICC line inserted appreciate ID input will d/c on Rocephin x 6 weeks d/c with home health 07/27 antibiotics being changed around due to osteo and endocarditis, but is also covering the pneumonia appreciate ID input plan is to keep Rocephin 2G for now; further recommendations per ID PICC line to be placed 07/26 patient is doing well with Zosyn and Vanco for now we will continue abx. as prescribed monitor CBC, check cultures - admit to med/surg - patient presenting with worsening abdominal, back, and chest pain and cough x 1 week; recently admitted to [facility] 06/13 - 06/18 for PE and discharged on Xarelto - CXR in the ED showing BL infiltrates - no signs of sepsis, saturating well on room air - s/p Zosyn in the ED, will continue with; check MRSA nasal swab and add Vanco if positive - sputum culture - PRN nebs Possible Endocarditis echo performed due to positive blood cultures; Osteomyelitis appreciate cardiology input, consulted them for further management ID for abx. PICC line ABDOMINAL, BACK, AND CHEST PAIN 07/26 CT chest suggested inflammation at the thoracic spine will check Thoracic spine MRI with contrast to r/o osteomyelitis continue Baclofen and Gabapentin Percocet PRN, Voltaren gel appreciate pain management input - seems to be a chronic issue for the patient - currently saturating well on room air, no tachycardia, and has been compliant with Xarelto - low suspicion for recurrent PE; EKG without acute ST changes - had extensive imaging during last admission without any acute findings and was evaluated by pain management - was discharged on Valium and Percocet however stopped Valium after 1 week0 - will resume Valium and Percocet (hold other home sedating medications - Ambien , Xanax, Trazodone, Belsomra) - continue home Baclofen and gabapentin (noted patient taking PRN) - pain management consult HX PE - continue Xarelto URINARY RETENTION, BPH - continue PRN straight cath - patient reports dysuria, U/A does not suggest UTI; checking culture HX VSD - following with cardio as an outpatient - schedule for repeat echo COPD - no signs of acute exacerbation - continue home inhalers DVT PROPHYLAXIS - on Xarelto DISPO - In my clinical judgment this beneficiary meets acute admission criteria, established by [facility], that includes being hospitalized through two midnights.
[2017-07-29] MEDS: LEVOFLOXACIN 500 MG TAB PO SCH (18:37)
[2017-07-29] MEDS: OXYCODONE/ACETAMINOPHEN 10/325MG TAB PO PRN (20:30)
[2017-07-29] MEDS: RANITIDINE HCL 150 MG TAB PO SCH (20:31)
[2017-07-29 20:35] VITALS: PULSE 73; O2SAT 98
[2017-07-30 00:19] VITALS: BP 117/73; PULSE 76; TEMP 36.6; O2SAT 96
[2017-07-30] MEDS: IPRATROPIUM BROMIDE NEB SOLN 0.02% 2.5 ML VIAL INH SCH ×4 (01:50→18:53)
[2017-07-30] MEDS: LEVALBUTEROL 1.25MG/0.5ML NEB INH SCH ×4 (01:50→18:53)
[2017-07-30] MEDS: LEVOTHYROXINE 50 MCG TAB PO SCH (06:22)
[2017-07-30 07:10] VITALS: PULSE 71; O2SAT 97
[2017-07-30 07:14] VITALS: BP 129/83; PULSE 72; TEMP 36.8; O2SAT 96
[2017-07-30] MEDS: LACTOBACILLUS ACIDOPHILUS (FLORANEX) TAB PO SCH (09:06)
[2017-07-30] MEDS: GABAPENTIN 300 MG CAP PO SCH ×3 (09:06→20:17)
[2017-07-30] MEDS: PANTOprazole SOD 40 MG TAB PO SCH (09:07)
[2017-07-30] MEDS: CEROVITE ADV FORMULA TAB PO SCH (09:07)
[2017-07-30] MEDS: DOCUSATE SODIUM 100 MG CAP PO SCH ×2 (09:08→20:17)
[2017-07-30] MEDS: VORTIOXETINE HBR 10 MG TAB PO SCH (09:09)
[2017-07-30] MEDS: LINACLOTIDE 145 MCG CAP PO SCH (09:11)
[2017-07-30] MEDS: TIOTROPIUM BROMIDE 5 PUFF/90 MCG INH INH SCH (09:12)
[2017-07-30] MEDS: TAMSULOSIN HCL 0.4 MG CAP PO SCH (09:14)
[2017-07-30] MEDS: LIDODERM (LIDOCAINE) PATCH 5% TD SCH (09:14)
[2017-07-30] MEDS: FINASTERIDE 5 MG TAB PO SCH (09:14)
[2017-07-30] MEDS: SENNA 8.6 MG TAB PO SCH (09:15)
[2017-07-30] MEDS: BOOST VANILLA PO SCH ×4 (09:15→17:57)
[2017-07-30] MEDS: BUDESONIDE/FORMOTEROL FUMARATE 160/4.5 60 PUFFS/INHALER INH SCH ×2 (09:16→20:17)
[2017-07-30] MEDS: OMEGA-3 (PURIFIED FISH OIL) 1 GM CAP PO SCH (09:16)
[2017-07-30] MEDS: BACLOFEN TAB 20 MG TAB PO SCH ×3 (09:16→20:17)
[2017-07-30] MEDS: DICLOFENAC SOD 1% GEL 100 GM TUBE EXT SCH ×3 (09:17→20:20)
--- NOTE | 2017-07-30 10:46 | Progress Note ---
Subjective Date of Service: Jul 30, 2017. Subjective Pt evaluation today including: conversation w/ patient, physical exam, lab review, review of studies, review of inpatient medication list Saw/examined the patient in room 450 He's doing well, back pain controlled, no other issues Had a BM yesterday Problem List Medical Problems: (1) Abdominal pain Status: Acute (2) Pleuritic chest pain Status: Acute (3) Pulmonary embolism Status: Acute (4) Urinary retention Status: Chronic (5) VSD (ventricular septal defect) Status: Chronic Social History Problems: (1) Abdominal pain Status: Acute (2) Bleeding from mouth Status: Acute (3) Fever Status: Acute (4) H/O gastroesophageal reflux (GERD) Status: Chronic (5) Pneumonitis Status: Acute (6) SOB (shortness of breath) Status: Acute (7) Urinary tract infection Status: Acute (8) Urinary tract infection Status: Acute (9) VSD (ventricular septal defect) Status: Chronic Review of Systems Constitutional: No fever, No chills Abdomen: No pain, No nausea, No vomiting, No diarrhea, No constipation Medications Current Inpatient Medications Medications (Trade) Dose Ordered Sig/Chanda Route Start Time Stop Time Status Last Admin Dose Admin Acetaminophen (Tylenol Tab) 650 mg Q4H PRN PO 07/24/17 16:00 08/23/17 15:59 Ondansetron HCl (Zofran Inj) 4 mg Q6H PRN IV 07/24/17 16:00 08/23/17 15:59 Diazepam (Valium Tab) 5 mg TID PRN PO 07/24/17 16:30 08/23/17 16:29 07/29/17 01:29 5 MG Benzonatate (Tessalon Perles Cap) 100 mg TID PRN PO 07/24/17 16:30 08/23/17 16:29 07/27/17 06:42 100 MG Budesonide/ Formoterol Fumarate (Symbicort 160/ 4.5 Inh) 2 puffs BID INH 07/24/17 20:00 08/23/17 20:59 07/30/17 09:16 2 PUFFS Finasteride (Proscar Tab) 5 mg DAILY PO 07/25/17 08:00 08/24/17 08:59 07/30/17 09:14 5 MG Fish Oil ([place]-3 (Purified Fish Oil) Cap) 1 gm DAILY PO 07/25/17 08:00 08/24/17 08:59 07/30/17 09:16 1 GM Furosemide (Lasix Tab) 20 mg MoWeFr@0800 PO 07/26/17 08:00 08/25/17 07:59 07/28/17 09:24 20 MG Albuterol/ Ipratropium (Duoneb) 3 ml Q4H PRN INH 07/24/17 16:30 08/23/17 16:29 07/25/17 03:22 3 ML Multivitamins/ Minerals (Multivitamin W/ Minerals Tab) 1 tab DAILY PO 07/25/17 08:00 08/24/17 08:59 07/30/17 09:07 1 TAB Tamsulosin HCl (Flomax Cap) 0.4 mg DAILY PO 07/25/17 08:00 08/24/17 08:59 07/30/17 09:14 0.4 MG Tiotropium [place] (Spiriva Handihaler Inhaler) 2 puff DAILY INH 07/25/17 08:00 08/24/17 08:59 07/30/17 09:12 2 PUFF Polyethylene (Miralax Powder Packet) 17 gm QAM PO 07/25/17 08:00 08/24/17 07:59 07/29/17 09:18 17 GM Lactobacillus Acidophilus (Floranex Tab) 1 tab DAILY PO 07/25/17 08:00 08/24/17 07:59 07/30/17 09:06 1 TAB Ranitidine HCl (zANTac TAB) 300 mg HS PO 07/24/17 21:00 08/23/17 20:59 07/29/17 20:31 300 MG Levothyroxine Sodium (Synthroid Tab) 50 mcg DAILYBB PO 07/25/17 06:30 08/24/17 06:29 07/30/17 06:22 50 MCG Oxycodone/ Acetaminophen (Percocet 10-325MG Tab) 2 tab Q4H PRN PO 07/24/17 19:15 08/07/17 16:29 07/29/17 20:30 2 TAB Rivaroxaban (Xarelto Tab) 20 mg QDD PO 07/24/17 20:00 08/23/17 19:59 07/29/17 15:53 20 MG Levofloxacin (Levaquin Tab) 500 mg DAILY@1800 PO 07/24/17 20:00 07/30/17 18:01 07/29/17 18:37 500 MG Lidocaine (Lidoderm Patch 5%) 1 patch QAM TD 07/25/17 08:00 08/24/17 07:59 07/30/17 09:14 1 PATCH Miscellaneous (Remove Lidoderm Patch) 1 ea DAILY@21 N/A 07/24/17 21:00 08/23/17 20:59 Future hold 07/29/17 21:20 1 EA Ipratropium [place] (Atrovent 0.02% 0.5MG/2.5ML Neb) 0.5 mg Q6R INH 07/24/17 21:00 08/23/17 20:59 07/30/17 07:10 0.5 MG Levalbuterol (Xopenex 1.25MG/ 0.5ML Neb) 1.25 mg Q6R INH 07/24/17 21:00 08/23/17 20:59 07/30/17 07:10 1.25 MG Menthol (Nice Iwlfrid) 1 wilfrid PRN PRN PO 07/24/17 23:45 08/23/17 23:44 07/25/17 00:09 1 WILFRID Gabapentin (Neurontin Cap) 300 mg TID PO 07/25/17 14:00 08/24/17 13:59 07/30/17 09:06 300 MG Baclofen (Lioresal Tab) 20 mg TID PO 07/25/17 14:00 08/24/17 13:59 07/30/17 09:16 20 MG Vortioxetine (Trintellix) 15 mg QAM PO 07/26/17 08:00 08/25/17 07:59 07/30/17 09:09 15 MG Ketorolac Tromethamine (Toradol Inj) 15 mg Q6H PRN IV. 07/26/17 00:15 07/31/17 00:14 Diclofenac Sodium (Voltaren 1% Top Gel) 1 appln TID EXT 07/26/17 14:00 08/25/17 13:59 07/30/17 09:17 1 APPLN Enteral Nutritional Formula (Boost) 1 can BIDM PO 07/26/17 17:00 08/25/17 16:59 07/30/17 09:15 1 CAN Docusate Sodium (coLACE CAP) 100 mg BID PO 07/26/17 20:00 08/25/17 19:59 07/30/17 09:08 100 MG Bisacodyl (Dulcolax Tab) 5 mg DAILY PRN PO 07/26/17 17:30 08/25/17 17:29 Senna (Senokot Tab) 8.6 mg QAM PO 07/26/17 17:30 08/25/17 17:29 07/30/17 09:15 8.6 MG Pantoprazole Sodium (Protonix Tab) 40 mg DAILY PO 07/27/17 08:00 08/26/17 07:59 07/30/17 09:07 40 MG Gadobutrol (Gadavist) 9 mmol UD PRN IV 07/26/17 21:30 07/30/17 21:29 Ceftriaxone Sodium 2000 mg/ Dextrose 70 ml @ 100 mls/hr Q24H IV 07/27/17 16:00 09/07/17 15:59 07/29/17 15:52 100 MLS/HR Linaclotide (Linzess) 145 mcg QAM PO 07/28/17 08:00 08/27/17 07:59 07/30/17 09:11 145 MCG Heparin Sodium (Porcine) (Heparin 10 Unit/ ml 5 ml Flush) 5 ml PRN PRN FLUSH 07/28/17 17:15 08/27/17 17:14 07/29/17 18:38 5 ML Objective Vital Signs Date Time Temp Pulse Resp B/P (MAP) Pulse Ox O2 Delivery O2 Flow Rate FiO2 07/30/17 08:00 Room Air 07/30/17 07:14 36.8 72 18 129/83 (98) 96 Room Air 07/30/17 07:10 71 16 97 Room Air 07/30/17 00:22 Room Air 07/30/17 00:19 36.6 76 20 117/73 (88) 96 Room Air 07/29/17 21:10 Room Air 07/29/17 20:35 73 16 98 Room Air 07/29/17 16:00 Room Air 07/29/17 15:34 36.5 85 18 125/69 (87) 97 Room Air 07/29/17 14:12 78 16 95 Room Air Physical Exam General Appearance: no apparent distress Respiratory/Chest: no respiratory distress, no accessory muscle use Cardiovascular: regular rate, rhythm, no edema, no murmur Assessment and Plan This is a 61yo M with a PMH of COPD, anxiety, h/o Tonsillar cancer (2007), acquired hypothyroidism and enlarged prostate, recent hospital admission in May 2017 for acute PE on Xarelto who presents with abdominal pain with any type of movement and subsequently found to have bilateral pneumonia HCAP, Osteomyelitis, Endocarditis, Bacteremia 07/30 plan to d/c to home with home health on 6 weeks of Rocephin PICC line is in place likely d/c on 07/31 07/29 d/c planning for Monday with home health to be on Rocephin x 6 weeks PICC line ordered and placed 07/28 PICC line inserted appreciate ID input will d/c on Rocephin x 6 weeks d/c with home health 07/27 antibiotics being changed around due to osteo and endocarditis, but is also covering the pneumonia appreciate ID input plan is to keep Rocephin 2G for now; further recommendations per ID PICC line to be placed 07/26 patient is doing well with Zosyn and Vanco for now we will continue abx. as prescribed monitor CBC, check cultures - admit to med/surg - patient presenting with worsening abdominal, back, and chest pain and cough x 1 week; recently admitted to [facility] 06/13 - 06/18 for PE and discharged on Xarelto - CXR in the ED showing BL infiltrates - no signs of sepsis, saturating well on room air - s/p Zosyn in the ED, will continue with; check MRSA nasal swab and add Vanco if positive - sputum culture - PRN nebs Possible Endocarditis echo performed due to positive blood cultures; Osteomyelitis appreciate cardiology input, consulted them for further management ID for abx. PICC line ABDOMINAL, BACK, AND CHEST PAIN 07/26 CT chest suggested inflammation at the thoracic spine will check Thoracic spine MRI with contrast to r/o osteomyelitis continue Baclofen and Gabapentin Percocet PRN, Voltaren gel appreciate pain management input - seems to be a chronic issue for the patient - currently saturating well on room air, no tachycardia, and has been compliant with Xarelto - low suspicion for recurrent PE; EKG without acute ST changes - had extensive imaging during last admission without any acute findings and was evaluated by pain management - was discharged on Valium and Percocet however stopped Valium after 1 week0 - will resume Valium and Percocet (hold other home sedating medications - Ambien , Xanax, Trazodone, Belsomra) - continue home Baclofen and gabapentin (noted patient taking PRN) - pain management consult HX PE - continue Xarelto URINARY RETENTION, BPH - continue PRN straight cath - patient reports dysuria, U/A does not suggest UTI; checking culture HX VSD - following with cardio as an outpatient - schedule for repeat echo COPD - no signs of acute exacerbation - continue home inhalers DVT PROPHYLAXIS - on Xarelto DISPO - In my clinical judgment this beneficiary meets acute admission criteria, established by [facility], that includes being hospitalized through two midnights.
[2017-07-30] MEDS: POLYETHYLENE (MIRALAX) 17 GM PACK PO SCH (13:54)
[2017-07-30 14:12] VITALS: PULSE 80; O2SAT 96
[2017-07-30 14:56] VITALS: BP 133/82; PULSE 82; TEMP 36.5; O2SAT 94
[2017-07-30] MEDS: CEFTRIAXONE SOD INJ 2,000 MG in DEXTROSE 5% 50ML 50 ML IV SCH (16:30)
[2017-07-30] MEDS: RIVAROXABAN 20 MG TAB PO SCH (17:56)
[2017-07-30] MEDS: LEVOFLOXACIN 500 MG TAB PO SCH (17:57)
[2017-07-30 18:57] VITALS: PULSE 88; O2SAT 97
[2017-07-30] MEDS: RANITIDINE HCL 150 MG TAB PO SCH (20:18)
[2017-07-30] MEDS: OXYCODONE/ACETAMINOPHEN 10/325MG TAB PO PRN (22:23)
[2017-07-31 00:03] VITALS: BP 142/88; PULSE 73; TEMP 36.6; O2SAT 98
[2017-07-31] MEDS: IPRATROPIUM BROMIDE NEB SOLN 0.02% 2.5 ML VIAL INH SCH ×3 (01:54→13:53)
[2017-07-31] MEDS: LEVALBUTEROL 1.25MG/0.5ML NEB INH SCH ×3 (01:55→13:53)
[2017-07-31] MEDS: LEVOTHYROXINE 50 MCG TAB PO SCH (05:53)
[2017-07-31 06:21] LABS: CREATININE 0.66 mg/dl (0.60-1.40)
[2017-07-31 07:00] VITALS: PULSE 62; O2SAT 98
[2017-07-31 07:24] VITALS: BP 121/80; PULSE 69; TEMP 36.5; O2SAT 98
[2017-07-31] MEDS: BOOST VANILLA PO SCH ×4 (08:00→16:11)
[2017-07-31] MEDS: TIOTROPIUM BROMIDE 5 PUFF/90 MCG INH INH SCH (08:55)
[2017-07-31] MEDS: BUDESONIDE/FORMOTEROL FUMARATE 160/4.5 60 PUFFS/INHALER INH SCH (08:56)
[2017-07-31] MEDS: DICLOFENAC SOD 1% GEL 100 GM TUBE EXT SCH ×2 (08:56→14:00)
[2017-07-31] MEDS: SENNA 8.6 MG TAB PO SCH (08:57)
[2017-07-31] MEDS: LINACLOTIDE 145 MCG CAP PO SCH (08:58)
[2017-07-31] MEDS: LIDODERM (LIDOCAINE) PATCH 5% TD SCH (08:58)
[2017-07-31] MEDS: FINASTERIDE 5 MG TAB PO SCH (08:59)
[2017-07-31] MEDS: FUROSEMIDE 20 MG TAB PO SCH (08:59)
[2017-07-31] MEDS: OMEGA-3 (PURIFIED FISH OIL) 1 GM CAP PO SCH (08:59)
[2017-07-31] MEDS: DOCUSATE SODIUM 100 MG CAP PO SCH (08:59)
[2017-07-31] MEDS: PANTOprazole SOD 40 MG TAB PO SCH (09:00)
[2017-07-31] MEDS: CEROVITE ADV FORMULA TAB PO SCH (09:00)
[2017-07-31] MEDS: BACLOFEN TAB 20 MG TAB PO SCH ×2 (09:00→13:42)
[2017-07-31] MEDS: GABAPENTIN 300 MG CAP PO SCH ×2 (09:00→13:41)
[2017-07-31] MEDS: TAMSULOSIN HCL 0.4 MG CAP PO SCH (09:00)
[2017-07-31] MEDS: VORTIOXETINE HBR 10 MG TAB PO SCH (09:01)
[2017-07-31] MEDS: POLYETHYLENE (MIRALAX) 17 GM PACK PO SCH (13:41)
[2017-07-31] MEDS: LACTOBACILLUS ACIDOPHILUS (FLORANEX) TAB PO SCH (13:42)
[2017-07-31 13:53] VITALS: PULSE 75; O2SAT 98
--- NOTE | 2017-07-31 15:07 | Infectious Disease Progress Nt ---
Progress Note Date of Service Jul 31, 2017. Subjective Pt evaluation today including: conversation w/ patient, physical exam, chart review, lab review, review of studies, conversation w/ beauty sales consultant, review of inpatient medication list Patient feeling better, back pain improved. Remains afebrile. Tolerating ceftriaxone. No other new complaints. All Other Systems: Reviewed and Negative Medications Current Inpatient Medications Medications (Trade) Dose Ordered Sig/Chanda Route Start Time Stop Time Status Last Admin Dose Admin Acetaminophen (Tylenol Tab) 650 mg Q4H PRN PO 07/24/17 16:00 08/23/17 15:59 Ondansetron HCl (Zofran Inj) 4 mg Q6H PRN IV 07/24/17 16:00 08/23/17 15:59 Diazepam (Valium Tab) 5 mg TID PRN PO 07/24/17 16:30 08/23/17 16:29 07/29/17 01:29 5 MG Benzonatate (Tessalon Perles Cap) 100 mg TID PRN PO 07/24/17 16:30 08/23/17 16:29 07/27/17 06:42 100 MG Budesonide/ Formoterol Fumarate (Symbicort 160/ 4.5 Inh) 2 puffs BID INH 07/24/17 20:00 08/23/17 20:59 07/31/17 08:56 2 PUFFS Finasteride (Proscar Tab) 5 mg DAILY PO 07/25/17 08:00 08/24/17 08:59 07/31/17 08:59 5 MG Fish Oil ([place]-3 (Purified Fish Oil) Cap) 1 gm DAILY PO 07/25/17 08:00 08/24/17 08:59 07/31/17 08:59 1 GM Furosemide (Lasix Tab) 20 mg MoWeFr@0800 PO 07/26/17 08:00 08/25/17 07:59 07/31/17 08:59 20 MG Albuterol/ Ipratropium (Duoneb) 3 ml Q4H PRN INH 07/24/17 16:30 08/23/17 16:29 07/25/17 03:22 3 ML Multivitamins/ Minerals (Multivitamin W/ Minerals Tab) 1 tab DAILY PO 07/25/17 08:00 08/24/17 08:59 07/31/17 09:00 1 TAB Tamsulosin HCl (Flomax Cap) 0.4 mg DAILY PO 07/25/17 08:00 08/24/17 08:59 07/31/17 09:00 0.4 MG Tiotropium [place] (Spiriva Handihaler Inhaler) 2 puff DAILY INH 07/25/17 08:00 08/24/17 08:59 07/31/17 08:55 2 PUFF Polyethylene (Miralax Powder Packet) 17 gm QAM PO 07/25/17 08:00 08/24/17 07:59 07/31/17 13:41 17 GM Lactobacillus Acidophilus (Floranex Tab) 1 tab DAILY PO 07/25/17 08:00 08/24/17 07:59 07/31/17 13:42 1 TAB Ranitidine HCl (zANTac TAB) 300 mg HS PO 07/24/17 21:00 08/23/17 20:59 07/30/17 20:18 300 MG Levothyroxine Sodium (Synthroid Tab) 50 mcg DAILYBB PO 07/25/17 06:30 08/24/17 06:29 07/31/17 05:53 50 MCG Oxycodone/ Acetaminophen (Percocet 10-325MG Tab) 2 tab Q4H PRN PO 07/24/17 19:15 08/07/17 16:29 07/30/17 22:23 2 TAB Rivaroxaban (Xarelto Tab) 20 mg QDD PO 07/24/17 20:00 08/23/17 19:59 07/30/17 17:56 20 MG Lidocaine (Lidoderm Patch 5%) 1 patch QAM TD 07/25/17 08:00 08/24/17 07:59 07/31/17 08:58 1 PATCH Miscellaneous (Remove Lidoderm Patch) 1 ea DAILY@21 N/A 07/24/17 21:00 08/23/17 20:59 Future hold 07/30/17 20:18 1 EA Ipratropium [place] (Atrovent 0.02% 0.5MG/2.5ML Neb) 0.5 mg Q6R INH 07/24/17 21:00 08/23/17 20:59 07/31/17 13:53 0.5 MG Levalbuterol (Xopenex 1.25MG/ 0.5ML Neb) 1.25 mg Q6R INH 07/24/17 21:00 08/23/17 20:59 07/31/17 13:53 1.25 MG Menthol (Nice Bob) 1 bob PRN PRN PO 07/24/17 23:45 08/23/17 23:44 07/25/17 00:09 1 BOB Gabapentin (Neurontin Cap) 300 mg TID PO 07/25/17 14:00 08/24/17 13:59 07/31/17 13:41 300 MG Baclofen (Lioresal Tab) 20 mg TID PO 07/25/17 14:00 08/24/17 13:59 07/31/17 13:42 20 MG Vortioxetine (Trintellix) 15 mg QAM PO 07/26/17 08:00 08/25/17 07:59 07/31/17 09:01 15 MG Diclofenac Sodium (Voltaren 1% Top Gel) 1 appln TID EXT 07/26/17 14:00 08/25/17 13:59 07/31/17 08:56 1 APPLN Enteral Nutritional Formula (Boost) 1 can BIDM PO 07/26/17 17:00 08/25/17 16:59 07/30/17 09:15 1 CAN Docusate Sodium (coLACE CAP) 100 mg BID PO 07/26/17 20:00 08/25/17 19:59 07/31/17 08:59 100 MG Bisacodyl (Dulcolax Tab) 5 mg DAILY PRN PO 07/26/17 17:30 08/25/17 17:29 Senna (Senokot Tab) 8.6 mg QAM PO 07/26/17 17:30 08/25/17 17:29 07/31/17 08:57 8.6 MG Pantoprazole Sodium (Protonix Tab) 40 mg DAILY PO 07/27/17 08:00 08/26/17 07:59 07/31/17 09:00 40 MG Ceftriaxone Sodium 2000 mg/ Dextrose 70 ml @ 100 mls/hr Q24H IV 07/27/17 16:00 09/07/17 15:59 07/30/17 16:30 100 MLS/HR Linaclotide (Linzess) 145 mcg QAM PO 07/28/17 08:00 08/27/17 07:59 07/31/17 08:58 145 MCG Heparin Sodium (Porcine) (Heparin 10 Unit/ ml 5 ml Flush) 5 ml PRN PRN FLUSH 07/28/17 17:15 08/27/17 17:14 07/31/17 05:33 5 ML Objective Vital Signs Date Time Temp Pulse Resp B/P (MAP) Pulse Ox O2 Delivery O2 Flow Rate FiO2 07/31/17 13:53 75 16 98 Room Air 07/31/17 08:00 Room Air 07/31/17 07:24 36.5 69 18 121/80 (94) 98 Room Air 07/31/17 07:00 62 16 98 Room Air 07/31/17 00:16 Room Air 07/31/17 00:03 36.6 73 20 142/88 (106) 98 Room Air 07/30/17 19:57 Room Air 07/30/17 18:57 88 16 97 Room Air 07/30/17 16:00 Room Air Physical Exam General Appearance: WD/WN, no apparent distress Eyes: normal inspection, sclerae normal ENT: normal ENT inspection, pharynx normal Neck: supple, no adenopathy, trachea midline Respiratory/Chest: chest non-tender, lungs clear, normal breath sounds, no respiratory distress Cardiovascular: regular rate, rhythm, no gallop, no murmur Abdomen: normal bowel sounds, non tender, soft, no organomegaly Extremities: normal range of motion, non-tender, normal capillary refill Neurologic/Psychiatric: alert, normal mood/affect, oriented x 3 Skin: normal color, warm/dry, no rash Lymphatic: no adenopathy Laboratory Results RUN DATE: 07/29/17 [facility] PAGE 1 RUN TIME: 075 Specimen Inquiry PATIENT: SABINE LANCASTER LOC: [id number] U # : [id number] AGE/SX: 61/M ROOM: [facility] REG : 07/24/[address]: Eleanor Feldman DO : 1955 BED: 1 DIS : STATUS: ADM IN TLOC: SPEC #: [id number] SILKE: 07/24/17-1319 STATUS: COMP REQ #: [id number] RECD: 07/24/[address]: Trent Armstrong PA -C SOURCE: BLOOD ENTR: 07/24/17-[address]: Shawn Flores DO SPDESC: Marcin Joy D.O. ORDERED: BLOOD CULTURE Procedure Result Verified Site BLD CULT Final 07/29/17-0751 Organism 1 STREPTOCOCCUS MUTANS SENS NO SENSITIVITY TO FOLLOW PLEASE SEE CULTURE NUMBER [id number] FOR SENSITIVITIES. Phoned Positive Blood Culture Gram Stain Report to MADELIN HAWKINS on 07/25/17 At 2303 By RACHEL. Results were verbalized back to RACHEL. Last 24 Hours Test 07/31/17 05:37 Creatinine 0.66 mg/dl Est Creatinine Clear Calc Drug Dose 134.5 ml/min Estimated GFR () 121.8 Estimated GFR (Non- 105.1 Assessment and Plan 61-year-old male with history of VSD now with streptococcal bacteremia with thoracic spine diskitis and osteomyelitis. Echocardiogram suggest presence of vegetation at site of the VSD. Patient will require at least 6 weeks of IV antibiotics, and so ceftriaxone to be continued, and arrangements for outpatient therapy/PICC line placement should be made. Will discuss and follow.
--- NOTE | 2017-07-31 15:29 | Progress Note ---
Subjective Date of Service: Jul 31, 2017. Subjective Pt evaluation today including: conversation w/ patient, physical exam, lab review, review of studies, review of inpatient medication list Saw/examined the patient in room 450 No problems/issues to note today Problem List Medical Problems: (1) Abdominal pain Status: Acute (2) Pleuritic chest pain Status: Acute (3) Pulmonary embolism Status: Acute (4) Urinary retention Status: Chronic (5) VSD (ventricular septal defect) Status: Chronic Social History Problems: (1) Abdominal pain Status: Acute (2) Bleeding from mouth Status: Acute (3) Fever Status: Acute (4) H/O gastroesophageal reflux (GERD) Status: Chronic (5) Pneumonitis Status: Acute (6) SOB (shortness of breath) Status: Acute (7) Urinary tract infection Status: Acute (8) Urinary tract infection Status: Acute (9) VSD (ventricular septal defect) Status: Chronic Review of Systems Constitutional: No fever, No chills Respiratory: No shortness of breath Cardiac: No chest pain Abdomen: No pain, No nausea, No vomiting, No diarrhea Musculoskeletal: No joint pain Medications Current Inpatient Medications Medications (Trade) Dose Ordered Sig/Chanda Route Start Time Stop Time Status Last Admin Dose Admin Acetaminophen (Tylenol Tab) 650 mg Q4H PRN PO 07/24/17 16:00 08/23/17 15:59 Ondansetron HCl (Zofran Inj) 4 mg Q6H PRN IV 07/24/17 16:00 08/23/17 15:59 Diazepam (Valium Tab) 5 mg TID PRN PO 07/24/17 16:30 08/23/17 16:29 07/29/17 01:29 5 MG Benzonatate (Tessalon Perles Cap) 100 mg TID PRN PO 07/24/17 16:30 08/23/17 16:29 07/27/17 06:42 100 MG Budesonide/ Formoterol Fumarate (Symbicort 160/ 4.5 Inh) 2 puffs BID INH 07/24/17 20:00 08/23/17 20:59 07/31/17 08:56 2 PUFFS Finasteride (Proscar Tab) 5 mg DAILY PO 07/25/17 08:00 08/24/17 08:59 07/31/17 08:59 5 MG Fish Oil ([place]-3 (Purified Fish Oil) Cap) 1 gm DAILY PO 07/25/17 08:00 08/24/17 08:59 07/31/17 08:59 1 GM Furosemide (Lasix Tab) 20 mg MoWeFr@0800 PO 07/26/17 08:00 08/25/17 07:59 07/31/17 08:59 20 MG Albuterol/ Ipratropium (Duoneb) 3 ml Q4H PRN INH 07/24/17 16:30 08/23/17 16:29 07/25/17 03:22 3 ML Multivitamins/ Minerals (Multivitamin W/ Minerals Tab) 1 tab DAILY PO 07/25/17 08:00 08/24/17 08:59 07/31/17 09:00 1 TAB Tamsulosin HCl (Flomax Cap) 0.4 mg DAILY PO 07/25/17 08:00 08/24/17 08:59 07/31/17 09:00 0.4 MG Tiotropium [place] (Spiriva Handihaler Inhaler) 2 puff DAILY INH 07/25/17 08:00 08/24/17 08:59 07/31/17 08:55 2 PUFF Polyethylene (Miralax Powder Packet) 17 gm QAM PO 07/25/17 08:00 08/24/17 07:59 07/31/17 13:41 17 GM Lactobacillus Acidophilus (Floranex Tab) 1 tab DAILY PO 07/25/17 08:00 08/24/17 07:59 07/31/17 13:42 1 TAB Ranitidine HCl (zANTac TAB) 300 mg HS PO 07/24/17 21:00 08/23/17 20:59 07/30/17 20:18 300 MG Levothyroxine Sodium (Synthroid Tab) 50 mcg DAILYBB PO 07/25/17 06:30 08/24/17 06:29 07/31/17 05:53 50 MCG Oxycodone/ Acetaminophen (Percocet 10-325MG Tab) 2 tab Q4H PRN PO 07/24/17 19:15 08/07/17 16:29 07/30/17 22:23 2 TAB Rivaroxaban (Xarelto Tab) 20 mg QDD PO 07/24/17 20:00 08/23/17 19:59 07/30/17 17:56 20 MG Lidocaine (Lidoderm Patch 5%) 1 patch QAM TD 07/25/17 08:00 08/24/17 07:59 07/31/17 08:58 1 PATCH Miscellaneous (Remove Lidoderm Patch) 1 ea DAILY@21 N/A 07/24/17 21:00 08/23/17 20:59 Future hold 07/30/17 20:18 1 EA Ipratropium [place] (Atrovent 0.02% 0.5MG/2.5ML Neb) 0.5 mg Q6R INH 07/24/17 21:00 08/23/17 20:59 07/31/17 13:53 0.5 MG Levalbuterol (Xopenex 1.25MG/ 0.5ML Neb) 1.25 mg Q6R INH 07/24/17 21:00 08/23/17 20:59 07/31/17 13:53 1.25 MG Menthol (Nice Wilfrid) 1 wilfrid PRN PRN PO 07/24/17 23:45 08/23/17 23:44 07/25/17 00:09 1 WILFRID Gabapentin (Neurontin Cap) 300 mg TID PO 07/25/17 14:00 08/24/17 13:59 07/31/17 13:41 300 MG Baclofen (Lioresal Tab) 20 mg TID PO 07/25/17 14:00 08/24/17 13:59 07/31/17 13:42 20 MG Vortioxetine (Trintellix) 15 mg QAM PO 07/26/17 08:00 08/25/17 07:59 07/31/17 09:01 15 MG Diclofenac Sodium (Voltaren 1% Top Gel) 1 appln TID EXT 07/26/17 14:00 08/25/17 13:59 07/31/17 08:56 1 APPLN Enteral Nutritional Formula (Boost) 1 can BIDM PO 07/26/17 17:00 08/25/17 16:59 07/30/17 09:15 1 CAN Docusate Sodium (coLACE CAP) 100 mg BID PO 07/26/17 20:00 08/25/17 19:59 07/31/17 08:59 100 MG Bisacodyl (Dulcolax Tab) 5 mg DAILY PRN PO 07/26/17 17:30 08/25/17 17:29 Senna (Senokot Tab) 8.6 mg QAM PO 07/26/17 17:30 08/25/17 17:29 07/31/17 08:57 8.6 MG Pantoprazole Sodium (Protonix Tab) 40 mg DAILY PO 07/27/17 08:00 08/26/17 07:59 07/31/17 09:00 40 MG Ceftriaxone Sodium 2000 mg/ Dextrose 70 ml @ 100 mls/hr Q24H IV 07/27/17 16:00 09/07/17 15:59 07/30/17 16:30 100 MLS/HR Linaclotide (Linzess) 145 mcg QAM PO 07/28/17 08:00 08/27/17 07:59 07/31/17 08:58 145 MCG Heparin Sodium (Porcine) (Heparin 10 Unit/ ml 5 ml Flush) 5 ml PRN PRN FLUSH 07/28/17 17:15 08/27/17 17:14 07/31/17 05:33 5 ML Objective Vital Signs Date Time Temp Pulse Resp B/P (MAP) Pulse Ox O2 Delivery O2 Flow Rate FiO2 07/31/17 13:53 75 16 98 Room Air 07/31/17 08:00 Room Air 07/31/17 07:24 36.5 69 18 121/80 (94) 98 Room Air 07/31/17 07:00 62 16 98 Room Air 07/31/17 00:16 Room Air 07/31/17 00:03 36.6 73 20 142/88 (106) 98 Room Air 07/30/17 19:57 Room Air 07/30/17 18:57 88 16 97 Room Air 07/30/17 16:00 Room Air 07/30/17 14:56 36.5 82 22 133/82 (99) 94 Room Air Physical Exam General Appearance: no apparent distress Respiratory/Chest: lungs clear, normal breath sounds, no respiratory distress, no accessory muscle use Cardiovascular: regular rate, rhythm, no edema, no murmur Abdomen: normal bowel sounds, non tender, soft Laboratory Results Last 24 Hours Test 07/31/17 05:37 Creatinine 0.66 mg/dl Est Creatinine Clear Calc Drug Dose 134.5 ml/min Estimated GFR () 121.8 Estimated GFR (Non- 105.1 Assessment and Plan This is a 61yo M with a PMH of COPD, anxiety, h/o Tonsillar cancer (2007), acquired hypothyroidism and enlarged prostate, recent hospital admission in May 2017 for acute PE on Xarelto who presents with abdominal pain with any type of movement and subsequently found to have bilateral pneumonia HCAP, Osteomyelitis, Endocarditis, Bacteremia 07/[address] Rocephin x6 weeks d/c home with home health 07/30 plan to d/c to home with home health on 6 weeks of Rocephin PICC line is in place likely d/c on 07/31 07/29 d/c planning for Monday with home health to be on Rocephin x 6 weeks PICC line ordered and placed 07/28 PICC line inserted appreciate ID input will d/c on Rocephin x 6 weeks d/c with home health 07/27 antibiotics being changed around due to osteo and endocarditis, but is also covering the pneumonia appreciate ID input plan is to keep Rocephin 2G for now; further recommendations per ID PICC line to be placed 07/26 patient is doing well with Zosyn and Vanco for now we will continue abx. as prescribed monitor CBC, check cultures - admit to med/surg - patient presenting with worsening abdominal, back, and chest pain and cough x 1 week; recently admitted to [facility] 06/13 - 06/18 for PE and discharged on Xarelto - CXR in the ED showing BL infiltrates - no signs of sepsis, saturating well on room air - s/p Zosyn in the ED, will continue with; check MRSA nasal swab and add Vanco if positive - sputum culture - PRN nebs Possible Endocarditis echo performed due to positive blood cultures; Osteomyelitis appreciate cardiology input, consulted them for further management ID for abx. PICC line ABDOMINAL, BACK, AND CHEST PAIN 07/26 CT chest suggested inflammation at the thoracic spine will check Thoracic spine MRI with contrast to r/o osteomyelitis continue Baclofen and Gabapentin Percocet PRN, Voltaren gel appreciate pain management input - seems to be a chronic issue for the patient - currently saturating well on room air, no tachycardia, and has been compliant with Xarelto - low suspicion for recurrent PE; EKG without acute ST changes - had extensive imaging during last admission without any acute findings and was evaluated by pain management - was discharged on Valium and Percocet however stopped Valium after 1 week0 - will resume Valium and Percocet (hold other home sedating medications - Ambien , Xanax, Trazodone, Belsomra) - continue home Baclofen and gabapentin (noted patient taking PRN) - pain management consult HX PE - continue Xarelto URINARY RETENTION, BPH - continue PRN straight cath - patient reports dysuria, U/A does not suggest UTI; checking culture HX VSD - following with cardio as an outpatient - schedule for repeat echo COPD - no signs of acute exacerbation - continue home inhalers DVT PROPHYLAXIS - on Xarelto DISPO - In my clinical judgment this beneficiary meets acute admission criteria, established by [facility], that includes being hospitalized through two midnights.
[2017-07-31] MEDS ORDERED: OXYC-57 PO (15:35)
[2017-07-31 15:45] VITALS: BP 113/78; PULSE 77; TEMP 36.7; O2SAT 97
--- NOTE | 2017-07-31 15:49 | Discharge Instructions ---
Discharge Instructions Date of Service Jul 31, 2017. Admission Reason for Admission: Pneumonia Discharge Discharge Diagnosis / Problem: Pneumonia, Osteomyelitis, Endocarditis Discharge Goals Goal(s): Decrease discomfort, Improve function, Diagnostic testing, Therapeutic intervention Activity Recommendations Activity Limitations: resume your previous activity . Instructions / Follow-Up Instructions / Follow-Up Please follow-up with Dr. Marcin Joy on August 04 at 1:05PM * You will be on Rocephin for 6 weeks * follow-up with infectious disease, Dr. Cunningham Current Hospital Diet Patient's current hospital diet: AHA Diet (Heart Healthy) Discharge Diet Recommended Diet: AHA Diet (Heart Healthy) Pending Studies Studies pending at discharge: no Medical Emergencies . Who to Call and When: Medical Emergencies: If at any time you feel your situation is an emergency, please call 911 immediately. . Non-Emergent Contact Non-Emergency issues call your: Primary Care Provider . . "Provider Documentation" section prepared by Eleanor Feldman. . VTE Core Measure Inpt VTE Proph given/why not?: Other Anticoagulation [place] Drug Monitoring Program Search Results: patient reviewed within database, no issues identified
--- NOTE | 2017-07-31 15:53 | Discharge Summary ---
Discharge Summary Date of Service Jul 31, 2017. Discharge Summary Admission Date: Jul 24, 2017 at 15:54 Discharge Date: Jul 31, 2017 Discharge Disposition: Home with services Principal Diagnosis: Osteomyelitis Endocarditis Bacteremia Pneumonia Medication Reconciliation New Medications: Ceftriaxone Sodium (Ceftriaxone Sodium) 2 Gm Inj 2 GM IV DAILY for 45 Days, #45 VIAL Oxycodone/Acetaminophen 5MG/325MG (Percocet 5MG/325MG) Tab 1 TABLET PO Q6H PRN for Pain for 3 Days, #12 TAB Continued Medications: Albuterol Hfa (Ventolin Hfa) 200 Puffs/29597 Mcg Aers 2 PUFFS INH Q6H PRN for SOB/Wheezing, #1 INHALER Albuterol Sulf (Proventil 0.083% 2.5MG/3ML) 2.5 Mg/3 Ml Nebu 2.5 MG INH Q4 PRN for Wheezing Alprazolam (Xanax) 1 Mg Tab 1 TAB PO HS for 30 Days, TAB Alprazolam (Xanax Xr) 1 Mg Tab 1 TAB PO DAILY for 30 Days, #30 TAB Baclofen (Lioresal) 10 Mg Tab 20 MG PO QID PRN for Muscle Spasms Benzonatate (Tessalon Perles) 100 Mg Cap 100-200 MG PO TID PRN for Cough Botulinum Toxin Type A (Botox) 200 Unit Inj 1 DOSE INJ UD INJECT INTO A LARGE MUSCLE ONCE. Budesonide/Formoterol Fumarate (Symbicort 160/4.5 Inhaler ) Aero 2 PUFFS INH BID Finasteride (Finasteride) 5 Mg Tab 5 MG PO DAILY Fish Oil ([place]-3) 1 Ea Cap 1 CAP PO DAILY WITH A MEAL Fluticasone Propionate (Nasal) (Flonase Allergy Relief) 50 Mcg/Act Spr 1 SPRAY ELIA DAILY Furosemide (Lasix) 20 Mg Tab 20 MG PO 3XWK, TAB monday, monday, monday Gabapentin (Gabapentin) 600 Mg Tab 600 MG PO TID PRN for Muscle Spasms Ipratropium-Albuterol (Duoneb) 3 Ml Nebu 1 TREATMENT INH Q4H PRN for SOB/Wheezing Levothyroxine Sodium (Levothyroxine Sodium) 50 Mcg Tab 50 MCG PO DAILY Linaclotide (Linzess) 145 Mcg Cap 145 MCG PO DAILY Multivitamins/Minerals (Mvi With Minerals) Tab 1 TAB PO DAILY Omeprazole (Prilosec) 40 Mg Cap 40 MG PO DAILY Polyethylene Glycol 3350 (Miralax) 1 Pow Pow 17 GM PO DAILY, #527 GM Probiotic Product (Probiotic) 1 Cap Cap 1 CAP PO DAILY Ranitidine (Zantac) 300 Mg Tab 300 MG PO HS Rivaroxaban (Xarelto) 20 Mg Tab 20 MG PO DAILY, TAB Sodium Fluoride (Dental) (Denta 5000 Plus) 1.1 % Cre 1 APPLN PO UD Suvorexant (Belsomra) 20 Mg Tab 20 MG PO HS PRN for Insomnia DO NOT TAKE WITH OTHER SEDATIVES OR ALCOHOL. Tadalafil (Cialis) 20 Mg Tab 20 MG PO UD, TAB Tamsulosin Hcl (Flomax) 0.4 Mg Cap 0.4 MG PO DAILY Tiotropium [place] (Spiriva Handihaler) 30 Puff/540 Mcg Aerp 1 CAP INH DAILY Trazodone Hcl (Trazodone) 50 Mg Tab 25-50 MG PO HS PRN for Sleep Vortioxetine HBr (Trintellix) 10 Mg Tab 15 MG PO DAILY 1 1/2 TABLET Zolpidem Tartrate (Ambien Cr) 12.5 Mg Tabcr 12.5 MG PO HS PRN for Insomnia DO NOT TAKE WITH BELSOMRA, XANAX, ALCOHOL, OR OTHER SEDATING MEDICATIONS. Admission Information HPI (per Admitting provider): 61 year old male who presents to the ED with back, chest, and abdominal pain and also cough. Patient was recently admitted to [facility] 06/13 - 06/18 for PE. He also had back pain and and abdominal pain during that admission as well. He was seen by pain management and patient was discharged on Percocet and Valium. He was discharged on Xarelto for his PE. Patient reports that over the past week he has had increasing lumbar back pain that is radiating around to his abdomen. He also reports worsening left sided chest pain. Both locations of pain have been constant and are worse with any type of movement. He reports the pain #5/ 10 at rest and will go to #/10/10 with movement. He reports a dry non productive cough which has made the chest pain worse as well. He denies shortness of breath. No fever or chills. No nausea, vomiting, or diarrhea. He was recently found to have urinary retention and has been straight cathing twice a day however is urinating in between caths. He reports some increased pain with urination and cloudy urine. In the ED, CXR shows BL infiltrates. He is saturating well on room air and vitals are stable. Labs are unremarkable. Patient was given IV Zosyn and IV morphine. Physical Exam (per Admitting): General Appearance: no apparent distress Head: normocephalic, atraumatic Eyes: normal inspection, sclerae normal ENT: hearing grossly normal Neck: no JVD, + pertinent finding (cervical dystonia - chronic ) Respiratory/Chest: no respiratory distress, + decreased breath sounds Cardiovascular: regular rate, rhythm, no edema, normal peripheral pulses Abdomen/GI: normal bowel sounds, soft, + tenderness (BLLQ with tenderness wrapping around the sides to the back) Back: + pertinent finding (lumbar / SI joint tenderness, BL) Extremities/Musculoskelatal: normal inspection, no calf tenderness Neurologic/Psych: no motor/sensory deficits, alert, normal mood/affect, oriented x 3 Skin: normal color, warm/dry Hospital Course This is a 61yo M with a PMH of COPD, anxiety, h/o Tonsillar cancer (2007), acquired hypothyroidism and enlarged prostate, recent hospital admission in May 2017 for acute PE on Xarelto who presents with abdominal pain with any type of movement and subsequently found to have bilateral pneumonia HCAP, Osteomyelitis, Endocarditis, Bacteremia 07/[address] Rocephin x6 weeks d/c home with home health 07/30 plan to d/c to home with home health on 6 weeks of Rocephin PICC line is in place likely d/c on 07/31 07/29 d/c planning for Monday with home health to be on Rocephin x 6 weeks PICC line ordered and placed 07/28 PICC line inserted appreciate ID input will d/c on Rocephin x 6 weeks d/c with home health 07/27 antibiotics being changed around due to osteo and endocarditis, but is also covering the pneumonia appreciate ID input plan is to keep Rocephin 2G for now; further recommendations per ID PICC line to be placed 07/26 patient is doing well with Zosyn and Vanco for now we will continue abx. as prescribed monitor CBC, check cultures - admit to med/surg - patient presenting with worsening abdominal, back, and chest pain and cough x 1 week; recently admitted to [facility] 06/13 - 06/18 for PE and discharged on Xarelto - CXR in the ED showing BL infiltrates - no signs of sepsis, saturating well on room air - s/p Zosyn in the ED, will continue with; check MRSA nasal swab and add Vanco if positive - sputum culture - PRN nebs Possible Endocarditis echo performed due to positive blood cultures; Osteomyelitis appreciate cardiology input, consulted them for further management ID for abx. PICC line ABDOMINAL, BACK, AND CHEST PAIN 07/26 CT chest suggested inflammation at the thoracic spine will check Thoracic spine MRI with contrast to r/o osteomyelitis continue Baclofen and Gabapentin Percocet PRN, Voltaren gel appreciate pain management input - seems to be a chronic issue for the patient - currently saturating well on room air, no tachycardia, and has been compliant with Xarelto - low suspicion for recurrent PE; EKG without acute ST changes - had extensive imaging during last admission without any acute findings and was evaluated by pain management - was discharged on Valium and Percocet however stopped Valium after 1 week0 - will resume Valium and Percocet (hold other home sedating medications - Ambien , Xanax, Trazodone, Belsomra) - continue home Baclofen and gabapentin (noted patient taking PRN) - pain management consult HX PE - continue Xarelto URINARY RETENTION, BPH - continue PRN straight cath - patient reports dysuria, U/A does not suggest UTI; checking culture HX VSD - following with cardio as an outpatient - schedule for repeat echo COPD - no signs of acute exacerbation - continue home inhalers DVT PROPHYLAXIS - on Xarelto DISPO - In my clinical judgment this beneficiary meets acute admission criteria, established by [facility], that includes being hospitalized through two midnights. Total time spent on discharge = 45 minutes This includes examination of the patient, discharge planning, medication reconciliation, and communication with other providers. Discharge Instructions Please follow-up with Dr. Marcin Joy on August 04 at 1:05PM * You will be on Rocephin for 6 weeks * follow-up with infectious disease, Dr. Cunningham
[2017-07-31] MEDS: CEFTRIAXONE SOD INJ 2,000 MG in DEXTROSE 5% 50ML 50 ML IV SCH (16:00)
[2017-07-31] MEDS: RIVAROXABAN 20 MG TAB PO SCH (16:11)
[2017-07-31 16:18] VITALS: BP 113/78; PULSE 77; TEMP 36.7; O2SAT 97
== END 2017-07-31 18:02 | disposition home health service (06) | DRG 539 ==
LOC: C.EDB 12:40 → C.MS4W 15:54 → ENRESERV 16:28
PROVIDERS: ADMIT Internal Medicine; ATTEND Family Medicine
PROC: 02HV33Z Insertion of Infusion Device into Superior Vena Cava, Percutaneous Approach (ICD-10-PCS; principal; 2017-07-28)
DX: M46.24 Osteomyelitis of vertebra, thoracic region (principal); J18.9 Pneumonia, unspecified organism; I38 Endocarditis, valve unspecified; R78.81 Bacteremia; G24.8 Other dystonia; N39.0 Urinary tract infection, site not specified; M46.44 Discitis, unspecified, thoracic region; J44.9 Chronic obstructive pulmonary disease, unspecified; F32.9 Major depressive disorder, single episode, unspecified; K21.9 Gastro-esophageal reflux disease without esophagitis; N40.1 Benign prostatic hyperplasia with lower urinary tract symptoms; E03.9 Hypothyroidism, unspecified; Z85.89 Personal history of malignant neoplasm of other organs and systems; Z87.74 Personal history of (corrected) congenital malformations of heart and circulatory system; Z87.891 Personal history of nicotine dependence; D64.9 Anemia, unspecified; Z86.711 Personal history of pulmonary embolism; B95.4 Other streptococcus as the cause of diseases classified elsewhere; I10 Essential (primary) hypertension; Z92.3 Personal history of irradiation; Z79.01 Long term (current) use of anticoagulants

== ENCOUNTER → 2017-08-05 | Outpatient (CLI) | payer OTHER ==
[~2017-08-05] MED LIST changes: +ALPR-385 PO; +ALPR1TAB PO; +CEFT2INJ40 IV; +FURO-85 PO; -OXYC-57 PO; +POLY335019 PO; +RIVA1TAB4 PO; -VLM5 PO; +VNTHFA/IN INH; -XRL15 PO
[2017-08-05 12:03] LABS: HEMATOCRIT 37.3 % (42-52); MEAN CELL VOLUME 86.1 fL (80-100); MEAN CORPUSCULAR HEMOGLOBIN 28.4 pg (25-34); MEAN PLATELET VOLUME 9.8 fL (7.4-10.4); PLATELET COUNT 335 K/uL (130-400); RED BLOOD COUNT 4.33 M/uL (4.7-6.1); WHITE BLOOD COUNT 6.74 K/uL (4.8-10.8)
[2017-08-05 12:11] LABS: ALT/SGPT 22 U/L (12-78); BLOOD UREA NITROGEN 12 mg/dl (7-18); BUN/CREATININE RATIO 16.8 (10-20); C-REACTIVE PROTEIN 2.14 mg/dl (0-0.29); CALCIUM 9.1 mg/dl (8.5-10.1); CARBON DIOXIDE 27 mmol/L (21-32); CHLORIDE 106 mmol/L (98-107); CREATININE 0.72 mg/dl (0.60-1.40); GLUCOSE 116 mg/dl (70-99); SODIUM 139 mmol/L (136-145)
[2017-08-05 12:14] LABS: ALB/GLOB RATIO 0.8 (0.9-2); ALKALINE PHOSPHATASE 133 U/L (45-117); AST/SGOT 14 U/L (15-37)
== END | disposition home or self-care (01) ==
LOC: C.LABSPEC 15:41
PROVIDERS: ATTEND Internal Medicine Infectious Disease
DX: Z79.2 Long term (current) use of antibiotics (principal); Z51.81 Encounter for therapeutic drug level monitoring

== ENCOUNTER → 2017-08-10 | Outpatient (CLI) | payer OTHER ==
[2017-08-10 10:40] LABS: HEMATOCRIT 35.8 % (42-52); MEAN CELL VOLUME 86.5 fL (80-100); MEAN CORPUSCULAR HEMOGLOBIN 28.5 pg (25-34); MEAN PLATELET VOLUME 10.2 fL (7.4-10.4); PLATELET COUNT 269 K/uL (130-400); RED BLOOD COUNT 4.14 M/uL (4.7-6.1); WHITE BLOOD COUNT 4.88 K/uL (4.8-10.8)
[2017-08-10 10:43] LABS: ALT/SGPT 27 U/L (12-78); AST/SGOT 20 U/L (15-37); BLOOD UREA NITROGEN 15 mg/dl (7-18); BUN/CREATININE RATIO 22.6 (10-20); CALCIUM 8.7 mg/dl (8.5-10.1); CARBON DIOXIDE 30 mmol/L (21-32); CHLORIDE 109 mmol/L (98-107); CREATININE 0.67 mg/dl (0.60-1.40); GLUCOSE 86 mg/dl (70-99); POTASSIUM 4.2 mmol/L (3.5-5.1); SODIUM 143 mmol/L (136-145)
[2017-08-10 10:45] LABS: ALB/GLOB RATIO 0.8 (0.9-2); ALKALINE PHOSPHATASE 128 U/L (45-117); C-REACTIVE PROTEIN 1.42 mg/dl (0-0.29)
== END | disposition home or self-care (01) ==
LOC: C.LABSPEC 10:06
PROVIDERS: ATTEND Internal Medicine Infectious Disease
DX: Z79.2 Long term (current) use of antibiotics (principal)

== ENCOUNTER → 2017-08-15 | Outpatient (CLI) | payer OTHER | END | disposition home or self-care (01) | LOC: C.RDSM 15:27 | PROVIDERS: ATTEND Physical Medicine & Rehabilitation Sports Medicine | DX: M25.512 Pain in left shoulder (principal) ==

== ENCOUNTER → 2017-08-17 | Outpatient (CLI) | payer OTHER ==
[2017-08-17 11:34] LABS: HEMATOCRIT 36.8 % (42-52); MEAN CELL VOLUME 86.4 fL (80-100); MEAN CORPUSCULAR HEMOGLOBIN 28.4 pg (25-34); MEAN CORPUSCULAR HGB CONC 32.9 g/dl (32-36); MEAN PLATELET VOLUME 10.6 fL (7.4-10.4); PLATELET COUNT 238 K/uL (130-400); RED BLOOD COUNT 4.26 M/uL (4.7-6.1); WHITE BLOOD COUNT 5.09 K/uL (4.8-10.8)
[2017-08-17 11:40] LABS: ALT/SGPT 41 U/L (12-78); BLOOD UREA NITROGEN 14 mg/dl (7-18); BUN/CREATININE RATIO 19.4 (10-20); C-REACTIVE PROTEIN < 0.29 mg/dl (0-0.29); CALCIUM 9.1 mg/dl (8.5-10.1); CARBON DIOXIDE 29 mmol/L (21-32); CHLORIDE 107 mmol/L (98-107); CREATININE 0.73 mg/dl (0.60-1.40); GLUCOSE 80 mg/dl (70-99); SODIUM 140 mmol/L (136-145)
[2017-08-17 11:43] LABS: ALKALINE PHOSPHATASE 113 U/L (45-117); AST/SGOT 24 U/L (15-37)
--- NOTE | 2017-08-21 14:51 | CODING QUERY NO DIAGNOSIS ---
Valid Physician Order Needed A valid physician order must be submitted in order to properly bill for the service(s) provided, including date of service(s), valid diagnosis, and physician signature. If these tests are done on a recurring basis the original physican order must be submitted in order to code and bill for the service(s) provided. Please fax us the original, signed physician order so that we may expedite billing to [phone] DOS 08/17/2017 * CMP * C-REACTIVE PROTEIN * CBC W/O DIFF * ERYTHROCYTE SEDIMENTATION RATE Thank you [facility] Information Management
== END | disposition home or self-care (01) ==
LOC: C.LABSPEC 10:56
PROVIDERS: ATTEND Internal Medicine Infectious Disease
DX: Z51.81 Encounter for therapeutic drug level monitoring (principal); Z79.2 Long term (current) use of antibiotics

== ENCOUNTER 2017-08-24 09:34 | Emergency (ER) | payer OTHER ==
[~2017-08-24] VITALS: Ht 185.4 cm; Wt 98.0 kg
[2017-08-24 09:36] VITALS: TEMP 36.5; Ht 185.4 cm; Wt 98.0 kg
--- NOTE | 2017-08-24 10:10 | DIAGNOSTIC IMAGING REPORT ---
CHEST ONE VIEW PORTABLE CLINICAL HISTORY: Evaluate Fever/Sepsis cough COMPARISON STUDY: 07/24/2017 FINDINGS: Moderate cardiomegaly. Right-sided PICC catheter is in the superior vena cava. No evidence pneumothorax. Prominent bilateral parenchymal markings of the mid to lower lung regions bilaterally. IMPRESSION: 1. PICC line in good position with no evidence for pneumothorax. 2. Prominent parenchymal markings of the mid to lower lung regions bilaterally. The above report was generated using voice recognition software. It may contain grammatical, syntax or spelling errors. Electronically signed by: Helio Salcido M.D. 08/24/2017 10:08 AM Dictated Date/Time: 08/24/2017 10:07 AM
[2017-08-24] MEDS ORDERED: CEFT2INJ40 IV (10:25)
[2017-08-24 10:29] LABS: BASO % 0.1 %; BASO ABS # 0.01 K/uL (0-0.2); COMPLETE YES; EOS % 0.6 %; HEMATOCRIT 37.3 % (42-52); IG% 0.2 %; LYMPH % 10.3 %; LYMPH ABS # 0.96 K/uL (1.2-3.4); MEAN CELL VOLUME 86.3 fL (80-100); MEAN CORPUSCULAR HEMOGLOBIN 28.2 pg (25-34); MEAN CORPUSCULAR HGB CONC 32.7 g/dl (32-36); MEAN PLATELET VOLUME 10.3 fL (7.4-10.4); MONO % 10.3 %; NEUT % 78.5 %; PLATELET COUNT 234 K/uL (130-400); RED BLOOD COUNT 4.32 M/uL (4.7-6.1); WHITE BLOOD COUNT 9.35 K/uL (4.8-10.8)
[2017-08-24 10:40] LABS: INR 1.1 (0.9-1.1); PARTIAL THROMBOPLASTIN RATIO 1.5
[2017-08-24 10:50] LABS: ALT/SGPT 28 U/L (12-78); AST/SGOT 19 U/L (15-37); BLOOD UREA NITROGEN 17 mg/dl (7-18); BUN/CREATININE RATIO 20.1 (10-20); CALCIUM 8.7 mg/dl (8.5-10.1); CARBON DIOXIDE 28 mmol/L (21-32); CHLORIDE 105 mmol/L (98-107); CREATININE 0.83 mg/dl (0.60-1.40); GLUCOSE 112 mg/dl (70-99); POTASSIUM 3.8 mmol/L (3.5-5.1); SODIUM 138 mmol/L (136-145)
[2017-08-24 11:01] LABS: ALKALINE PHOSPHATASE 156 U/L (45-117); CKMB/CK RATIO 1.6 (0-3.0)
[2017-08-24 11:33] VITALS: O2SAT 97
--- NOTE | 2017-08-24 12:16 | EMERGENCY ROOM VISIT NOTE ---
History Report prepared by Dandy: Isaak Griffin Under the Supervision of: Dr. Dakota Vega D.O. First contact with patient: 09:47 Chief Complaint: CHEST PAIN Stated Complaint: PICC LINE ISSUES Nursing Triage Summary: Pt presented c/o PICC line clotted, receiving ABX at home for endocarditis. Recent dx of PE. Pt verbalizes while in triage he also has been lethargic, been having fevers/chills, and has had CP x2 days 06/08. History of Present Illness The patient is a 62 year old male with a history of endocarditis and osteomyelitis who presents to the Emergency Room with complaints of persistent upper chest pain that started a couple days ago. He says that he still currently has the chest pain. The patient adds that he has been short of breath as well if he stands up, and he breathes better when laying down. The patient notes that he has also felt weak the past few days, and is overall not feeling well. He says that he was hospitalized in early April, and was diagnosed with osteomyelitis, endocarditis, and discitis, and was treated for double pneumonia at that time as well. He was discharged with a PICC line and has been on antibiotics ever since. The patient says that for the past week, he has had trouble with the PICC line, and his nurses have had to move around the PICC line to a certain position to get the line to work. Source of History: patient Onset: A couple days ago Position: chest (upper) Timing: other (persistent) Associated Symptoms: + SOB, + weakness Note: Associated symptoms: PICC line difficulties for past week. Review of Systems See HPI for pertinent positives & negatives. A total of 10 systems reviewed and were otherwise negative. Past Medical & Surgical Medical Problems: (1) Anxiety (2) COPD (chronic obstructive pulmonary disease) (3) Depression (4) Enlarged prostate (5) GERD (gastroesophageal reflux disease) (6) Hypothyroidism (7) Tonsil cancer (8) Urinary retention (9) VSD (ventricular septal defect) Surgical Problems: (1) H/O arthroscopy of shoulder (2) H/O umbilical hernia repair (3) History of carpal tunnel release (4) History of tonsillectomy and adenoidectomy (5) Right ankle surgery (6) S/P left knee arthroscopy (7) S/P right knee arthroscopy (8) S/P TURP Social History Problems: (1) COPD exacerbation (2) H/O gastroesophageal reflux (GERD) (3) H/O laryngeal cancer (4) S/P hernia repair (5) VSD (ventricular septal defect) Family History Diabetes mellitus MOTHER FH: stomach cancer FATHER Social History Smoking Status: Former Smoker Alcohol Use: occasionally Marital Status: Housing Status: lives with significant other Occupation Status: employed Current/Historical Medications Scheduled Alprazolam (Xanax), 1 TAB PO HS Alprazolam (Xanax Xr), 1 TAB PO DAILY Baclofen (Lioresal), 20 MG PO QID Budesonide/Formoterol Fumarate (Symbicort 160/4.5 Inhaler ), 2 PUFFS INH BID Ceftriaxone Sodium (Ceftriaxone Sodium), 2 GM IV DAILY Finasteride (Finasteride), 5 MG PO DAILY Fish Oil ([place]-3), 1 CAP PO DAILY Fluticasone Propionate (Nasal) (Flonase Allergy Relief), 1 SPRAY ELIA DAILY Furosemide (Lasix), 20 MG PO DAILY Gabapentin (Gabapentin), 600 MG PO TID Levothyroxine Sodium (Levothyroxine Sodium), 50 MCG PO DAILY Linaclotide (Linzess), 145 MCG PO DAILY Multivitamins/Minerals (Mvi With Minerals), 1 TAB PO DAILY Omeprazole (Prilosec), 40 MG PO DAILY Polyethylene Glycol 3350 (Miralax), 17 GM PO BID Probiotic Product (Probiotic), 1 CAP PO DAILY Ranitidine (Zantac), 300 MG PO HS Rivaroxaban (Xarelto), 20 MG PO HS Sodium Fluoride (Dental) (Denta 5000 Plus), 1 APPLN PO UD Tadalafil (Cialis), 20 MG PO UD Tamsulosin Hcl (Flomax), 0.4 MG PO DAILY Tiotropium [place] (Spiriva Handihaler), 1 CAP INH DAILY Trazodone Hcl (Trazodone), 150 MG PO HS Vortioxetine HBr (Trintellix), 15 MG PO DAILY Zolpidem Tartrate (Ambien Cr), 12.5 MG PO HS Scheduled PRN Albuterol Hfa (Ventolin Hfa), 2 PUFFS INH Q6H PRN for SOB/Wheezing Albuterol Sulf (Proventil 0.083% 2.5MG/3ML), 2.5 MG INH Q4 PRN for Wheezing Benzonatate (Tessalon Perles), 100-200 MG PO TID PRN for Cough Ipratropium-Albuterol (Duoneb), 1 TREATMENT INH Q4H PRN for SOB/Wheezing Suvorexant (Belsomra), 20 MG PO HS PRN for Insomnia Allergies Coded Allergies: Statins (Verified Adverse Reaction, Intermediate, GI UPSET, 08/24/17) Temazepam (Verified Adverse Reaction, Unknown, LOSES VOLUNTARY MUSCLE CONTROL, 08/24/17) Physical Exam Vital Signs Date Time Temp Pulse Resp B/P (MAP) Pulse Ox O2 Delivery O2 Flow Rate FiO2 08/24/17 12:02 80 08/24/17 11:39 84 18 118/76 95 Room Air 08/24/17 11:33 97 Nasal Cannula 2.0 08/24/17 09:36 36.5 86 18 117/69 95 Room Air Physical Exam CONSTITUTIONAL/VITAL SIGNS: Reviewed / noted above. GENERAL: Non-toxic in appearance. INTEGUMENTARY: Warm, dry, and [place]. HEAD: Normocephalic. EYES: without scleral icterus or trauma. ENT/OROPHARYNX: clear and moist. LYMPHADENOPATHY/NECK: Is supple without lymphadenopathy or meningismus. RESPIRATORY: Lungs clear and equal. CARDIOVASCULAR: Regular rate and rhythm. Systolic ejection murmur (history of VSD). GI/ABDOMEN: Soft and nontender. No organomegaly or pulsatile mass. No rebound or guarding. Normal bowel sounds. EXTREMITIES: Warm and well perfused. BACK: No CVA tenderness. NEUROLOGICAL: Intact without focal deficits. PSYCHIATRIC: normal affect. MUSCULOSKELETAL: Normally developed with good muscle tone. Medical Decision & Procedures ER Provider Diagnostic Interpretation: X ray results and stated below per my interpretation and radiology interpretation. CHEST ONE VIEW PORTABLE CLINICAL HISTORY: Evaluate Fever/Sepsis cough COMPARISON STUDY: 07/24/2017 FINDINGS: Moderate cardiomegaly. Right-sided PICC catheter is in the superior vena cava. No evidence pneumothorax. Prominent bilateral parenchymal markings of the mid to lower lung regions bilaterally. IMPRESSION: 1. PICC line in good position with no evidence for pneumothorax. 2. Prominent parenchymal markings of the mid to lower lung regions bilaterally. The above report was generated using voice recognition software. It may contain grammatical, syntax or spelling errors. Electronically signed by: Helio Salcido M.D. 08/24/2017 10:08 AM Dictated Date/Time: 08/24/2017 10:07 AM Laboratory Results 08/24/17 10:05 Red Blood Count 4.32, Mean Corpuscular Volume 86.3, Mean Corpuscular Hemoglobin 28.2, Mean Corpuscular Hemoglobin Concent 32.7, Mean Platelet Volume 10.3, Neutrophils (%) (Auto) 78.5, Lymphocytes (%) (Auto) 10.3, Monocytes (%) (Auto) 10.3, Eosinophils (%) (Auto) 0.6, Basophils (%) (Auto) 0.1, Neutrophils # (Auto ) 7.34, Lymphocytes # (Auto) 0.96, Monocytes # (Auto) 0.96, Eosinophils # (Auto ) 0.06, Basophils # (Auto) 0.01 08/24/17 10:05 Test 08/24/17 10:05 White Blood Count 9.35 K/uL (4.8-10.8) Red Blood Count 4.32 M/uL (4.7-6.1) Hemoglobin 12.2 g/dL (14.0-18.0) Hematocrit 37.3 % (42-52) Mean Corpuscular Volume 86.3 fL (80-100) Mean Corpuscular Hemoglobin 28.2 pg (25-34) Mean Corpuscular Hemoglobin Concent 32.7 g/dl (32-36) Platelet Count 234 K/uL (130-400) Mean Platelet Volume 10.3 fL (7.4-10.4) Neutrophils (%) (Auto) 78.5 % Lymphocytes (%) (Auto) 10.3 % Monocytes (%) (Auto) 10.3 % Eosinophils (%) (Auto) 0.6 % Basophils (%) (Auto) 0.1 % Neutrophils # (Auto) 7.34 K/uL (1.4-6.5) Lymphocytes # (Auto) 0.96 K/uL (1.2-3.4) Monocytes # (Auto) 0.96 K/uL (0.11-0.59) Eosinophils # (Auto) 0.06 K/uL (0-0.5) Basophils # (Auto) 0.01 K/uL (0-0.2) RDW Standard Deviation 47.9 fL (36.4-46.3) RDW Coefficient of Variation 15.0 % (11.5-14.5) Immature Granulocyte % (Auto) 0.2 % Immature Granulocyte # (Auto) 0.02 K/uL (0.00-0.02) Prothrombin Time 12.0 SECONDS (9.0-12.0) Prothromb Time International Ratio 1.1 (0.9-1.1) Activated Partial Thromboplast Time 38.7 SECONDS (21.0-31.0) Partial Thromboplastin Ratio 1.5 Anion Gap 5.0 mmol/L (3-11) Est Creatinine Clear Calc Drug Dose 115.2 ml/min Estimated GFR () 110.1 Estimated GFR (Non- 95.0 BUN/Creatinine Ratio 20.1 (10-20) Calcium Level 8.7 mg/dl (8.5-10.1) Total Bilirubin 1.0 mg/dl (0.2-1) Direct Bilirubin 0.3 mg/dl (0-0.2) Aspartate Amino Transf (AST/SGOT) 19 U/L (15-37) Alanine Aminotransferase (ALT/SGPT) 28 U/L (12-78) Alkaline Phosphatase 156 U/L (45-117) Total Creatine Kinase 37 U/L (39-308) Creatine Kinase MB 0.6 ng/ml (0.5-3.6) Creatine Kinase MB Ratio 1.6 (0-3.0) Troponin I < 0.015 ng/ml (0-0.045) Total Protein 7.5 gm/dl (6.4-8.2) Albumin 3.3 gm/dl (3.4-5.0) Lipase 78 U/L (73-393) Thyroid Stimulating Hormone (TSH) 1.790 uIu/ml (0.300-4.500) Laboratory results as stated above per my review. ECG Indication: chest pain Rate (beats per minute): 83 Rhythm: sinus rhythm Findings: PVC, other (no acute injury) ED Course 0954: Previous medical records were reviewed. The patient was evaluated in room B5. A complete history and physical examination was performed. 1200: On reevaluation, the patient is resting comfortably. I discussed the results and findings with the patient. He verbalized agreement of the treatment plan. He was discharged home. Medical Decision Differentials considered include acute myocardial infarction, acute coronary syndrome, myocarditis, pericarditis, pericardial effusions /tamponade, esophageal perforation, thoracic aortic dissection, pulmonary embolism, pneumonia, pneumothorax, pancreatitis, shingles, acute cholecystitis, and perforated abdominal viscus. This is a 62-year-old male who presents to the ED with a chief complaint of overall just not feeling well. The patient also reported some upper chest pain. He was wondering if it could be related to his PICC line. The patient has had increased weakness and also a little shortness of breath. He states that his symptoms seem to be worse when he is standing and seems to be improved when he is sitting. The patient is currently receiving IV antibiotics for endocarditis, osteomyelitis and discitis. This will terminate on September 10. The patient has a PICC line in his right upper extremity. The patient's physical exam was unremarkable. The PICC line was used by nursing staff here without difficulty. The , who showed up later, reported that the PICC line was giving her some trouble over the weekend. The patient also, according to the , has had a little bit of a runny nose and a slight cough. She is also had some similar symptoms. She feels that he might be coming down with a virus. EKG shows a sinus rhythm at a rate of 83 with some PVCs. CBC was unremarkable, complete metabolic panel was unremarkable, troponin is negative, TSH was normal, chest x-ray reveals some prominent in the bilateral parenchymal markings. There is no clear cut pneumonia on clinical exam or based on complaint. The patient is currently on IV antibiotics daily. The patient was told the results of the test. Dr. Cunningham was aware that the patient was coming here. He was referred to the ED by him. The patient was told to contact Dr. Cunningham for follow-up. They will return for any concerns or worsening. Medication Reconcilliation Current Medication List: was personally reviewed by me Blood Pressure Screening Patient's blood pressure: Normal blood pressure Impression Primary Impression: Substernal precordial chest pain Additional Impressions: Weakness Viral URI Scribe Attestation The scribe's documentation has been prepared under my direction and personally reviewed by me in its entirety. I confirm that the note above accurately reflects all work, treatment, procedures, and medical decision making performed by me. Departure Information Dispostion Home / Self-Care Referrals Cricket Cunningham MD (PCP) Patient Instructions My [facility] Additional Instructions Follow-up with your doctor for further care and evaluation in 1-2 days. Return to the emergency department for worsening or new symptoms or any concerns. You have been examined and treated today on an emergency basis only. This is not a substitute for, or an effort to provide, complete comprehensive medical care. It is impossible to recognize and treat all injuries or illnesses in a single emergency department visit. It is therefore important that you follow up closely with your doctor. Call as soon as possible for an appointment. Problem Qualifiers
[2017-08-24 13:06] VITALS: BP 105/65; PULSE 83; O2SAT 95
== END 2017-08-24 13:25 | disposition home or self-care (01) ==
LOC: C.EDB 09:35
DX: R07.2 Precordial pain (principal); R53.1 Weakness; J06.9 Acute upper respiratory infection, unspecified; F41.9 Anxiety disorder, unspecified; J44.9 Chronic obstructive pulmonary disease, unspecified; F32.9 Major depressive disorder, single episode, unspecified; N40.0 Benign prostatic hyperplasia without lower urinary tract symptoms; K21.9 Gastro-esophageal reflux disease without esophagitis; E03.9 Hypothyroidism, unspecified; Q21.0 Ventricular septal defect; Z83.3 Family history of diabetes mellitus; Z87.891 Personal history of nicotine dependence

== ENCOUNTER → 2017-08-28 | Outpatient (CLI) | payer OTHER ==
[~2017-08-28] MED LIST changes: -BTLAI200 INJ; +GADAVIST IV PRN
--- NOTE | 2017-08-28 10:11 | DIAGNOSTIC IMAGING REPORT ---
MRI OF THE THORACIC SPINE COMBO CLINICAL HISTORY: Osteomyelitis. History of endocarditis. COMPARISON STUDY: MRI of the thoracic spine dated 07/26/2017. CT scan of the chest dated 07/26/2017. Abdominal CT dated 06/14/2017. TECHNIQUE: MRI of the thoracic spine is performed using various T1 and T2-weighted sequences in the axial and sagittal planes. Contrast enhanced sequences were acquired following the IV administration of 10 cc of Gadavist. The examination is degraded by spinal scoliosis and mild motion artifact. FINDINGS: Vertebral body height and alignment are maintained throughout the thoracic spine. There is moderate dextrocurvature. Again seen is marked marrow edema within the bodies of T4 and T5. There is associated nonspecific abnormal enhancement as well as irregularity of the endplates. Fluid within the T4-T5 disc space appears improved as compared to 07/26/2017. Mild paravertebral edema and nonspecific paravertebral enhancement at this level persists. There is no evidence of epidural abscess at this level or within the thoracic central canal. Normal marrow signal intensity is preserved throughout the remaining thoracic levels noting mild heterogeneity. The spinous processes appear intact. Mild chronic degenerative endplate change is seen at T7-T8 and T11-T12. There is degenerative disc desiccation and loss of height throughout the thoracic spine. No large disc herniation or significant acquired compromise the central canal is seen. There is no high-grade neural foraminal stenosis throughout the thoracic spine. A 1.5 cm nerve sheath cyst is again seen within the right neural foramen at T7-T8. Marked endplate edema is suggested within the bodies of L3 and L4 on the line haul driver series. This appears new from previous. Additionally, there is new dense right apical airspace consolidation. IMPRESSION: 1. Again seen is marked endplate edema with nonspecific abnormal enhancement, endplate irregularity, and paravertebral edema at T4-T5. This has modestly improved from 07/26/2017. The appearance remains highly suspicious for persistent osteomyelitis, possibly chronic. 2. No additional significant abnormality is identified within the thoracic region noting scoliosis. 3. Findings are highly concerning for developing discitis/osteomyelitis involving L3-L4 which is only visualized on the line haul driver sequence. This represents a significant change from the 06/14/[address] scan. 4. There is dense airspace consolidation at the right apex, new from previous. The appearance is concerning for pneumonia, and could be related to septic emboli given the history of endocarditis. 5. The thoracic spinal cord is normal in morphology and signal intensity. Electronically signed by: Jeff Amaya M.D. 08/28/2017 10:10 AM Dictated Date/Time: 08/28/2017 9:54 AM
== END | disposition home or self-care (01) ==
LOC: C.MRI 08:34
PROVIDERS: ATTEND Internal Medicine Infectious Disease
DX: M46.24 Osteomyelitis of vertebra, thoracic region (principal)

== ENCOUNTER → 2017-09-07 | Outpatient (CLI) | payer OTHER ==
[~2017-09-07] MED LIST changes: -GADAVIST IV PRN
[2017-09-07 13:27] LABS: HEMATOCRIT 37.3 % (42-52); MEAN CELL VOLUME 86.3 fL (80-100); MEAN CORPUSCULAR HEMOGLOBIN 28.5 pg (25-34); MEAN PLATELET VOLUME 10.2 fL (7.4-10.4); PLATELET COUNT 317 K/uL (130-400); RED BLOOD COUNT 4.32 M/uL (4.7-6.1); WHITE BLOOD COUNT 10.75 K/uL (4.8-10.8)
[2017-09-07 13:57] LABS: ALB/GLOB RATIO 0.9 (0.9-2); ALKALINE PHOSPHATASE 124 U/L (45-117); ALT/SGPT 26 U/L (12-78); AST/SGOT 16 U/L (15-37); BLOOD UREA NITROGEN 19 mg/dl (7-18); BUN/CREATININE RATIO 24.5 (10-20); CALCIUM 8.8 mg/dl (8.5-10.1); CARBON DIOXIDE 28 mmol/L (21-32); CHLORIDE 104 mmol/L (98-107); CREATININE 0.77 mg/dl (0.60-1.40); GLUCOSE 133 mg/dl (70-99); POTASSIUM 3.9 mmol/L (3.5-5.1); SODIUM 137 mmol/L (136-145)
[2017-09-07 13:58] LABS: C-REACTIVE PROTEIN 0.32 mg/dl (0-0.29)
== END | disposition home or self-care (01) ==
LOC: C.LABSPEC 13:08
PROVIDERS: ATTEND Internal Medicine Infectious Disease
DX: Z79.2 Long term (current) use of antibiotics (principal)

== ENCOUNTER → 2017-10-03 | Outpatient (CLI) | payer OTHER ==
[~2017-10-03] MED LIST changes: +GADAVIST IV PRN
--- NOTE | 2017-10-03 14:48 | DIAGNOSTIC IMAGING REPORT ---
THORACIC SPINE COMBO HISTORY: 62 years-old Male M46.24 acute gait disturbance with history of discitis osteomyelitis at T4-T5. COMPARISON: Thoracic spine MR 08/28/2017 TECHNIQUE: Multiplanar multisequence MRI of the thoracic spine was obtained both with and without the use of 10 mL Gadavist FINDINGS: Mild dextroscoliosis of the thoracic spine. There is extensive bone marrow edema again seen at T4-T5 with associated endplate irregularity and mild intervertebral disc space narrowing. No vertebral body height collapse. There is decreased T1 signal within this distribution with avid enhancement. There is mild edema and enhancement of the surrounding paravertebral soft tissues at this level without associated epidural fluid collection or well loculated abscess identified. Findings appear generally stable from comparison study 08/28/2017. No significant central canal or foraminal narrowing at this level. No additional evidence of discitis osteomyelitis. Mild bone marrow edema at T7-T8 nicely seen on image 9 series 6 is likely associated with Modic type I endplate degenerative changes. Intervertebral disc space narrowing is seen at C6-C7 and also at T11-T12. Broad-based posterior disc osteophyte complex at T11-T12 with mild facet arthrosis is noted causing mild central canal and mild left foraminal narrowing. The right foramen is patent. Mild multilevel facet arthrosis and posterior spondylitic spurring. Signal within the cord is within normal limits. Conus medullaris appears to terminate at L1. Probable perineural root sleeve cyst seen on the right at T7-T8 measuring 1.3 cm nicely seen on image 5 series 6. No abnormal intra-abdominal, intrapelvic or paraspinal abnormality otherwise identified. IMPRESSION: 1. Extensive bone marrow edema with endplate irregularity and avid enhancement is again seen at the T4-T5 level with mild enhancing paravertebral edema suggesting chronic discitis/osteomyelitis. No epidural abscess or vertebral body collapse. 2. Mild endplate edema at T7-T8 suggests Modic type I endplate degenerative changes. No evidence for discitis osteomyelitis at additional thoracic levels. 3. 1.3 cm perineural root sleeve cyst incidentally noted on the right at T7-T8. 4. Posterior spondylitic spurring with intervertebral disc space narrowing and mild facet arthrosis at T11-T12 causes mild central canal and mild left foraminal narrowing. The above report was generated using voice recognition software. It may contain grammatical, syntax or spelling errors. Electronically signed by: Humphrey Velez M.D. 10/03/2017 2:46 PM Dictated Date/Time: 10/03/2017 2:29 PM
== END | disposition home or self-care (01) ==
LOC: C.MRI 12:53
PROVIDERS: ATTEND Internal Medicine Infectious Disease
DX: M46.24 Osteomyelitis of vertebra, thoracic region (principal)

== ENCOUNTER → 2017-10-04 | Outpatient (CLI) | payer OTHER ==
[~2017-10-04] MED LIST changes: +BTLAI200 INJ; -GADAVIST IV PRN
--- NOTE | 2017-10-04 12:52 | DIAGNOSTIC IMAGING REPORT ---
CHEST 2 VIEWS ROUTINE CLINICAL HISTORY: R06.02 Shortness of [id number] COMPARISON STUDY: 08/24/2017 FINDINGS: The cardiac and mediastinal contours are normal. There is no evidence of focal pulmonary consolidation. There is no evidence of failure. No pleural effusions are visualized.[There is a thoracolumbar scoliosis. The right-sided PICC catheter has been removed. IMPRESSION: No active disease in the chest. Electronically signed by: David Shaw M.D. 10/04/2017 12:51 PM Dictated Date/Time: 10/04/2017 12:50 PM
== END | disposition home or self-care (01) ==
LOC: C.RAD1850 12:43
PROVIDERS: ATTEND Physician Assistant
DX: R06.02 Shortness of breath (principal)

== ENCOUNTER 2017-10-13 11:14 | Emergency (ER) | payer OTHER ==
[~2017-10-13 11:14] MED LIST changes: -BTLAI200 INJ
[2017-10-13 11:23] VITALS: Ht 185.4 cm
[2017-10-13] MEDS ORDERED: ONDANSETRON INJ 2 MG/ML 2 ML VIAL IV STA (11:45)
[2017-10-13] MEDS ORDERED: MoRPHine SULFATE 10 MG/ML CARP/VIAL IV STA (11:45)
--- NOTE | 2017-10-13 12:50 | DIAGNOSTIC IMAGING REPORT ---
LUMBAR SPINE WITHOUT CT DOSE: 2883.17 mGy.cm HISTORY: Trauma. Pain. Back/pelvic/L hip pain s/p fall TECHNIQUE: Multiaxial CT images of the lumbar spine were performed and reformatted in the sagittal and coronal plane without the use of contrast. A dose lowering technique was utilized adhering to the principles of ALARA. COMPARISON: None. FINDINGS: Severe degenerative disc change throughout the entire lumbar region. Reactive sclerosis as well as erosive changes involving the vertebral endplates at L2-L3 L3-L4 and L4-L5. Vacuum disc are identified at L4-L5 and L5-S1. No evidence for compression deformity. No evidence for subluxation. Posterior elements show moderate degenerative changes of posterior facets although no fractures identified. IMPRESSION: Considerable degenerative change. No acute process. The above report was generated using voice recognition software. It may contain grammatical, syntax or spelling errors. Electronically signed by: Helio Salcido M.D. 10/13/2017 12:48 PM Dictated Date/Time: 10/13/2017 12:46 PM
--- NOTE | 2017-10-13 12:53 | DIAGNOSTIC IMAGING REPORT ---
THORACIC SPINE WITHOUT CT DOSE: HISTORY: Trauma. Pain. Back/pelvic/L hip pain s/p fall TECHNIQUE: Multiaxial CT images of the thoracic spine were performed and reformatted in the sagittal and coronal plane without the use of contrast. A dose lowering technique was utilized adhering to the principles of ALARA. COMPARISON: None. FINDINGS: Considerable degenerative disc change throughout. Significant thoracic scoliosis. No evidence for compression deformity. Posterior lungs are intact throughout. IMPRESSION: Considerable degenerative disc change throughout the entire thoracic region. Scoliosis. No acute process. The above report was generated using voice recognition software. It may contain grammatical, syntax or spelling errors. Electronically signed by: Helio Salcido M.D. 10/13/2017 12:51 PM Dictated Date/Time: 10/13/2017 12:49 PM
--- NOTE | 2017-10-13 13:00 | DIAGNOSTIC IMAGING REPORT ---
PELVIS NO IV/ORAL CONT (CT) HISTORY: 62 years-old Male Back/pelvic/L hip pain s/p fall acute back and pelvic pain status post fall COMPARISON: CT abdomen and pelvis 06/14/2017 TECHNIQUE: Multiple axial CT images of the pelvis were obtained without contrast. A dose lowering technique was used consistent with the principals of JOE. FINDINGS: The bones appear mildly demineralized. Severe intervertebral disc space narrowing with endplate spurring and severe facet arthropathy noted at L4-L5 and L5-S1. Endplate lucencies with patchy vertebral body sclerosis noted at the L3-L4 level at the L3-L4 disc space, progressed from 06/14/2017. No significant surrounding inflammatory changes identified. The sacrum and imaged pelvic bones appear intact without acute fracture or dislocation. Joint space narrowing with subcortical cystic change noted with the pubic symphysis. There is a large partially imaged left gluteal intramuscular hematoma which measures up to 9.0 x 9.8 cm nicely seen on image 110 series 7. Imaged left femur appears intact. Urinary bladder is distended. Moderate atherosclerosis of the aorta. IMPRESSION: 1. Large partially imaged left gluteal intramuscular hematoma measures up to 9.8 cm. No acute fracture or subluxation identified. 2. Endplate lucencies with patchy sclerosis at the L3-L4 level suggests degenerative changes, however this has markedly progressed from comparison study 06/14/2017. If there is concern for possible discitis osteomyelitis, follow-up MRI of the lumbar spine may be considered. 3. Urinary bladder distention. The above report was generated using voice recognition software. It may contain grammatical, syntax or spelling errors. Electronically signed by: Humphrey Velez M.D. 10/13/2017 12:59 PM Dictated Date/Time: 10/13/2017 12:50 PM
[2017-10-13] MEDS ORDERED: HYDROmorphone INJ 1 MG/ML SYR IV STA (13:02)
[2017-10-13] MEDS ORDERED: AMOX500C3 PO (13:03)
[2017-10-13 14:04] VITALS: BP 127/93; PULSE 91; TEMP 36.4; O2SAT 94
--- NOTE | 2017-10-13 15:13 | EMERGENCY ROOM VISIT NOTE ---
History First contact with patient: 11:33 Chief Complaint: FALL Stated Complaint: HIP PAIN, BRUISING History of Present Illness The patient is a 62 year old male who presents to the Emergency Room with complaints of back pain and left buttock pain with pain radiating to his left knee. The patient reports that he slipped on ice on a concrete step and fell directly onto his left buttock. This happened 2 days ago. The patient also reports notable swelling and bruising to the left buttock. The patient is currently on Xarelto for history of pulmonary embolism in May 2017. The patient also has been dealing with an osteomyelitis/discitis of the back. This was diagnosed in June, and was treated with 6 weeks of IV antibiotics, followed by amoxicillin. The patient started a new IV antibiotic today in the Medical Treatment Unit. The patient and are uncertain of the name of the antibiotic. He is under the management of Dr. Cunningham. The patient had an MRI earlier this month which warranted further IV antibiotic treatment. The patient does report pain radiating into the middle of the back as well, but reports that most of the pain is lower back and left hip. Weightbearing worsens his discomfort. The patient rates his discomfort a 10 out of 10. He denies any profound left lower extremity weakness, saddle anesthesias or bladder /bowel incontinence. He denies any prior history of chronic lumbar pain. Review of Systems 10 system review was performed and was negative except for pertinent positives and negatives as indicated in history of present illness Past Medical/Surgical History Medical Problems: (1) Anxiety (2) COPD (chronic obstructive pulmonary disease) (3) Depression (4) Enlarged prostate (5) GERD (gastroesophageal reflux disease) (6) Hypothyroidism (7) Tonsil cancer (8) Urinary retention (9) VSD (ventricular septal defect) Surgical Problems: (1) H/O arthroscopy of shoulder (2) H/O umbilical hernia repair (3) History of carpal tunnel release (4) History of tonsillectomy and adenoidectomy (5) Right ankle surgery (6) S/P left knee arthroscopy (7) S/P right knee arthroscopy (8) S/P TURP Social History Problems: (1) COPD exacerbation (2) H/O gastroesophageal reflux (GERD) (3) H/O laryngeal cancer (4) S/P hernia repair (5) VSD (ventricular septal defect) Family History Diabetes mellitus MOTHER FH: stomach cancer FATHER Social History Smoking Status: Never Smoker Smokeless Tobacco Use: No Alcohol Use: occasionally Marital Status: Housing Status: lives with significant other Occupation Status: employed Current/Historical Medications Scheduled Alprazolam (Xanax), 1 TAB PO HS Alprazolam (Xanax Xr), 1 TAB PO BID Amoxicillin (Amoxil), 500 MG PO TID Baclofen (Lioresal), 20 MG PO TID Budesonide/Formoterol Fumarate (Symbicort 160/4.5 Inhaler ), 2 PUFFS INH BID Finasteride (Finasteride), 5 MG PO DAILY Fish Oil ([place]-3), 1 CAP PO DAILY Fluticasone Propionate (Nasal) (Flonase Allergy Relief), 1 SPRAY ELIA DAILY Furosemide (Lasix), 20 MG PO DAILY Gabapentin (Gabapentin), 600 MG PO TID Levothyroxine Sodium (Levothyroxine Sodium), 50 MCG PO DAILY Linaclotide (Linzess), 145 MCG PO DAILY Multivitamins/Minerals (Mvi With Minerals), 1 TAB PO DAILY Omeprazole (Prilosec), 40 MG PO DAILY Polyethylene Glycol 3350 (Miralax), 17 GM PO BID Probiotic Product (Probiotic), 1 CAP PO DAILY Ranitidine (Zantac), 300 MG PO HS Rivaroxaban (Xarelto), 20 MG PO HS Sodium Fluoride (Dental) (Denta 5000 Plus), 1 APPLN PO UD Tamsulosin Hcl (Flomax), 0.4 MG PO DAILY Tiotropium [place] (Spiriva Handihaler), 1 CAP INH DAILY Trazodone Hcl (Trazodone), 150 MG PO HS Vortioxetine HBr (Trintellix), 15 MG PO DAILY Scheduled PRN Albuterol Hfa (Ventolin Hfa), 2 PUFFS INH Q6H PRN for SOB/Wheezing Albuterol Sulf (Proventil 0.083% 2.5MG/3ML), 2.5 MG INH Q4 PRN for Wheezing Benzonatate (Tessalon Perles), 100-200 MG PO TID PRN for Cough Ipratropium-Albuterol (Duoneb), 1 TREATMENT INH Q4H PRN for SOB/Wheezing Suvorexant (Belsomra), 20 MG PO HS PRN for Insomnia Zolpidem Tartrate (Ambien Cr), 12.5 MG PO HS PRN for Insomnia Physical Exam Vital Signs Date Time Temp Pulse Resp B/P (MAP) Pulse Ox O2 Delivery O2 Flow Rate FiO2 10/13/17 14:04 36.4 91 18 127/93 94 Room Air 10/13/17 13:02 81 10/13/17 12:48 36.7 93 18 120/80 96 Room Air 10/13/17 11:23 36.5 96 18 124/84 97 Room Air Physical Exam CONSTITUTIONAL: Healthy and well nourished. Alert and oriented X 3 with positive affect. The patient appears in moderately severe discomfort. HEENT: Normocephalic, atraumatic. Pupils equal, round and reactive. No epistaxis, subconjunctival hemorrhage, raccoon's eyes or López sign. NECK: Full active range of motion without discomfort. RESPIRATORY: Clear to auscultation bilaterally with no wheezing, crackles, rhonchi or stridor. CARDIOVASCULAR: Regular rate and rhythm with no murmurs, rubs or gallops. GASTROINTESTINAL: Bowel sounds present in all quadrants. Soft and nontender to palpation. MUSCULOSKELETAL: The patient has generalized tenderness to palpation of the entire thoracolumbar spine. He is tender over bilateral SI joints. He has a notable area of edema and ecchymosis over the left gluteus. He has worsening pain with logroll. Pedal pulses are intact. INTEGUMENTARY: No rash or other significant dermatologic conditions noted. NEUROLOGIC: Left lower extremities are sensory intact. Medical Decision & Procedures ER Provider Diagnostic Interpretation: Noncontrast CT of the thoracolumbar spine and pelvis were performed. A large left gluteal hematoma is noted with some erosive changes of L2-3 which have progressed from the patient's last CT exam in May 2017. Radiologist does question the possibility of discitis/osteomyelitis, which the patient currently has in the thoracic spine. Radiologist report is as follows: PELVIS NO IV/ORAL CONT (CT) HISTORY: 62 years-old Male Back/pelvic/L hip pain s/p fall acute back and pelvic pain status post fall COMPARISON: CT abdomen and pelvis 06/14/2017 TECHNIQUE: Multiple axial CT images of the pelvis were obtained without contrast. A dose lowering technique was used consistent with the principals of ALARA. FINDINGS: The bones appear mildly demineralized. Severe intervertebral disc space narrowing with endplate spurring and severe facet arthropathy noted at L4-L5 and L5-S1. Endplate lucencies with patchy vertebral body sclerosis noted at the L3-L4 level at the L3-L4 disc space, progressed from 06/14/2017. No significant surrounding inflammatory changes identified. The sacrum and imaged pelvic bones appear intact without acute fracture or dislocation. Joint space narrowing with subcortical cystic change noted with the pubic symphysis. There is a large partially imaged left gluteal intramuscular hematoma which measures up to 9.0 x 9.8 cm nicely seen on image 110 series 7. Imaged left femur appears intact. Urinary bladder is distended. Moderate atherosclerosis of the aorta. IMPRESSION: 1. Large partially imaged left gluteal intramuscular hematoma measures up to 9.8 cm. No acute fracture or subluxation identified. 2. Endplate lucencies with patchy sclerosis at the L3-L4 level suggests degenerative changes, however this has markedly progressed from comparison study 06/14/2017. If there is concern for possible discitis osteomyelitis, follow-up MRI of the lumbar spine may be considered. 3. Urinary bladder distention. Medications Administered Medications (Trade) Dose Ordered Sig/Chanda Route Start Time Stop Time Status Last Admin Dose Admin Morphine Sulfate (MoRPHine SULFATE INJ) 8 mg NOW STAT IV 10/13/17 11:45 10/13/17 11:52 DC 10/13/17 12:10 8 MG Ondansetron HCl (Zofran Inj) 4 mg NOW STAT IV 10/13/17 11:45 10/13/17 11:52 DC 10/13/17 12:10 4 MG Hydromorphone HCl (Dilaudid Inj) 1 mg NOW STAT IV 10/13/17 13:02 10/13/17 13:03 DC 10/13/17 13:09 1 MG ED Course Patient history and physical exam were performed. Nurse's notes were reviewed. Vital signs were reviewed and were normal. The patient appears in notable distress from his discomfort. Her to titrate his pain management, I did suggest doing so with IV access. The patient was in agreement. IV access was established. The patient was administered IV morphine and Zofran for pain. Noncontrast CT of the thoracolumbar spine and pelvis did not show any acute fractures. There are possible changes of the L3-4 vertebrae and disc to suggest lumbar osteomyelitis/discitis as well. A large left gluteal hematoma is also noted. After the patient returned from CT, he reported that the pain medicine really did not help his pain. He was administered Dilaudid IVP which reduced his pain to a 3 out of 10 within approximately 30 minutes. The patient was trial ambulated and able to get up and walk. The patient reports that he does have a stroller at home that he can use for ambulatory assistance. The patient was encouraged to contact Dr. Cunningham's office to advise them of his ER visit and abnormal CT findings of the lumbar spine. Regarding his hematoma, he was encouraged to follow-up with his PCP or orthopedics for further management. The reports that the patient has plenty of Percocet at home, which he has not been taking as often as he should for the pain. The patient is also on stool softeners. The patient was instructed to return to the emergency department for progressively worsening pain, left lower extremity weakness, saddle anesthesias, foot drop or bladder/bowel incontinence. The patient was happy with plan of care, and discharged with his . Medical Decision See previous section [place] Drug Monitoring Program Search Results: patient reviewed within database, no issues identified Medication Reconcilliation Current Medication List: was personally reviewed by me Blood Pressure Screening Patient's blood pressure: Normal blood pressure Impression Primary Impression: Left-sided low back pain with sciatica Additional Impressions: Left gluteal hematoma Fall down steps Osteomyelitis of vertebra, thoracolumbar region Departure Information Referrals Marcin Joy DErnestoOErnesto (PCP) Patient Instructions My [facility] Problem Qualifiers Primary Impression: Left-sided low back pain with sciatica Chronicity: acute Sciatica laterality: sciatica of left side Qualified Codes: M54.42 - Lumbago with sciatica, left side Additional Impressions: Fall down steps Encounter type: initial encounter Qualified Codes: W10.8XXA - Fall (on) ( from) other stairs and steps, initial encounter
== END 2017-10-13 14:14 | disposition home or self-care (01) ==
LOC: C.EDB 11:15 → C.EDA 14:14
DX: M54.42 Lumbago with sciatica, left side (principal); S30.0XXA Contusion of lower back and pelvis, initial encounter; W10.8XXA Fall (on) (from) other stairs and steps, initial encounter; Y92.9 Unspecified place or not applicable; M46.25 Osteomyelitis of vertebra, thoracolumbar region; Z86.711 Personal history of pulmonary embolism; Z79.01 Long term (current) use of anticoagulants; Z79.2 Long term (current) use of antibiotics; J44.9 Chronic obstructive pulmonary disease, unspecified; F41.9 Anxiety disorder, unspecified; F32.9 Major depressive disorder, single episode, unspecified; K21.9 Gastro-esophageal reflux disease without esophagitis; E03.9 Hypothyroidism, unspecified; Z85.89 Personal history of malignant neoplasm of other organs and systems; Q21.0 Ventricular septal defect; Z83.3 Family history of diabetes mellitus; Z80.9 Family history of malignant neoplasm, unspecified; Z79.899 Other long term (current) drug therapy

== ENCOUNTER 2017-10-18 13:56 | Emergency (ER) | payer OTHER ==
[~2017-10-18] VITALS: Ht 185.4 cm; Wt 104.0 kg
[~2017-10-18 13:56] MED LIST changes: +AMOX500C3 PO; -CEFT2INJ40 IV; -TADA20TA PO
[2017-10-18 14:17] VITALS: TEMP 36.5; Ht 185.4 cm; Wt 104.0 kg
[2017-10-18] MEDS ORDERED: QUET1TAB30 PO (14:33)
[2017-10-18] MEDS ORDERED: OPTIRAY 320 IV PRN (15:00)
[2017-10-18 15:03] LABS: BASO % 0.2 %; BASO ABS # 0.01 K/uL (0-0.2); COMPLETE YES; HEMATOCRIT 27.2 % (42-52); IG% 0.2 %; LYMPH % 14.5 %; LYMPH ABS # 0.71 K/uL (1.2-3.4); MEAN CELL VOLUME 86.6 fL (80-100); MEAN CORPUSCULAR HEMOGLOBIN 28.7 pg (25-34); MEAN CORPUSCULAR HGB CONC 33.1 g/dl (32-36); MEAN PLATELET VOLUME 9.3 fL (7.4-10.4); MONO % 13.3 %; NEUT % 70.8 %; PLATELET COUNT 208 K/uL (130-400); RED BLOOD COUNT 3.14 M/uL (4.7-6.1); WHITE BLOOD COUNT 4.88 K/uL (4.8-10.8)
[2017-10-18 15:21] LABS: BUN/CREATININE RATIO 19.2 (10-20); CALCIUM 8.6 mg/dl (8.5-10.1); CREATININE 0.84 mg/dl (0.60-1.40); POTASSIUM 3.8 mmol/L (3.5-5.1)
--- NOTE | 2017-10-18 16:22 | DIAGNOSTIC IMAGING REPORT ---
L LOWER EXTREMITY WITH CLINICAL HISTORY: 62 years-old Male presenting with lle swelling, left thigh bruising, history of fall one week ago . TECHNIQUE: Multidetector CT of the left femur was performed after the administration of intravenous contrast. IV contrast: 115 mL of Optiray 320. A dose lowering technique was used consistent with the principles of ALARA (as low as reasonably achievable). COMPARISON: None. CT DOSE (mGy.cm): The estimated cumulative dose is 598.60 mGy.cm. FINDINGS: Pressurised Container Filler topogram: Unremarkable. Sizable intramuscular hematoma in the left gluteus del. This measures 9.6 x 6.3 x 6.6 cm. A portion of the hematoma extends superficially towards the skin surface (series 2 image 33). Allowing for this single venous phase examination, no gross evidence of extravasation of contrast to suggest active hemorrhage. The left sciatic artery is diminutive, which is normal and remains opacified. The left femoral vessels are patent and normal in caliber. Overlying superficial subcutaneous fat infiltration and skin thickening along the posterior and posterior lateral thigh. No acute osseous fracture or malalignment. Degenerative changes at the pubic symphysis. Intrapelvic examination demonstrates marked bladder distention. IMPRESSION: 1. Marked bladder distention. Correlate clinically to exclude obstruction. 2. Intramuscular hematoma in the left gluteus del with overlying extensive contusion along the posterior lateral left thigh. 3. No acute osseous injury. Electronically signed by: Joaquín De La Rosa M.D. 10/18/2017 4:21 PM Dictated Date/Time: 10/18/2017 4:14 PM
[2017-10-18] MEDS ORDERED: ONDANSETRON INJ 2 MG/ML 2 ML VIAL IV STA (16:38)
[2017-10-18] MEDS ORDERED: MoRPHine SULFATE 4 MG/ML 1 ML CARP\\VIAL IV STA (16:38)
[2017-10-18] MEDS ORDERED: OXYC1TAB3 PO (16:42)
[2017-10-18 17:10] VITALS: BP 95/60; PULSE 71; O2SAT 96
--- NOTE | 2017-10-18 17:26 | EMERGENCY ROOM VISIT NOTE ---
History Report prepared by Dandy: Mike Carballo Under the Supervision of: Dr. Kelby Belle D.O. First contact with patient: 14:22 Chief Complaint: OTHER COMPLAINT Stated Complaint: LEFT GLUTEAL HEMATOMA History of Present Illness The patient is a 62 year old male who presents to the Emergency Room with complaints of a constant left gluteal hematoma since 7 days ago when he slipped on a concrete step. He was seen in the ED following the initial fall. He was referred to the ER after seeing his PCP this morning for consultation with general surgery and infectious disease due to his history of osteomyelitis in his back. Patient has associated symptoms of below the knee pain with difficulty moving the knee. Patient denies any blood stool. numbness or weakness. Patient has a history of discitis in the back. Patient adds that he takes Xarelto for previous PE. He adds he has no known drug allergies. He states he is receiving a shot a new antibiotic shot for osteomyelitis once every two weeks, with his most recent dose being 5 days ago. He has a pertinent medical history of pneumonia. Source of History: patient Onset: 7 days Position: buttock (left gluteal) Quality: other (hematoma) Timing: constant Associated Symptoms: No hematochezia, No weakness, No numbness Note: Patient adds he has knee pain. Review of Systems See HPI for pertinent positives & negatives. A total of 10 systems reviewed and were otherwise negative. Past Medical & Surgical Medical Problems: (1) Anxiety (2) COPD (chronic obstructive pulmonary disease) (3) Depression (4) Enlarged prostate (5) GERD (gastroesophageal reflux disease) (6) Hypothyroidism (7) Tonsil cancer (8) Urinary retention (9) VSD (ventricular septal defect) Surgical Problems: (1) H/O arthroscopy of shoulder (2) H/O umbilical hernia repair (3) History of carpal tunnel release (4) History of tonsillectomy and adenoidectomy (5) Right ankle surgery (6) S/P left knee arthroscopy (7) S/P right knee arthroscopy (8) S/P TURP Social History Problems: (1) COPD exacerbation (2) H/O gastroesophageal reflux (GERD) (3) H/O laryngeal cancer (4) S/P hernia repair (5) VSD (ventricular septal defect) Family History Diabetes mellitus MOTHER FH: stomach cancer FATHER Social History Smoking Status: Never Smoker Alcohol Use: occasionally Marital Status: Housing Status: lives with significant other Occupation Status: employed Current/Historical Medications Scheduled Alprazolam (Xanax), 1 TAB PO HS Alprazolam (Xanax Xr), 1 TAB PO BID Amoxicillin (Amoxil), 500 MG PO TID Baclofen (Lioresal), 20 MG PO TID Budesonide/Formoterol Fumarate (Symbicort 160/4.5 Inhaler ), 2 PUFFS INH BID Finasteride (Finasteride), 5 MG PO DAILY Fish Oil ([place]-3), 1 CAP PO DAILY Fluticasone Propionate (Nasal) (Flonase Allergy Relief), 1 SPRAY ELIA DAILY Furosemide (Lasix), 20 MG PO DAILY Gabapentin (Gabapentin), 600 MG PO TID Levothyroxine Sodium (Levothyroxine Sodium), 50 MCG PO DAILY Linaclotide (Linzess), 145 MCG PO DAILY Multivitamins/Minerals (Mvi With Minerals), 1 TAB PO DAILY Omeprazole (Prilosec), 40 MG PO DAILY Polyethylene Glycol 3350 (Miralax), 17 GM PO BID Probiotic Product (Probiotic), 1 CAP PO DAILY Quetiapine Fumarate (Seroquel), 25 MG PO HS Ranitidine (Zantac), 300 MG PO HS Rivaroxaban (Xarelto), 20 MG PO HS Sodium Fluoride (Dental) (Denta 5000 Plus), 1 APPLN PO UD Tamsulosin Hcl (Flomax), 0.4 MG PO DAILY Tiotropium [place] (Spiriva Handihaler), 1 CAP INH DAILY Trazodone Hcl (Trazodone), 150 MG PO HS Vortioxetine HBr (Trintellix), 15 MG PO DAILY Scheduled PRN Albuterol Hfa (Ventolin Hfa), 2 PUFFS INH Q6H PRN for SOB/Wheezing Albuterol Sulf (Proventil 0.083% 2.5MG/3ML), 2.5 MG INH Q4 PRN for Wheezing Benzonatate (Tessalon Perles), 100-200 MG PO TID PRN for Cough Ipratropium-Albuterol (Duoneb), 1 TREATMENT INH Q4H PRN for SOB/Wheezing Oxycodone Immediate Rel Tab (Roxicodone Ir), 5 MG PO Q4H PRN for Severe Pain Suvorexant (Belsomra), 20 MG PO HS PRN for Insomnia Zolpidem Tartrate (Ambien Cr), 12.5 MG PO HS PRN for Insomnia Allergies Coded Allergies: Statins (Verified Adverse Reaction, Intermediate, GI UPSET, 10/13/17) Temazepam (Verified Adverse Reaction, Unknown, LOSES VOLUNTARY MUSCLE CONTROL, 10/13/17) Physical Exam Vital Signs Date Time Temp Pulse Resp B/P (MAP) Pulse Ox O2 Delivery O2 Flow Rate FiO2 10/18/17 17:10 71 18 95/60 96 10/18/17 16:15 75 20 112/55 96 Room Air 10/18/17 14:17 36.5 89 18 122/72 97 Room Air Physical Exam GENERAL: laying on right side holding right thigh, alert, well appearing, well nourished, minimal distress, non-toxic HEAD: normal cephalic, atraumatic EYE EXAM: normal conjunctiva, PERRL and EOM's grossly intact OROPHARYNX: no exudate, no erythema, lips, buccal mucosa, and tongue normal and mucous membranes are moist NECK: supple, no nuchal rigidity, no adenopathy, non-tender CHEST: stable to compression anteriorly and posteriorly LUNGS: clear to auscultation. Normal chest wall mechanics HEART: no murmurs, S1 normal and S2 normal ABDOMEN: abdomen soft, non-tender, normo-active bowel sounds, no masses, no rebound or guarding. PELVIS: stable to compression anteriorly and posteriorly BACK: Back is symmetrical on inspection and there is no deformity, no midline tenderness, no CVA tenderness. UPPER EXTREMITIES: full active and passive range of motion of all joints without tenderness to palpation LOWER EXTREMITIES: Large hematoma on left gluteus that radiates to left medial and posterial and down the left calf. Mild pitting edema. Pain on palpitation of hematoma. NEURO EXAM: DP 2/4 gross sensations intact. No pain with range of motion of left ankle or tib fib.Normal sensorium, cranial nerves II-XII grossly intact, normal speech. Medical Decision & Procedures ER Provider Diagnostic Interpretation: Radiology results as stated below per my review and the radiologist's interpretation: L LOWER EXTREMITY WITH CLINICAL HISTORY: 62 years-old Male presenting with lle swelling, left thigh bruising, history of fall one week ago . TECHNIQUE: Multidetector CT of the left femur was performed after the administration of intravenous contrast. IV contrast: 115 mL of Optiray 320. A dose lowering technique was used consistent with the principles of ALARA (as low as reasonably achievable). COMPARISON: None. CT DOSE (mGy.cm): The estimated cumulative dose is 598.60 mGy.cm. FINDINGS: Radiology Tech topogram: Unremarkable. Sizable intramuscular hematoma in the left gluteus del. This measures 9.6 x 6.3 x 6.6 cm. A portion of the hematoma extends superficially towards the skin surface (series 2 image 33). Allowing for this single venous phase examination, no gross evidence of extravasation of contrast to suggest active hemorrhage. The left sciatic artery is diminutive, which is normal and remains opacified. The left femoral vessels are patent and normal in caliber. Overlying superficial subcutaneous fat infiltration and skin thickening along the posterior and posterior lateral thigh. No acute osseous fracture or malalignment. Degenerative changes at the pubic symphysis. Intrapelvic examination demonstrates marked bladder distention. IMPRESSION: 1. Marked bladder distention. Correlate clinically to exclude obstruction. 2. Intramuscular hematoma in the left gluteus del with overlying extensive contusion along the posterior lateral left thigh. 3. No acute osseous injury. Electronically signed by: Joaquín De La Rosa M.D. 10/18/2017 4:21 PM Laboratory Results 10/18/17 14:55 Red Blood Count 3.14, Mean Corpuscular Volume 86.6, Mean Corpuscular Hemoglobin 28.7, Mean Corpuscular Hemoglobin Concent 33.1, Mean Platelet Volume 9.3, Neutrophils (%) (Auto) 70.8, Lymphocytes (%) (Auto) 14.5, Monocytes (%) (Auto) 13.3, Eosinophils (%) (Auto) 1.0, Basophils (%) (Auto) 0.2, Neutrophils # (Auto ) 3.45, Lymphocytes # (Auto) 0.71, Monocytes # (Auto) 0.65, Eosinophils # (Auto ) 0.05, Basophils # (Auto) 0.01 10/18/17 14:55 Test 10/18/17 14:55 White Blood Count 4.88 K/uL (4.8-10.8) Red Blood Count 3.14 M/uL (4.7-6.1) Hemoglobin 9.0 g/dL (14.0-18.0) Hematocrit 27.2 % (42-52) Mean Corpuscular Volume 86.6 fL (80-100) Mean Corpuscular Hemoglobin 28.7 pg (25-34) Mean Corpuscular Hemoglobin Concent 33.1 g/dl (32-36) Platelet Count 208 K/uL (130-400) Mean Platelet Volume 9.3 fL (7.4-10.4) Neutrophils (%) (Auto) 70.8 % Lymphocytes (%) (Auto) 14.5 % Monocytes (%) (Auto) 13.3 % Eosinophils (%) (Auto) 1.0 % Basophils (%) (Auto) 0.2 % Neutrophils # (Auto) 3.45 K/uL (1.4-6.5) Lymphocytes # (Auto) 0.71 K/uL (1.2-3.4) Monocytes # (Auto) 0.65 K/uL (0.11-0.59) Eosinophils # (Auto) 0.05 K/uL (0-0.5) Basophils # (Auto) 0.01 K/uL (0-0.2) RDW Standard Deviation 44.0 fL (36.4-46.3) RDW Coefficient of Variation 14.0 % (11.5-14.5) Immature Granulocyte % (Auto) 0.2 % Immature Granulocyte # (Auto) 0.01 K/uL (0.00-0.02) Anion Gap 3.0 mmol/L (3-11) Est Creatinine Clear Calc Drug Dose 116.9 ml/min Estimated GFR () 109.5 Estimated GFR (Non- 94.5 BUN/Creatinine Ratio 19.2 (10-20) Calcium Level 8.6 mg/dl (8.5-10.1) Total Bilirubin 1.0 mg/dl (0.2-1) Direct Bilirubin 0.3 mg/dl (0-0.2) Aspartate Amino Transf (AST/SGOT) 25 U/L (15-37) Alanine Aminotransferase (ALT/SGPT) 24 U/L (12-78) Alkaline Phosphatase 85 U/L (45-117) Total Protein 6.3 gm/dl (6.4-8.2) Albumin 3.1 gm/dl (3.4-5.0) Lipase 127 U/L (73-393) Laboratory results per my review. Medications Administered Medications (Trade) Dose Ordered Sig/Chanda Route Start Time Stop Time Status Last Admin Dose Admin Morphine Sulfate (MoRPHine SULFATE INJ) 4 mg NOW STAT IV 10/18/17 16:38 10/18/17 16:39 DC 10/18/17 16:48 4 MG Ondansetron HCl (Zofran Inj) 4 mg NOW STAT IV 10/18/17 16:38 10/18/17 16:39 DC 10/18/17 16:47 4 MG ED Course ED COURSE: Vital signs were reviewed and appeared normal. The patients medical record was reviewed The above diagnostic studies were performed and reviewed. ED treatments and interventions as stated above. 1443: The patient was evaluated in room A. A complete history and physical examination was performed. 1500: Ioversol 125ml IV 1638: Zofran Inj 4mg IV, Morphine Sulfate 4mg IV 1700: Upon reevaluation, the patient is resting comfortably.I discussed my findings with the patient and he understands and agrees with the treatment plan. Based on the patients age, coexisting illnesses, exam and lab findings the decision to treat as an outpatient was made. The patient remained stable while under my care. The patient appeared well at the time of discharge. Medical Decision Differential diagnoses include major intracranial, cervical, spinal, thoracic, abdominal, pelvic and neurologic injury. Fracture, contusion, sprain, strain, laceration, abrasions included as well. Patient is a 62-year-old male who presents to ER referred in by primary care doctor for left leg pain. PCP/Stanley who is not his typical doctor saw him in the office due to worsening pain in his left hip. He fell a week ago and does take blood thinners. At that time he had imaging of his back and pelvis. He does have reproducible pain on exam. He has a large hematoma without compartment syndrome. Compartments are soft. He was given IV morphine and Zofran. He had improvement of his pain. PCP discussed with surgery as an outpatient and consequently they were consulted here. They recommended no surgical intervention at this time. Patient also is being treated for osteomyelitis of his back by Dr. Cunningham. Last week CT scan showed possible osteomyelitis in the lower lumbar region. This is new from previous per PCP/ Stanley. Patient is currently following with infectious disease for this. I discussed my findings with Dr. Cunningham air conditioning specialist history the patient is an outpatient. He recommends continuing current antibiotic regimen and not changing at this time. I deferred to him as he knows this patient significant better the myself. I had a long conversation with family. They will be seen by pulmonology tomorrow and discuss possible stoppage of anticoagulation. Offered admission for pain control and patient declined. CBC shows a drop in hemoglobin from 12 to 9. I favor this is secondary to large amount of blood in his thigh. The BMP was unremarkable along with LFTs, bilirubin lipase. Patient was given OxyIR upon discharge discharge. I called his usual PCP Marcin and discussed our findings today. He will follow the patient up as an outpatient. Discussed with Pt concerning signs and symptoms to watch out for. Pt was instructed to follow up with their PCP and discussed with the patient their option to return to the ED at anytime for persistent or worsening symptoms. The appropriate anticipatory guidance and out-patient management, including indications for return to the emergency department, were explained at length to the patient and understood. Medication Reconcilliation Current Medication List: was personally reviewed by me Blood Pressure Screening Patient's blood pressure: Normal blood pressure Blood pressure disposition: Did not require urgent referral Consults Time Called: 1440 Consulting Physician: Dr. Stanley Castillo - PCP Returned Call: 1440 I reviewed the patient's case with Dr. Stanley Castillo. He will evaluate the patient for further management with worsening pain. Additional Consults: Time Called: 1447 Consulted Physician: Ysabel Cheney PA-C - [facility] [place] Returned Call: 1449 Additional Comments: I reviewed the patient's case with Ysabel Cheney PA-C. She feels there is nothing surgical to be done Time Called: 1643 Consulted Physician: Dr. Marcin Joy - [facility] [place] Returned Call: 164 Additional Comments: I reviewed the patient's case with Dr. Marcin Joy . He will evaluate the patient for further management. Impression Primary Impression: Hematoma of thigh Additional Impressions: Anemia Discitis Scribe Attestation The scribe's documentation has been prepared under my direction and personally reviewed by me in its entirety. I confirm that the note above accurately reflects all work, treatment, procedures, and medical decision making performed by me. Departure Information Dispostion Home / Self-Care Prescriptions Oxycodone Immediate Rel Tab (ROXICODONE IR) 5 Mg Tab 5 MG PO Q4H Y for Severe Pain, #15 TAB Prov: Kelby Belle, DO 10/18/17 Referrals Marcin Joy D.O. (PCP) Forms HOME CARE DOCUMENTATION FORM, IMPORTANT VISIT INFORMATION, WORK / SCHOOL INSTRUCTIONS Patient Instructions My [facility] Additional Instructions Please follow up with your primary care doctor with in the next 24 hours. Any worsening of your symptoms, please return to the ED immediately. This includes any fevers greater than 100.4, worsening pain, chest pain, shortness breath, persistent nausea, vomiting, unable to eat or drink, or any other concerning signs or symptoms from your standpoint. You were given medications during this visit that will inhibit your ability to drive, operate machinery and work. Please do NOT drive, operate machinery or work for the next 12hrs. Please follow up with pulmonology tomorrow to discuss anticoagulation. Please follow up with infectious disease within the next week for your discitis. Please return if you have any tingling or numbness in the extremity, lack of pulses, increased worsening of pain, discoloration of the leg or any other concerning signs or symptoms from your standpoint. Problem Qualifiers Primary Impression: Hematoma of thigh Encounter type: initial encounter Laterality: left Qualified Codes: S70.12XA - Contusion of left thigh, initial encounter Additional Impressions: Anemia Anemia type: unspecified type Qualified Codes: D64.9 - Anemia, unspecified Discitis Spinal region: unspecified Qualified Codes: M46.40 - Discitis, unspecified, site unspecified
--- NOTE | 2017-10-18 17:29 | Surgery Consultation ---
Consultation Date of Consultation: Oct 18, 2017. Attending Physician: Dr. Desai Reason for Consultation: Left Gluteal Hematoma History of Present Illness Rigoberto is a pleasant 62 year-old male who presented to emergency department as a recommendation from PCP office, Dr. Castillo, due to sustaining a fall last week and increasing hematoma. Patient was evaluated in the emergency department last Monday and had a pelvis CT which showed a left gluteal hematoma measuring 9.8 cm. He also had evidence of discitis of the lumber spine. He presented to PCP office today given increasing bruising and increasing size of hematoma (Per ). He was recommended to go to emergency room for evaluation. Rigoberto and his states the bruising is getting worse and is now traveling down the left leg. Notes pain in the left buttock and radiation to the left thigh and down the calf. Denies numbness or tingling of he left leg. Unable to lie on his back or side given the pain. No fevers, chills, sweats, nausea, vomiting, or drainage from the left buttock site. Rigoberto has been on Xarelto since June given history of pulmonary embolism. Has been on the Xarelto since his fall. Labs showed no leukocytosis. H&H 9.0/27.2 (last H&H in system was 12.3/37.3)j Past Medical/Surgical History Medical Problems: (1) Abdominal pain Status: Acute (2) Anemia Status: Acute (3) Discitis Status: Acute (4) Hematoma Status: Acute (5) Left-sided low back pain with sciatica Status: Acute (6) Pleuritic chest pain Status: Acute (7) Pulmonary embolism Status: Acute (8) Substernal precordial chest pain Status: Acute (9) Urinary retention Status: Chronic (10) Viral URI Status: Acute (11) Weakness Status: Acute Social History Problems: (1) Abdominal pain Status: Acute (2) Bleeding from mouth Status: Acute (3) Fever Status: Acute (4) H/O gastroesophageal reflux (GERD) Status: Chronic (5) Pneumonitis Status: Acute (6) SOB (shortness of breath) Status: Acute (7) Urinary tract infection Status: Acute (8) Urinary tract infection Status: Acute (9) VSD (ventricular septal defect) Status: Chronic Family History Diabetes mellitus MOTHER FH: stomach cancer FATHER Social History Smoking Status: Never Smoker Marital Status: Housing Status: lives with significant other Occupation Status: employed Allergies Coded Allergies: Statins (Verified Adverse Reaction, Intermediate, GI UPSET, 10/13/17) Temazepam (Verified Adverse Reaction, Unknown, LOSES VOLUNTARY MUSCLE CONTROL, 10/13/17) Home Medications Scheduled Alprazolam (Xanax), 1 TAB PO HS Alprazolam (Xanax Xr), 1 TAB PO BID Amoxicillin (Amoxil), 500 MG PO TID Baclofen (Lioresal), 20 MG PO TID Budesonide/Formoterol Fumarate (Symbicort 160/4.5 Inhaler ), 2 PUFFS INH BID Finasteride (Finasteride), 5 MG PO DAILY Fish Oil ([place]-3), 1 CAP PO DAILY Fluticasone Propionate (Nasal) (Flonase Allergy Relief), 1 SPRAY ELIA DAILY Furosemide (Lasix), 20 MG PO DAILY Gabapentin (Gabapentin), 600 MG PO TID Levothyroxine Sodium (Levothyroxine Sodium), 50 MCG PO DAILY Linaclotide (Linzess), 145 MCG PO DAILY Multivitamins/Minerals (Mvi With Minerals), 1 TAB PO DAILY Omeprazole (Prilosec), 40 MG PO DAILY Polyethylene Glycol 3350 (Miralax), 17 GM PO BID Probiotic Product (Probiotic), 1 CAP PO DAILY Quetiapine Fumarate (Seroquel), 25 MG PO HS Ranitidine (Zantac), 300 MG PO HS Rivaroxaban (Xarelto), 20 MG PO HS Sodium Fluoride (Dental) (Denta 5000 Plus), 1 APPLN PO UD Tamsulosin Hcl (Flomax), 0.4 MG PO DAILY Tiotropium [place] (Spiriva Handihaler), 1 CAP INH DAILY Trazodone Hcl (Trazodone), 150 MG PO HS Vortioxetine HBr (Trintellix), 15 MG PO DAILY Scheduled PRN Albuterol Hfa (Ventolin Hfa), 2 PUFFS INH Q6H PRN for SOB/Wheezing Albuterol Sulf (Proventil 0.083% 2.5MG/3ML), 2.5 MG INH Q4 PRN for Wheezing Benzonatate (Tessalon Perles), 100-200 MG PO TID PRN for Cough Ipratropium-Albuterol (Duoneb), 1 TREATMENT INH Q4H PRN for SOB/Wheezing Oxycodone Immediate Rel Tab (Roxicodone Ir), 5 MG PO Q4H PRN for Severe Pain Suvorexant (Belsomra), 20 MG PO HS PRN for Insomnia Zolpidem Tartrate (Ambien Cr), 12.5 MG PO HS PRN for Insomnia Current Inpatient Medications Current Inpatient Medications Medications (Trade) Dose Ordered Sig/Chanda Route Start Time Stop Time Status Last Admin Dose Admin Ioversol (Optiray 320) 125 ml UD PRN IV 10/18/17 15:00 10/22/17 14:59 Review of Systems Constitutional: No fever, No chills, No sweats Abdomen: No pain, No nausea, No vomiting Musculoskeletal: + problem reported (Left gluteal and left thigh pain, increasing size of hematoma) Integumentary: + problem reported (Significant bruising of he left buttock and thigh) Physical Exam Date Time Temp Pulse Resp B/P (MAP) Pulse Ox O2 Delivery O2 Flow Rate FiO2 10/18/17 17:10 71 18 95/60 96 10/18/17 16:15 75 20 112/55 96 Room Air 10/18/17 14:17 36.5 89 18 122/72 97 Room Air General Appearance: WD/WN, + moderate distress Head: normocephalic, atraumatic Eyes: sclerae normal ENT: hearing grossly normal Respiratory/Chest: no respiratory distress, no accessory muscle use Back: normal inspection Extremities/Musculoskelatal: + pertinent finding (There is a hematoma of the left gluteus with significant ecchymosis of the left thich and buttocks, tender to very mild palpation, no fluctuance, no signs of infection) Neurologic/Psych: alert, normal mood/affect, oriented x 3 Skin: + pertinent finding (ecchymosis of left buttocks and left posterior and lateral thigh) Laboratory Results Last 24 Hours Test 10/18/17 14:55 White Blood Count 4.88 K/uL Red Blood Count 3.14 M/uL Hemoglobin 9.0 g/dL Hematocrit 27.2 % Mean Corpuscular Volume 86.6 fL Mean Corpuscular Hemoglobin 28.7 pg Mean Corpuscular Hemoglobin Concent 33.1 g/dl Platelet Count 208 K/uL Mean Platelet Volume 9.3 fL Neutrophils (%) (Auto) 70.8 % Lymphocytes (%) (Auto) 14.5 % Monocytes (%) (Auto) 13.3 % Eosinophils (%) (Auto) 1.0 % Basophils (%) (Auto) 0.2 % Neutrophils # (Auto) 3.45 K/uL Lymphocytes # (Auto) 0.71 K/uL Monocytes # (Auto) 0.65 K/uL Eosinophils # (Auto) 0.05 K/uL Basophils # (Auto) 0.01 K/uL RDW Standard Deviation 44.0 fL RDW Coefficient of Variation 14.0 % Immature Granulocyte % (Auto) 0.2 % Immature Granulocyte # (Auto) 0.01 K/uL Sodium Level 139 mmol/L Potassium Level 3.8 mmol/L Chloride Level 107 mmol/L Carbon Dioxide Level 29 mmol/L Anion Gap 3.0 mmol/L Blood Urea Nitrogen 16 mg/dl Creatinine 0.84 mg/dl Est Creatinine Clear Calc Drug Dose 116.9 ml/min Estimated GFR () 109.5 Estimated GFR (Non- 94.5 BUN/Creatinine Ratio 19.2 Random Glucose 93 mg/dl Calcium Level 8.6 mg/dl Total Bilirubin 1.0 mg/dl Direct Bilirubin 0.3 mg/dl Aspartate Amino Transf (AST/SGOT) 25 U/L Alanine Aminotransferase (ALT/SGPT) 24 U/L Alkaline Phosphatase 85 U/L Total Protein 6.3 gm/dl Albumin 3.1 gm/dl Lipase 127 U/L Assessment & Plan 62 year-old male who sustained a fall last week and developed a large left gluteal hematoma. Now presents for second ER visit since fall with complaint of pain and increasing size of hematoma. Has been on Xarelto since June due to pulmonary embolism. Has not stopped his blood thinning agent since the fall. No leg weakness, or numbness. Plan: There is no signs of infection at hematoma site. Patient does have moderate ecchymosis at various stages and now spreading down the left thigh to the knee. No fluctuance to suggest drainable fluid. Would not recommend surgical intervention. Most cases of hematoma will resolve on their own. Discussed with patient and his that he should stop his blood thinning agent in order to allow for hematoma to heal and to prevent further bleeding Dr. Belle ordered repeat CT scan to evaluate for any further bleeding or increase in size of hematoma. If there is evidence of continued bleeding or substantial increase in hematoma size may warrant hospital observation. Patient has follow-up with vocational rehabilitation supervisor tomorrow and will call in regards to stopping his Xarelto for a short period of time Would continue conservative management with ice, heat, pain management. May follow-up with Dr. Desai in 1 week to evaluate. Please call office at to make an appointment. Discussed with patient and his concerning signs of redness, warmth to touch , any drainage, fever, chills, sweats, numbness of the left leg/foot, difficulty with movement of the leg to present to emergency room for further evaluation. They understood. Recommendations discussed with Dr. Belle. Dr. Desai has seen and examined patient, agrees with above.
== END 2017-10-18 17:10 | disposition home or self-care (01) ==
LOC: C.EDB 13:58 → C.EDA 17:10
DX: S70.12XA Contusion of left thigh, initial encounter (principal); W01.0XXA Fall on same level from slipping, tripping and stumbling without subsequent striking against object, initial encounter; Y92.9 Unspecified place or not applicable; D64.9 Anemia, unspecified; M46.40 Discitis, unspecified, site unspecified; Z86.711 Personal history of pulmonary embolism; M86.9 Osteomyelitis, unspecified; F41.9 Anxiety disorder, unspecified; J44.9 Chronic obstructive pulmonary disease, unspecified; F32.9 Major depressive disorder, single episode, unspecified; K21.9 Gastro-esophageal reflux disease without esophagitis; E03.9 Hypothyroidism, unspecified; Z85.89 Personal history of malignant neoplasm of other organs and systems; Z83.3 Family history of diabetes mellitus; Z80.9 Family history of malignant neoplasm, unspecified; Z79.01 Long term (current) use of anticoagulants; Z79.899 Other long term (current) drug therapy

== ENCOUNTER → 2017-10-31 | Outpatient (CLI) | payer OTHER ==
[~2017-10-31] MED LIST changes: +IPRA-64 INH; -IPRASOL4 INH; +OXYC-737 PO; +QUET1TAB30 PO; +RIZA10TA18 PO
--- NOTE | 2017-10-31 17:40 | DIAGNOSTIC IMAGING REPORT ---
VENOUS DOPP LOWER EXT UNILAT HISTORY: 62 years-old Male PAIN AND SWELLING IN LEFT LEG, R/O DVT acute pain and swelling of the left lower extremity COMPARISON: Left lower extremity CT 10/18/2017 TECHNIQUE: Multiple real-time sonographic images of the left lower extremity deep venous structures were obtained assessing grayscale appearance, color and spectral flow FINDINGS: There is normal compressibility, flow, phasicity and augmentation of the left lower extremity deep venous structures. Nonspecific soft tissue edema is noted within the left calf. There is a 2.6 x 4.3 x 0.9 cm ovoid hypoechoic collection of the left popliteal fossa compatible with Garvin's cyst. IMPRESSION: 1. No sonographic evidence of deep venous thrombosis. 2. 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 The above report was generated using voice recognition software. It may contain grammatical, syntax or spelling errors. Electronically signed by: Humphrey Velez M.D. 10/31/2017 5:38 PM Dictated Date/Time: 10/31/2017 5:36 PM
== END | disposition home or self-care (01) ==
LOC: C.ULTR 16:38
PROVIDERS: ATTEND Internal Medicine Infectious Disease
DX: R60.9 Edema, unspecified (principal); M79.605 Pain in left leg; M71.22 Synovial cyst of popliteal space [Baker], left knee

== ENCOUNTER → 2017-11-01 | Outpatient (CLI) | payer OTHER ==
--- NOTE | 2017-11-01 16:22 | DIAGNOSTIC IMAGING REPORT ---
L ANKLE MIN 3 VIEWS ROUTINE HISTORY: 62 years-old Male M25.579 Ankle pain left [id number] acute left ankle pain COMPARISON: None available TECHNIQUE: 4 views of the left ankle FINDINGS: Ill-defined linear lucency is noted involving the distal fibula at the level of the tibial plafond seen only on the AP view, likely projectional. No acute displaced fracture or subluxation identified. Tibiotalar arthroplasty noted in satisfactory alignment. There is prominent marginal spurring of the medial and lateral malleoli. There is mild to moderate circumferential soft tissue swelling about the ankle, greatest anterolaterally. Fusion hardware of the first metatarsal base also noted. Peripheral vascular disease. Prominent spurring about the calcaneus at both the plantar and Achilles insertion sites. IMPRESSION: 1. Ill-defined linear lucency involving the distal fibula at the level of the tibial plafond seen only on the AP view is likely projectional. Correlate with point tenderness. No acute displaced fracture or subluxation identified. 2. Mild to moderate circumferential soft tissue swelling about the ankle, greatest anterolaterally. 3. Postsurgical changes as above. 4. Peripheral vascular disease. The above report was generated using voice recognition software. It may contain grammatical, syntax or spelling errors. Electronically signed by: Humphrey Velez M.D. 11/01/2017 4:20 PM Dictated Date/Time: 11/01/2017 4:16 PM
== END | disposition home or self-care (01) ==
LOC: C.RAD1850 16:00
PROVIDERS: ATTEND Physician Assistant
DX: M25.579 Pain in unspecified ankle and joints of unspecified foot (principal); M79.9 Soft tissue disorder, unspecified; I73.9 Peripheral vascular disease, unspecified

== ENCOUNTER → 2017-11-17 | Outpatient (CLI) | payer OTHER ==
[~2017-11-17] MED LIST changes: -IPRA-64 INH; +IPRASOL4 INH; -OXYC-737 PO; +OXYC1TAB3 PO; -RIZA10TA18 PO
== END | disposition home or self-care (01) ==
LOC: C.RDSM 10:00
PROVIDERS: ATTEND Physical Medicine & Rehabilitation Sports Medicine
DX: M25.572 Pain in left ankle and joints of left foot (principal)

== ENCOUNTER → 2017-12-22 | Outpatient (CLI) | payer OTHER ==
[2017-12-22 12:04] LABS: BASO % 0.2 %; BASO ABS # 0.01 K/uL (0-0.2); EOS % 2.2 %; EOS ABS # 0.11 K/uL (0-0.5); HEMATOCRIT 40.6 % (42-52); HEMOGLOBIN 13.6 g/dL (14.0-18.0); IG# 0.02 K/uL (0.00-0.02); LYMPH % 29.5 %; LYMPH ABS # 1.48 K/uL (1.2-3.4); MEAN CELL VOLUME 83.7 fL (80-100); MEAN CORPUSCULAR HGB CONC 33.5 g/dl (32-36); MONO % 7.8 %; MONO ABS # 0.39 K/uL (0.11-0.59); NEUT % 59.9 %; PLATELET COUNT 200 K/uL (130-400); RED CELL DISTRIBUTION WIDTH CV 14.2 % (11.5-14.5); WHITE BLOOD COUNT 5.01 K/uL (4.8-10.8)
[2017-12-22 12:17] LABS: ALT/SGPT 29 U/L (12-78); AST/SGOT 20 U/L (15-37); BLOOD UREA NITROGEN 18 mg/dl (7-18); CALCIUM 8.8 mg/dl (8.5-10.1); CARBON DIOXIDE 30 mmol/L (21-32); CREATININE 0.93 mg/dl (0.60-1.40); GLUCOSE 90 mg/dl (70-99); SODIUM 138 mmol/L (136-145)
[2017-12-22 12:19] LABS: ALKALINE PHOSPHATASE 93 U/L (45-117); TOTAL PROTEIN 7.2 gm/dl (6.4-8.2)
== END | disposition home or self-care (01) ==
LOC: C.LAB1850 10:51
PROVIDERS: ATTEND Internal Medicine Infectious Disease
DX: M46.46 Discitis, unspecified, lumbar region (principal)

== ENCOUNTER → 2017-12-27 | Outpatient (CLI) | payer OTHER ==
[~2017-12-27] MED LIST changes: +GADAVIST IV PRN
--- NOTE | 2017-12-27 11:18 | DIAGNOSTIC IMAGING REPORT ---
LUMBAR SPINE COMBINATION CLINICAL HISTORY: 62 years-old Male presenting with M46.44 Thoracic [id number], extreme pain in the lower back, history of throat cancer. TECHNIQUE: Multisequence, multiplanar MR imaging of the lumbar spine was performed before and after the administration of intravenous contrast. IV contrast: 10.5 mL of Gadavist. COMPARISON: CT from 10/13/2017. FINDINGS: Localizer images: Levoscoliotic curvature of the lumbar spine centered at L2-3. Normal lumbar lordosis apart from levoscoliosis. Extensive bone marrow edema in the L3 and L4 vertebral bodies centered at the L3-4 disc, which contains fluid. Abnormal fluid also noted in the L2-3 disc space though only trace bony edema is evident at the inferior endplate of L2 and fatty endplate changes otherwise dominate. Bone marrow edema also noted at the L5-S1 disc space eccentrically on the left with minimal associated fluid in the disc at this site. Intervertebral disc height loss noted at several levels but greatest at L2-3 and L3-4. Degenerative changes further detailed below: L1-2: Scoliosis likely accounts for the degree of moderate bilateral neural foraminal narrowing at L1-2 with a paucity of degenerative change. L2-3: Posterior osteophytosis at L2-3 results in effacement of the right lateral recess and and moderate right neural foraminal narrowing in combination with facet arthropathy and scoliosis. L3-4: Right greater than left facet arthropathy at L3-4 results in moderate to severe right and mild left neural foraminal narrowing. L4-5: Right greater than left facet arthropathy and right eccentric posterior osteophytosis at L4-5 results in moderate right and mild left neural foraminal narrowing. The exiting right L4 nerve root is likely abutted by the right eccentric posterior osteophytosis. L5-S1: No significant spinal canal stenosis or neural foraminal narrowing at L5-S1. Extensive enhancements noted at the L3-4 intervertebral discs and disc space as well as in the posterior elements on the right at L3. Paraspinal muscular enhancement in the right psoas muscle at L3-4. Enhancement of the L2-3 disc also evident. Enhancement of the left aspect of the L5-S1 disc and endplates evident. Laminar T2 hyperintense rim-enhancing collection along the left posterior lateral epidural space at the level of S1 and inferiorly. This is incompletely included within the [id number] on axial imaging and is not directly track from inflammatory change at the L5-S1 disc space. Spinal cord ends in good position above the superior endplate of L1. Cauda equina normal in morphology allowing for scoliosis. IMPRESSION: 1. 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 2. Laminar rim-enhancing fluid collection along the posterior left lateral epidural space at the level of S1 extending inferiorly. This is incompletely included within the [id number] on axial imaging and does not directly track from the left eccentric L5-S1 discitis-osteomyelitis. This is indeterminate but does raise concern for abscess. Follow-up is advised. 3. Multilevel neural foraminal narrowing secondary to degenerative change and scoliosis as detailed above. The report will be called/faxed according to standard departmental protocol. Electronically signed by: Joaquín De La Rosa M.D. 12/27/2017 11:16 AM Dictated Date/Time: 12/27/2017 11:04 AM
== END | disposition home or self-care (01) ==
LOC: C.MRI 09:45
PROVIDERS: ATTEND Internal Medicine Infectious Disease
DX: M46.44 Discitis, unspecified, thoracic region (principal); M41.26 Other idiopathic scoliosis, lumbar region; M41.27 Other idiopathic scoliosis, lumbosacral region

== ENCOUNTER → 2018-02-13 | Outpatient (CLI) | payer OTHER ==
[~2018-02-13] MED LIST changes: -AMOX500C3 PO; -GADAVIST IV PRN; -QUET1TAB30 PO; +RIZA10TA18 PO
[2018-02-13 12:06] LABS: BASO % 0.2 %; BASO ABS # 0.01 K/uL (0-0.2); EOS % 3.1 %; EOS ABS # 0.13 K/uL (0-0.5); HEMATOCRIT 42.2 % (42-52); HEMOGLOBIN 14.1 g/dL (14.0-18.0); IG# 0.01 K/uL (0.00-0.02); LYMPH % 28.6 %; LYMPH ABS # 1.22 K/uL (1.2-3.4); MEAN CELL VOLUME 83.7 fL (80-100); MEAN CORPUSCULAR HGB CONC 33.4 g/dl (32-36); MONO % 6.3 %; MONO ABS # 0.27 K/uL (0.11-0.59); NEUT % 61.6 %; NEUT ABS # 2.62 K/uL (1.4-6.5); PLATELET COUNT 190 K/uL (130-400); RED CELL DISTRIBUTION WIDTH CV 14.9 % (11.5-14.5); RED CELL DISTRIBUTION WIDTH SD 45.9 fL (36.4-46.3); WHITE BLOOD COUNT 4.26 K/uL (4.8-10.8)
[2018-02-13 12:40] LABS: ALBUMIN 3.9 gm/dl (3.4-5.0); ALT/SGPT 29 U/L (12-78); AST/SGOT 18 U/L (15-37); BLOOD UREA NITROGEN 16 mg/dl (7-18); CALCIUM 8.8 mg/dl (8.5-10.1); CARBON DIOXIDE 27 mmol/L (21-32); CREATININE 0.83 mg/dl (0.60-1.40); GLUCOSE 142 mg/dl (70-99); POTASSIUM 3.8 mmol/L (3.5-5.1); SODIUM 139 mmol/L (136-145)
[2018-02-13 12:43] LABS: ALKALINE PHOSPHATASE 83 U/L (45-117); TOTAL PROTEIN 6.9 gm/dl (6.4-8.2)
== END | disposition home or self-care (01) ==
LOC: C.LABSPEC 11:50
PROVIDERS: ATTEND Internal Medicine Infectious Disease
DX: Z88.1 Allergy status to other antibiotic agents (principal)

== ENCOUNTER → 2018-03-14 | Outpatient (CLI) | payer OTHER ==
--- NOTE | 2018-03-14 15:12 | DIAGNOSTIC IMAGING REPORT ---
(CHEST) THORAX WITHOUT CLINICAL HISTORY: R91.1 Pulmonary [id number] COMPARISON STUDY: 07/26/2017 CT DOSE: 504.73 mGycm TECHNIQUE: CT of the thorax was performed from the thoracic inlet to the lung bases. Images are reviewed in the axial, sagittal, and coronal planes. IV contrast was not administered for this examination. A dose lowering technique was utilized adhering to the principles of ALARA. FINDINGS: Thyroid: Imaged portions of the thyroid gland are normal in appearance. Thoracic aorta: There is mild ectasia of the ascending thoracic aorta which measures 40 mm. Heart: The heart is borderline enlarged. There are mild coronary artery calcifications. A right-sided PICC catheter is visualized Lungs and pleural spaces: No pleural effusions are visualized. There is no pneumothorax. There is no focal pulmonary consolidation. There is been interval resolution of the 4 cm left upper lobe airspace opacity with minimal residual secondary scarring. There is a new 13 x 5 mm right apical opacity, resembling atelectasis or scar. Mediastinum: There is no mediastinal lymphadenopathy. [place]: There is no evidence of pathologic hilar adenopathy given the limitations of a noncontrast study Axilla: There is no evidence of pathologic axillary lymphadenopathy. Upper abdomen: Partially visualized upper abdominal viscera is within normal limits. Skeletal structures: There is a thoracic dextroscoliosis. There is endplate sclerosis with endplate erosive changes at the T4-5 level. IMPRESSION: 1. Interval resolution of the 4 cm left upper lobe airspace opacity 2. New 13 x 5 mm right apical opacity. Although nonspecific, the appearance favors scar/atelectatic change. 3. Endplate sclerosis and endplate erosive change at the T4-5 level. Given the prior CT and MRI findings, this may represent healed/healing osteomyelitis/discitis. Electronically signed by: David Shaw M.D. 03/14/2018 3:11 PM Dictated Date/Time: 03/14/2018 3:02 PM
== END | disposition home or self-care (01) ==
LOC: C.CTS 14:51
PROVIDERS: ATTEND Physician Assistant
DX: R91.1 Solitary pulmonary nodule (principal)

== ENCOUNTER → 2018-06-13 | Outpatient (CLI) | payer OTHER ==
[~2018-06-13] MED LIST changes: +IPRA-64 INH; -IPRASOL4 INH; -OXYC1TAB3 PO
--- NOTE | 2018-06-13 10:50 | DIAGNOSTIC IMAGING REPORT ---
(CHEST) THORAX WITHOUT CLINICAL HISTORY: 62 years-old Male presenting with R91.1 Pulmonary nodule, COPD. TECHNIQUE: Multidetector CT imaging of the chest was performed without the use of intravenous contrast. IV contrast: None. A dose lowering technique was used consistent with the principles of ALARA (as low as reasonably achievable). COMPARISON: 03/14/2018. CT DOSE (mGy.cm): The estimated cumulative dose is 609.21 mGy.cm. FINDINGS: Quill Layer topogram: Unremarkable. On soft tissue windows, normal thyroid and thoracic inlet. Limited bilateral gynecomastia. No axillary, supraclavicular, or mediastinal lymphadenopathy. Evaluation of the franko limited without intravenous contrast. Atherosclerosis of the aorta. No evidence of ectasia of the ascending aorta on the current exam. Multichamber enlargement of the heart. Coronary artery calcification. No pericardial or pleural effusion. Upper abdomen normal. On lung windows, Limited focus of bronchiectasis in the posterior basal right lower lobe is better seen on the current exam given less respiratory motion artifact. Stable appearance of cicatrizing atelectasis in the right apex. Minimal linear opacity in the anterior segment of the left upper lobe consistent with scarring. Solid 3 mm nodule in the right apex (series 4 image 101), unchanged. No new pulmonary nodule or infiltrate. Airways patent. No pneumothorax. On bone windows, focal endplate changes at T4-5 as on prior exam, possibly focal degenerative change or old discitis osteomyelitis. IMPRESSION: 1. No new or suspicious pulmonary nodule. Stable scarring in the lungs with limited bronchiectasis. No acute intrathoracic pathology. Electronically signed by: Joaquín De La Rosa M.D. 06/13/2018 10:49 AM Dictated Date/Time: 06/13/2018 10:40 AM
== END | disposition home or self-care (01) ==
LOC: C.CTS 10:20
PROVIDERS: ATTEND Physician Assistant
DX: R91.1 Solitary pulmonary nodule (principal)

== ENCOUNTER 2020-04-27 20:36 | Observation (INO) ==
[2020-04-27] MEDS ORDERED: ONDANSETRON INJ 2 MG/ML 2 ML VIAL IV STA (20:51)
[2020-04-27] MEDS: HYDROmorphone INJ 0.5 MG/0.5 ML SYR IV PRN ×6 (20:52→23:02)
[2020-04-27] MEDS ORDERED: SODIUM CHLORIDE 0.9% 500 ML IV SCH (21:00)
[2020-04-27 21:03] LABS: Basophils # (auto) 0.01 K/uL (0-0.2); Basophils % (auto) 0.2 %; Eosinophils # (auto) 0.15 K/uL (0-0.5); Eosinophils % (auto) 2.6 %; Hematocrit (blood only) 43.3 % (42-52); Hemoglobin 13.9 g/dL (14.0-18.0); Immature Granulocytes # (auto) 0.02 K/uL (0.00-0.02); Immature Granulocytes % (auto) 0.4 %; Lymphocytes # (auto) 1.65 K/uL (1.2-3.4); Lymphocytes % (auto) 28.9 %; Mean Corpuscular Hemoglobin 29.3 pg (25-34); Mean Corpuscular Hgb Conc 32.1 g/dL (32-36); Mean Corpuscular Volume 91.4 fL (80-100); Mean Platelet Volume 11.4 fL (7.4-10.4); Monocytes # (auto) 0.48 K/uL (0.11-0.59); Monocytes % (auto) 8.4 %; Neutrophils % (auto) 59.5 %; Platelet Count 206 K/uL (130-400); RDW Standard Deviation 47.1 fL (36.4-46.3); Red Blood Count 4.74 M/uL (4.7-6.1); White Blood Count 5.71 K/uL (4.8-10.8)
[2020-04-27 21:10] LABS: iSTAT Creatinine 1.1 mg/dl (0.6-1.3); iSTAT Hemoglobin 14.3 g/dl (14.0-18.0); iSTAT Ionized Calcium 1.2 mmol/l (1.12-1.32); iSTAT Potassium 4.7 mmol/L (3.3-5.0)
[2020-04-27] MEDS ORDERED: HYDROmorphone INJ 1 MG/ML SYRINGE IV STA (21:11)
--- NOTE | 2020-04-27 21:16 | Emergency Department Note ---
Impression & Plan Chest pain, Headache, Acute left-sided muscle weakness ED Provider Note NAME: SABINE LANCASTER AGE: 64 SEX: M : 1955 ARRIVES VIA: Walk-In INFORMANT: Patient, ED PROVIDER(S): Shawn Flores DO CHIEF COMPLAINT: Chest pain HPI: The patient is a 64-year-old male who presented to the emergency department for an evaluation of left-sided chest pain. The patient describes left-sided chest pain which goes into his flank. He also notices a severe headache which is on the left side of his head as well. He states he now has weakness in his left arm and left leg. The patient was recently in our facility and diagnosed with a pulmonary embolism. He is been taking oral anticoagulation. He denies having any recent falls. He denies having any nausea. He does complain of tingling on the left side of his body as well. He denies having any recent traveling or fever. He states he has been compliant with his outpatient med ications and took his last dose of anticoagulation this morning. The patient is not been seen by his doctor for this pain. He presented directly to triage and was brought back to room B1. Patient states his pain is severe at this time. ROS: See above HPI for pertinent positives & negatives. A total of 10 systems reviewed and were otherwise negative. PAST MEDICAL HISTORY: See Below PAST SURGICAL HISTORY: See Below FAMILY HISTORY: See Below SOCIAL HISTORY: See Below HOME MEDICATIONS: See Below ALLERGIES: See Below VITALS: See Below PHYSICAL EXAMINATION: GENERAL: The patient is awake and alert. He is very anxious appearing and appears to be severe pain. EYES: The conjunctivae are clear. The pupils are round and reactive. EARS, NOSE, MOUTH AND THROAT: The nose is without any evidence of any deformity. Mucous membranes are moist. Tongue is midline. NECK: The neck is nontender and supple. RESPIRATORY: Normal respiratory effort is noted there is no evidence of wheezing rhonchi or rales CARDIOVASCULAR: Regular rate and rhythm was noted to auscultation. There was a systolic murmur noted. GASTROINTESTINAL: The abdomen is soft and nondistended. There is no tenderness guarding or rigidity. BACK: No midline tenderness was noted. There was CVA tenderness to percussion noted on the left. MUSCULOSKELETAL/EXTREMITIES: There is no evidence of gross deformity full range of motion is noted in the hips and shoulders. SKIN: There is no obvious evidence of any rash. Pedal edema was noted bilaterally. NEUROLOGIC: Patient is awake alert and oriented x 3. No facial droop was noted. 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 Patient is unable to lift the left leg off the bed. MEDICAL DECISION MAKING: The patient is a 64-year-old male who presented to the emergency department through triage for an evaluation of left-sided chest pain. The patient started having left-sided chest pain which was also associated with left neck pain left headache left flank pain and weakness in the left upper and lower extremities. The patient's pain was very severe. He was treated with IV pain medication in the emergency department. He was reevaluated multiple times. The patient was treated with IV pain medication in the emergency department. On subsequent reevaluation his symptoms were significantly improved. His headache improved and he also had full use of his left upper and left lower extremities on final reevaluation. I discussed the patient's laboratory and radiographic studies with him. I also discussed the limitations of the emergency department work-up for chest pain with him. He was recently diagnosed with pulmonary embolism and is currently taking oral anticoagulants. Triage Nursing notes reviewed. Prior medical records reviewed Vital Signs: reviewed and remarkable for no significant abnormalities Differential diagnosis: Cardiac ischemia, aortic dissection, pulmonary embolism, pneumothorax, pneumonia, pericarditis, myocarditis, esophageal rupture, GERD, cholecystitis, pancreatitis, musculoskeletal, as well as other pathologies. ER treatment provided: See below Diagnostics interpreted by me: ECG: EKG was obtained in the emergency department. My interpretation is normal sinus rhythm at 74 bpm. There was no ectopy. There was a very poor baseline n oted. Inferior lateral ST segment depressions were noted. This was compared to a tracing from August 24, 2017. Some of the ischemic changes appear new. A second EKG was obtained in the emergency department. My interpretation is normal sinus rhythm at 73 bpm. There is no ectopy. There is no acute ST segment abnormalities noted. There was resolution of the previously noted abnormalities however this could be secondary to improvement of baseline. Cardiac Monitoring: An order was placed for continuous cardiac monitoring. The monitor shows a rate of 85 with sinus rhythm. Laboratory studies: As stated above and show below. Imaging studies: See below Consultation(s): 2315: [facility] hospitalist was notified about the patient in the emergency department. 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 COPD (chronic obstructive pulmonary disease) (Chronic) Depression (Chronic) Enlarged prostate (Chronic) GERD (gastroesophageal reflux disease) Hearing deficit History of BPH History of endocarditis 2017 2/2 OSTEOMYELITIS; RESOLVED History of pulmonary embolism 2017 AFTER INJURY TO ANKLE - TREATED W/ BLOOD THINNERS Hypothyroidism (Chronic) Migraine (Chronic) BOTOX INJECTIONS Osteoarthritis Osteomyelitis of vertebra, thoracolumbar region (Chronic) 2017; RESOLVED Radiation fibrosis Sciatica Scoliosis Spinal stenosis Temporomandibular joint disorder 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 THOMAS Surgical History H/O arthroscopy of shoulder (Chronic) H/O umbilical hernia repair (Chronic) History of arthroscopy of knee Rt x 2; Lt x 1 History of arthroscopy of left shoulder History of bronchoscopy X 2 History of cardiac cath AT AGE 13 - [facility] - NO INTERVENTION History of carpal tunnel release (Chronic) History of colostomy History of esophagogastroduodenoscopy (EGD) History of hernia repair umbilical History of left ankle joint replacement History of prostate biopsy History of surgery PEG tube placement; removal History of tonsillectomy and adenoidectomy (Chronic) History of tooth extraction S/P transposition of nerve BL ulnar S/P TURP (Chronic) Family History Mother Family history of diabetes mellitus Cardiac disorder FHx: deafness or hearing loss Stroke Hypertension Sister Family history of diabetes mellitus Father Stomach cancer Denies family history of Clotting disorder Social History Preferred Language: Sinhala Communication Ability: Effective 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 Beliefs That Will Affect Care: None Current Living Situation: Spouse Feels Safe at Home: Yes Smoking Status: Never smoker Tobacco Type: cigars and smokeless tobacco ; Second Hand Exposure: Yes ; Hx Alcohol Use: No Hx Substance Use: No Allergies Allergies Allergy/AdvReac Type Severity Reaction Status Date / Time Zniyppq-Vrr-Lll Reductase AdvReac Intermediate GI UPSET Verified 04/27/20 22:02 Inhibitor temazepam AdvReac Intermediate LOSES Verified 04/27/20 22:02 VOLUNTARY MUSCLE CONTROL duloxetine [From Cymbalta] AdvReac Unknown Unknown Verified 04/27/20 22:02 escitalopram [From Lexapro] AdvReac Unknown Unknown Verified 04/27/20 22:02 Home Meds Home Medications Medication Instructions Recorded Confirmed albuterol sulfate 90 mcg/actuation 2 puffs INH Q6H PRN 07/09/18 04/27/20 aerosol inhaler alprazolam 1 mg tablet 1 mg PO HS tab 07/09/18 04/27/20 alprazolam 1 mg tablet,extended 2 mg PO QAM tab 07/09/18 04/27/20 release 24 hr benzonatate 100 mg capsule 100 - 200 mg PO TID PRN cap 07/09/18 04/27/20 finasteride 5 mg tablet 5 mg PO DAILY 07/09/18 04/27/20 furosemide 20 mg tablet 20 mg PO DAILY 07/09/18 04/27/20 multivitamin 1 tab PO DAILY 07/09/18 04/27/20 omega-3 fatty acids 1,000 mg 1,000 mg PO DAILY 07/09/18 04/27/20 capsule trazodone 150 mg tablet 150 mg PO HS 07/09/18 04/27/20 lactobacillus combination no.4 3 3,000 mmu cells PO DAILY 07/10/18 04/27/20 billion cell capsule oxycodone-acetaminophen 5 mg-325 1 - 2 tab PO Q6 PRN tab 07/10/18 04/27/20 mg tablet Combivent Respimat 1 puff INHALATION QID 01/02/19 04/27/20 diclofenac sodium [Voltaren] 4 g TOPICAL BID PRN 01/02/19 04/27/20 docusate sodium [Colace] 300 mg PO BID 01/02/19 04/27/20 polyethylene glycol 3350 [Miralax] 17 g PO UD 01/02/19 04/27/20 sennosides [senna] 8.6 mg PO DAILY PRN 01/02/19 04/27/20 tamsulosin [Flomax] 0.4 mg PO DAILY 01/02/19 04/27/20 tizanidine [Zanaflex] 6 mg PO BID PRN 01/02/19 04/27/20 Botox 200 unit IM UD 04/01/19 04/27/20 Movantik 25 mg PO QAM 04/01/19 04/27/20 omeprazole magnesium [Prilosec OTC] 40 mg PO DAILY 04/01/19 04/27/20 melatonin 5 mg capsule 5 mg PO HS PRN cap 05/27/19 04/27/20 loratadine 10 mg PO DAILY 07/15/19 04/27/20 levothyroxine 75 mcg capsule 75 mcg PO DAILY 11/29/19 04/27/20 vortioxetine 10 mg tablet 15 mg PO DAILY tab 04/16/20 04/27/20 Previous Rx's Medication Instructions Recorded baclofen 20 mg tablet 20 mg PO TID #270 tab 06/17/19 azelastine 137 mcg (0.1 %) nasal 2 sprays INTRANASAL BID 90 Days 09/05/19 spray aerosol #90 ml umeclidinium 62.5 mcg/actuation 1 puffs INH DAILY #3 inhaler 09/17/19 blister powder for inhalation ipratropium bromide 0.02 % 2.5 ml INH Q4H PRN 90 Days #450 ml 10/04/19 solution for inhalation levalbuterol HCl 1.25 mg/3 mL 1.25 mg INH Q4H 90 Days #1620 ml 10/04/19 solution for nebulization rizatriptan 10 mg tablet 10 mg PO .COMPLEX PRN 90 Days #27 11/29/19 tab amoxicillin 875 mg-potassium 1 tab PO Q12H #20 tab 04/16/20 clavulanate 125 mg tablet gabapentin 600 mg tablet 600 mg PO TID #270 tab 04/22/20 meloxicam 15 mg tablet 15 mg PO DAILY #30 tab 04/22/20 topiramate 100 mg tablet 100 mg PO QAM #90 tab 04/22/20 topiramate 200 mg tablet 200 mg PO QPM #90 tab 04/22/20 oxycodone 5 mg PO Q6H PRN #14 tab 04/24/20 rivaroxaban [Xarelto] See Rx Instructions .ROUTE 04/24/20 .COMPLEX #51 ea Results & Data (ED) Vital Signs Vital Signs - 24 hr 04/27/20 20:43 04/27/20 20:52 04/27/20 21:05 Temperature 37.0 C Temperature Source Oral Pulse Rate 76 Pulse Rate from SpO2 Sensor Respiratory Rate 22 Respiratory Effort / Characteristics Non-Labored Spontaneous Respiratory Depth Normal Blood Pressure 133/80 Blood Pressure Mean 97 Blood Pressure Position Lying Pulse Oximetry 97 Oxygen Delivery Method Room Air Room Air Nasal Cannula Oxygen Flow Rate 0 Sepsis Recent Fever Within 48 Hours No Sepsis New/Unexplained Change in Mental Status No Sepsis Action Taken by Nursing No Action Required Oxygen Flow Rate - Titration 3 Pulse Oximetry Post Tiitration 93 04/27/20 21:11 04/27/20 21:52 04/27/20 22:00 Temperature Temperature Source Pulse Rate 83 77 70 Pulse Rate from SpO2 Sensor 84 76 71 Respiratory Rate 14 20 16 Respiratory Effort / Characteristics Respiratory Depth Blood Pressure 155/129 H 138/87 122/81 Blood Pressure Mean 142 92 98 Blood Pressure Position Pulse Oximetry 91 93 95 Oxygen Delivery Method Nasal Cannula Nasal Cannula Room Air Oxygen Flow Rate 3 3 Sepsis Recent Fever Within 48 Hours Sepsis New/Unexplained Change in Mental Status Sepsis Action Taken by Nursing Oxygen Flow Rate - Titration Pulse Oximetry Post Tiitration 04/27/20 22:16 04/27/20 22:30 04/27/20 22:46 Temperature Temperature Source Pulse Rate 65 66 72 Pulse Rate from SpO2 Sensor 66 65 85 Respiratory Rate 16 Respiratory Effort / Characteristics Respiratory Depth Blood Pressure 119/73 117/64 146/75 H Blood Pressure Mean 96 91 83 Blood Pressure Position Pulse Oximetry 91 92 93 Oxygen Delivery Method Nasal Cannula Nasal Cannula Oxygen Flow Rate 3 2 Sepsis Recent Fever Within 48 Hours Sepsis New/Unexplained Change in Mental Status Sepsis Action Taken by Nursing Oxygen Flow Rate - Titration Pulse Oximetry Post Tiitration Home Medications Current Medication List: was personally reviewed by me Laboratory Data Attestation: I reviewed the patient's lab results. Result diagrams: 04/27/20 20:51 04/27/20 20:51 Lab Results 04/27/20 04/27/20 04/27/20 Range/Units 20:51 20:51 20:51 WBC 5.71 (4.8-10.8) K/uL RBC 4.74 (4.7-6.1) M/uL Hgb 13.9 L (14.0-18.0) g/dL POC Hgb (14.0-18.0) g/dl Hct 43.3 (42-52) % POC Hct (42-52) % MCV 91.4 (80-100) fL MCH 29.3 (25-34) pg MCHC 32.1 (32-36) g/dL RDW Std Deviation 47.1 H (36.4-46.3) fL RDW Coeff of Hernan 14.0 (11.5-14.5) % Plt Count 206 (130-400) K/uL MPV 11.4 H (7.4-10.4) fL Immature Gran % (Auto) 0.4 % Neut % (Auto) 59.5 % Lymph % (Auto) 28.9 % Hoke % (Auto) 8.4 % Eos % (Auto) 2.6 % Baso % (Auto) 0.2 % Neut # (Auto) 3.40 (1.4-6.5) K/uL Lymph # (Auto) 1.65 (1.2-3.4) K/uL Hoke # (Auto) 0.48 (0.11-0.59) K/uL Eos # (Auto) 0.15 (0-0.5) K/uL Baso # (Auto) 0.01 (0-0.2) K/uL Immature Gran # (Auto) 0.02 (0.00-0.02) K/uL PT 11.9 (9.0-12.0) Seconds INR 1.1 (0.9-1.1) APTT 33.3 H (21.0-31.0) Seconds PTT Ratio 1.2 POC Sodium (135-144) mmol/L Sodium 143 (136-145) mmol/L POC Potassium (3.3-5.0) mmol/L Potassium 4.4 (3.5-5.1) mmol/L POC Chloride (101-112) mmol/L Chloride 112 H (98-107) mmol/L Carbon Dioxide 25 (21-32) mmol/L POC Total CO2 (24-31) mmol/L Anion Gap 6.0 (3-11) POC Anion Gap (16-25) mmol/L POC BUN (7-18) mg/dl BUN 20 H (7-18) mg/dl Creatinine 1.07 (0.6-1.4) mg/dl POC Creatinine (0.6-1.3) mg/dl Est Cr Clr Drug Dosing 84.5 ml/min Est GFR ( Amer) 85.2 Est GFR (Non-Af Amer) 73.5 BUN/Creatinine Ratio 18.5 (10-20) Glucose 78 (70-99) mg/dl POC Glucose (other) (70-99) mg/dl Calcium 8.8 (8.5-10.1) mg/dl POC Ioniz Calcium Teresa (1.12-1.32) mmol/l Total Bilirubin 0.5 (0.2-1) mg/dl AST 28 (15-37) U/L ALT 27 (12-78) U/L Alkaline Phosphatase 78 (45-117) U/L Troponin I < 0.015 (0-0.045) ng/ml Total Protein 7.0 (6.4-8.2) gm/dl Albumin 3.8 (3.4-5.0) gm/dl Globulin 3.2 (2.5-4.0) gm/dl Albumin/Globulin Ratio 1.2 (0.9-2) Lipase 79 (73-393) U/L 04/27/20 Range/Units 20:57 WBC (4.8-10.8) K/uL RBC (4.7-6.1) M/uL Hgb (14.0-18.0) g/dL POC Hgb 14.3 (14.0-18.0) g/dl Hct (42-52) % POC Hct 42 (42-52) % MCV (80-100) fL MCH (25-34) pg MCHC (32-36) g/dL RDW Std Deviation (36.4-46.3) fL RDW Coeff of Hernan (11.5-14.5) % Plt Count (130-400) K/uL MPV (7.4-10.4) fL Immature Gran % (Auto) % Neut % (Auto) % Lymph % (Auto) % Hoke % (Auto) % Eos % (Auto) % Baso % (Auto) % Neut # (Auto) (1.4-6.5) K/uL Lymph # (Auto) (1.2-3.4) K/uL Hoke # (Auto) (0.11-0.59) K/uL Eos # (Auto) (0-0.5) K/uL Baso # (Auto) (0-0.2) K/uL Immature Gran # (Auto) (0.00-0.02) K/uL PT (9.0-12.0) Seconds INR (0.9-1.1) APTT (21.0-31.0) Seconds PTT Ratio POC Sodium 142 (135-144) mmol/L Sodium (136-145) mmol/L POC Potassium 4.7 (3.3-5.0) mmol/L Potassium (3.5-5.1) mmol/L POC Chloride 108 (101-112) mmol/L Chloride (98-107) mmol/L Carbon Dioxide (21-32) mmol/L POC Total CO2 23 L (24-31) mmol/L Anion Gap (3-11) POC Anion Gap 16.0 (16-25) mmol/L POC BUN 18 (7-18) mg/dl BUN (7-18) mg/dl Creatinine (0.6-1.4) mg/dl POC Creatinine 1.1 (0.6-1.3) mg/dl Est Cr Clr Drug Dosing ml/min Est GFR ( Amer) Est GFR (Non-Af Amer) BUN/Creatinine Ratio (10-20) Glucose (70-99) mg/dl POC Glucose (other) 80 (70-99) mg/dl Calcium (8.5-10.1) mg/dl POC Ioniz Calcium Teresa 1.20 (1.12-1.32) mmol/l Total Bilirubin (0.2-1) mg/dl AST (15-37) U/L ALT (12-78) U/L Alkaline Phosphatase (45-117) U/L Troponin I (0-0.045) ng/ml Total Protein (6.4-8.2) gm/dl Albumin (3.4-5.0) gm/dl Globulin (2.5-4.0) gm/dl Albumin/Globulin Ratio (0.9-2) Lipase (73-393) U/L Administered Medications Hydromorphone HCl (Dilaudid) 0.5 mg IV Q15M PRN PRN Reason: Pain Stop: 05/11/20 20:50 Last Admin: 04/27/20 23:02 Dose: 0.5 mg Documented by: [id number] Admin: 04/27/20 21:32 Dose: 0.5 mg Documented by: [id number] Admin: 04/27/20 21:22 Dose: 0.5 mg Documented by: [id number] Admin: 04/27/20 21:10 Dose: 0.5 mg Documented by: [id number] Admin: 04/27/20 21:02 Dose: 0.5 mg Documented by: [id number] Admin: 04/27/20 20:52 Dose: 0.5 mg Documented by: [id number] Ioversol (Optiray 320 125ml) 119 ml IV ONCE PRN PRN Reason: Interaction Checking Stop: 05/01/20 21:36 Last Admin: 04/27/20 21:37 Dose: 119 ml Documented by: [id number] Discontinued Medications Hydromorphone HCl (Dilaudid) 1 mg IV NOW STA Stop: 04/27/20 21:12 Last Admin: 04/27/20 21:15 Dose: 1 mg Documented by: [id number] Sodium Chloride (Nss) 500 mls @ 999 mls/hr IV .Q31M ERIC Stop: 04/27/20 21:30 Last Infusion: 04/27/20 23:00 Dose: 0 mls/hr Documented by: [id number] Admin: 04/27/20 20:52 Dose: 999 mls/hr Documented by: [id number] Ondansetron HCl (Zofran) 4 mg IV NOW STA Stop: 04/27/20 20:52 Last Admin: 04/27/20 20:52 Dose: 4 mg Documented by: [id number] Imaging Data Radiologist's Impression: Preliminary Findings Only See Final Report For Complete Findings CTA ABDOMEN & PELVIS: The descending thoracic aorta is nondilated with a normal appearance. There is a small amount of calcified plaque in the infrarenal abdominal aorta with no aneurysm or dissection. The celiac, superior mesenteric, left and right renal arteries are widely patent. The inferior mesenteric artery is patent. Mild calcification of the common iliac arteries bilaterally which are widely patent. The liver, gallbladder, spleen, pancreas, adrenal glands, and kidneys appear unremarkable. There is a moderate amount of stool in the cecum and transverse colon measuring up to 6.4 cm consistent with constipation. The appendix is normal. No acute focal inflammatory changes are seen within the mesenteric fat of the abdomen or pelvis. Mild to moderate multilevel degenerative changes throughout the lumbar spine with 22 curvature which may be due to scoliosis or positioning. No acute fracture or bone lesion is seen. Radiologist: Warren Colón MD Study ready at 22:16 and initial results transmitted at 22:34 Preliminary Findings Only See Final Report For Complete Findings CTA CHEST: The ascending aortic arch is upper limits of normal measuring 3.8 cm. No aneurysm or dissection is seen. The pulmonary arterial tree is well opacified with contrast. No pulmonary emboli are identified. There is mild cardiomegaly and moderate coronary calcification. No pericardial effusion is seen. No axillary or mediastinal lymphadenopathy or mass is present. There is a small amount of scarring in the lung apices and minimal dependent subsegmental atelectasis in both lungs. No infiltrate or consolidation is seen. No mass identified. No pneumothorax or pleural effusion is seen. Mild scoliosis of the thoracic spine. No acute fracture or bone lesion is seen. Radiologist: Warren Colón MD Study ready at 22:17 and initial results transmitted at 22:35 Preliminary Findings Only See Final Report For Complete Findings CTA NECK: The thoracic aorta is nondilated. No aneurysm or dissection is seen. The great vessel origins are widely patent. Mild tortuosity of the common carotid arteries bilaterally with a small amount of calcified plaque at both carotid bifurcations. Less than 50% stenosis of the proximal right internal carotid artery. Tortuous left internal carotid artery appears widely patent. Both vertebral arteries are patent the right side smaller than the left. No focal stenosis or dissection is identified. The origin of the left vertebral artery is partially obscured by artifact. Reformatted images of the spine demonstrate moderate to severe degenerative changes in the mid to lower cervical spine with increased kyphosis. No acute fracture or subluxation is seen. No canal compromise is identified. No soft tissue mass or lymphadenopathy is identified. Radiologist: Warren Colón MD Study ready at 21:58 and initial results transmitted at 22:20 Preliminary Findings Only See Final Report For Complete Findings CTA HEAD: Mild calcified plaque in the cavernous portion of the distal internal carotid arteries bilaterally without evidence of significant stenosis. The A1 and M1 segments are patent bilaterally. The left A1 segment is hypoplastic which is a normal congenital variant. The distal vertebral and basilar arteries are widely patent. The The visualized portions of the anterior, middle, and posterior cerebral arteries appear within normal limits. No aneurysm, vascular malformation, or arterial thrombus is identified. Sinuses, orbits, and mastoids are unremarkable. No skull fracture or scalp hematoma is seen. Mild periventricular white matter low density bilaterally consistent with chronic small vessel disease. No evidence of acute large vessel infarct or intracranial hemorrhage. Radiologist: Warren Colón MD Study ready at 21:58 and initial results transmitted at 22:14 Prescription Drug Monitoring [place] Drug Monitoring Program reviewed and findings noted below Prescription Drug Findings: Recent controlled substances were reviewed. Blood Pressure Blood Pressure Findings: Normal blood pressure Discharge Plan Visit Data Chief Complaint: Chest Pain Stated Complaint: CHEST PAINS, NUMBNESS IN ARMS ED Provider: Shawn Flores Discharge Problem: Chest pain, Headache, Acute left-sided muscle weakness Patient Disposition: Being Evaluated by Hospitalist Condition: Good Forms Stand Alone Forms: My [facility] [employer] Prescriptions Prescriptions: No Action multivitamin tablet 1 tab PO DAILY RF: 0 omega-3 fatty acids [Fish Oil Concentrate] 1,000 mg capsule 1,000 mg PO DAILY RF: 0 alprazolam [Xanax] 1 mg tablet 1 mg PO HS RF: 0 benzonatate [Tessalon Perles] 100 mg capsule 100 - 200 mg PO TID PRN (Reason: Cough) RF: 0 trazodone 150 mg tablet 150 mg PO HS RF: 0 furosemide [Lasix] 20 mg tablet 20 mg PO DAILY RF: 0 albuterol sulfate 90 mcg/actuation HFA aerosol inhaler 2 puffs INH Q6H PRN (Reason: Shortness Of Breath Or Wheezing) RF: 0 finasteride 5 mg tablet 5 mg PO DAILY RF: 0 alprazolam [Xanax XR] 1 mg tablet extended release 24 hr 2 mg PO QAM RF: 0 lactobacillus combination no.4 [Probiotic] 3 billion cell capsule 3,000 mmu cells PO DAILY RF: 0 oxycodone-acetaminophen 5-325 mg tablet 1 - 2 tab PO Q6 PRN (Reason: Pain) RF: 0 baclofen 20 mg tablet 20 mg PO TID Qty: 270 RF: 3 azelastine 137 mcg (0.1 %) aerosol,spray 2 sprays intranasal BID 90 Days Qty: 90 RF: 3 Incruse Ellipta 62.5 mcg/actuation blister with device 1 puffs INH DAILY Qty: 3 RF: 1 levalbuterol HCl 1.25 mg/3 mL solution for nebulization 1.25 mg INH Q4H 90 Days Qty: 1620 RF: 2 ipratropium bromide 0.02 % solution 2.5 ml INH Q4H PRN (Reason: shortness of breath or wheezing) 90 Days Qty: 450 RF: 0 amoxicillin-pot clavulanate [Augmentin] 875-125 mg tablet 1 tab PO Q12H Qty: 20 RF: 1 tiotropium bromide [Spiriva Respimat] 2.5 mcg/actuation mist 1 puff inhalation DAILY RF: 0 melatonin 5 mg capsule 5 mg PO HS PRN (Reason: Insomnia) RF: 0 vortioxetine 10 mg tablet 15 mg PO DAILY RF: 0 levothyroxine 75 mcg capsule 75 mcg PO DAILY RF: 0 rizatriptan [Maxalt] 10 mg tablet 10 mg PO .COMPLEX PRN (Reason: Migraine Headache) 90 Days Qty: 27 RF: 3 meloxicam 15 mg tablet 15 mg PO DAILY Qty: 30 RF: 2 topiramate [Topamax] 100 mg tablet 100 mg PO QAM Qty: 90 RF: 1 topiramate [Topamax] 200 mg tablet 200 mg PO QPM Qty: 90 RF: 1 gabapentin 600 mg tablet 600 mg PO TID Qty: 270 RF: 1 omeprazole magnesium [Prilosec OTC] 20 mg Tablet,Delayed Release (Dr/Ec) 40 mg PO DAILY RF: 0 Botox 200 unit Recon Soln 200 unit IM UD RF: 0 Movantik 25 mg Tablet 25 mg PO QAM RF: 0 loratadine 10 mg Tablet 10 mg PO DAILY RF: 0 oxycodone 5 mg tablet 5 mg PO Q6H PRN (Reason: pain) Qty: 14 RF: 0 Xarelto 15 mg (42)- 20 mg (9) tablets,dose pack See Rx Instructions .ROUTE .COMPLEX Qty: 51 RF: 0 sennosides [senna] 8.6 mg Tablet 8.6 mg PO DAILY PRN (Reason: Constipation) RF: 0 polyethylene glycol 3350 [Miralax] 17 gram Powder In Packet 17 g PO UD RF: 0 tamsulosin [Flomax] 0.4 mg Capsule 0.4 mg PO DAILY RF: 0 docusate sodium [Colace] 100 mg Capsule 300 mg PO BID RF: 0 tizanidine [Zanaflex] 6 mg capsule 6 mg PO BID PRN (Reason: Spasms) RF: 0 diclofenac sodium [Voltaren] 1 % Gel 4 g TOPICAL BID PRN (Reason: Pain) RF: 0 Combivent Respimat 20-100 mcg/actuation Mist 1 puff INHALATION QID RF: 0 Referrals Referrals: Marcin Joy DO [Primary Care Provider] -
[2020-04-27 21:21] LABS: Alanine Aminotransferase 27 U/L (12-78); Albumin Level 3.8 gm/dl (3.4-5.0); Aspartate Aminotransferase 28 U/L (15-37); BUN Creatinine Ratio 18.5 (10-20); Blood Urea Nitrogen 20 mg/dl (7-18); Calcium 8.8 mg/dl (8.5-10.1); Carbon Dioxide 25 mmol/L (21-32); Chloride 112 mmol/L (98-107); Creatinine Clr Calc Pharmacy 84.5 ml/min; Est GFR (African American) 85.2; Est GFR (Non-African American) 73.5; Glucose 78 mg/dl (70-99); Lipase 79 U/L (73-393); Potassium 4.4 mmol/L (3.5-5.1); Sodium 143 mmol/L (136-145)
[2020-04-27 21:23] LABS: INR 1.1 (0.9-1.1); Partial Thromboplastin Ratio 1.2; Partial Thromboplastin Time 33.3 Seconds (21.0-31.0); Prothrombin Time 11.9 Seconds (9.0-12.0)
[2020-04-27 21:26] LABS: Albumin Globulin Ratio 1.2 (0.9-2); Alkaline Phosphatase 78 U/L (45-117); Bilirubin,Total 0.5 mg/dl (0.2-1); Globulin 3.2 gm/dl (2.5-4.0); Troponin I < 0.015 ng/ml (0-0.045)
[2020-04-27] MEDS ORDERED: OPTIRAY 320 125ml IV PRN (21:37)
[2020-04-28] MEDS: HYDROmorphone INJ 0.5 MG/0.5 ML SYR IV PRN (01:55)
[2020-04-28] MEDS ORDERED: ACETAMINOPHEN 325 MG TAB PO PRN (05:27)
[2020-04-28] MEDS ORDERED: NITROGLYCERIN SL 0.4 MG/TAB TAB SL PRN (05:27)
[2020-04-28] MEDS ORDERED: BENZONATATE 100 MG CAPSULE PO PRN (05:27)
[2020-04-28] MEDS ORDERED: POLYETHYLENE (MIRALAX) 17 GM PACK PO SCH (05:27)
[2020-04-28] MEDS ORDERED: OXYCODONE/ACETAMINOPHEN 5mg/325mg TAB PO PRN (05:27)
[2020-04-28] MEDS ORDERED: ONDANSETRON INJ 2 MG/ML 2 ML VIAL IV PRN (05:27)
[2020-04-28] MEDS ORDERED: POLYETHYLENE (MIRALAX) 17 GM PACK PO PRN (05:27)
[2020-04-28] MEDS ORDERED: ALBUTEROL HFA 8 GM INHALER INH PRN ×2 (05:27→07:25)
[2020-04-28] MEDS ORDERED: IPRATROPIUM BROMIDE NEB SOLN 0.02% 2.5 ML VIAL INH PRN (05:27)
[2020-04-28] MEDS ORDERED: TIZANIDINE HCL 4 MG TABLET PO PRN (05:27)
[2020-04-28] MEDS ORDERED: SENNA 8.6 MG TAB PO PRN (05:27)
[2020-04-28] MEDS ORDERED: DICLOFENAC SOD 1% GEL 100 GM TUBE EXT PRN (06:16)
--- NOTE | 2020-04-28 06:49 | CT Scan Report ---
CT angio head wo/w HISTORY: Mental status change severe pain TECHNIQUE: Multiaxial CT angiography of the head was performed IV contrast: None. Maximum intensit y projection images were also obtained. A dose lowering technique was utilized adhering to the princ iplLadarius. COMPARISON: None. FINDINGS: There is no mass, hematoma, midline shift, or acute infarct. 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 There is no sig nificant stenosis, occlusion, or aneurysm seen within the bilateral ACAs, MCAs, or oncology technician. Moderate age -related chronic small vessel change IMPRESSION: No significant stenosis, occlusion, or aneurysm within the wr[place] of [place]. No acute intracranial ab normality. Moderate intracranial age-related change. ACT 112: Negative or not required by law. The above report was generated using voice recognition software. It may contain grammatical, syntax or spelling errors. Electronically signed by: Helio Salcido M.D. 04/28/2020 6:48 AM
[2020-04-28] MEDS ORDERED: LEVALBUTEROL HCL 1.25 MG/3 ML NEB INH SCH (07:00)
--- NOTE | 2020-04-28 07:01 | CT Scan Report ---
CT angio neck with con HISTORY: Mental status change pain TECHNIQUE: Multiaxial CT angiography of the neck was performed IV contrast: 120 cc nonionic All maribell urements were calculated based on NASCET criteria. Maximum intensity projection images were also obt ained. A dose lowering technique was utilized adhering to the principles of ALARA. COMPARISON STUDY: None. FINDINGS: The aortic arch and proximal great vessels are widely patent. Mild plaque formation of the carotid bifurcations bilaterally. 30% narrowing proximal right internal carotid artery. No evidence for high-grade or critical stenosis. The vertebral basilar system is unremarkable. IMPRESSION: 1. Mild plaque formation bilaterally. 2. 30% narrowing proximal right internal carotid artery. 3. No evidence for high-grade stenosis. ACT 112: Negative or not required by law. The above report was generated using voice recognition software. It may contain grammatical, syntax or spelling errors. Electronically signed by: Helio Salcido M.D. 04/28/2020 7:00 AM
--- NOTE | 2020-04-28 07:07 | History and Physical Report ---
DATE OF ADMISSION: 04/28/2020 CHIEF COMPLAINT: Left-sided chest pain and headache. HISTORY OF PRESENT ILLNESS: This is a 64-year-old male with past medical history significant for asthma, COPD, recent diagnosis of pulmonary embolism on Xarelto, history of malignant neoplasm of tonsils, pulmonary hypertension, ventral septal defect, essential hypertension, history of osteomyelitis, history of total ankle replacement, thoracic spine pain, tension headache, cervical dystonia, anxiety, major depression, insomnia, lives with his , who presents with severe left-sided headache and chest pain. The patient states that he has cervical dystonia. Once in a while with biting of the food on the left side, he gets severe headaches, but today he had a similar kind of headache, but it was severe and also it was radiating to his neck, his elbows, the legs, and his left-sided chest. He was having spasms, so he came to the ER, and initially he also was having weakness in the left extremities. In the ER, he had a CTA of the abdomen and pelvis, CTA of the chest, CTA of the head and neck, which are both unremarkable in the preliminary report. Even there was no PE on the CTA of the chest which was done with the PE protocol. After receiving a couple of doses of Dilaudid, his symptoms improved and his strength in his left extremities came back to normal. Currently resting comfortably and hemodynamically stable. He says he has ongoing cough, he is following with pulmonary. He was treated with steroids and he had 3 courses of antibiotics so far, but it is not getting better. He is supposed to see ENT in April. Before seeing ENT, he is going to be tested for COVID. Denies any fever or chills. Because of his history of throat cancer, his sense of smell and taste is always not that great. He has some issues with swallowing because of his cancer. He states his presenting symptoms has been improved, but he still has some headache. He is supposed to get cataract surgery. No earache, no runny nose, no sore throat. Currently dry mouth. No nausea, no abdominal pain. Otherwise ambulates okay. No swelling in the legs, no rash. PAST MEDICAL HISTORY: As mentioned above. PAST SURGICAL HISTORY: Status post biopsy of the right tonsil and tonsillectomy in 2007, arthroscopy of the shoulder, carpal tunnel surgery on the left side, colonoscopy, EGDs, repair of the ankle ligament, fusion of the foot bones, jaw arthroscopy, knee arthroscopy bilaterally, secondary closure of wound dehiscence, adenoidectomy, TURP, revision of the ankle joint, revision of the ulnar nerve at the elbow bilaterally, shoulder arthroscopy, tenotomy of Achilles tendon, umbilical hernia repair. MEDICATIONS: The patient is on famotidine 20 mg p.o. b.i.d., Percocet 5/325 mg 1 tablet p.o. b.i.d. p.r.n., Lasix 20 mg p.o. daily, Proscar 5 mg p.o. daily, Flomax 0.4 mg p.o. daily, omeprazole 40 mg p.o. daily, levothyroxine 75 mcg p.o. daily, Flonase 2 sprays one spray on each nostril daily, tizanidine 6 mg p.o. b.i.d. p.r.n., aspirin 81 mg p.o. daily, Combivent 1 puff q.i.d., cetirizine 10 mg p.o. daily, Topamax 100 mg in the morning and 200 mg in the evening, Symbicort 160/4.5 mcg inhalation b.i.d., baclofen 20 mg p.o. t.i.d., Xanax 1 mg p.o. at 8:00 p.m. and Xanax 2 mg at 8:00 a.m., trazodone 50 mg p.o. at bedtime, rizatriptan 10 mg p.o. p.r.n., Colace 300 mg p.o. b.i.d., Senokot 8.6 mg p.o. daily, Trintellix 20 mg p.o. daily, Spiriva 2.5 mcg daily, albuterol nebulization p.r.n., Ventolin 2 puffs every 4 hours p.r.n., MiraLax 17 grams p.r.n., probiotic 1 capsule daily, omega 3 fatty acids 1 capsule daily with meals. FAMILY HISTORY: Significant for father of stomach cancer at the age of 54; mother had diabetes, hypertension, and stroke; aunt, diabetes. SOCIAL HISTORY: . Former smoker, quit in 2006, smoked for 5 years. No alcohol use, no drug use. REVIEW OF SYSTEMS: As per HPI. Rest of the review of systems negative. PHYSICAL EXAMINATION: GENERAL: The patient is of moderate build, not in acute distress. VITAL SIGNS: Temperature 37, pulse 72, respiratory rate 20, blood pressure 116/79, oxygen 96% on 3 liters. HEENT: No pallor, no icterus. Pupils equal, round, and reactive to light. Oral mucosa dry. NECK: No JVD, no neck masses. CARDIOVASCULAR: S1, S2 heard, regular rate and rhythm. Murmur in the ventral region seen. RESPIRATORY SYSTEM: Normal AP diameter. No accessory muscle use. No wheezing, no crackles. ABDOMEN: Soft, bowel sounds present, nontender. No distention. CENTRAL NERVOUS SYSTEM: Alert and oriented. Speech clear. Power 5/5 in all extremities. EXTREMITIES: Nonfocal extremities. No edema, no erythema. LABORATORY DATA: WBC 5.7, hemoglobin 13.9, hematocrit 43.3, platelets 206. PT 11.9, INR 1.1, APTT 33.3. Sodium 143, potassium 4.4, chloride 112, bicarbonate 25, BUN 20, creatinine 1.07, serum glucose 78, calcium 8.8, total bilirubin 0.5, AST 28, ALT 27, alkaline phosphatase 78. Troponin I less than 0.015. Lipase 79. IMAGING DATA: CTA of the abdomen and pelvis, CTA of the chest, CTA of the head and neck, preliminary report unremarkable. EKG: Normal sinus rhythm, rate of 73, no acute ST changes seen. ASSESSMENT AND PLAN: This is a 64-year-old male who presents with left-sided jaw pain, headache, chest pain, and left-sided weakness, which is improving, currently he is only having headaches. 1. Chest pain. The patient has history of cervical dystonia, gets pain in the jaw and head, sometimes after chewing the food and this time it is more severe and also radiating to the chest, neck, and left-sided elbow and weakness in the left upper and lower extremities. The patient received pain medication. Currently, pain is improved. Except for headache all other pain is resolved. Initial EKG and troponin negative. We will observe in tele floor. Serial enzymes, echo, and consult cardiology for further recommendations. Follow the imaging studies final report. 2. History of recent diagnosis of pulmonary embolism, on Xarelto, but CTA of the chest done today did not show any pulmonary embolism. We will follow the final report. Continue Xarelto for now. 3. History of asthma and chronic obstructive pulmonary disease. Pulmonary hypertension. Following with pulmonary. Received courses of steroids and antibiotics, but not helping much. Again, has followup appointment with pulmonary and also has a followup appointment with ENT too. 4. History of ventral septal defect. Follow up with echocardiogram. 5. Hypertension. Continue his home medications of diuretics. 6. Benign prostatic hypertrophy, on Proscar and Flomax. 7. Anxiety and depression. Continue his home medications. 8. Deep venous thrombosis prophylaxis, on Xarelto. DISPOSITION: Closely monitor in the tele floor. Level 1 full code. Expect to discharge home and follow with family doctor. Code status, full. MTDD
[2020-04-28] MEDS ORDERED: MELATONIN 3 MG TAB PO PRN (07:15)
[2020-04-28] MEDS ORDERED: RIVAROXABAN 15 MG TAB PO SCH ×2 (07:30→09:00)
[2020-04-28] MEDS ORDERED: LEVOTHYROXINE SODIUM 75 MCG TABLET PO SCH (07:30)
[2020-04-28] MEDS ORDERED: LEVALBUTEROL HCL 1.25 MG/3 ML NEB INH PRN (07:53)
[2020-04-28] MEDS ORDERED: AZELASTINE ~ ORDER AWAITING ACTION SCH (08:00)
--- NOTE | 2020-04-28 08:07 | CT Scan Report ---
CT ANGIOGRAPHY OF THE CHEST, PULMONARY EMBOLUS PROTOCOL CLINICAL HISTORY: Severe pain. COMPARISON STUDY: Chest CT April 24, 2020. TECHNIQUE: Following IV administration of 119 mL of Optiray-320, helical axial images of the chest we re obtained utilizing the pulmonary embolus protocol. Maximal intensity projections and sagittal and coronal reformats were viewed on an independent 3D workstation. IV contrast was administered withou t complication. Automated exposure control was utilized for the study. A dose lowering technique wa s utilized adhering to the principles of ALARA. CT DOSE: 4144.33 mGy.cm FINDINGS: Multiple segmental right-sided pulmonary emboli are similar to CT of April 24, 2020. There is mild dilatation of the central pulmonary arteries. The heart is moderately enlarged. There is no p ericardial effusion. No pulmonary infarct is noted. There is no consolidation to suggest pneumonia. N o thoracic lymphadenopathy is noted. The abdomen and pelvis will be reported separately. IMPRESSION: 1. Multiple segmental right-sided pulmonary emboli which are similar to CT of April 24, 2020. No new p ulmonary emboli identified. This will be called/faxed to the ordering provider at time of dictation. 2. Mild dilatation of the central pulmonary arteries which raises the possibility of pulmonary arteri al hypertension. 3. Moderate cardiomegaly. ACT 112: Negative or not required by law. Electronically signed by: William Pineda M.D. 04/28/2020 8:06 AM
[2020-04-28] MEDS: RIZATRIPTAN BENZOATE 10 MG TAB PO PRN ×2 (08:08→10:39)
[2020-04-28] MEDS: GABAPENTIN 600 MG TAB PO SCH ×2 (08:09→15:45)
[2020-04-28] MEDS: BACLOFEN 20 MG TAB PO SCH ×2 (08:10→15:45)
--- NOTE | 2020-04-28 08:14 | Electrocardiogram Report ---
Test Reason : Blood Pressure : / mmHG Vent. Rate : 074 BPM Atrial Rate : 074 BPM P-R Int : 200 ms QRS Dur : 068 ms QT Int : 380 ms P-R-T Axes : 046 122 -02 degrees QTc Int : 421 ms Poor data quality, interpretation may be adversely affected Normal sinus rhythm Right axis deviation Nonspecific ST and T wave abnormality Abnormal ECG When compared with ECG of 24-APR-2020 19:07, Shift in QRS axis Nonspecific ST and T wave abnormality more pronounced Confirmed by Terry Schneider ([id number]) on 04/28/2020 8:13:55 AM Referred By: REFERRED SELF Confirmed By:Terry Schneider
--- NOTE | 2020-04-28 08:18 | CT Scan Report ---
CT ANGIOGRAPHY OF THE ABDOMEN AND PELVIS CLINICAL HISTORY: Severe pain. COMPARISON STUDY: CT of the abdomen and pelvis June 14, 2017. CT of the pelvis October 13, 2017. TECHNIQUE: Helical axial images of the abdomen and pelvis were obtained during arterial phase followi ng intravenous injection 119 cc Optiray 320 IV. Sagittal and coronal reconstructions were viewed as w ell as maximal intensity projections on an independent 3-D workstation. Automated exposure control wa s utilized for the study. A dose lowering technique was utilized adhering to the principles of ALARA . FINDINGS: The caliber of the abdominal aorta is normal. There is mild plaque within the abdominal aor ta. There is no dissection. Major branch vessels are patent. No pneumatosis, free air or portal venou s gas is present. Right-sided segmental pulmonary emboli are better depicted on the chest CT. The sheela er, spleen, adrenal glands, kidneys and pancreas are unremarkable. There is no hydronephrosis. There is no biliary or pancreatic ductal dilatation. Moderate bladder distention is noted. No suspicious os seous lesions are present. There is no lymphadenopathy or ascites. The appendix is normal. IMPRESSION: 1. Normal caliber abdominal aorta. No dissection. Mild atherosclerotic plaque. 2. No acute findings within the abdomen or pelvis. ACT 112: Negative or not required by law. Electronically signed by: William Pineda M.D. 04/28/2020 8:17 AM
--- NOTE | 2020-04-28 08:21 | Electrocardiogram Report ---
Test Reason : Blood Pressure : / mmHG Vent. Rate : 073 BPM Atrial Rate : 073 BPM P-R Int : 200 ms QRS Dur : 110 ms QT Int : 412 ms P-R-T Axes : 033 -32 002 degrees QTc Int : 453 ms Normal sinus rhythm Left axis deviation Abnormal ECG When compared with ECG of 27-APR-2020 20:40, Nonspecific ST and T wave abnormality no longer present QRS axis shifted back to prior baseline (left axis deviation) Confirmed by Terry Schneider ([id number]) on 04/28/2020 8:20:50 AM Referred By: REFERRED SELF Confirmed By:Terry Schneider
--- NOTE | 2020-04-28 08:27 | Cardiology Consultation ---
Date of Consultation April 28, 2020 Assessment & Plan (1) Chest pain: (2) Pulmonary emboli: (3) Cervical dystonia: (4) VSD (ventricular septal defect), perimembranous: 64-year-old patient presents with chest discomfort. Musculoskeletal etiology suspected. Cardiac enzymes are undetectable, no ischemic ECG changes or regional wall motion abnormalities per resting 2D transthoracic echocardiogram. No evidence of pericardial effusion. Continue Xarelto for treatment of recently diagnosed recurrent pulmonary embolus. Lifelong anticoagulation recommended at this time. Continue supportive care and pain management as per internal medicine. Given history of discitis and endocarditis, recommend repeat blood cultures. Continue outpatient cardiovascular medications as previously ordered. Thank you for allowing me to participate in the care of your patient. History of Present Illness Reason for Consultation: chest pain Requesting Physician: Dr. Wilkinson Attending Physician: Jose Matthews DO History of Present Illness 64-year-old male presents with headache, neck, and chest discomfort. History of perimembranous VSD, endocarditis, pulmonary blood, and volume overload. Patient describes acute onset of left-sided headache beginning last evening. Headaches typically provoked by chewing. Carries a history of cervical dystonia and torticollis. The discomfort became quite intense radiating to his neck, left chest, left upper extremity, left lower extremity. Treated with IV pain medication in the emergency department with subsequent improvement of symptoms. Cardiac enzymes undetectable. ECG without ischemic changes. Currently, patient resting comfortably. Notes a mild soreness involving the left side of his body. Denies any focal weakness or paresthesias. Recently diagnosed with recurrent right-sided pulmonary embolus. Xarelto restarted. He was also treated for multiple bouts of bronchitis with steroids and antibiotics per pulmonary medicine. Denies fever, chills, or sick contacts. No orthopnea, PND, or lower extremity edema. Denies falls or injuries. Offers no other concerns/complaints this time. Cardiovascular history: Diagnosed with congenital heart defect at . He has found to have a ventricular septal defect. He was kept in house with limited activity for the first 6-years of his life. In 1970 he had a heart catheterization at [facility] which apparently showed no chamber enlargement or pulmonary hyperte nsion per Rigoberto, although the records are not available. He had an exercise stress echo performed Dec 15, 2004 which showed normal regional wall motion and a small super crystal VSD was visualized. There was no chamber dilatation. No evidence of pulmonary hypertension. Currently Rigoberto is extremely active. He played sports throughout his youth and young adulthood without any limitations. Patient was hospitalized over the winter in 2013 with bronchitis. Subsequently diagnosed with COPD and he is being [place]. [place] [facility] [place] Repeat resting 2D transthoracic ECHO performed during hospitalization demonstrated stable small perimembranous VSD. Diagnosed with acute pulmonary embolus 2017 in the setting of right-sided ankle fracture. Chronic anticoagulation subsequently discontinued by pulmonary medicine. Dobutamine stress echo report summary 03/2019: The Dobutamine stress echo is negative for inducible ischemia. Blood pressure response to dobutamine/atropine administration was normal The left ventricular cavity size is normal. The LV wall thickness is normal. The left ventricular wall motion is normal. The qualitative LV ejection fraction is 55-59% (normal). The left ventricular ejection fraction increases normally with stress. Brief episodes of wide-QRS rhythm and brief episodes non-sustained supraventricular tachycardia were noted during Dobutamine/Atropine administration? dysrhythmias resolved during post-infusion monitoring. The left atrium is mildly enlarged. Mild tricuspid regurgitation is present. The aortic root and proximal ascending aorta are mildly enlarged. There is a congenital paramembranous ventricular septal defect. The estimated pulmonary artery systolic pressure is 40-45mm Hg. Allergies Allergy/AdvReac Type Severity Reaction Status Date / Time Ddmalds-Zhr-Wmr Reductase AdvReac Intermediate GI UPSET Verified 04/27/20 22:02 Inhibitor temazepam AdvReac Intermediate LOSES Verified 04/27/20 22:02 VOLUNTARY MUSCLE CONTROL duloxetine [From Cymbalta] AdvReac Unknown Unknown Verified 04/27/20 22:02 escitalopram [From Lexapro] AdvReac Unknown Unknown Verified 04/27/20 22:02 Home Medications Home Medications Medication Instructions Recorded Confirmed Type albuterol sulfate 90 mcg/actuation 2 puffs INH Q6H PRN 07/09/18 04/27/20 History aerosol inhaler alprazolam 1 mg tablet 1 mg PO HS tab 07/09/18 04/27/20 History alprazolam 1 mg tablet,extended 2 mg PO QAM tab 07/09/18 04/27/20 History release 24 hr benzonatate 100 mg capsule 100 - 200 mg PO TID PRN cap 07/09/18 04/27/20 History finasteride 5 mg tablet 5 mg PO DAILY 07/09/18 04/27/20 History furosemide 20 mg tablet 20 mg PO DAILY 07/09/18 04/27/20 History multivitamin 1 tab PO DAILY 07/09/18 04/27/20 History omega-3 fatty acids 1,000 mg 1,000 mg PO DAILY 07/09/18 04/27/20 History capsule lactobacillus combination no.4 3 3,000 mmu cells PO DAILY 07/10/18 04/27/20 History billion cell capsule oxycodone-acetaminophen 5 mg-325 1 - 2 tab PO Q6 PRN tab 07/10/18 04/27/20 History mg tablet Combivent Respimat 1 puff INHALATION QID 01/02/19 04/27/20 History diclofenac sodium [Voltaren] 4 g TOPICAL BID PRN 01/02/19 04/27/20 History docusate sodium [Colace] 300 mg PO BID 01/02/19 04/27/20 History polyethylene glycol 3350 [Miralax] 17 g PO UD 01/02/19 04/27/20 History sennosides [senna] 8.6 mg PO DAILY PRN 01/02/19 04/27/20 History tamsulosin [Flomax] 0.4 mg PO DAILY 01/02/19 04/27/20 History tizanidine [Zanaflex] 6 mg PO BID PRN 01/02/19 04/27/20 History Botox 200 unit IM UD 04/01/19 04/27/20 History omeprazole magnesium [Prilosec OTC] 40 mg PO DAILY 04/01/19 04/27/20 History melatonin 5 mg capsule 5 mg PO HS PRN cap 05/27/19 04/27/20 History baclofen 20 mg tablet 20 mg PO TID #270 tab 06/17/19 04/27/20 Rx loratadine 10 mg PO DAILY 07/15/19 04/27/20 History azelastine 137 mcg (0.1 %) nasal 2 sprays INTRANASAL BID 90 Days 09/05/19 04/27/20 Rx spray aerosol #90 ml umeclidinium 62.5 mcg/actuation 1 puffs INH DAILY #3 inhaler 09/17/19 04/27/20 Rx blister powder for inhalation ipratropium bromide 0.02 % 2.5 ml INH Q4H PRN 90 Days #450 ml 10/04/19 04/27/20 Rx solution for inhalation levalbuterol HCl 1.25 mg/3 mL 1.25 mg INH Q4H 90 Days #1620 ml 10/04/19 04/27/20 Rx solution for nebulization levothyroxine 75 mcg capsule 75 mcg PO DAILY 11/29/19 04/27/20 History rizatriptan 10 mg tablet 10 mg PO .COMPLEX PRN 90 Days #27 11/29/19 04/27/20 Rx tab amoxicillin 875 mg-potassium 1 tab PO Q12H #20 tab 04/16/20 04/27/20 Rx clavulanate 125 mg tablet vortioxetine 10 mg tablet 15 mg PO DAILY tab 04/16/20 04/27/20 History gabapentin 600 mg tablet 600 mg PO TID #270 tab 04/22/20 04/27/20 Rx topiramate 100 mg tablet 100 mg PO QAM #90 tab 04/22/20 04/27/20 Rx topiramate 200 mg tablet 200 mg PO QPM #90 tab 04/22/20 04/27/20 Rx rivaroxaban [Xarelto] See Rx Instructions .ROUTE 04/24/20 04/27/20 Rx .COMPLEX #51 ea trazodone 50 mg PO HS 04/28/20 04/28/20 History Patient History Medical History Anemia (Chronic) Anxiety (Chronic) Cardiac murmur Cervical dystonia 2/2 RADIATION; limited ROM side to side COPD (chronic obstructive pulmonary disease) (Chronic) Depression (Chronic) Enlarged prostate (Chronic) GERD (gastroesophageal reflux disease) Hearing deficit History of BPH History of endocarditis 2017 2/2 OSTEOMYELITIS; RESOLVED History of pulmonary embolism 2016 AFTER INJURY TO ANKLE - TREATED W/ BLOOD THINNERS Hypothyroidism (Chronic) Migraine (Chronic) BOTOX INJECTIONS Osteoarthritis Osteomyelitis of vertebra, thoracolumbar region (Chronic) 2017; RESOLVED Radiation fibrosis Sciatica Scoliosis Spinal stenosis Temporomandibular joint disorder 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 THOMAS Surgical History H/O arthroscopy of shoulder (Chronic) H/O umbilical hernia repair (Chronic) History of arthroscopy of knee Rt x 2; Lt x 1 History of arthroscopy of left shoulder History of bronchoscopy X 2 History of cardiac cath AT AGE 13 - [facility] - NO INTERVENTION History of carpal tunnel release (Chronic) History of colostomy History of esophagogastroduodenoscopy (EGD) History of hernia repair umbilical History of left ankle joint replacement History of prostate biopsy History of surgery PEG tube placement; removal History of tonsillectomy and adenoidectomy (Chronic) History of tooth extraction S/P transposition of nerve BL ulnar S/P TURP (Chronic) Family History Mother Family history of diabetes mellitus Cardiac disorder FHx: deafness or hearing loss Stroke Hypertension Sister Family history of diabetes mellitus Father Stomach cancer Denies family history of Clotting disorder Social History Preferred Language: Senegalese Communication Ability: Effective Right Of Way Maintenance Supervisor Required: No Beliefs That Will Affect Care: None Current Living Situation: Spouse Other Information That Helps Us Care for You: No Feels Safe at Home: Yes Safety Concerns: Feels Safe At This Time Smoking Status: Former smoker Tobacco Type: smokeless tobacco ; Do You Dip or Chew Tobacco: No (Quit 2004) ; Second Hand Exposure: No ; Tobacco Cessation Education Requested by Patient: No Hx Alcohol Use: No Hx Substance Use: No Review of Systems Review of Systems: All systems reviewed & are unremarkable except as noted in HPI & below Physical Exam Constitutional: well developed, well nourished and + ill appearing; no acute distress Respiratory: normal respiratory effort, lungs clear to auscultation A uscultation: no crackles, no rales, no rhonchi and no wheezes Cardiovascular: Rate/Rhythm: regular rate and regular rhythm Heart Sounds: normal S1, normal S2 and + murmur (3/6 pansystolic murmur heard best at the left sternal border however audible throughout the precordium.) Vessels: no JVD and no carotid bruit Extremities: no calf tenderness and no edema Gastrointestinal (Abdomen): Inspection/Auscultation: abdomen normal to inspection and normal bowel sounds; abdomen not distended Percussion/Palpation: abdomen soft; abdomen nontender, no guarding and abdomen not rigid Musculoskeletal: Head/Neck/Chest: normocephalic and head atraumatic Skin: no rashes, warm and dry Neurologic: CN's II-XI intact bilaterally; no focal motor deficits Psychiatric: A+Ox3, euthymic affect Results & Data ([facility]) Vital Signs (Past 12 Hours) Vital Signs Temp Pulse Pulse Resp BP BP Pulse Ox 04/28/20 08:02 36.8 C 69 15 146/66 H 94 04/28/20 05:10 36.6 C 63 20 146/77 H 92 04/28/20 04:34 62 18 136/84 94 04/28/20 03:00 72 20 116/79 04/28/20 02:45 64 18 119/84 04/28/20 02:31 65 18 110/82 96 04/28/20 02:15 61 20 125/83 98 04/28/20 02:00 66 21 130/91 95 04/28/20 01:59 62 18 144/94 H 98 04/28/20 01:47 84 144/94 H 98 04/28/20 01:31 61 132/101 H 93 04/28/20 01:16 79 104/77 95 04/28/20 01:02 65 120/68 95 04/28/20 00:45 61 60 16 120/80 120/80 93 04/28/20 00:31 62 121/77 93 04/28/20 00:16 59 L 120/79 94 04/28/20 00:01 63 127/62 94 04/27/20 23:46 65 130/83 94 04/27/20 23:30 63 110/65 94 04/27/20 23:16 60 120/78 92 04/27/20 23:04 67 129/72 97 04/27/20 22:46 72 146/75 H 93 04/27/20 22:30 66 117/64 92 04/27/20 22:16 65 16 119/73 91 04/27/20 22:00 70 16 122/81 95 04/27/20 21:52 77 20 138/87 93 04/27/20 21:11 83 14 155/129 H 91 04/27/20 20:43 37.0 C 76 22 133/80 97 (1) Chest pain Chest pain type: unspecified Qualified Code(s): R07.9 - Chest pain, unspecified (2) Pulmonary emboli Acute cor pulmonale presence: without acute cor pulmonale Chronicity: acute Pulmonary embolism type: unspecified Qualified Code(s): I26.99 - Other pulmonary embolism without acute cor pulmonale
[2020-04-28] MEDS ORDERED: FUROSEMIDE 20 MG TAB PO SCH (09:00)
[2020-04-28] MEDS ORDERED: LORATADINE 10 MG TAB PO SCH (09:00)
[2020-04-28] MEDS ORDERED: ALBUTEROL HFA 8 GM INHALER INH SCH (09:00)
[2020-04-28] MEDS ORDERED: DOCUSATE SODIUM 100 MG CAP PO SCH (09:00)
[2020-04-28] MEDS ORDERED: MULTIVITAMIN TAB PO SCH (09:00)
[2020-04-28] MEDS ORDERED: IPRATROPIUM BROMIDE HFA INHALER INH SCH (09:00)
[2020-04-28] MEDS ORDERED: LACTOBACILLUS ACIDOPHILUS (FLORANEX) TAB PO SCH (09:00)
[2020-04-28] MEDS ORDERED: PANTOprazole 40 MG TAB PO SCH (09:00)
[2020-04-28] MEDS ORDERED: TOPIRAMATE 100 MG TAB PO SCH ×2 (09:00→21:00)
[2020-04-28] MEDS ORDERED: ASPIRIN 81 MG ECTAB PO SCH (09:00)
[2020-04-28] MEDS ORDERED: UMECLIDINIUM BROMIDE 62.5MCG/BLISTER 7 PUFFS/INHALER INH SCH ×2 (09:00)
[2020-04-28] MEDS ORDERED: FINASTERIDE 5 MG TAB PO SCH (09:00)
[2020-04-28] MEDS ORDERED: TAMSULOSIN HCL 0.4 MG CAP PO SCH (09:00)
[2020-04-28] MEDS ORDERED: ALPRAZolam 0.5 MG TABLET PO SCH ×2 (10:30→21:00)
--- NOTE | 2020-04-28 10:46 | Ultrasound Report ---
US venous doppler LE BI HISTORY: Pain. Edema. pe COMPARISON STUDY: 11/06/2019 FINDINGS: Occlusive thrombus within the right peroneal vein. Left leg demonstrates nonocclusive thrombus within the peroneal vein. There are bilateral popliteal cysts. This measures 6 x 3 cm on the right with the left measuring 3 x 1.5 cm. IMPRESSION: 1. Findings consistent with bilateral acute deep venous thrombosis. 2. Bilateral popliteal cyst. ACT 112: Negative or not required by law. The above report was generated using voice recognition software. It may contain grammatical, syntax or spelling errors. Electronically signed by: Helio Salcido M.D. 04/28/2020 10:45 AM
--- NOTE | 2020-04-28 11:42 | Electrocardiogram Report ---
Test Reason : Blood Pressure : / mmHG Vent. Rate : 070 BPM Atrial Rate : 070 BPM P-R Int : 222 ms QRS Dur : 110 ms QT Int : 410 ms P-R-T Axes : 048 -33 009 degrees QTc Int : 442 ms Sinus rhythm with 1st degree A-V block Left axis deviation Nonspecific T wave abnormality Anterior leads Abnormal ECG When compared with ECG of 27-APR-2020 21:55, Nonspecific T wave abnormality now evident in Anterior leads Confirmed by Terry Schneider ([id number]) on 04/28/2020 11:41:49 AM Referred By: REFERRED SELF Confirmed By:Terry Schneider
--- NOTE | 2020-04-28 16:26 | Discharge Summary ---
Date of Service April 28, 2020 Admission HPI Per Admitting Provider 64-year-old male with past medical history significant for asthma, COPD, recent diagnosis of pulmonary embolism on Xarelto, history of malignant neoplasm of tonsils, pulmonary hypertension, ventral septal defect, essential hypertension, history of osteomyelitis, history of total ankle replacement, thoracic spine pain, tension headache, cervical dystonia, anxiety, major depression, insomnia, lives with his , who presents with severe left-sided headache and chest pain. The patient states that he has cervical dystonia. Once in a while with biting of the food on the left side, he gets severe headaches, but today he had a similar kind of headache, but it was severe and also it was radiating to his neck, his elbows, the legs, and his left-sided chest. He was having spasms, so he came to the ER, and initially he also was having weakness in the left extremities. In the ER, he had a CTA of the abdomen and pelvis, CTA of the chest, CTA of the head and neck, which are both unremarkable in the preliminary report. Even there was no PE on the CTA of the chest which was done with the PE protocol. After receiving a couple of doses of Dilaudid, his symptoms improved and his strength in his left extremities came back to normal. Currently resting comfortably and hemodynamically stable. He says he has ongoing cough, he is following with pulmonary. He was treated with steroids and he had 3 courses of antibiotics so far, but it is not getting better. He is supposed to see ENT in April. Before seeing ENT, he is going to be tested for COVID. Denies any fever or chills. Because of his history of throat cancer, his sense of smell and taste is always not that great. He has some issues with swallowing because of his cancer. He states his presenting symptoms has been improved, but he still has some headache. He is supposed to get cataract surgery. No earache, no runny nose, no sore throat. Currently dry mouth. No nausea, no abdominal pain. Otherwise ambulates okay. No swelling in the legs, no rash. Admission Exam Per Admitting Provider GENERAL: The patient is of moderate build, not in acute distress. VITAL SIGNS: Temperature 37, pulse 72, respiratory rate 20, blood pressure 116/79, oxygen 96% on 3 liters. HEENT: No pallor, no icterus. Pupils equal, round, and reactive to light. Oral mucosa dry. NECK: No JVD, no neck masses. CARDIOVASCULAR: S1, S2 heard, regular rate and rhythm. Murmur in the ventral region seen. RESPIRATORY SYSTEM: Normal AP diameter. No accessory muscle use. No wheezing, no crackles. ABDOMEN: Soft, bowel sounds present, nontender. No distention. CENTRAL NERVOUS SYSTEM: Alert and oriented. Speech clear. Power 5/5 in all extremities. EXTREMITIES: Nonfocal extremities. No edema, no erythema. Principal Diagnosis 1. Chest pain. 2. Pulmonary embolism/B/L DVTs 3. History of asthma and chronic obstructive pulmonary disease. Pulmonary hypertension. 4. History of ventral septal defect 5. Hypertension 6. Benign prostatic hypertrophy 7. Anxiety and depression Discharge Exam Physical Exam Gen-AAO x 3, NAD, Afebrile Head-NCAT, EOMI, PERRLA, Anicteric Sclera, No Posterior Pharyngeal Erythema Neck-Supple, No JVD, No Thyromegaly, No Masses, No LAD, No Bruits Lungs-Clear to Auscultation Bilaterally, No Rales, No Rhonchi, No Wheezing, No Crepitus Chest-No S4, +S1, +S2, No S3, No Murmurs, No Rubs, No Gallops, No Ectopy Abdomen-Soft, Bowel Sounds Present, Non Tender, Non Distended, No Hepatomegaly, No Splenomegaly, No Palpable Masses, No Rebound, No Rigidity, No Guarding Musculoskeletal-Full Range of Motion Bilaterally, No CVAT Extremities-No Cyanosis, No Clubbing, No Edema Nuero-Cranial Nerves II-XII grossly intact, Motor WNL, DTRs WNL, Strength WNL, Non Focal Psych-Normal Mood Discharge Data Allergies Allergy/AdvReac Type Severity Reaction Status Date / Time Ggrnpjb-Eex-Xgj Reductase AdvReac Intermediate GI UPSET Verified 04/27/20 22:02 Inhibitor temazepam AdvReac Intermediate LOSES Verified 04/27/20 22:02 VOLUNTARY MUSCLE CONTROL duloxetine [From Cymbalta] AdvReac Unknown Unknown Verified 04/27/20 22:02 escitalopram [From Lexapro] AdvReac Unknown Unknown Verified 04/27/20 22:02 Consultations 04/27/20 23:16 ED Decision to Admit Stat 04/28/20 05:27 Consult Case Management - Discharge Planning Routine 04/28/20 08:00 Consult Cardiology Routine Ordered Studies 04/27/20 20:51 CT angio abdomen pelvis w con Urgent CT angio chest PE protocol Urgent CT angio head wo/w Urgent CT angio neck with con Urgent 04/28/20 10:00 US venous doppler LE BI Urgent Allergies Wuvpljy-Yjb-Zha Reductase Inhibitor Adverse Reaction (Intermediate, Verified 04/27/20 22:02) GI UPSET temazepam Adverse Reaction (Intermediate, Verified 04/27/20 22:02) LOSES VOLUNTARY MUSCLE CONTROL duloxetine [From Cymbalta] Adverse Reaction (Unknown, Verified 04/27/20 22:02) Unknown escitalopram [From Lexapro] Adverse Reaction (Unknown, Verified 04/27/20 22:02) Unknown Height/Weight/Isolation Height 5 ft 11 in Weight 94.8 kg Isolation Type Contact Precautions Chemistry 04/27/20 20:51 Sodium 143 Potassium 4.4 Chloride 112 H Carbon Dioxide 25 Anion Gap 6.0 BUN 20 H Creatinine 1.07 Glucose 78 Microbiology 04/28/20 11:18 Blood Aerobic Blood Culture - Pending 04/28/20 11:18 Blood Anaerobic Blood Culture - Pending 04/28/20 11:32 Blood Aerobic Blood Culture - Pending 04/28/20 11:32 Blood Anaerobic Blood Culture - Pending Allergies Eaurofg-Wrg-Htc Reductase Inhibitor Adverse Reaction (Intermediate, Verified 04/27/20 22:02) GI UPSET temazepam Adverse Reaction (Intermediate, Verified 04/27/20 22:02) LOSES VOLUNTARY MUSCLE CONTROL duloxetine [From Cymbalta] Adverse Reaction (Unknown, Verified 04/27/20 22:02) Unknown escitalopram [From Lexapro] Adverse Reaction (Unknown, Verified 04/27/20 22:02) Unknown Height/Weight/Isolation Height 5 ft 11 in Weight 94.8 kg Isolation Type Contact Precautions Chemistry 04/27/20 20:51 Sodium 143 Potassium 4.4 Chloride 112 H Carbon Dioxide 25 Anion Gap 6.0 BUN 20 H Creatinine 1.07 Glucose 78 Microbiology 04/28/20 11:18 Blood Aerobic Blood Culture - Pending 04/28/20 11:18 Blood Anaerobic Blood Culture - Pending 04/28/20 11:32 Blood Aerobic Blood Culture - Pending 04/28/20 11:32 Blood Anaerobic Blood Culture - Pending Hospital Course (1) VSD (ventricular septal defect), perimembranous: (2) Pulmonary emboli: (3) Chest pain: (4) Acute left-sided muscle weakness: (5) Cervical dystonia: (6) Dyslipidemia: (7) Pulmonary embolism: (8) VSD (ventricular septal defect): (9) Dvt femoral (deep venous thrombosis): Troponins were negative, he was found to have B/L DVTs and PEs. Continue Xarelto and f/u c Dr Joy and Dr Maldonado in the office. Blood cultures were drawn for completeness and patient was DCd. If Blood cultures are positive we will notify Dr Joy. Total Time Total Time Spent Total Time Spent (In Minutes): 45 Total Time Includes: Examination of the Patient, Discharge Planning, Medication Reconciliation and Communication With Other Providers Discharge Plan Discharge Items Patient Disposition: Home - Self-Care Reason For Visit: CHEST PAIN Discharge Diagnosis: 1. Chest pain. 2. Pulmonary embolism/B/L DVTs 3. History of asthma and chronic obstructive pulmonary disease. Pulmonary hypertension. 4. History of ventral septal defect 5. Hypertension 6. Benign prostatic hypertrophy 7. Anxiety and depression Condition on Discharge: Good Activity: Resume your previous activity Lifting: Gradually increase as tolerated Bathing: No limitations Sexual Activity: When tolerated Exercise/Sports: Gradually increase as tolerated Driving/Machine Use: No limitations Weightbearing: Full weightbearing Non-emergency contact: Primary Care Provider and Immigration Associate Call non-emergency contact if: you have any medication questions Follow-up/Referrals: Mike Maldonado DO [Immigration Associate] - (1-2 weeks) Marcin Joy DO [Primary Care Provider] - 05/04/20 1:20 pm (05/04/2020 1:20 PM Provider Marcin Joy DO [facility] ) Diet: Heart Healthy Add Attending Provider Instructions: Xarelto as directed Blood cultures were drawn sec to history of endocarditis, will call PCP if positive Pending Studies at Discharge: No Stand-Alone Forms: My [employer], Smoking Cessation Medications and DC Order Prescriptions: New Xarelto 20 mg Tablet 20 mg PO DAILY Qty: 30 RF: 0 aspirin 81 mg Tablet,Delayed Release (Dr/Ec) 81 mg PO QAM Qty: 30 RF: 0 Continued multivitamin tablet 1 tab PO DAILY RF: 0 omega-3 fatty acids [Fish Oil Concentrate] 1,000 mg capsule 1,000 mg PO DAILY RF: 0 alprazolam [Xanax] 1 mg tablet 1 mg PO HS RF: 0 benzonatate [Tessalon Perles] 100 mg capsule 100 - 200 mg PO TID PRN (Reason: Cough) RF: 0 furosemide [Lasix] 20 mg tablet 20 mg PO DAILY RF: 0 albuterol sulfate 90 mcg/actuation HFA aerosol inhaler 2 puffs INH Q6H PRN (Reason: Shortness Of Breath Or Wheezing) RF: 0 finasteride 5 mg tablet 5 mg PO DAILY RF: 0 alprazolam [Xanax XR] 1 mg tablet extended release 24 hr 2 mg PO QAM RF: 0 lactobacillus combination no.4 [Probiotic] 3 billion cell capsule 3,000 mmu cells PO DAILY RF: 0 oxycodone-acetaminophen 5-325 mg tablet 1 - 2 tab PO Q6 PRN (Reason: Pain) RF: 0 baclofen 20 mg tablet 20 mg PO TID Qty: 270 RF: 3 azelastine 137 mcg (0.1 %) aerosol,spray 2 sprays intranasal BID 90 Days Qty: 90 RF: 3 Incruse Ellipta 62.5 mcg/actuation blister with device 1 puffs INH DAILY Qty: 3 RF: 1 levalbuterol HCl 1.25 mg/3 mL solution for nebulization 1.25 mg INH Q4H 90 Days Qty: 1620 RF: 2 ipratropium bromide 0.02 % solution 2.5 ml INH Q4H PRN (Reason: shortness of breath or wheezing) 90 Days Qty: 450 RF: 0 amoxicillin-pot clavulanate [Augmentin] 875-125 mg tablet 1 tab PO Q12H Qty: 20 RF: 1 tiotropium bromide [Spiriva Respimat] 2.5 mcg/actuation mist 1 puff inhalation DAILY RF: 0 melatonin 5 mg capsule 5 mg PO HS PRN (Reason: Insomnia) RF: 0 vortioxetine 10 mg tablet 15 mg PO DAILY RF: 0 levothyroxine 75 mcg capsule 75 mcg PO DAILY RF: 0 rizatriptan [Maxalt] 10 mg tablet 10 mg PO .COMPLEX PRN (Reason: Migraine Headache) 90 Days Qty: 27 RF: 3 topiramate [Topamax] 100 mg tablet 100 mg PO QAM Qty: 90 RF: 1 topiramate [Topamax] 200 mg tablet 200 mg PO QPM Qty: 90 RF: 1 gabapentin 600 mg tablet 600 mg PO TID Qty: 270 RF: 1 omeprazole magnesium [Prilosec OTC] 20 mg Tablet,Delayed Release (Dr/Ec) 40 mg PO DAILY RF: 0 Botox 200 unit Recon Soln 200 unit IM UD RF: 0 loratadine 10 mg Tablet 10 mg PO DAILY RF: 0 Xarelto 15 mg (42)- 20 mg (9) tablets,dose pack See Rx Instructions .ROUTE .COMPLEX Qty: 51 RF: 0 sennosides [senna] 8.6 mg Tablet 8.6 mg PO DAILY PRN (Reason: Constipation) RF: 0 polyethylene glycol 3350 [Miralax] 17 gram Powder In Packet 17 g PO UD RF: 0 tamsulosin [Flomax] 0.4 mg Capsule 0.4 mg PO DAILY RF: 0 docusate sodium [Colace] 100 mg Capsule 300 mg PO BID RF: 0 tizanidine [Zanaflex] 6 mg capsule 6 mg PO BID PRN (Reason: Spasms) RF: 0 diclofenac sodium [Voltaren] 1 % Gel 4 g TOPICAL BID PRN (Reason: Pain) RF: 0 Combivent Respimat 20-100 mcg/actuation Mist 1 puff INHALATION QID RF: 0 trazodone 50 mg Tablet 50 mg PO HS RF: 0 Discharge Orders: Discharge Order (Routine); Ordered 04/28/20 Ordered By: Jose Matthews Admission Data Admit Date/Time: 04/28/20 04:24 Attending Provider: Jose Matthews Admit Provider: Gen Wilkinson Primary Care Provider: Marcin Joy Other Providers: Gen Wilkinson ; Rigoberto Roth ; Roni Estrada ; Rafy Zimmerman ; Mike Maldonado ; Riky Palacios ; Helio Biggs ; Tiffanie Ruvalcaba ; Kayli Salas ; Santy Salomon
[2020-04-28] MEDS ORDERED: TRAZODONE HCL 50 MG TAB PO SCH (21:00)
[2020-04-28] MEDS ORDERED: AZELASTINE SCH (21:00)
[2020-04-29] MEDS ORDERED: VORTIOXETINE HYDROBROMIDE 10 MG PO SCH (09:00)
[2020-04-29] MEDS ORDERED: VORTIOXETINE HYDROBROMIDE 5 MG PO SCH (09:00)
[2020-05-15] MEDS ORDERED: RIVAROXABAN 20 MG TAB PO SCH (16:30)
== END 2020-04-28 18:21 | disposition home or self-care (01) ==
LOC: ED 20:36 → 1E 20:36